=== PATIENT | female | born 1985 | race Caucasian/White ===

== ENCOUNTER → 2018-06-01 13:30 | Outpatient (CLI) | payer OTHER, SELFPAY ==
[2018-06-01 13:41] LABS: Mucous, Urine 0 SEEN /hpf (<or=2+)
[2018-06-01 15:52] LABS: Color, Urine Straw (Yellow); Glucose, Dipstick Normal (Normal); Ketone-Dipstick Negative (Negative); Leukocyte Esterase-Dipstick 500 /ul (Negative); Nitrite-Dipstick Negative (Negative); Occult Blood-Urine 150 /ul (Negative); Protein-Dipstick 15 mg/dl (Negative); Specific Gravity, Urine 1.005 (1.002-1.030); Urine Bilirubin Dipstick Negative (Negative); Urine Clarity Sl. Cloudy (Clear); Urine Urobilinogen Normal (Normal)
[2018-06-01 16:08] LABS: Bacteria RARE /hpf (None Seen); Red Blood Cells-Urine 10-25 SEEN /hpf (0-5); Squamous Epithelial Cells - UA 0-5 SEEN /hpf (5-10); White Blood Cells 50-100 SEEN /hpf (0-5)
[2018-06-01 18:03] LABS: Chlamydia Trachomatis by PCR Negative (Negative); Neisserai gonorrhoeae by PCR Negative (Negative); Probe Check PASS; Sample Adequacy Control PASS; Specimen Processing Control PASS; Trichomonas Vag DNA by PCR Negative (Negative)
== END ==
PROVIDERS: Visit Provider Obstetrics & Gynecology
DX: N39.0 Urinary tract infection, site not specified (principal); Z11.3 Encounter for screening for infections with a predominantly sexual mode of transmission
CPT/HCPCS: 81001; 87086; 87088; 87186; 87491; 87591; 87661

== ENCOUNTER → 2020-09-15 | Outpatient (CLI) | payer OTHER, SELFPAY ==
[2020-09-18 08:09] LABS: Chlamydia By Nucleic Acid AMP Negative (Negative)
[2020-09-18 10:55] LABS: Gonococcus By Nucleic Acid AMP Negative (Negative)
[2020-09-22 16:47] LABS: HPV Reflexed? NOT INDICATED
== END | disposition home or self-care (01) ==
LOC: LABSPEC 16:50
PROVIDERS: Visit Provider Student in an Organized Health Care Education/Training Program
DX: Z12.4 Encounter for screening for malignant neoplasm of cervix (principal); Z11.3 Encounter for screening for infections with a predominantly sexual mode of transmission
CPT/HCPCS: 87491; 87591; 88175; G0145

== ENCOUNTER 2020-12-03 19:04 | Emergency (ER) | payer OTHER, SELFPAY ==
[2020-12-03 19:05] VITALS: BP 140/74; PULSE 69; PULSE 70; RESP 16; TEMP 35.6; O2SAT 100; BMI 42.7
--- NOTE | 2020-12-03 19:42 | CT_ITS ---
STUDY: CT ABDOMEN AND PELVIS WITH CONTRAST REASON FOR EXAM: Female, 35 years old. BLOATING UPPER ABDOMINAL PAIN, FOOD MAKES WORSE, GASTRIC BYPASS IN [place] APRIL 2020. RADIATION DOSAGE (If Supplied By Facility): CTDIvol = ( 14.975 ) mGy, DLP = ( 1257.57 ) mGycm TECHNIQUE: Transaxial images were obtained from the dome of the diaphragm to the symphysis pubis without oral contrast. Oral and amp; IV Gastrografin and amp; 100mL Isovue-300 was administered. Sagittal and coronal images were reconstructed. Individualized dose optimization techniques were used for this CT. COMPARISON: None. FINDINGS: The visualized lung bases are unremarkable. The visualized portions of the heart are within normal limits. Normal liver. There is non-visualization of the gallbladder, which may be secondary to either contraction or a prior cholecystectomy. Normal spleen. Normal pancreas. Normal bilateral adrenal glands. Normal right kidney. Normal left kidney. There is evidence of a prior gastric bypass. There is gastric wall thickening and stranding within the adjacent fat within the residual mid/distal stomach adjacent to the anastomotic sutures. No extraluminal air nor extravasated contrast is visualized. There is contrast within the small bowel. Normal colon. There is non-visualization of the appendix. Normal abdominal aorta. Normal inferior vena cava. Normal retroperitoneum. Normal urinary bladder. There is a intrauterine device in place and in grossly satisfactory position. Within the left adnexa there is a 2.6 x 4.2 x 2.7 cm well-circumscribed low attenuation round focus with an appearance suggestive of an ovarian cyst. Normal abdominal wall. There is degenerative disc disease at L5-S1. CT/Abdomen/Pelvis WITH Contrast IMPRESSION: Findings suggestive of inflammation adjacent to gastric bypass sutures may be secondary to underlying gastritis; no contrast extravasation nor extraluminal air is visualized. 2.6 x 4.2 x 2.7 cm left ovarian cyst, consider nonemergent pelvic ultrasound for further characterization. Electronically Signed: Suzanne Uribe MD at 21:41 EST Tel , Service support ,
--- NOTE | 2020-12-03 19:43 | ED.DCSUM_ITS ---
- ER Visit Summary Date of Service: 12/03/20 Chief Complaint: [Abdominal pain] History of Present Illness: The patient is a 35 F [presents to the emergency department complaint of abdominal pain that she has had for the last 2 days. Patient states that she has a bloated feeling in the upper abdomen that is worse with breathing sometimes. Patient states food seems to make it worse and if she does not eat it is not too bad. Patient states that she had a gastric bypass revision done in [place] in April 2020. Patient denies any fever. She denies vomiting. She denies diarrhea. Her last bowel movement was 2 days ago. She denies urinary symptoms. Patient has had her gallbladder removed. She denies urinary symptoms.] Physical Examination: [HEENT-PERRLA, EOMI. Cranial nerves II through XII grossly intact. TMs clear. Mucous membranes moist. No adenopathy. Cardiovascular-regular rate and rhythm without murmur or ectopy Lungs-clear to auscultation, chest wall stable without crepitus or subcu emphysema Abdomen-normoactive bowel sounds, soft. Patient has tenderness palpation over the epigastric region in the left upper quadrant. There is no rebound, rigidity, or peritoneal signs. Extremities-intact ?4, normal range of motion, normal pulses, atraumatic] Test Results: [CBC with differential obtained showed a white count of 9.4, hemoglobin 10.8, hematocrit 36, platelets 656. Chemistries unremarkable. LFTs normal. Lipase normal. Urinalysis normal. Troponin is less than 0.015. Lactate was 0.9. D-dimer was 0.5. CT scan of the abdomen pelvis showed inflammation adjacent to the gastric bypass sutures which may represent gastritis. There is no contrast extravasation.] Emergency Department Course and Treatment: [IV line established on arrival. Patient did not want a thing for pain. I discussed case with general surgeon telecommunications support who recommended that I discussed case with a bariatric surgeon as this was outside the realm of her practice. Patient had prior gastric sleeve placement in 2017 at [facility] by therefore I called [facility] and spoke with one of his partners Dr. Groves who agreed that likely this represents a gastritis versus a ulcer development in the pouch of the remnant stomach. I was asked to start patient on Protonix 40 mg twice daily and have her call the office for a follow-up appointment in the near term with our office. She may need further evaluation such as possible EGD. Patient has not had any significant vomiting. She is not had any blood in her stool or black tarry stools. Patient to stick to a clear liquid diet for the next 2 days] Treatment Plan: [Patient to follow-up with bariatric surgeon in [place]. Patient will be started on Protonix. Patient advised to return if worsening p ain, fever, vomiting, or condition worsen anyway.] Disposition: [Discharged home in stable condition] Impression: [Abdominal pain Gastritis] This note was generated with [employer] dictation software. It may contain incorrect words, spelling, and punctuation that were not noted in review of the chart prior to signing ED Disposition - Plan for ED Patient: Referrals: Percy Mcgowan MD [Primary Care Provider] -
[2020-12-03] MEDS: 0.9% Normal Saline 1,000 ML 125 ML IV (20:24)
[2020-12-03 20:26] LABS: Bacteria 0 SEEN /hpf (None Seen); Mucous, Urine 0 SEEN /hpf (<or=2+); Red Blood Cells-Urine 0 SEEN /hpf (0-5); White Blood Cells 0 SEEN /hpf (0-5)
[2020-12-03 20:30] LABS: Color, Urine Yellow (Yellow); Glucose, Dipstick Normal (Normal); Ketone-Dipstick 5 mg/dl (Negative); Leukocyte Esterase-Dipstick Negative /ul (Negative); Nitrite-Dipstick Negative (Negative); Occult Blood-Urine 10 /ul (Negative); Protein-Dipstick Negative (Negative); Specific Gravity, Urine 1.015 (1.002-1.030); Urine Bilirubin Dipstick Negative (Negative); Urine Clarity Clear (Clear); Urine Urobilinogen Normal (Normal)
[2020-12-03 20:30] LABS: Absolute Lymphocyte Count 2.95 X10^3/uL (0.83-4.51); Absolute Neutrophil Count 5.6 X10^3/uL (2.0-7.7); Basophil# 0.03 X10^3/uL; Basophil% 0.3 % (0-1); Eosinophils% 1.1 % (0-5); Hematocrit 36.3 % (37-47); Hemoglobin 10.8 g/dL (12.0-15.0); Lymphocyte # 2.95 X10^3/ul (4.0); Lymphocyte % 31.4 % (19-41); Mean Corp Hgb Conc 29.8 g/dL (32-36); Mean Corpuscular Hgb 23.6 pg (27.0-32.0); Mean Corpuscular Volume 79.4 fL (81-99); Mean Platelet Vol. 8.7 fl (6.2-12.0); Monocyte# 0.64 X10^3/uL; Monocyte% 6.8 % (0-10); NRBC Flagged by Analyzer 0 % (0-5); Neutrophil # 5.64 X10^3/uL (2.7-7.7); Neutrophil % 60.1 % (47-70); Platelet Count 656 K/mm3 (150-450); RBC Distribution Width CV 15.9 % (11.6-14.6); RBC Distribution Width SD 45.1 fl (35.1-43.9); Red Blood Count 4.57 M/mm3 (4.2-5.4); White Blood Count 9.4 K/mm3 (4.4-11.0)
[2020-12-03 20:40] LABS: Squamous Epithelial Cells - UA 0-5 SEEN /hpf (5-10)
[2020-12-03 20:54] LABS: ALB/GLOB Ratio 0.7 RATIO (0.9-2.4); AST(SGOT) 15 U/L (15-37); Alanine Aminotransfer ALT/SGPT 24 U/L (13-56); Albumin, Serum 3.4 g/dL (3.2-5.0); Alkaline Phosphatase 98 U/L (45-117); Anion Gap 4 (5-15); BUN 10 mg/dL (7-18); BUN/Creat Ratio 14.2 RATIO (10-20); Calcium,Total 9.2 mg/dL (8.5-10.1); Chloride 107 mmol/L (98-107); EST Glomerular Filtration Rate 99 mL/min (>60); Est Glom Filt Rate - Afr Amer 120 mL/min (>60); Estimated Creatinine Clearance 103.01 ml/min; Globulin 4.7 g/dL (2.2-4.2); Glucose 84 mg/dL (74-106); Internal QC Validated? YES +Cl - CLEAR BKGD; Lipase 121 U/L (73-393); Potassium 3.7 mmol/L (3.5-5.1); Pregnancy, Serum, hCG Quali. NEGATIVE Negative; Protein, Total 8.1 g/dL (6.4-8.2); Sodium Level 139 mmol/L (136-145)
[2020-12-03 21:05] VITALS: RESP 16
[2020-12-03 21:09] LABS: Lactic Acid 0.9 mmol/L (0.4-1.9)
[2020-12-03 23:00] VITALS: BP 128/83; PULSE 55; RESP 18; O2SAT 99
--- NOTE | 2020-12-04 00:54 | ED.DEP ---
ED Disposition - Plan for ED Patient: Instructions: ED Gastritis (Adult) Prescriptions: Pantoprazole Sodium [Protonix] 40 mg PO BID #60 tab Prescription Printed Referrals: Percy Mcgowan MD [Primary Care Provider] - Additional Instructions: Call Dr. Esquivel or Dr. Groves for follow up appointment
[2020-12-04] MEDS: Pantoprazole Sodium 40 MG Tablet PO (01:00)
== END 2020-12-04 01:02 | disposition home or self-care (01) ==
LOC: ED 20:35
PROVIDERS: Emergency Provider Emergency Medicine; PCP Family Medicine
DX: K29.70 Gastritis, unspecified, without bleeding (principal); Z98.84 Bariatric surgery status
CPT/HCPCS: 74177; 80053; 81001; 83605; 83690; 84484; 84703; 85025; 85379; 96360; 96361; 99284; J7030; Q9967; A4216

== ENCOUNTER → 2021-02-23 | Outpatient (CLI) | payer OTHER, SELFPAY ==
[2021-02-25 03:07] LABS: Chlamydia By Nucleic Acid AMP Negative (Negative)
[2021-02-25 11:32] LABS: Gonococcus By Nucleic Acid AMP Negative (Negative)
== END | disposition home or self-care (01) ==
LOC: LABSPEC 11:27
PROVIDERS: PCP Family Medicine; Visit Provider Obstetrics & Gynecology
DX: Z11.3 Encounter for screening for infections with a predominantly sexual mode of transmission (principal)
CPT/HCPCS: 87491; 87591

== ENCOUNTER → 2022-05-04 | Outpatient (CLI) | payer OTHER, SELFPAY ==
[2022-05-11 22:06] LABS: HPV Genotype 16, Aptima Negative (Negative)
[2022-05-11 22:42] LABS: HPV APTIMA, High Risk Positive (Negative); HPV Genotype 18,45 Aptima Negative (Negative)
== END | disposition home or self-care (01) ==
LOC: WOBLAB 16:33
PROVIDERS: PCP Family Medicine; Visit Provider Student in an Organized Health Care Education/Training Program
DX: Z12.4 Encounter for screening for malignant neoplasm of cervix (principal); Z13.29 Encounter for screening for other suspected endocrine disorder
CPT/HCPCS: 36415; 84443; 87624; 88175; G0145

== ENCOUNTER → 2024-10-03 | Outpatient (CLI) | payer OTHER, SELFPAY ==
[2024-10-03 12:18] LABS: Absolute Lymphocyte Count 2.51 X10^3/uL (0.83-4.51); Absolute Neutrophil Count 4.4 X10^3/uL (2.0-7.7); Basophil# 0.02 X10^3/uL; Basophil% 0.3 % (0-1); Eosinophil# 0.06 X10^3/uL; Eosinophils% 0.8 % (0-5); Hematocrit 36.9 % (37-47); Hemoglobin 11.4 g/dL (12.0-15.0); Lymphocyte # 2.51 X10^3/ul (0.83-4.51); Lymphocyte % 33.5 % (19-41); Mean Corp Hgb Conc 30.9 g/dL (32-36); Mean Corpuscular Hgb 28.4 pg (27.0-32.0); Mean Platelet Vol. 9.1 fl (6.2-12.0); Monocyte# 0.46 X10^3/uL; Monocyte% 6.1 % (0-10); NRBC Flagged by Analyzer 0 % (0-5); Neutrophil % 58.8 % (47-70); Platelet Count 452 K/mm3 (150-450); RBC Distribution Width CV 13.4 % (11.6-14.6); RBC Distribution Width SD 45.2 fl (35.1-43.9); Red Blood Count 4.01 M/mm3 (4.2-5.4); White Blood Count 7.5 K/mm3 (4.4-11.0)
[2024-10-03 13:02] LABS: Vitamin B12 223 pg/mL (211-911); Vitamin D,25 Hydroxy 25.2 ng/mL
[2024-10-03 13:06] LABS: ALB/GLOB Ratio 0.8 RATIO (0.9-2.4); AST(SGOT) 14 U/L (15-37); Alanine Aminotransfer ALT/SGPT 12 U/L (13-56); Albumin, Serum 3.1 g/dL (3.2-5.0); Alkaline Phosphatase 62 U/L (45-117); Anion Gap 4 (5-15); BUN 12 mg/dL (7-18); BUN/Creat Ratio 26.1 RATIO (10-20); Calcium,Total 8.9 mg/dL (8.5-10.1); Chloride 107 mmol/L (98-107); Creatinine, Serum 0.46 mg/dL (0.55-1.02); EST Glomerular Filtration Rate 159 mL/min (>60); Est Glom Filt Rate - Afr Amer 193 mL/min (>60); Ferritin 27 ng/mL (8-252); Globulin 3.9 g/dL (2.2-4.2); Glucose 89 mg/dL (74-106); Iron 71 ug/dL (50-170); Iron Binding Capacity,Total 445 ug/dL (250-450); Potassium 3.6 mmol/L (3.5-5.1); Sodium Level 138 mmol/L (136-145); Thyroid Stim Hormone (TSH) 0.671 uIU/mL (0.358-3.740)
[2024-10-08 05:06] LABS: Beef <0.10 kU/L (Class 0); Chocolate <0.10 kU/L (Class 0); Codfish <0.10 kU/L (Class 0); Corn <0.10 kU/L (Class 0); Egg, Whole <0.10 kU/L (Class 0); Milk (Cow) <0.10 kU/L (Class 0); Mussels <0.10 kU/L (Class 0); Peanut <0.10 kU/L (Class 0); Pork <0.10 kU/L (Class 0); Salmon <0.10 kU/L (Class 0); Shrimp <0.10 kU/L (Class 0); Soybean <0.10 kU/L (Class 0); Tuna <0.10 kU/L (Class 0); Wheat <0.10 kU/L (Class 0)
[2024-10-13 12:08] LABS: Endomysial Antibody IgA Negative (Negative); Immunoglobulin A 199 mg/dL (87-352); Vitamin A, Retinol 59.2 ug/dL (20.1-62.0); t-Transglutaminase IgA <2 U/mL (0-3)
== END | disposition home or self-care (01) ==
PROVIDERS: PCP Family Medicine; Referring Provider Nurse Practitioner Acute Care; Visit Provider Nurse Practitioner Acute Care
DX: K58.2 Mixed irritable bowel syndrome (principal); K21.9 Gastro-esophageal reflux disease without esophagitis; Z98.84 Bariatric surgery status; R14.0 Abdominal distension (gaseous); R14.3 Flatulence; R10.9 Unspecified abdominal pain; R13.10 Dysphagia, unspecified
CPT/HCPCS: 36415; 80053; 82306; 82607; 82728; 82784; 83516; 83540; 83550; 84443; 84590; 85025; 86003; 86005; 86255

== ENCOUNTER 2025-02-05 17:09 | Emergency (ER) | payer OTHER, SELFPAY ==
[2025-02-05 17:11] VITALS: BP 134/59; PULSE 61; RESP 18; TEMP 37.1; O2SAT 100; BMI 35.2
[2025-02-05 17:44] VITALS: BP 134/59; PULSE 61; RESP 16; TEMP 37.1; O2SAT 100
--- NOTE | 2025-02-05 18:02 | EX.ED.VISEXT ---
HPI History of Present Illness Chief Complaint: Bite Narrative Narrative: Chief complaint and HPI: Wound evaluation. 39-year-old female presents for wound evaluation. Patient states she was bitten by her significant others dog accidentally on 01/28/2025. She states that they recently moved into with each other and their animals got into an altercation. She was bit on the lateral aspect of her left thigh. Dogs are up-to-date on rabies. She is up-to-date on tetanus. She states she had leftover Augmentin at home in which she took a 3-day supply of this. She states she stopped taking it because she developed a vaginal yeast infection. She states that this improved with [id number] cream. Patient states that she noticed some firmness to the bite area and called PCP. Concern is for possible abscess so they sent her to the emergency department. She denies any fever, chills, abdominal pain, nausea, vomiting. Denies any drainage from the area. Review of systems: See HPI Medications: As listed on the chart Allergies: As listed on the chart PFSH: Per chart Vital signs: As listed on the chart. Reviewed. Physical exam: Gen: A&O x3, NAD Head: Normocephalic, atraumatic Eyes: No sclera icterus, conjunctiva clear ENT: Moist mucous membranes CV: Regular rate Resp: Nonlabored respirations Musc: Full ROM of the left lower extremity, no deformity, on the lateral aspect of the left thigh there are multiple puncture wounds from the dog bite-they are healing and scabbed over-no erythema, purulence, warmth. In the center of the curved shaped healing puncture wounds there is an area of induration-no erythema, purulence, warmth-nontender. There is scattered ecchymosis. Skin: Warm, dry Neuro: Alert, oriented, grossly intact, sensation intact Psych: Cooperative, appropriate mood and affect [facility] Medical History (Updated 02/05/25 @ 18:[address] Harrison Moses DO) Bloating Abdominal distention Depression Anemia Abdominal pain Stomach ulcer Home Medications ?Medication ?Instructions ?Recorded ?Last Taken ?Type escitalopram oxalate 10 mg tablet 10 mg PO DAILY 12/03/20 Unknown History drospirenone 3 mg-ethinyl 1 tab PO QDAY 10/03/24 Unknown History estradiol 0.03 mg tablet (Ocella) pantoprazole 40 mg tablet,delayed 40 mg PO QDAY 10/03/24 Unknown History release Allergy/AdvReac Type Severity Reaction Status Date / Time oxycodone (From OxyContin) Allergy Rash Verified 02/05/25 17:11 Family History no significant family his Surgical History H/O gastric bypass Social History Smoking Status: Former smoker EXAM Physical Exam Const Vital Signs: 02/05/25 17:11 02/05/25 17:44 Temperature 98.7 F 98.7 F Temperature Source Oral Pulse Rate 61 61 Respiratory Rate 18 16 Blood Pressure 134/59 H 134/59 H Blood Pressure Mean 84 84 Pulse Ox 100 100 MDM MDM MDM Narrative Medical decision making narrative: 39-year-old female presents for wound evaluation. Patient states she was bitten by her significant others dog accidentally on 01/28/2025. Differential diagnosis includes but is not limited to hematoma, seroma, abscess, cellulitis. See physical exam findings. Physical exam findings are consistent with hematoma. This is not an abscess or cellulitis. Patient was educated that hematomas will slowly absorb over time. No acute intervention. Recommended compression with an Alessandro bandage. Patient states she has one at home. Continue to monitor. Follow-up with PCP. Patient is able to discharge home. She confirmed understanding of the plan. Impression: 1. Left thigh hematoma 2. History of dog bite Discharge Plan Triage Chief Complaint: Bite ED Provider: Harrison Moses Dx/Rx/DC Orders Clinical Impression: Hematoma of left thigh Instructions: Bruises (Contusions), ED Dog Bite Prescriptions: No Action pantoprazole 40 mg tablet,delayed release (DR/EC) 40 mg PO QDAY drospirenone-ethinyl estradiol [Ocella] 3-0.03 mg tablet 1 tab PO QDAY escitalopram oxalate 10 MG tablet 10 mg PO DAILY Primary Care Provider: Percy Mcgowan Referrals: Percy Mcgowan MD [Primary Care Provider] - 3-5 Days Activity Restrictions/Additional Instructions: Follow-up with your primary care physician. Return back to ED if symptoms change or worsen Print Language: Mongolian Disposition Disposition: Home, Self Care Discharge Date/Time: 02/05/25 18:04
== END 2025-02-05 18:04 | disposition home or self-care (01) ==
PROVIDERS: Emergency Provider Surgery; PCP Family Medicine; Visit Provider Surgery
DX: S70.12XA Contusion of left thigh, initial encounter (principal); W54.0XXA Bitten by dog, initial encounter; F32.A Depression, unspecified; Z87.19 Personal history of other diseases of the digestive system; Z79.899 Other long term (current) drug therapy; Z87.891 Personal history of nicotine dependence
CPT/HCPCS: 99282

== ENCOUNTER 2025-04-05 05:35 | Day surgery (SDC) | payer OTHER, SELFPAY ==
[2025-04-05] VITALS (7 sets, daily range): BP systolic 102–115; BP diastolic 52–74; PULSE 55–62; RESP 16; TEMP 36.2–36.3; O2SAT 99–100; BMI 35.5
[2025-04-05] MEDS: Lactated Ringers 1,000 ML 15 ML IV (06:05)
[2025-04-05 06:10] LABS: Internal QC Validated? YES +Cl - CLEAR BKGD; Pregnancy, Urine Negative Negative
--- NOTE | 2025-04-05 06:30 | EGD_PTH ---
PATIENT: KRISTA SPARKS LOC: EN U#:[id number] AGE/SX: 39/F ROOM: RE04/05/[address]: Dr. Prabhu Cleary DO : 1985 BED: DIS: 04/05/2025 SPEC #: [id number] RECD: 04/05/25 10:55 STATUS: RADHA BOLTON #: [id number] JESSI: 04/05/25 06:[address]: Prabhu Cleary DEPT: SURGICAL PATHOLOGY RECD BY: Breezy Simpson ENTERED: 04/05/25 11:14 SP TYPE: EGD BIOPSY NAGI DR: Dr. Percy Mcgowan MD Tissues: A - COLON BIOPSY B - Ileum, NOS C - COLON BIOPSY Procedures: Immunohistochemical Stains Surgery Specimen Level IV HEADER OPERATION: Colonoscopy, EGD with biopsy PRE-OP DIAGNOSIS: History of gastric bypass, bloating, flatulence, irritable bowel syndrome, dysphagia TISSUE SUBMITTED: A- Anastomotic ulcer biopsy, B- Terminal ileum biopsy, C- Random colonic biopsy MICROSCOPIC DIAGNOSIS A. Gastrointestinal tract nos, anastomotic ulcer, biopsy: Small intestinal mucosa with acute inflammation, edema, and focal gastric mucin cell metaplasia. B. Small bowel, terminal ileum, biopsy: Small intestinal mucosa with prominent mucosal lymphoid aggregates, favor reactive. C. Colon, random, biopsy: No specific pathologic change. The histologic features of microscopic colitis are not demonstrated. MICROSCOPIC DESCRIPTION Slides are reviewed. GROSS DESCRIPTION A. Received in formalin in a container labeled with the patient's name, date of , and anastomotic ulcer are 2 meyer-pink fragments of mucosal tissue measuring 0.3 x 0.3 x 0.2 cm and 0.4 x 0.3 x 0.2 cm. Submitted in toto in A1. B. Received in formalin in a container labeled with the patient's name, date of , and terminal ileum biopsy are multiple meyer-pink fragments of mucosal tissue measuring 0.8 x 0.7 x 0.3 cm in aggregate. Submitted in toto in B1. C. Received in formalin in a container labeled with the patient's name, date of , and random colonic biopsies are multiple meyer-pink fragments of mucosal tissue measuring 1.1 x 0.6 x 0.2 cm in aggregate. Submitted in toto in C1. [facility] 04-05-2025 CPT:[id number] ADDENDUM ADDENDUM ADDENDUM ADDENDUM ADDENDUM ADDENDUM ADDENDUM ADDENDUM ADDENDUM ADDENDUM ADDENDUM 04/24/2025 11:18 ADDENDUM 04/24/2025 11:18 ADDENDUM 04/24/2025 11:18 ADDENDUM 04/24/2025 11:18 ADDENDUM 04/24/2025 11:18 This addendum is to report the IHC for H pylori on part A, performed at Dr Cleary's request: A) IHC is negative for H pylori organisms. All matched controls reacted appropriately. These tests were developed and their performance characteristics determined by [facility]. They may not have been cleared or approved by the U.S. Food and Drug Administration. The FDA has determined that such clearance or approval is not necessary.? The above immunohistochemical/dualISH?markers are ordered and reviewed by the Pathologist.
--- NOTE | 2025-04-05 06:44 | PRE.ANES_ITS ---
ASA Classification* ASA Classification ASA Classification: 2 Assessment & Plan Anesthesia* Anesthesia Assessment Anesthesia Assessment: Discussed sedation and/or anesthesia options, risks, benefits, and alternatives with patient/parents/legal guardian/POA. Questions invited. The patient/parents/legal guardian/POA seems to understand and agrees to proceed with anesthesia plan. Reviewed the physical assessment, medical history, allergy history and patient home medications list prior to surgery/procedure/anesthetic and documented any changes. Performed airway and anesthesia risk assessments. Anesthesia Type Anesthesia Type: MAC Anesthesia Focused Assessment* Temperature: 97.3 F Pulse Rate: 59 Blood Pressure: 112/52 Respiratory Rate: 16 Pulse Ox: 100 Airway Assessment Mouth opens: >3 cm Mallampati Score: II Focused Labs Anesthesia Preop lab: CBC WBC 7.5 K/mm3 (4.4-11.0) 10/03/24 11:51 10/03/24 RBC 4.01 M/mm3 (4.2-5.4) L 10/03/24 11:51 10/03/24 Hgb 11.4 g/dL (12.0-15.0) L 10/03/24 11:51 4 Hct 36.9 % (37-47) L 10/03/24 11:51 10/03/24 Plt Count 452 K/mm3 (150-450) H 10/03/24 11:51 10/03/24 CHEMISTRY Potassium 3.6 mmol/L (3.5-5.1) 10/03/24 11:51 10/03/24 Sodium 138 mmol/L (136-145) 10/03/24 11:51 10/03/24 BUN 12 mg/dL (7-18) 10/03/24 11:51 10/03/24 Creatinine 0.46 mg/dL (0.55-1.02) L 10/03/24 11:51 Glucose 89 mg/dL (74-106) 10/03/24 11:51 10/03/24 TSH 0.671 uIU/mL (0.358-3.740) 10/03/24 11:51 09/15 COAG Urine Test Negative Negative 04/05/25 05:42 04/05/25 Pre-Assessment Diagnosis/Proposed Procedure Planned Operative Procedure(s): EGD, CSCOPE Anesthesia History 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 When Was Last Pacemaker Check QUESTION #4 FULL TEXT: You/Your Family Experience fever (hyperthermia) with Anesthesia Last Oral Intake Last Oral intake: Last Oral Intake NPO since 02:30 04/05/25 05:56 Meds taken in AM with sips of No 04/05/25 05:56 water? 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 Female Yes 04/04/25 08:21 HX of Motion Sickness No 04/04/25 08:21 HX of N/V After Surgery No 04/04/25 08:21 Non-Smoker Yes 04/04/25 08:21 Duration of Surgery greater No 04/04/25 08:21 than 60 minutes Number of Risk Factors 2 04/04/25 08:21 PONV Score Moderate Risk 04/04/25 08:21 Height & Weight Height & Weight: Anesthesia: Height & Weight Height 5 ft 6 in 04/05/25 05:56 Weight: 99.79 kg 04/05/25 05:56 Body Mass Index (BMI) 35.5 04/05/25 05:56 Respiratory Assessment Respiratory Assessment - 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 Has anyone observed you stop No 04/04/25 08:21 breathing during sleep? STOP Results Negative 04/04/25 08:21 QUESTION #5 FULL TEXT : Do you snore loudly (louder than talking or can be heard through closed doors)? 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 Specify any problems Hx of Preganancy in last 3 N/A 04/04/25 08:21 Months Nurse Filling Out Transfusion NBUCHER 04/04/25 08:21 & Questions: Date: 04/04/25 04/04/25 08:21 Time: 08:22 04/04/25 08:21 Patient unable to answer at this time (ie. 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 Hx Now No 04/04/25 08:21 Gestational Age (in weeks): EDC: Hx Hx Para Hx Section SAB Active Medications Active Medications: Current Medications Generic Name Dose Route Start Last Admin Trade Name Freq PRN Reason Stop Dose Admin Lactated Ringer's 1,000 mls @ 15 mls/hr 04/05/25 05:45 04/05/25 06:05 IV 15 mls/hr .Q48H KOBI Administration PFSH Medical History Wears contact lenses Wears glasses History of ulceration History of IBS Former smoker Bloating Abdominal distention Depression Anemia Abdominal pain Stomach ulcer Home Medications ?Medication ?Instructions ?Recorded ?Last Taken ?Type escitalopram oxalate 10 mg tablet 10 mg PO DAILY 12/0304/04/25 History drospirenone 3 mg-ethinyl 1 tab PO QDAY 10/03/2404/04 History estradiol 0.03 mg tablet (Ocella) pantoprazole 40 mg tablet,delayed 40 mg PO QDAY 04/04/25 History release Allergy/AdvReac Type Severity Reaction Status Date / Time oxycodone (From OxyContin) Allergy Rash Verified 04/05/25 05:47 Surgical History History of esophagogastroduodenoscopy (EGD) History of tonsillectomy History of partial knee replacement History of abdominoplasty History of cholecystectomy H/O gastric bypass Social History Smoking Status: Former smoker Review of Systems (Anesthesia) ROS Narrative System reviewed and no additional complaints, except as documented.
--- NOTE | 2025-04-05 06:55 | PCM.HP.STD ---
HPI - General General Date of Admission: 04/05/25 Date of Service: 04/05/25 Chief Complaint: Abdominal pain HPI Narrative KRISTA SPARKS, is a 39 F who presents with abd discomfort and bloating 39y/o female presents for consultation of abdominal pain. CBC, CMP and Fe panel were unremarkable March 2024. CBC: 03/25/2024 unremarkable - she reports symptoms date back to high school - was on Imodium often for diarrhea - CCX - diarrhea after dining out - reports she had H. Pylori prior to gastric sleeve - Gastric Sleeve - alternating constipation and diarrhea ----- later had conversion to bypass 2019 - then a gastric ulcer 2020 - total weight loss 100lbs - she reports she does not take her vitamins as recommended - she is still having alternating constipation and diarrhea - episodes of fecal incontinence - c/o bloating - c/o flatulence - constipation - can be a few days w/o a BM then will have hard balls of stool - having episodes diarrhea - urgency, incontinence - sx's worse in the past couple years - denies any bleeding - denies any new medications - gas and flatulence - foul odor - 2 episodes in the past week of vomiting secondary to dysphagia - reports experiencing dysphagia more with pasta - has trouble swallowing capsules - does not feel good after eating ground beef B: protein shake L: salad or left overs D: protein (mainly chicken) [facility] Medical History Wears contact lenses Wears glasses History of ulceration History of IBS Former smoker Bloating Abdominal distention Depression Anemia Abdominal pain Stomach ulcer Home Medications ?Medication ?Instructions ?Recorded ?Last Taken ?Type escitalopram oxalate 10 mg tablet 10 mg PO DAILY 12/03/20 04/04/25 History drospirenone 3 mg-ethinyl 1 tab PO QDAY 10/03/24 04/04/25 History estradiol 0.03 mg tablet (Ocella) pantoprazole 40 mg tablet,delayed 40 mg PO QDAY 10/03/24 04/04/25 History release Allergy/AdvReac Type Severity Reaction Status Date / Time oxycodone (From OxyContin) Allergy Rash Verified 04/05/25 05:47 Surgical History History of esophagogastroduodenoscopy (EGD) History of tonsillectomy History of partial knee replacement History of abdominoplasty History of cholecystectomy H/O gastric bypass Social History Smoking Status: Former smoker ROS Constitutional Constitutional: Denies fatigue, fever(s), poor appetite, weight gain or weight loss Gastrointestinal Gastrointestinal: Denies belching, bloating, change in bowel habits, change in stool character, chewing difficulty, coffee ground emesis, constipation, cramping, diarrhea, dyspepsia, dysphagia, early satiety, excessive flatus, fecal incontinence, heartburn, hematemesis, hematochezia, hemorrhoids, loose stools, melena, nausea, odynophagia, rectal bleeding, tenesmus, vomiting or weight changes Vital Signs Vital Signs Vital Signs: 04/05/25 05:56 04/05/25 05:59 04/05/25 06:44 Temperature 97.3 F L 97.3 F L Temperature Source Temporal Pulse Rate 59 L 59 L Respiratory Rate 16 16 Respiratory Pattern Normal Blood Pressure 112/52 L 112/52 L Blood Pressure Mean 72 Blood Pressure Source Monitor Blood Pressure Position Semi-Fowlers Blood Pressure Location Left Arm Pulse Ox 100 100 Oxygen Delivery Method Room Air Weight Weight: 220 lb Body Mass Index (BMI) 35.5 Physical Exam Const alert, oriented x3, no apparent distress and healthy appearing General Appearance: cooperative GI normal to inspection, nondistended, normoactive bowel sounds, soft to palpation, non-tender and non-distended Percussion: normal to percussion Rectal Exam: deferred Results Lab / Micro Data Labs: Laboratory Results - last 24 hr 04/05/25 05:42: Urine Test Negative Assessment & Plan Assessment/Plan (1) Dysphagia: QUALIFIERS: Dysphagia type: esophageal phase Qualified Code(s): R13.19 - Other dysphagia (2) Mixed irritable bowel syndrome: (3) GERD (gastroesophageal reflux disease): QUALIFIERS: Esophagitis presence: esophagitis presence not specified Qualified Code(s): K21.9 - Gastro-esophageal reflux disease without esophagitis (4) Bloating: (5) Flatulence: PLAN: Assessment and Plan Assessment and Plan (1) Abdominal symptoms: (2) Bloating: Status: Acute (3) Abdominal pain: Status: Acute Qualifiers: Abdominal location: epigastric Qualified Code(s): R10.13 - Epigastric pain Comment: Epigastric and RLQ (4) H/O gastric bypass: Status: Acute (5) Flatulence: Status: Acute (6) Bloating: Status: Acute (7) GERD (gastroesophageal reflux disease): Status: Acute Qualifiers: Esophagitis presence: esophagitis presence not specified Qualified Code(s): K21.9 - Gastro-esophageal reflux disease without esophagitis (8) Mixed irritable bowel syndrome: Status: Acute (9) Dysphagia: Status: Acute Qualifiers: Dysphagia type: esophageal phase Qualified Code(s): R13.19 - Other dysphagia Orders: Orders CBC W/Diff, Automated Today K21.9 - Gastro-esophageal reflux disease without esophagitis, K58.2 - Mixed irritable bowel syndrome, R10.9 - Unspecified abdominal pain, R13.10 - Dysphagia, unspecified, R14.0 - Abdominal distension (gaseous), R14.3 - Flatulence, Z98.84 - Bariatric surgery status Iron Binding Capacity,Total Today K21.9 - Gastro-esophageal reflux disease without esophagitis, K58.2 - Mixed irritable bowel syndrome, R10.9 - Unspecified abdominal pain, R13.10 - Dysphagia, unspecified, R14.0 - Abdominal distension (gaseous), R14.3 - Flatulence, Z98.84 - Bariatric surgery status Iron Today K21.9 - Gastro-esophageal reflux disease without esophagitis, K58.2 - Mixed irritable bowel syndrome, R10.9 - Unspecified abdominal pain, R13.10 - Dysphagia, unspecified, R14.0 - Abdominal distension (gaseous), R14.3 - Flatulence, Z98.84 - Bariatric surgery status Ferritin Today K21.9 - Gastro-esophageal reflux disease without esophagitis, K58.2 - Mixed irritable bowel syndrome, R10.9 - Unspecified abdominal pain, R13.10 - Dysphagia, unspecified, R14.0 - Abdominal distension (gaseous), R14.3 - Flatulence, Z98.84 - Bariatric surgery status Comprehensive Metabolic Profil Today K21.9 - Gastro-esophageal reflux disease without esophagitis, K58.2 - Mixed irritable bowel syndrome, R10.9 - Unspecified abdominal pain, R13.10 - Dysphagia, unspecified, R14.0 - Abdominal distension (gaseous), R14.3 - Flatulence, Z98.84 - Bariatric surgery status Vitamin D,25 Hydroxy Today K21.9 - Gastro-esophageal reflux disease without esophagitis, K58.2 - Mixed irritable bowel syndrome, R10.9 - Unspecified abdominal pain, R13.10 - Dysphagia, unspecified, R14.0 - Abdominal distension (gaseous), R14.3 - Flatulence, Z98.84 - Bariatric surgery status Vitamin A, Retinol Today K21.9 - Gastro-esophageal reflux disease without esophagitis, K58.2 - Mixed irritable bowel syndrome, R10.9 - Unspecified abdominal pain, R13.10 - Dysphagia, unspecified, R14.0 - Abdominal distension (gaseous), R14.3 - Flatulence, Z98.84 - Bariatric surgery status Pancreatic Elastase, Fecal Today K21.9 - Gastro-esophageal reflux disease without esophagitis, K58.2 - Mixed irritable bowel syndrome, R10.9 - Unspecified abdominal pain, R13.10 - Dysphagia, unspecified, R14.0 - Abdominal distension (gaseous), R14.3 - Flatulence, Z98.84 - Bariatric surgery status Calprotectin, Stool Today K21.9 - Gastro-esophageal reflux disease without esophagitis, K58.2 - Mixed irritable bowel syndrome, R10.9 - Unspecified abdominal pain, R13.10 - Dysphagia, unspecified, R14.0 - Abdominal distension (gaseous), R14.3 - Flatulence, Z98.84 - Bariatric surgery status Esophagus Dual Contrast Today K21.9 - Gastro-esophageal reflux disease without esophagitis, K58.2 - Mixed irritable bowel syndrome, R10.9 - Unspecified abdominal pain, R13.10 - Dysphagia, unspecified, R14.0 - Abdominal distension (gaseous), R14.3 - Flatulence, Z98.84 - Bariatric surgery status Miscellaneous Lab Procedure Today K21.9 - Gastro-esophageal reflux disease without esophagitis, K58.2 - Mixed irritable bowel syndrome, R10.9 - Unspecified abdominal pain, R13.10 - Dysphagia, unspecified, R14.0 - Abdominal distension (gaseous), R14.3 - Flatulence, Z98.84 - Bariatric surgery status Celiac Disease Profile Today K21.9 - Gastro-esophageal reflux disease without esophagitis, K58.2 - Mixed irritable bowel syndrome, R10.9 - Unspecified abdominal pain, R13.10 - Dysphagia, unspecified, R14.0 - Abdominal distension (gaseous), R14.3 - Flatulence, Z98.84 - Bariatric surgery status CDIFF (PCR) Today K21.9 - Gastro-esophageal reflux disease without esophagitis, K58.2 - Mixed irritable bowel syndrome, R10.9 - Unspecified abdominal pain, R13.10 - Dysphagia, unspecified, R14.0 - Abdominal distension (gaseous), R14.3 - Flatulence, Z98.84 - Bariatric surgery status Allergen, Food Profile 14 Today K21.9 - Gastro-esophageal reflux disease without esophagitis, K58.2 - Mixed irritable bowel syndrome, R10.9 - Unspecified abdominal pain, R13.10 - Dysphagia, unspecified, R14.0 - Abdominal distension (gaseous), R14.3 - Flatulence, Z98.84 - Bariatric surgery status Thyroid Stim Hormone (TSH) Today K21.9 - Gastro-esophageal reflux disease without esophagitis, K58.2 - Mixed irritable bowel syndrome, R10.9 - Unspecified abdominal pain, R13.10 - Dysphagia, unspecified, R14.0 - Abdominal distension (gaseous), R14.3 - Flatulence, Z98.84 - Bariatric surgery status Vitamin B12 Today K21.9 - Gastro-esophageal reflux disease without esophagitis, K58.2 - Mixed irritable bowel syndrome, R10.9 - Unspecified abdominal pain, R13.10 - Dysphagia, unspecified, R14.0 - Abdominal distension (gaseous), R14.3 - Flatulence, Z98.84 - Bariatric surgery status Plan 39y/o female presents for consultation of abdominal pain. CBC, CMP and Fe panel were unremarkable March 2024. PMH is significant for IBS-D, CCX, Gastric Sleeve with conversion to bypass in 2020, Gastric ulcer, H. pylori positive. She reports a long history of IBS-D dating back to high school. Over the past few years she has experienced alternating constipation and diarrhea with episodes of fecal urgency and incontinence. She c/o excessive bloating and flatulence. She also reports a long history of GERD manage with pantoprazole 40mg daily. More recently she has experienced upper esophageal dysphagia with vomiting to dislodge. I have ordered labs and stool testing, Esophagram and scheduled her for bidirectional scopes. She will trial a lactose free diet in the interim and keep us apprised of any changes in her symptoms. Patient Instructions: 1. Esophagram 2. Colonoscopy and EGD 3. Complete labs and stool testing 4. Continue pantoprazole 5. Trial 2 week lactose free diet 6. Add Benefiber 2tsp once a day in 8 ounces of fluid - may take up to 3 weeks before you notice any benefit 7. Follow-up in office 2 weeks post procedure
--- NOTE | 2025-04-05 07:20 | PCM.POST.ANE ---
Anesthesia: Postop Eval I Current Vital Signs Temperature: 97.2 F Pulse Rate: 62 Blood Pressure: 113/58 Respiratory Rate: 16 Pulse Ox: 100 Oxygen Delivery Method: Room Air Assessment Airway patent: Yes Spontaneous unlabored respirations: Yes Mental status: Awake and Calm nausea: No Vomiting: No Anesthesia Complication: No Fluid Hydration Crystalloid volume administer (ml): 300 Total IV fluid infused: 300 Progress Note Anesthesia document: Postop Eval 1 completed: Yes
--- NOTE | 2025-04-05 07:29 | OP.EGD_ITS ---
Patient Name: Ale Bell Procedure Date: 04/05/2025 6:35 AM Date of : 1985 Age: 39 Procedure: Upper GI endoscopy Indications: Epigastric abdominal pain Providers: Prabhu Cleary DO Referring MD: Percy Mcgowan Medicines: Monitored Anesthesia Care Patient Profile: This is a 39 year old female. Refer to note in patient chart for documentation of history and physical. Patient has symptoms of acute epigastric abdominal pain. Complications: No immediate complications. Procedure: Pre-Anesthesia Assessment: - Prior to the procedure, a History and Physical was performed, and patient medications and allergies were reviewed. The patient is competent. The risks and benefits of the procedure and the sedation options and risks were discussed with the patient. All questions were answered and informed consent was obtained. Patient identification and proposed procedure were verified by the physician in the pre-procedure area. Mental Status Examination: alert and oriented. Airway Examination: normal oropharyngeal airway and neck mobility. Respiratory Examination: clear to auscultation. CV Examination: normal. Prophylactic Antibiotics: The patient does not require prophylactic antibiotics. Prior Anticoagulants: The patient has taken no anticoagulant or antiplatelet agents except for NSAID medication. ASA Grade Assessment: II - A patient with mild systemic disease. After reviewing the risks and benefits, the patient was deemed in satisfactory condition to undergo the procedure. The anesthesia plan was to use monitored anesthesia care (MAC). Immediately prior to administration of medications, the patient was re-assessed for adequacy to receive sedatives. The heart rate, respiratory rate, oxygen saturations, blood pressure, adequacy of pulmonary ventilation, and response to care were monitored throughout the procedure. The physical status of the patient was re-assessed after the procedure. After obtaining informed consent, the endoscope was passed under direct vision. Throughout the procedure, the patient's blood pressure, pulse, and oxygen saturations were monitored continuously. The Colonoscope was introduced through the mouth, and advanced to the anastomosis site of gastric bypass. The upper GI endoscopy was accomplished without difficulty. The patient tolerated the procedure well. 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 The gastrojejunal anastomosis was characterized by ulceration and visible sutures. This was traversed. The idvpr-hk-qyunnjc limb was characterized by ulceration. The jejunojejunal anastomosis was characterized by healthy appearing mucosa. The dprnocic-hx-gjxwjxl limb was examined. The excluded stomach was not examined as it could not be found. Biopsies were taken with a cold forceps for histology. Verification of patient identification for the specimen was done. Estimated blood loss was minimal. The examined jejunum was normal. 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 Biopsied. - Normal examined jejunum. Recommendation: - Discharge patient to home. - Resume previous diet. - Continue present medications. - Await pathology results. Procedure Code(s): --- Professional --- 40455, Esophagogastroduodenoscopy, flexible, transoral; with biopsy, single or multiple CPT copyright 2021 [employer]. All rights reserved. The codes documented in this report are preliminary and upon remote inpatient coder review may be revised to meet current compliance requirements. Prabhu Cleary DO 04/05/2025 7:28:21 AM This report has been signed electronically. Number of Addenda: 0 Note Initiated On: 04/05/2025 6:35 AM
--- NOTE | 2025-04-05 07:29 | OP.CCLET_ITS ---
04/05/2025 Percy Mcgowan Re : Upper GI endoscopy procedure for Ale Salasr Roslyn This procedure was performed on Saturday, April 05, 2025. My impressions and recommendations are as follows: Impressions : - Heena-en-Y gastrojejunostomy with gastrojejunal anastomosis characterized by ulceration and visible sutures. Biopsied. - Normal examined jejunum. Recommendations : - Discharge patient to home. - Resume previous diet. - Continue present medications. - Await pathology results. My findings are described in the full procedure note, which is enclosed. If I can be of further assistance, please feel free to contact me at . Sincerely, Prabhu Cleary, 04/05/2025 7:28:21 AM This report has been signed electronically.
--- NOTE | 2025-04-05 07:31 | OP.COLON_ITS ---
Patient Name: Ale Bell Procedure Date: 04/05/2025 7:06 AM Date of : 1985 Age: 39 Procedure: Colonoscopy Indications: Generalized abdominal pain, Periumbilical abdominal pain, Lower abdominal pain, Upper abdominal pain Providers: Prabhu Cleary DO Referring MD: Percy Mcgowan Medicines: Monitored Anesthesia Care Patient Profile: This is a 39 year old female. Refer to note in patient chart for documentation of history and physical. Patient has symptoms of acute epigastric abdominal pain. Last Colonoscopy: none. The patient's first colonoscopy is today. Complications: No immediate complications. Procedure: Pre-Anesthesia Assessment: - Prior to the procedure, a History and Physical was performed, and patient medications and allergies were reviewed. The patient is competent. The risks and benefits of the procedure and the sedation options and risks were discussed with the patient. All questions were answered and informed consent was obtained. Patient identification and proposed procedure were verified by the physician in the pre-procedure area. Mental Status Examination: alert and oriented. Airway Examination: normal oropharyngeal airway and neck mobility. Respiratory Examination: clear to auscultation. CV Examination: normal. Prophylactic Antibiotics: The patient does not require prophylactic antibiotics. Prior Anticoagulants: The patient has taken no anticoagulant or antiplatelet agents except for NSAID medication. ASA Grade Assessment: II - A patient with mild systemic disease. After reviewing the risks and benefits, the patient was deemed in satisfactory condition to undergo the procedure. The anesthesia plan was to use monitored anesthesia care (MAC). Immediately prior to administration of medications, the patient was re-assessed for adequacy to receive sedatives. The heart rate, respiratory rate, oxygen saturations, blood pressure, adequacy of pulmonary ventilation, and response to care were monitored throughout the procedure. The physical status of the patient was re-assessed after the procedure. After I obtained informed consent, the scope was passed under direct vision. Throughout the procedure, the patient's blood pressure, pulse, and oxygen saturations were monitored continuously. The Colonoscope was introduced through the anus and advanced to the terminal ileum. The colonoscopy was performed without difficulty. The patient tolerated the procedure well. The quality of the bowel preparation was adequate. The terminal ileum, ileocecal valve, appendiceal orifice, and rectum were photographed. Scope In: 7:08:18 AM Scope Withdrawal Time 0 hours 7 minutes 39 seconds Scope Out: 7:18:54 AM Total Procedure Duration Time 0 hours 10 minutes 36 seconds Findings: The perianal and digital rectal examinations were normal. An area of mildly congested mucosa was found in the recto-sigmoid colon, at the hepatic flexure, in the ascending colon and in the cecum. Biopsies were taken with a cold forceps for histology. Verification of patient identification for the specimen was done. Estimated blood loss was minimal. Estimated blood loss was minimal. A patchy area of the terminal ileum was congested. Biopsies were taken with a cold forceps for histology. Verification of patient identification for the specimen was done. Estimated blood loss was minimal. Impression: - Congested mucosa in the recto-sigmoid colon, at the hepatic flexure, in the ascending colon and in the cecum. Biopsied. - Congested mucosa in the terminal ileum. Biopsied. Recommendation: - Discharge patient to home. - Resume previous diet. - Continue present medications. - Await pathology results. - Repeat colonoscopy is recommended for surveillance. The colonoscopy date will be determined after pathology results from today's exam become available for review. Procedure Code(s): --- Professional --- 34140, Colonoscopy, flexible; with biopsy, single or multiple CPT copyright 2021 [employer]. All rights reserved. The codes documented in this report are preliminary and upon navy seal review may be revised to meet current compliance requirements. Prabhu Cleary DO 04/05/2025 7:31:16 AM This report has been signed electronically. Number of Addenda: 0 Note Initiated On: 04/05/2025 7:06 AM
--- NOTE | 2025-04-05 07:31 | OP.CCLET_ITS ---
04/05/2025 Percy Mcgowan Re : Colonoscopy procedure for Ale Bell Dear Roslyn This procedure was performed on Saturday, April 05, 2025. My impressions and recommendations are as follows: Impressions : - Congested mucosa in the recto-sigmoid colon, at the hepatic flexure, in the ascending colon and in the cecum. Biopsied. - Congested mucosa in the terminal ileum. Biopsied. Recommendations : - Discharge patient to home. - Resume previous diet. - Continue present medications. - Await pathology results. - Repeat colonoscopy is recommended for surveillance. The colonoscopy date will be determined after pathology results from today's exam become available for review. My findings are described in the full procedure note, which is enclosed. If I can be of further assistance, please feel free to contact me at . Sincerely, Prabhu Cleary, 04/05/2025 7:31:16 AM This report has been signed electronically.
--- NOTE | 2025-04-05 08:31 | POSTOPAN2_ITS ---
Anesthesia Postop Eval I Sum Postop Eval Completion status Anesthesia document: Postop Eval 1 completed: Yes Anesthesia Postop Eval I Summary Anesthesia Postop Eval I Summary: Anesthesia Postop Eval I: Assessment Summary Airway patent Yes 04/05/25 07:25 WALL CRANE [email or web address] Spontaneous unlabored Yes 04/05/25 07:25 WALL CRANE [email or web address] respirations Mental status Awake,Calm 04/05/25 07:25 WALL CRANE [email or web address] nausea No 04/05/25 07:25 WALL CRANE [email or web address] Vomiting No 04/05/25 07:25 WALL CRANE [email or web address] Anesthesia Postop Eval I: Fluid Summary Crystalloid volume administer 300 04/05/25 07:25 WALL CRANE [email or web address] (ml) Colloids volume administered ( ml) Blood Product volume administered (ml) Total IV fluid infused 300 04/05/25 07:25 WALL CRANE [email or web address] Anesthesia Postop Eval I: Summary Notes Anesthesia Complication No 04/05/25 07:25 WALL CRANE [email or web address] Anesthesia Complication Comment: Post-operative progress note Anesthesia: Postop Eval II Evaluation Mental status: Awake Pain Level: 0 nausea: No Vomiting: No
--- NOTE | 2025-04-05 08:31 | PCM.POSTANE2 ---
Anesthesia Postop Eval I Sum Postop Eval Completion status Anesthesia document: Postop Eval 1 completed: Yes Anesthesia Postop Eval I Summary Anesthesia Postop Eval I Summary: Anesthesia Postop Eval I: Assessment Summary Airway patent Yes 04/05/25 07:25 CLOTH [email or web address] Spontaneous unlabored Yes 04/05/25 07:25 CLOTH [email or web address] respirations Mental status Awake,Calm 04/05/25 07:25 CLOTH [email or web address] nausea No 04/05/25 07:25 CLOTH [email or web address] Vomiting No 04/05/25 07:25 CLOTH [email or web address] Anesthesia Postop Eval I: Fluid Summary Crystalloid volume administer 300 04/05/25 07:25 CLOTH [email or web address] (ml) Colloids volume administered ( ml) Blood Product volume administered (ml) Total IV fluid infused 300 04/05/25 07:25 CLOTH [email or web address] Anesthesia Postop Eval I: Summary Notes Anesthesia Complication No 04/05/25 07:25 CLOTH [email or web address] Anesthesia Complication Comment: Post-operative progress note Anesthesia: Postop Eval II Evaluation Mental status: Awake Pain Level: 0 nausea: No Vomiting: No
== END 2025-04-05 08:01 | disposition home or self-care (01) ==
LOC: EN 05:35 → AC 05:36
PROVIDERS: Anesthesiology; PCP Family Medicine; Referring Provider Family Medicine; Visit Provider Internal Medicine Gastroenterology
PROC: 0DJD8ZZ Inspection of Lower Intestinal Tract, Via Natural or Artificial Opening Endoscopic (ICD-10-PCS; CPT 45378; principal; 2025-04-05 06:25)
DX: K31.A0 Gastric intestinal metaplasia, unspecified (principal); K21.9 Gastro-esophageal reflux disease without esophagitis; Z87.891 Personal history of nicotine dependence; Z79.899 Other long term (current) drug therapy; Z98.84 Bariatric surgery status; Z98.0 Intestinal bypass and anastomosis status; K25.9 Gastric ulcer, unspecified as acute or chronic, without hemorrhage or perforation; F32.A Depression, unspecified; K52.9 Noninfective gastroenteritis and colitis, unspecified
CPT/HCPCS: 45380; 43239; 81025; 88305

== ENCOUNTER 2025-07-24 05:44 | Day surgery (SDC) | payer OTHER, SELFPAY ==
[2025-07-24] VITALS (7 sets, daily range): BP systolic 93–119; BP diastolic 49–79; PULSE 56–62; RESP 12–18; TEMP 36.1–37; O2SAT 100; BMI 34.4
--- OUTSIDE RECORDS SUMMARY | 2025-07-24 05:48 | XMS RPT_ITS | CCD ---
Author Organization [facility] Care Team Providers Care Box Press Operator Name Role Phone Percy Huang Unavailable Unavailable Percy Huang Admitting Unavailable Percy Huang Attending Unavailable Percy Huang Primary Care Provider Percy Huang Primary Care Provider [phone] PERCY PALMER Admitting Unavailable ESTLEAPERCY HERNANDEZ Attending Unavailable ESTELAPERCY HERNANDEZ Primary Care Unavailable ESTELAPERCY HERNANDEZ Admitting Unavailable ESTELAPERCY HERNANDEZ Attending Unavailable PERCY PALMER Primary Care Unavailable Percy Huang MD Primary Care Provider Percy Huang MD Primary Care Provider JACK LINDA Admitting Unavailab JACK Braga Attending Unavailab PERCY Oropeza Primary Care Unavailable JACK LINDA Admitting Unavailab PERCY [place]ropeza Primary Care Unavailable Percy Huang MD Primary Care Provider Percy Huang MD Primary Care Provider Percy Huang MD Primary Care Provider Percy Huang MD Primary Care Provider Percy Huang MD Primary Care Provider Percy Huang MD Primary Care Provider Percy Huang MD Primary Care Provider PERCY HUANG Referring Unavailable PERCY HUANG Primary Care Unavailable PERCY HUANG Referring Unavailable PERCY HUANG Primary Care Unavailable PERCY HUANG Referring Unavailable PERCY HUANG Primary Care Unavailable CHERIE SAEED Attending Unavail able PERCY HUANG Primary Care Unavailable Haagen FOREX TRADER.GRID TRIMMER, Montserrat Unavailable Suppan FOREX TRADER.GRID TRIMMER, Riddhi A Unavailable Suppan FOREX TRADER.GRID TRIMMER, Riddhi A Unavailable Dr. Percy Huang MD Primary Care Provider Dr. Harrison Moses DO Emergency Provider SELINA MEJIA Attending Unavailable SAL, PERCY Banks Primary Care Unavailable SELINA MEJIA Referring Unavailable SELINA MEJIA Admitting Unavailable SAL, PERCY Banks Primary Care Unavailable SAL, PERCY Banks Primary Care Unavailable REINA RENNER Attending Unavailable CHRISTIAN, FRED Attending Unavailable KITKO, FRED Referring Unavailable SAL, PERCY Banks Primary Care Unavailable KITKO, FRED Referring Unavailable SAL, PERCY Banks Primary Care Unavailable SHAKIRA MATHEWS Attending Unavailable SHAKIRA MATHEWS Referring Unavailable SAL, PERCY Banks Primary Care Unavailable SELF Referring Unavailable SAL, PERCY Banks Primary Care Unavailable SAL, PERCY Banks Attending Unavailable SAL, PERCY Banks Referring Unavailable SAL, PERCY Banks Primary Care Unavailable SAL, PERCY Banks Referring Unavailable SAL, PERCY Banks Primary Care Unavailable SAL, PERCY Banks Referring Unavailable SAL, PERCY Banks Primary Care Unavailable SAL, PERCY Banks Referring Unavailable SAL, PERCY Banks Primary Care Unavailable [place], Percy Referring Unavailable Anu Colvin Attending Unavailable Sal, Percy Referring Unavailable [place], Percy Primary Care Unavailable FriendPrabhu Consulting Unavailable FriendPrabhu Attending Unavailable [place], Percy Primary Care Unavailable Sal, Percy Referring Unavailable FriendPrabhu Attending Unavailable Sal, Percy Referring Unavailable Sal, Percy Primary Care Unavailable FriendPrabhu Attending Unavailable Sal, Percy Primary Care Unavailable Anu Colvin Attending Unavailable Anu Colvin Referring Unavailable Harrison Moses Attending Unavailabl e Sal, Percy Primary Care Unavailable Allergies Allergy Classification Reported Allergen(s) Allergy Type Date of Onset Reaction(s) Facility (20 sources) oxyCODONE; Translations: [OXYCODONE] Drug Allergy 10-18-2022 Rash, Unknown [facility] (1 source) oxyCODONE Drug Allergy 07-22-2025 [facility] Repository Medications Current Medications Medication Drug Class(es) Dates Sig (Normalized) Sig (Original) acetaminophen 325 mg oral tablet (7 sources) Start: 03-10-2021 End: 03-20-2021 take 2 tablets by mouth every four hours acetaminophen (TYLENOL) 325 MG tablet Take 2 (two) tablets (650 mg total) by mouth every 4 (four) hours for 10 days . 30 tablet 0 03/10/2021 03/20/2021 Active Start: 03-10-2021 End: 03-10-2021 take 650 mg by mouth every four hours 650 mg, Oral, Every 4 hours scheduled, First dose on Tue03/10/21 at 1200 acetaminophen 325 mg / HYDROcodone bitartrate 5 mg oral tablet (5 sources) Opioid Agonist Start: 04-24-2021 End: 05-01-2021 take 1 tablet by mouth every eight hours as needed for pain HYDROcodone-acetaminophen (NORCO) 5-325 mg per tablet Indications: Status post left partial knee replacement Take 1 (one) tablet by mouth every 8 (eight) hours as needed for pain . 21 tablet 0 04/24/2021 05/01/2021 Active Start: 03-27-2021 End: 04-10-2021 take 1 tablet by mouth every six hours as needed for pain HYDROcodone-acetaminophen (NORCO) 5-325 mg per tablet Indications: Status post left partial knee replacement Take 1 (one) tablet by mouth every 6 (six) hours as needed for pain . 28 tablet 0 04/03/2021 04/10/2021 Active Start: 12-08-2020 End: 12-08-2020 take 2 tablets by mouth every twenty-four hours as needed 2 tablet, Oral, Once as needed, Pain, Starting Tue12/08/20 at 1235, For 1 dose, PACU (only) While in PACU when tolerating orals. Use oral route first, if tolerated. cyclobenzaprine hydrochloride 5 mg oral tablet (9 sources) Muscle Relaxant Start: 03-27-2021 End: 04-06-2021 take 2 tablets by mouth three times daily as needed for muscle spasms cyclobenzaprine (FLEXERIL) 5 MG tablet Take 2 (two) tablets (10 mg total) by mouth 3 (three) times a day as needed for muscle spasms . 30 tablet 0 03/27/2021 04/06/2021 Active Start: 03-10-2021 End: 03-20-2021 take 1 tablet by mouth three times daily as needed for muscle spasms cyclobenzaprine (FLEXERIL) 10 MG tablet Take 1 (one) tablet (10 mg total) by mouth 3 (three) times a day as needed for muscle spasms . 30 tablet 0 03/10/2021 03/20/2021 Active drospirenone / Ethinyl Estradiol (20 sources) Progestin, Estrogen Start: 06-13-2025 End: 05-15-2026 take 1 tablet by mouth once daily Drospirenone-Ethinyl Estradiol 3-0.03 mg per tablet Indications: Encounter for surveillance of contraceptive pills Take 1 tablet by mouth once daily. 84 tablet 3 06/13/2025 05/15/2026 Active Start: 03-08-2025 End: 06-13-2025 take 1 tablet by mouth once daily Drospirenone-Ethinyl Estradiol 3-0.03 mg per tablet Indications: Encounter for surveillance of contraceptive pills Take 1 tablet by mouth once daily. 84 tablet 3 03/08/2025 06/13/2025 Discontinued Start: 03-08-2025 End: 02-07-2026 take 1 tablet by mouth once daily Drospirenone-Ethinyl Estradiol 3-0.03 mg per tablet Indications: Encounter for surveillance of contraceptive pills Take 1 tablet by mouth once daily. 84 tablet 3 03/08/2025 02/07/2026 Active Start: 10-03-2024 take 3 tablets by mo [facility] once daily Drospirenone-Ethinyl Estradiol (Ocella) 3-0.03 mg tablet Active 1 {tbl} PO daily October 03, 2024 1:00am Start: 09-24-2024 End: 08-26-2025 take 1 tablet by mouth once daily Drospirenone-Ethinyl Estradiol 3-0.03 mg per tablet Indications: Encounter for surveillance of contraceptive pills Take 1 tablet by mouth once daily. 84 tablet 3 09/24/2024 08/26/2025 Active Start: 03-30-2024 take 1 tablet by damien th once daily Drospirenone-Ethinyl Estradiol 3-0.03 mg per tablet Indications: Encounter for surveillance of contraceptive pills Take 1 tablet by mouth once daily. 28 tablet 5 03/30/2024 Active Start: 03-30-2024 End: 09-14-2024 take 1 tablet by mouth once daily Drospirenone-Ethinyl Estradiol 3-0.03 mg per tablet Indications: Encounter for surveillance of contraceptive pills Take 1 tablet by mouth once daily. 28 tablet 5 03/30/2024 09/14/2024 Active Start: 10-27-2023 End: 03-30-2024 take 1 tablet by mouth once daily Drospirenone-Ethinyl Estradiol 3-0.03 mg per tablet Indications: Encounter for surveillance of contraceptive pills Take 1 tablet by mouth once daily. 84 tablet 3 10/27/2023 03/30/2024 Discontinued Start: 10-27-2023 take 1 tablet by damien th once daily Drospirenone-Ethinyl Estradiol 3-0.03 mg per tablet Indications: Encounter for surveillance of contraceptive pills Take 1 tablet by mouth once daily. 84 tablet 3 10/27/2023 Active Start: 10-27-2023 End: 12-22-2023 take 1 tablet by mouth once daily Drospirenone-Ethinyl Estradiol 3-0.03 mg per tablet Indications: Encounter for surveillance of contraceptive pills Take 1 tablet by mouth once daily. 84 tablet 3 10/27/2023 12/22/2023 Active Start: 08-26-2023 End: 10-27-2023 take 1 tablet by mouth once daily Drospirenone-Ethinyl Estradiol 3-0.03 mg per tablet Take 1 tablet by mouth once daily. 28 tablet 1 08/26/2023 10/27/2023 Discontinued Start: 08-26-2023 End: 10-21-2023 take 1 tablet by mouth once daily Drospirenone-Ethinyl Estradiol 3-0.03 mg per tablet Take 1 tablet by mouth once daily. 28 tablet 1 08/26/2023 10/21/2023 Active Start: 06-27-2023 End: 08-26-2023 take 1 tablet by mouth once daily Drospirenone-Ethinyl Estradiol 3-0.03 mg per tablet Take 1 tablet by mouth once daily. 28 tablet 1 06/27/2023 08/26/2023 Discontinued Start: 06-27-2023 End: 08-22-2023 take 1 tablet by mouth once daily Drospirenone-Ethinyl Estradiol 3-0.03 mg per tablet Take 1 tablet by mouth once daily. 28 tablet 1 06/27/2023 08/22/2023 Active Start: 02-23-2021 take 1 tablet by damien th once daily, then take 3 tablets by mouth once drospirenone-ethinyl estradioL (ROSIE) 3-0.03 mg per tablet Take 1 tablet by mouth daily . 02/23/2021 Active Start: 02-23-2021 take 1 tablet by damien th once daily, then take 3 tablets by mouth once drospirenone-ethinyl estradioL (ROSIE) 3-0.03 mg per tablet Take 1 tablet by mouth daily . 0 02/23/2021 Suspended Start: 02-23-2021 take 1 tablet by damien th once daily, then take 3 tablets by mouth once drospirenone-ethinyl estradioL (ROSIE) 3-0.03 mg per tablet Take 1 tablet by mouth daily . 0 02/23/2021 Active Start: 08-09-2015 End: 12-08-2020 take 1 tablet by mouth once daily OCELLA 3-0.03 mg per tablet Take 1 tablet by mouth daily. 12 08/09/2015 12/08/2020 Discontinued (Error) Start: 08-09-2015 take 1 tablet by damien th once daily OCELLA 3-0.03 mg per tablet Take 1 tablet by mouth daily. 12 08/09/2015 Active Start: 08-02-2013 End: 06-27-2023 take 1 tablet by mouth once daily Drospirenone-Ethinyl Estradiol 3-0.03 mg per tablet Take 1 tablet by mouth once daily. 0 08/02/2013 06/27/2023 Discontinued Start: 08-02-2013 take 1 tablet by damien th once daily Drospirenone-Ethinyl Estradiol 3-0.03 mg per tablet Take 1 tablet by mouth once daily. 0 08/02/2013 Active Start: 08-02-2013 take 1 tablet by damien th once daily, then take 3 tablets by mouth once Drospirenone-Ethinyl Estradiol (OCELLA) 3-0.03 mg per tablet Take 1 tablet by mouth once daily. 0 08/02/2013 Active Comment on above: Take 1 tablet by damien th once daily. 0.4 ml enoxaparin sodium 100 mg/ml prefilled syringe (8 sources) Low Molecular Weight Heparin Start: End: inject 0.4 mL by subcutaneous injection twice daily enoxaparin (LOVENOX) 40 mg/0.4 mL Syrg Inject 0.4 mL (40 mg total) under the skin 2 (two) times a day for 21 days Start: 03/11/21. 16.8 mL 0 03/11/2021 04/01/2021 Active Start: 03-11-2021 End: 03-10-2021 inject 40 mg by subcutaneous injection twice daily 40 mg, Subcutaneous, 2 times daily, First dose on Tue03/11/21 at 0900 Administer in abdomen unless otherwise directed by prescriber. Notify physician if patient refuses. Indication: VTE Prophylaxis escitalopram 10 mg oral tablet (20 sources) Serotonin Reuptake Inhibitor Start: 03-11-2021 End: 03-10-2021 take 20 mg by mouth once daily in the morning 20 mg, Oral, Every morning, First dose on Tue03/11/21 at 0900 Start: 02-11-2021 End: 10-18-2022 take 1 tablet by mouth once daily escitalopram oxalate (LEXAPRO) 20 mg tablet Indications: Depression, unspecified depression type Take 1 tablet by mouth once daily. 30 tablet 11 06/24/2021 10/18/2022 Discontinued Start: 11-18-2020 End: 10-24-2025 take 1 tablet by mouth once daily escitalopram oxalate (LEXAPRO) 10 mg tablet Indications: Depression, unspecified depression type Take 1 tablet by mouth once daily. 90 tablet 3 04/27/2025 10/24/2025 Active take 2 tablets by mo uth once daily in the morning escitalopram oxalate (LEXAPRO) 10 MG tablet Take 20 mg by mouth every morning . Active Comment on above: Take 1 tablet by damien th once daily. Multivitamin Capsule (1 source) take 1 capsule by mouth once daily multivitamin capsule Take 1 capsule by mouth daily. Active Ocella 3 Mg-0.03 Mg Tablet (2 sources) Start: 08-09-20 take 1 tablet by mouth once daily OCELLA 3-0.03 mg per tablet Take 1 tablet by mouth daily. 12 08/09/2015 Active oxyCODONE hydrochloride 5 mg oral tablet (7 sources) Opioid Agonist Start: 03-10-20 End: 03-17-20 oxyCODONE (ROXICODONE) 5 MG immediate release tablet Indications: S/P left unicompartmental knee replacement Take 1 (one) tablet to 2 (two) tablets (5-10 mg total) by mouth every 4 (four) hours as needed 7 days . 40 tablet 0 03/10/2021 03/17/2021 Active Start: 03-10-2021 End: 03-10-2021 take 5-10 mg by mouth every three hours as needed 5-10 mg, Oral, Every 3 hours PRN, moderate to severe pain, Starting 03/10/21 at 1014 [] Initiate with 5 mg oral every 3 hours prn moderate to severe pain. [] For unrelieved pain, may repeat 5 mg oral dose within 60 minutes of initial dose. [] If pain is RELIEVED after repeat dose, change to 10 mg oral every 3 hours prn moderate to severe pain. [] If pain is UNrelieved after repeat dose, or patient requires dose reduction, call physician. [] If multiple routes are ordered for pain meds, it is recommended that oral be the first choice, IV the second choice, rectal the third choice, and IM the fourth choice. Start: 12-08-2020 End: 12-08-2020 take 5 mg under the tongue every twenty-four hours as needed 5 mg, Sublingual, Once as needed, moderate to severe pain, Pain, Starting 12/08/20 at 1235, For 1 dose, PACU (only) Use first if unable to tolerate oral route. pantoprazole 40 mg delayed release oral tablet (20 sources) Proton Pump Inhibitor Start: 02-03-2023 End: 07-26-2025 take 1 tablet by mouth once daily pantoprazole DR (PROTONIX) 40 mg tablet Indications: Gastroesophageal reflux disease without esophagitis Take 1 tablet by mouth once daily. 90 tablet 3 04/27/2025 07/26/2025 Active Start: 07-29-2022 End: 10-18-2022 take 1 tablet by mouth once daily before breakfast pantoprazole DR (PROTONIX) 40 mg tablet Take 1 tablet by mouth daily before breakfast. Take on empty stomach, 1/2 hr before meal. 90 tablet 1 07/29/2022 10/18/2022 Discontinued Start: 07-29-2022 End: 03-19-2022 take 1 tablet by mouth once daily before breakfast pantoprazole DR (PROTONIX) 40 mg tablet Take 1 tablet by mouth daily before breakfast. Take on empty stomach, 1/2 hr before meal. 90 tablet 1 07/29/2022 Active Start: 03-10-2021 End: 04-10-2021 take 1 tablet by mouth once daily in the evening pantoprazole (PROTONIX) 20 MG tablet Take 1 (one) tablet (20 mg total) by mouth daily Start: 03/11/21. 30 tablet 03/10/2021 4:12 PM EDT 03/11/2021 Active Start: 12-04-2020 End: 10-03-2024 take 1 tablet by mouth twice daily Pantoprazole 40 MG tablet Discontinued 40 mg PO TWICE A DAY 60 December 04, 2020 1:00am October 03, 2024 12:00pm End: 03-19-2022 take 1 tablet by mouth once daily pantoprazole DR (PROTONIX) 40 mg tablet Take 40 mg by mouth once daily. 03/19/2022 Discontinued Comment on above: Take 40 mg by mouth once daily. Take 1 tablet by damien th daily before breakfast. Take on empty stomach, 1/2 hr before meal. Take 1 tablet by damien th once daily. polyethylene glycol 3350 [id number] mg powder for oral solution (5 sources) Osmotic Laxative Start: End: polyethylene glycol (GLYCOLAX) 17 gram/dose powder Take 17 (seventeen) g by mouth daily for 7 days . 119 g 0 03/10/2021 03/17/2021 Active valACYclovir 1000 mg oral tablet (20 sources) Herpesvirus Nucleoside Analog DNA Polymerase Inhibitor, Herpes Simplex Virus Nucleoside Analog DNA Polymerase Inhibitor, Herpes Zoster Virus Nucleoside Analog DNA Polymerase Inhibitor Start: 3 End: 4 take 1 tablet by mouth every twelve hours as needed valACYclovir (VALTREX) 1 gram tablet TAKE 1 TABLET BY MOUTH EVERY 12 HOURS FOR 3 DAYS NEEDED 6 tablet 5 07/31/2024 Active Start: 11-15-2022 take 1 tablet by damien th every twelve hours as needed valACYclovir (VALTREX) 1 gram TAKE 1 TABLET BY MOUTH EVERY 12 HOURS FOR 3 DAYS NEEDED 0 11/15/2022 Active Start: 10-18-2022 End: 10-21-2022 take 1 tablet by mouth every twelve hours as needed valACYclovir (VALTREX) 1 gram Indications: Herpes simplex virus (HSV) infection Take 1 tablet by mouth every 12 hours for 3 days. prn 6 tablet 11 10/18/2022 10/21/2022 Active Start: 10-04-2022 End: 10-18-2022 take 2 tablets by mouth every twelve hours valACYclovir (VALTREX) 1 gram Indications: Herpes simplex virus (HSV) infection Take 2 tablets by mouth every 12 hours. 8 tablet 0 10/08/2022 10/18/2022 Discontinued Start: 11-18-2020 End: 10-01-2022 take 2 tablets by mouth every twelve hours valACYclovir (VALTREX) 1 gram Indications: Herpes simplex virus (HSV) infection Take 2 tablets by mouth every 12 hours. 8 tablet 2 11/18/2020 12/25/2021 Discontinued Start: 02-24-2017 valACYclovir ( VALTREX) 1000 MG tablet Take 1,000 mg by mouth as needed . 2 02/24/2017 Active Start: 02-24-2017 take 2 tablets by mo uth every twelve hours valACYclovir (VALTREX) 1000 MG tablet Take 2 tablets by mouth every 12 hours. 2 02/24/2017 Active Start: 02-24-2017 take 2 tablets by mo uth every twelve hours valACYclovir (VALTREX) 1000 MG tablet Take 2 tablets by mouth every 12 hours. 2 02/24/2017 Active Comment on above: Take 2 tablets by mo uth every 12 hours. Take 1 tablet by damien th every 12 hours for 3 days. prn TAKE 1 TABLET BY DAMIEN TH EVERY 12 HOURS FOR 3 DAYS NEEDED Completed/Discontinued Medications Medication Drug Class(es) Dates Sig (Normalized) Sig (Original) albuterol 0.83 mg/ml inhalation solution (1 source) beta2-Adrenergic Agonist Start: 03-03-2021 End: 03-03-2021 take 2.5 mg by inhalation every twenty-four hours as needed 2.5 mg, Inhalation, Once as needed, wheezing, shortness of breath, Starting Tue03/03/21 at 0836, For 1 dose, PACU (only) biotin 1 mg oral capsule (20 sources) End: 05-29-2025 take 1 capsule by mouth once daily in the morning biotin 1 mg cap Take 1 mg by mouth every morning . 05/29/2025 Discontinued (Patient's Request) End: 03-19-2022 BIOTIN ORAL Take by mouth on ce daily. 03/19/2022 Discontinued End: 03-19-2022 BIOTIN ORAL Take by mouth on ce daily. 0 03/19/2022 Discontinued BIOTIN ORAL Take by mouth once daily. 0 Active Comment on above: Take by mouth once d aily. Take 1 mg by mouth. brompheniramine maleate 0.4 mg/ml / dextromethorphan hydrobromide 2 mg/ml / pseudoephedrine hydrochloride 6 mg/ml oral solution (11 sources) alpha-Adrenergic Agonist, Uncompetitive Z-qphfan-X-aspartate Receptor Antagonist, Sigma-1 Agonist Start: 12-15-19 End: 10-27-20 take 10 mL by mouth four times daily as needed Brompheniramine-Pse udoeph-DM (BROMFED DM) 2-30-10 mg/5 mL syrup Indications: URI, acute Take 10 mL by mouth four times daily as needed. 118 mL 0 12/15/2022 10/27/2023 Discontinued Comment on above: Take 10 mL by mouth four times daily as needed. busPIRone hydrochloride 5 mg oral tablet (20 sources) Start: 03-10-20 End: 03-10-20 take 5 mg by mouth every eight hours 5 mg, Oral, Every 8 hours scheduled, First dose on Tue03/10/21 at 1400 Start: 02-11-2021 End: 05-29-2025 take 1 tablet by mouth three times daily as needed busPIRone (BUSPAR) 5 MG tablet Take 5 mg by mouth 3 (three) times a day as needed . 02/11/2021 05/29/2025 Discontinued (Patient's Request) Comment on above: Take 1 tablet by damien th three times daily. Prn Ca carb-Ca gluc-Mg ox-Mg gluco (Calcium Magnesium) 500 mg calcium -250 mg Tab (2 sources) End: 02-27-2021 Ca carb-Ca gluc-Mg ox-Mg gluco (Calcium Magnesium) 500 mg calcium -250 mg Tab Take 1 tablet by mouth . 0 02/27/2021 Discontinued Ca carb-Ca gluc-Mg ox-Mg gluco (CALCIUM MAGNESIUM) 500 mg calcium -250 mg tab (3 sources) End: 03-19-2022 Ca carb-Ca gluc-Mg ox-Mg gluco (CALCIUM MAGNESIUM) 500 mg calcium -250 mg tab Take 1 tablet by mouth. 03/19/2022 Discontinued End: 03-19-2022 Ca carb-Ca gluc-Mg ox-Mg glu co (CALCIUM MAGNESIUM) 500 mg calcium -250 mg tab Take 1 tablet by mouth. 0 03/19/2022 Discontinued Ca carb-Ca gluc- Mg ox-Mg gluco (CALCIUM MAGNESIUM) 500 mg calcium -250 mg tab Take 1 tablet by mouth. 0 Active Comment on above: Take 1 tablet by damien th. calcium carb/mag carb/folic ac (MAGNESIUM-CALCIUM -FOLIC ACID ORAL) (20 sources) End: 05-29-2025 take 1 tablet by mouth once daily before mealtime calcium carb/mag carb/folic ac (RWMKGOVZP-LIMEWVO-TER IC ACID ORAL) Take 1 tablet by mouth daily Magnesium-calcium vitamin D . 05/29/2025 Discontinued (Patient's Request) take 1 tablet by damien th once daily before mealtime calcium carb/mag carb/folic ac (EWWVRBWOR-BIBIXIT-WRHHD ACID ORAL) Take 1 tablet by mouth daily Magnesium-calcium vitamin D . Active take 1 tablet by damien th once daily before mealtime calcium carb/mag carb/folic ac (VNHWCSEJW-PWUIOIA-LXEQZ ACID ORAL) Take 1 tablet by mouth daily Magnesium-calcium vitamin D . 0 Suspended take 1 tablet by damien th once daily before mealtime calcium carb/mag carb/folic ac (GGEBWERPK-HCROVGW-STDVN ACID ORAL) Take 1 tablet by mouth daily Magnesium-calcium vitamin D . 0 Active calcium carbonate 200 mg / folic acid 1 mg / magnesium carbonate 400 mg oral tablet (12 sources) End: 02-19-2021 take 1 tablet by mouth once daily in the morning iriflhzrp-tuaolsg-mssvh acid 400-200-1 mg Tab Take 1 tablet by mouth every morning . 0 02/19/2021 Discontinued calcium chloride 0.0014 meq/ml / potassium chloride 0.004 meq/ml / sodium chloride 0.103 meq/ml / sodium lactate 0.028 meq/ml injectable solution (5 sources) Start: 03-10-2021 End: 03-10-2021 1,000 mL, Intravenous, at 1, 000 mL/hr, Once, Tue03/10/21 at 1100, For 1 dose Start: 03-10-2021 End: 03-10-2021 take 100 mL intravenously every hour, then take 100 mL intravenously every hour 100 mL/hr, Intravenous, Continuous, Starting Tue03/10/21 at 1100 1000 ml Bolus of Lactated ringers once patient arrives to floor and then lactated ringers 100ml/hour continuous until patient is tolerating oral intake without nausea and then can be saline locked Start: 03-10-2021 End: 03-10-2021 lactated Ringers infusion Start: 12-08-2020 End: 12-08-2020 lactated Ringers infusion ceFAZolin 2000 mg injection (1 source) Cephalosporin Antibacterial Start: 03-10-2021 End: 03-10-2021 take 2000 mg intravenously every eight hours 2,000 mg, Intravenous, at 100 mL/hr, Every 8 hours, First dose on Tue03/10/21 at 1000, For 2 doses, PACU to Post Procedure Starting in pacu. Indication (POST PROCEDURE): Ortho cholecalciferol 0.125 mg oral capsule (20 sources) Vitamin D Start: 07-02-2016 End: 03-19-2022 take 1 capsule by mouth once daily Cholecalciferol, Vitamin D3, 5,000 unit cap Take 1 capsule by mouth once daily. 0 07/02/2016 03/19/2022 Discontinued End: 05-29-2025 take 1 capsule by mouth twice daily cholecalciferol, vitamin D3, 125 mcg (5,000 unit) capsule Take 5,000 Units by mouth 2 (two) times a day . 05/29/2025 Discontinued (Patient's Request) End: 04-27-2025 Cholecalciferol, Vitamin D3, 125 mcg (5,000 unit) cap Take 5,000 Units by mouth. 04/27/2025 Discontinued cholecalciferol, vitamin D3, 2,000 unit cap Take 5,000 Units by mouth 2 (two) times a day . 0 Active take 1 capsule by mo uth once daily in the morning cholecalciferol, vitamin D3, 2,000 unit cap Take 2,000 Units by mouth every morning . 0 Active cholecalciferol, vitamin D3, 2,000 unit cap Take by mouth. 0 Active Comment on above: Take 1 capsule by mo uth once daily. Take 5,000 Units by mouth. CYANOCOBALAMIN, VITAMIN B-12, (VITAMIN B-12 ORAL) (4 sources) End: 03-19-2022 CYANOCOBALAMIN, VITAMIN B-12, (VITAMIN B-12 ORAL) Take by mouth once daily. 03/19/2022 Discontinued End: 03-19-2022 CYANOCOBALAMIN, VITAMIN B-12 , (VITAMIN B-12 ORAL) Take by mouth once daily. 0 03/19/2022 Discontinued CYANOCOBALAMIN, VITAMIN B-12, (VITAMIN B-12 ORAL) Take by mouth once daily. 0 Active Comment on above: Take by mouth once d aily. dexamethasone (DECADRON) 1 mL, triamcinolone acetonide (KENALOG-40) 40 mg/mL 1 mL (6 sources) Start: 07-28-2020 End: 07-30-2020 dexamethasone (DECADRON) 1 mL, triamcinolone acetonide (KENALOG-40) 40 mg/mL 1 mL Start: 04-21-2020 End: 04-21-2020 dexamethasone (DECADRON) 1 m L, triamcinolone acetonide (KENALOG-40) 40 mg/mL 1 mL Start: 08-06-2019 End: 08-07-2019 dexamethasone (DECADRON) 1 m L, triamcinolone acetonide (KENALOG-40) 40 mg/mL 1 mL Start: 04-25-2019 End: 2019 dexamethasone (DECADRON) 1 m L, triamcinolone acetonide (KENALOG-40) 40 mg/mL 1 mL Start: 07-10-2018 End: 07-11-2018 dexamethasone (DECADRON) 1 m L, triamcinolone acetonide (KENALOG-40) 40 mg/mL 1 mL Start: 04-02-2018 End: 04-03-2018 dexamethasone (DECADRON) 1 m L, triamcinolone acetonide (KENALOG-40) 40 mg/mL 1 mL docusate sodium 50 mg / sennosides, alf 8.6 mg oral tablet (1 source) Start: 03-10-2021 End: 03-10-2021 take 1 tablet by mouth twice daily 1 tablet, Oral, 2 times daily, First dose on Tue03/10/21 at 1100 NOT for abdominal surgery patients. Hold for loose stools. Do Not Crush or Chew if administering orally due to bitter taste. May be crushed if given via tube. 20 ml fentaNYL 0.05 mg/ml injection (1 source) Opioid Agonist Start: 12-08-2020 End: 12-08-2020 25 mcg, Intravenous, Every 5 min PRN, Pain, Starting Tue12/08/20 at 1235, For 4 doses, PACU (only) [] Do not give more than 100 mcg while in PACU. ferric carboxymaltose (INJECTAFER) 750 mg in sodium chloride 0.9 % (NS) 250 mL IVPB (4 sources) Start: 03-16-2021 End: 03-16-2021 ferric carboxymaltose (INJECTAFER) 750 mg in sodium chloride 0.9 % (NS) 250 mL IVPB Start: 03-09-2021 End: 03-09-2021 ferric carboxymaltose (INJEC TAFER) 750 mg in sodium chloride 0.9 % (NS) 250 mL IVPB ferrous sulfate 325 mg oral tablet (12 sources) Start: 06-10-2025 End: 06-13-2025 take 1 tablet by mouth twice daily ferrous sulfate (IRON) 325 mg (65 mg iron) tablet Indications: Iron deficiency anemia, unspecified iron deficiency anemia type Take 1 tablet by mouth two times a day. 180 tablet 3 06/10/2025 06/13/2025 Discontinued Start: 12-15-2018 End: 12-15-2019 ferrous sulfate 325 (65 FE) MG tablet Take 325 mg by mouth . 0 12/15/2018 Active 1 ml hydrALAZINE hydrochloride 20 mg/ml injection (1 source) Arteriolar Vasodilator Start: 03-03-2021 End: 03-03-2021 5 mg, Intravenous, Every 15 min PRN, SBP greater than 160 or DBP greater than 90, Starting Tue03/03/21 at 0836, For 4 doses, PACU (only) [] Do not give more than 20 mg total. [] Hold for HR greater than 100. [] Administer if labetalol or metoprolol ineffective at maximum dose or not ordered. 0.5 ml HYDROmorphone hydrochloride 1 mg/ml prefilled syringe (1 source) Opioid Agonist Start: 12-08-2020 End: 12-08-2020 0.25 mg, Intravenous, Every 5 min PRN, Pain, Starting 12/08/20 at 1235, For 6 doses, PACU (only) [] Give if fentanyl not effective or not ordered. [] Do not give more than 1.5 mg total. 1 ml ketorolac tromethamine 30 mg/ml injection (1 source) Nonsteroidal Anti-inflammatory Drug, Cyclooxygenase Inhibitor Start: 03-10-2021 End: 03-10-2021 30 mg, Intravenous, Every 6 hours scheduled, First dose on Tue03/10/21 at 1200, For 48 hours labetalol hydrochloride 5 mg/ml injectable solution (1 source) beta-Adrenergic Ellis Start: 12-08-2020 End: 12-08-2020 5 mg, Intravenous, Every 5 min PRN, SBP greater than 160 or DBP greater than 90, Starting Tue12/08/20 at 1235, For 4 doses, PACU (only) [] Do not give more than 20 mg total. [] Hold for HR less than 50. Lactobacillus acidophilus (18 sources) End: 04-27-2025 Lactobacillus acidophilus (PROBIOTIC ORAL) Take by mouth. 04/27/2025 Discontinued Lactobacillus ac idophilus (PROBIOTIC ORAL) Take by mouth. Active Lactobacillus ac idophilus (PROBIOTIC ORAL) Take by mouth. 0 Active 10 ml lidocaine hydrochloride 10 mg/ml injection (1 source) Antiarrhythmic, Amide Local Anesthetic Start: 12-08-2020 End: 12-08-2020 lidocaine 1% (PF) (XYLOCAINE-MPF) 10 mg/mL (1 %) injection 0.2 mL Start: 12-08-2020 End: 12-08-2020 lidocaine 1% (PF) (XYLOCAINE -MPF) 10 mg/mL (1 %) injection 0.2 mL magnesium hydroxide 80 mg/ml oral suspension (1 source) Start: 03-10-2021 End: 03-10-2021 take 2400 mg by mouth once daily as needed for constipation 2,400 mg (30 mL), Oral, Daily PRN, constipation, contipation, Starting Tu 03/10/21 at 1014 methylPREDNISolone 4 mg oral tablet (13 sources) Corticosteroid Start: 08-18-2018 End: 12-08-2020 methylPREDNISolone (MEDROL DOSEPACK) 4 mg tablet Take 4 mg by mouth See Admin Instructions . 0 08/18/2018 12/08/2020 Discontinued (Error) 5 ml metoprolol tartrate 1 mg/ml injection (1 source) beta-Adrenergic Ellis Start: 03-03-2021 End: 03-03-2021 5 mg, Intravenous, Every 5 min PRN, SBP greater than 160 or DBP greater than 90, Starting Tue03/03/21 at 0836, For 2 doses, PACU (only) [] Do not give more than 10 mg total. [] Hold for HR less than 50. miSOPROStol 0.2 mg oral tablet (20 sources) Prostaglandin E1 Analog Start: 04-05-2025 End: 06-13-2025 miSOPROStol (CYTOTEC) 200 mcg tablet Take 200 mcg by mouth four times daily. Per Dr Cleary 04/05/2025 06/13/2025 Discontinued Start: 12-08-2020 End: 12-08-2021 take 1 tablet by mouth four times daily miSOPROStoL (CYTOTEC) 200 MCG tablet Take 1 (one) tablet (200 mcg total) by mouth 4 (four) times a day . 120 tablet 2 12/08/2020 03/03/2021 Discontinued (Stop Taking at Discharge) End: 03-19-2022 miSOPROStol (CYTOTEC) 200 mc g tablet Take 200 mcg by mouth once daily. Pt reported once daily d/t diarrhea 03/19/2022 Discontinued Comment on above: Take 200 mcg by mout h once daily. Pt reported once daily d/t diarrhea MULTIVIT &MINERALS/FERROUS FUM (MULTI VITAMIN ORAL) (4 sources) End: 03-19-2022 MULTIVIT &MINERALS/FERROUS FUM (MULTI VITAMIN ORAL) Take by mouth. 03/19/2022 Discontinued End: 03-19-2022 MULTIVIT &MINERALS/FERROUS F UM (MULTI VITAMIN ORAL) Take by mouth. 0 03/19/2022 Discontinued MULTIVIT &MINERA LS/FERROUS FUM (MULTI VITAMIN ORAL) Take by mouth. 0 Active Comment on above: Take by mouth. multivitamin (THERAGRAN) per tablet 1 tablet (1 source) Start: 03-10-2021 End: 03-10-2021 take 1 tablet by mouth once daily 1 tablet, Oral, Daily, First dose on Tue03/10/21 at 1200 multivitamin capsule (20 sources) End: 05-29-2025 take 1 capsule by mouth once daily in the morning multivitamin capsule Take 1 capsule by mouth every morning . 05/29/2025 Discontinued (Patient's Request) take 1 capsule by mo uth once daily in the morning multivitamin capsule Take 1 capsule by m outh every morning . Active take 1 capsule by mo uth once daily in the morning multivitamin capsule Take 1 capsule by m outh every morning . 0 Suspended take 1 capsule by mo uth once daily in the morning multivitamin capsule Take 1 capsule by m outh every morning . 0 Active take 1 capsule by mouth once afia ly multivitamin capsule Take 1 capsule by mouth daily. 0 Active take 1 capsule by mouth once afia ly multivitamin capsule Take 1 capsule by mouth daily. Active Multivitamin capsule (20 sources) End: 04-27-2025 take 1 capsule by mouth once daily in the morning Multivitamin capsule Take 1 capsule by mouth every morning. 04/27/2025 Discontinued take 1 capsule by mo uth once daily in the morning Multivitamin capsule Take 1 capsule by m outh every morning. Active take 1 capsule by mo uth once daily in the morning Multivitamin capsule Take 1 capsule by m outh every morning. 0 Active Comment on above: Take 1 capsule by mo uth every morning. naloxone (NARCAN) injection 0.1 mg (3 sources) Start: 03-10-2021 End: 03-10-2021 naloxone (NARCAN) injection 0.1 mg Start: 03-03-2021 End: 03-03-2021 naloxone (NARCAN) injection 0.1 mg Start: 12-08-2020 End: 12-08-2020 naloxone (NARCAN) injection 0.1 mg 2 ml ondansetron 2 mg/ml injection (3 sources) Serotonin-3 Receptor Antagonist Start: 03-10-2021 End: 03-10-2021 take 4 mg intravenously every six hours as needed 4 mg, Intravenous, Every 6 hours PRN, nausea, vomiting, Starting Tue03/10/21 at 1014 Start: 03-03-2021 End: 03-03-2021 4 mg, Intravenous, Every 15 min PRN, nausea, vomiting, Starting Tue03/03/21 at 0836, For 2 doses, PACU (only) Do not give more than 2 doses. Administer first as needed for nausea/vomiting, or as directed by anesthesia Start: 12-08-2020 End: 12-08-2020 4 mg, Intravenous, Every 15 min PRN, nausea, vomiting, Starting Tue12/08/20 at 1235, For 2 doses, PACU (only) Do not give more than 2 doses. Administer first as needed for nausea/vomiting, or as directed by anesthesia phentermine hydrochloride 37.5 mg oral tablet (5 sources) Sympathomimetic Amine Anorectic Start: 05-08-2021 End: 05-29-2025 take 1 tablet by mouth once daily before mealtime phentermine (ADIPEX-P) 37.5 mg tablet TAKE 1 TABLET BY MOUTH EVERY DAY IN THE MORNING BEFORE A MEAL 05/08/2021 05/29/2025 Discontinued (Patient's Request) 1000 ml sodium chloride 9 mg/ml injection (7 sources) Start: 03-16-2021 End: 03-16-2021 sodium chloride 0.9% (NS) Start: 03-10-2021 End: 03-10-2021 sodium chloride (PF) (NS) fl ush 5 mL Start: 03-09-2021 End: 03-09-2021 sodium chloride 0.9% (NS) Start: 03-03-2021 End: 03-03-2021 take 75 mL intravenously every hour 75 mL/hr, Intraven ous, Continuous, Starting Tue03/03/21 at 0930, PACU (only) Start: 03-03-2021 End: 03-03-2021 sodium chloride 0.9% (NS) Thiamine (18 sources) End: 04-27-2025 thiamine HCl (VITAMIN B-1 OR AL) Take by mouth. 04/27/2025 Discontinued thiamine HCl ( TAMIN B-1 ORAL) Take by mouth. Active thiamine HCl ( TAMIN B-1 ORAL) Take by mouth. 0 Active traMADol hydrochloride 50 mg oral tablet (6 sources) Opioid Agonist Start: 03-23-2021 End: 03-27-2021 traMADoL (ULTRAM) 50 mg tablet Start: 03-12-2021 End: 03-19-2021 take 1 tablet by mouth every six hours as needed for pain traMADoL (Ultram) 50 mg tablet Indications: Status post left partial knee replacement Take 1 (one) tablet (50 mg total) by mouth every 6 (six) hours as needed for pain . 40 tablet 0 03/12/2021 03/19/2021 Active tranexamic acid 650 mg oral tablet (1 source) Antifibrinolytic Agent Start: 03-10-2021 End: 03-10-2021 tranexamic acid (LYSTEDA) tablet 1,950 mg Start: 03-10-2021 End: 03-10-2021 tranexamic acid (LYSTEDA) ta blet 1,950 mg 1 ml triamcinolone acetonide 40 mg/ml injection (3 sources) Corticosteroid Start: 06-04-2025 End: 06-04-2025 40 mg, Intra-articular, Once as needed Procedure, Starting on Tue06/04/25 at 2249, For 1 dose Start: 10-30-2020 End: 10-30-2020 triamcinolone acetonide (PATTY ALOG-40) injection 40 mg Start: 12-04-2019 End: 12-04-2019 triamcinolone acetonide (PATTY ALOG-40) injection 40 mg vitamin b12 1 mg oral tablet (20 sources) Vitamin B12 Start: 12-15-2018 End: 05-29-2025 take 1 tablet by mouth once daily in the morning cyanocobalamin (B-12) 1000 MCG tablet Take 1,000 mcg by mouth every morning . 12/15/2018 05/29/2025 Discontinued (Patient's Request) Comment on above: Take 1 tablet by mouth once daily. Take 1,000 mcg by mo uth. Problems Active Problems Problem Classification Problem Date Documented Da te Episodic/Chronic Anxiety disorders (2 sources) Anxiety; Translations: [Anxiety disorder, unspecified] Onset: 5 04-27-2025 Chronic Cancer of cervix (5 sources) Low grade squamous intraepithelial lesion on cervical Papanicolaou smear; Translations: [Low grade squamous intraepithelial lesion on cytologic smear of cervix (LGSIL)] Onset: 4 05-28-2024 Episodic Coagulation and hemorrhagic disorders (1 source) Thrombocytopenic disorder; Translations: [Thrombocytopenia, unspecified] Chronic Complications of surgical procedures or medical care (2 sources) Post-surgical malabsorption; Translations: [Postsurgical malabsorption, not elsewhere classified] Onset: 3 07-12-2023 Chronic Contraceptive and procreative management (5 sources) Oral contraception; Translations: [Encounter for surveillance of contraceptive pills] Onset: 5 10-27-2023 Episodic Deficiency and other anemia (1 source) Anemia; Translations: [Anemia, unspecified] 05-31-2025 Episodic Deficiency and other anemia (1 source) Anemia, unspecified; Translations: [Anemia, unspecified type] Onset: 5 Episodic Esophageal disorders (10 sources) Gastroesophageal reflux disease without esophagitis; Translations: [Gastro-esophageal reflux disease without esophagitis] Onset: 4 03-24-2024 Chronic Essential hypertension (2 sources) Hypertensive disorder; Translations: [Essential (primary) hypertension] Chronic Immunizations and screening for infectious disease (13 sources) Contact with and (suspected) exposure to other viral communicable diseases; Translations: [Exposure to SARS-associated coronavirus] Onset: 0 Episodic Joint disorders and dislocations; trauma-related (20 sources) Derangement of knee; Translations: [Degeneration of cartilage AND/OR meniscus of knee] Onset: 5 05-13-2015 Chronic Menstrual disorders (2 sources) Disorder of menstruation; Translations: [Irregular menstruation, unspecified] Onset: 4 03-24-2024 Chronic Mood disorders (20 sources) Depressive disorder; Translations: [Major depressive disorder, single episode, unspecified] Onset: 5 05-12-2016 Chronic Mood disorders (1 source) Mood disorders; Translations: [Depression, unspecified depression type] Onset: 5 Neoplasms of unspecified nature or uncertain behavior (2 sources) Thrombocytosis; Translations: [Thrombocytosis] Onset: 2 Chronic Nutritional deficiencies (20 sources) Vitamin D deficiency; Translations: [Vitamin D deficiency, unspecified] Onset: 5 05-13-2015 Chronic Osteoarthritis (20 sources) Unilateral primary osteoarthritis, left knee; Translations: [Osteoarthritis of knee] Onset: 0 02-16-2021 Chronic Osteoarthritis (20 sources) Osteoarthritis of left knee joint; Translations: [Primary osteoarthritis of left knee] Onset: 0 07-30-2020 Other connective tissue disease (20 sources) History of prosthetic unicompartmental arthroplasty of left knee; Translations: [Presence of left artificial knee joint] Onset: 1 03-30-2021 Chronic Other female genital disorders (20 sources) Female stress incontinence; Translations: [Stress incontinence (female) (male)] Onset: 5 05-13-2015 Chronic Other gastrointestinal disorders (20 sources) Intestinal malabsorption; Translations: [Intestinal malabsorption, unspecified] Onset: 1 02-03-2021 Chronic Other gastrointestinal disorders (4 sources) Malabsorption syndrome; Translations: [Other intestinal malabsorption] Chronic Other gastrointestinal disorders (2 sources) Intestinal malabsorption, unspecified; Translations: [Intestinal malabsorption, unspecified type] Onset: 4 Chronic Other gastrointestinal disorders (1 source) Irritable bowel syndrome characterized by alternating bowel habit; Translations: [Mixed irritable bowel syndrome] 10-03-2024 Chronic Other gastrointestinal disorders (2 sources) Mixed irritable bowel syndrome; Translations: [Mixed irritable bowel syndrome] Onset: 4 Chronic Other gastrointestinal disorders (1 source) Dysphagia; Translations: [Dysphagia, unspecified] 10-03-2024 Episodic Other gastrointestinal disorders (1 source) Passing flatus; Translations: [Flatulence] 10-03-2024 Episodic Other gastrointestinal disorders (2 sources) Abdominal bloating; Translations: [Abdominal distension (gaseous)] 10-03-2024 Episodic Other hematologic conditions (1 source) Erythrocytosis; Translations: [Secondary polycythemia] 02-18-2023 Episodic Other lower respiratory disease (1 source) Cough; Translations: [Cough] 06-17-2021 Episodic Other nutritional; endocrine; and metabolic disorders (20 sources) Obesity, unspecified; Translations: [Morbid obesity] Onset: 5 Resolved: 6 07-14-2016 Chronic Other nutritional; endocrine; and metabolic disorders (20 sources) Morbid obesity; Translations: [Morbid (severe) obesity due to excess calories] Onset: 5 Resolved: 1 07-14-2016 Chronic Other nutritional; endocrine; and metabolic disorders (12 sources) Body mass index 40+ - severely obese; Translations: [Morbid (severe) obesity due to excess calories] Onset: 5 Resolved: 1 01-06-2021 Chronic Other nutritional; endocrine; and metabolic disorders (1 source) Body mass index (BMI) 35.0-35.9, adult; Translations: [Class 2 obesity with body mass index (BMI) of 35.0 to 35.9 in adult, unspecified obesity type, unspecified whether serious comorbidity present] Onset: 5 Chronic Other nutritional; endocrine; and metabolic disorders (20 sources) Obese class II; Translations: [Obesity, Class II, BMI 35-39.9] Onset: 6 07-14-2016 Other screening for suspected conditions (not mental disorders or infectious disease) (20 sources) Patient encounter status; Translations: [Encounter for screening for diabetes mellitus] Onset: 4 Episodic Other upper respiratory infections (1 source) Sore throat symptom; Translations: [Acute pharyngitis, unspecified] Episodic Residual codes; unclassified (1 source) Medical care unavailable; Translations: [Procedure and treatment not carried out for other reasons] 02-07-2024 Episodic Residual codes; unclassified (2 sources) Pain, unspecified; Translations: [Pain, unspecified] Onset: 5 Episodic Residual codes; unclassified (2 sources) Pain Onset: 5 Episodic Screening and history of mental health and substance abuse codes (1 source) Encounter for screening examination for other mental health and behavioral disorders; Translations: [Encounter for screening examination for other mental health and behavioral disorders] Onset: 5 Episodic Superficial injury; contusion (1 source) Hematoma of left thigh; Translations: [Contusion of left thigh, initial encounter] 02-05-2025 Episodic Unclassified (3 sources) Internal derangement of right knee; Translations: [Internal derangement of right knee] Unclassified (1 source) Class 2 obesity with body mass index (BMI) of 35.0 to 35.9 in adult, unspecified obesity type, unspecified whether serious comorbidity present; Translations: [Class 2 obesity with body mass index (BMI) of 35.0 to 35.9 in adult, unspecified obesity type, unspecified whether serious comorbidity present] Onset: 5 Past or Other Problems Problem Classification Problem Date Documented Da te Episodic/Chronic Abdominal pain (3 sources) Abdominal pain; Translations: [Unspecified abdominal pain] Onset: 10-03-2024 10-03-2024 Episodic Comment on above: Epigastric and RLQ Biliary tract disease (20 sources) Gallstone; Translations: [Calculus of gallbladder without cholecystitis without obstruction] Onset: 05-21-2011 05-21-2011 Episodic Complication of device; implant or graft (4 sources) Ulcer of anastomosis; Translations: [Other specified complication of other internal prosthetic devices, implants and grafts, initial encounter] Onset: 12-26-2020 Resolved: 03-19-2021 03-19-2021 Episodic Deficiency and other anemia (20 sources) Iron deficiency anemia; Translations: [Iron deficiency anemia, unspecified] Onset: 02-03-2021 02-03-2021 Episodic Diabetes mellitus without complication (20 sources) Impaired glucose tolerance; Translations: [Impaired glucose tolerance (oral)] Onset: 05-13-2015 05-13-2015 Episodic Gastroduodenal ulcer (except hemorrhage) (20 sources) Ulcer of anastomosis; Translations: [Gastrojejunal ulcer, unspecified as acute or chronic, without hemorrhage or perforation] Onset: 12-26-2020 Resolved: 03-19-2021 12-26-2020 Chronic Malaise and fatigue (20 sources) Fatigue; Translations: [Other fatigue] Onset: 03-04-2011 Resolved: 10-18-2022 03-08-2011 Episodic Medical examination/evaluation (20 sources) Preoperative state; Translations: [Preoperative clearance] Onset: 09-04-2015 09-04-2015 Episodic Neoplasms of unspecified nature or uncertain behavior (20 sources) Thrombocytosis; Translations: [Thrombocytosis] Onset: 10-18-2022 Episodic Other connective tissue disease (1 source) Pain in left thigh; Translations: [Pain in left thigh] Onset: 02-11-2025 Episodic Other gastrointestinal disorders (12 sources) History of bypass of stomach; Translations: [Bariatric surgery status] Onset: 04-14-2016 Episodic Other gastrointestinal disorders (3 sources) Bariatric surgery status; Translations: [Hx of bariatric surgery] Onset: 11-01-2022 Episodic Other gastrointestinal disorders (2 sources) Other dysphagia; Translations: [Other dysphagia] Onset: 04-18-2025 Episodic Other gastrointestinal disorders (2 sources) Abdominal distension (gaseous); Translations: [Abdominal distension (gaseous)] Onset: 10-03-2024 Episodic Other gastrointestinal disorders (2 sources) Flatulence; Translations: [Flatulence] Onset: 10-03-2024 Episodic Other gastrointestinal disorders (1 source) Dysphagia, unspecified; Translations: [Dysphagia, unspecified] Onset: 10-03-2024 Episodic Other gastrointestinal disorders (1 source) Other specified symptoms and signs involving the digestive system and abdomen; Translations: [Other specified symptoms and signs involving the digestive system and abdomen] Onset: 10-03-2024 Episodic Other nutritional; endocrine; and metabolic disorders (20 sources) Obesity; Translations: [Obesity, unspecified] Onset: 03-04-2011 Resolved: 04-27-2025 03-08-2011 Chronic Unclassified (20 sources) History of bariatric surgical procedure; Translations: [Bariatric surgery status] Onset: 04-14-2016 04-14-2016 Episodic Unclassified (5 sources) Patient encounter status; Translations: [Preop testing] 04-27-2025 Viral infection (6 sources) Herpes simplex; Translations: [Herpesviral infection, unspecified] Onset: 06-26-2024 Episodic Results Test Name Value Interpretation Reference Range Facility [facility] 06-28 [facility] * * *Final Report* * * DATE OF EXAM: Jun 28 2025 1:55PM [id number] - [facility] / PROCEDURE REASON: Encounter for screening mammogram for breast cancer * * * * Physician Interpretation * * * * RESULT: [address] [address] [place] [address] #[id number] - [facility] HISTORY: 40 year-old patient presents for screening. Patient is asymptomatic in both breasts. Patient states no personal history of breast cancer. COMPARISON STUDIES: The present examination has been compared to prior imaging studies dated 06/13/2023 (mammogram) and 06/26/2024 (mammogram). MAMMOGRAM TECHNIQUE: The study was acquired using full field digital technology and interpreted from soft copy. Digital Breast Tomosynthesis (DBT) images were obtained and used to assist in the interpretation of this examination. MAMMOGRAM FINDINGS: There are scattered areas of fibroglandular density. No suspicious masses, calcifications or other abnormalities are seen in either breast. There are no significant interval changes. IMPRESSION: There is no mammographic evidence of malignancy in either breast. Routine screening mammogram is recommended. Annual mammogram will be due in 1 year. BI-RADS Category 1: Negative RISK: Based on the Tyrer-Cuzick (TC) risk assessment model, this patient has a 6.4% lifetime risk of developing breast cancer, meaning they are at average risk for developing breast cancer. However, this is only an estimate based on available history provided on the patient's questionnaire. We encourage all patients to talk with their providers about these results, further recommendations for managing breast health, and appropriate supplemental screening options if the patient has dense breast tissue. Interpreting Radiologist: Talia Sellers M.D. Electronically signed on: 07/01/2025 Incident Response Coordinator: INDIRA Transcribe Date/Time: Jun 28 2025 1:43P Dictated by: TALIA SELLERS MD This examination was interpreted and the report reviewed and electronically signed by: TALIA SELLERS MD on Jul 01 2025 1:15PM EST [id number] CN Normal [facility] 06-21-2025 ROC[facility] Telephone (AGOBST) KRISTA BELL ([id number]) 1985 F Date Time Provider Department 06/21/25 SHAKIRA MATHEWS During your visit today, we recorded the following information about you: Diane Pruitt RN 06/21/2025 11:20 AM Signed Aware of results and recommendations. Instructions given as follows. Colpo sched 9.2. Diane Pruitt RN RN explained Colposcopy is an in-office procedure used after abnormal or inconclusive pap smears that allows us to look more closely at the cervix using a colposcope. Vinegar is placed on the cervix which highlights any abnormal areas. If any abnormal areas are seen, biopsies are taken and sent to pathology for further grading. We do recommend that you take 600-800 mg of Motrin or 2 Tylenol about 30 min prior to the procedure and nothing in vagina for 1 wk after the procedure. Note that if you are child bearing age, a urine will be obtained to make sure you are not . LGSIL needs colpo Shakira Mathews APRN.ROC Allergies As of Date: 06/21/2025 Noted Allergy Reaction OXYCODONE 10/18/2022 2 - Rash Date Reviewed: 06/13/2025 Reviewed by: Shakira Mathews APRN.GRID TRIMMER - Fully Assessed Reason for Visit: Results [95] Prescriptions as of 06/21/2025 - Drospirenone-Ethinyl Estradiol 3-0.03 mg per tablet Take 1 tablet by mouth once daily. - escitalopram oxalate (LEXAPRO) 10 mg tablet Take 1 tablet by mouth once daily. - pantoprazole DR (PROTONIX) 40 mg tablet Take 1 tablet by mouth once daily. - valACYclovir (VALTREX) 1 gram tablet TAKE 1 TABLET BY MOUTH EVERY 12 HOURS FOR 3 DAYS NEEDED Problem List As Of Date 06/21/2025 Noted Resolved Routine general medical examination at [facility]*03/04/2011 10/09/2014 Class: Chronic Routine gynecological examination [Z01.419] 03/04/2011 10/09/2014 Class: Chronic Fatigue [R53.83] 03/04/2011 10/18/2022 Obesity [E66.9] 03/04/2011 04/27/2025 Cholelithiasis NOS [K80.20] 05/21/2011 Depression [F32.A] 09/08/2015 Primary osteoarthritis of left knee [M17.12] 02/17/2021 Status post left partial knee replacement [Z96.*03/30/2021 Thrombocytosis [D75.839] 10/18/2022 Hx of bariatric surgery [Z98.84] 11/01/2022 Encounter Status:Closed by DIANE PRUITT on 06/21/25 [facility] CNOVon 06-13-2025 CNOV Office Visit (AGOBGRN) ARABELLAKRISTA Chary ([id number]) 1985 F Date Time Provider Department 06/13/25 2:45 PM SHAKIRA MATHEWS During your visit today, we recorded the following information about you: Blood pressure Weight Height Last Period 117/73 101.6 kg 1.676 m 05/29/25 Shakira Mathews, FOREX TRADER.GRID TRIMMER 06/13/2025 3:07 PM Signed Krista is a 40 year old who presents for an annual gynecologic exam vaginal dryness. Still get period: Yes Bleeding amount bothersome: No Bleeding between periods: No Period symptoms: Breast tenderness; Cramps; Mood change Time with current partner: 19 months Contraception: ocps HPV vaccine: No; HPV:positive Last pap smear: 2023 History of abnormal pap: Yes, history of abnormal PAP smears 05/2024 LGSIL positive HRHPV. 07/07 colpo A. Cervix, 3:00, biopsy: - Benign ectocervix. - Cervical transformation zone is not present for evaluation. B. Cervix, 10:00, biopsy: - Benign ectocervix. - Cervical transformation zone is not present for evaluation. C. Endocervix, curettage: - Scant benign endocervical glandular epithelium. Bothersome pelvic pain: No Last mammogram: 2023normal Patient concerns for STD exposure: No. OB History Gravida2 Para2 Term0 Preterm0 AB0 Living2 SAB0 IAB0 Ectopic0 Multiple0 Live Births0 Nurse Plastics History LMP: 05/29/2025 (Exact Date), Having periods Age at Menarche: 10 Age at First : Age at Menopause: Nurse Plastics History Comments: Sexual Activity: Yes; Male Contraception: Pill Menstrual Tracking History Flowsheet Row Office Visit from 06/13/2025 in [facility] Obstetrics AND Gynecology Appointment from 04/25/2025 in [facility] Obstetrics AND Gynecology Period Cycle (Days) 28 28 Period Duration (Days) 5 5 Menstrual Flow Moderate Moderate PAST MEDICAL HISTORY Diagnosis Date Cold sores Depression Gallstones 03/14/2011 H. 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) 05/28/2024 + HR HPV PAST SURGICAL HISTORY Procedure Laterality Date ABDOMINOPLASTY 04/03/2024 GSTRCT PRTL DSTL W/GASTRODUODENOSTOMY 03/30/2016 Gastrectomy, partial, sleeve Gastrectomy LAPS SURG CHOLECYSTECTOMY W/CHOLANGIOGRAPHY 05/21/2011 failed IOC PAST SURGICAL HISTORY OF wisdom teeth PAST SURGICAL HISTORY OF cryotherapy for abnormal pap after per pt 2001 PAST SURGICAL HISTORY OF 11/30/2023 colposcopy RPR EPIGASTRIC HERNIA REDUCIBLE SPX 03/30/2016 Hiatal hernia repair TONSILLECTOMY HX 09/15/2022 Dr Jewell [facility] [place] FAMILY HISTORY Problem Relation Age of Onset Hypertension Mother Psychiatry Mother depression Stroke Father Blood Disease Father blood clots Psychiatry Sister depression Heart Brother at about 1.5 years due to heart problems Diabetes Paternal Grandfather + SOCIAL HISTORY Social History Tobacco Use Smoking status: Former Current packs/day: 0.00 Types: Cigarettes Quit date: 01/26/2009 Years since quittin.3 Smokeless tobacco: Never Vaping Use Vaping status: Never Used Substance Use Topics Alcohol use: Yes Comment: occasionally Drug use: No REVIEW OF SYSTEMS Abdomen: No abdominal pain, nausea, vomiting, diarrhea, or constipation. No bloating, early satiety, indigestion, or increased flatulence. Bladder: No dysuria, gross hematuria, urinary frequency, urinary urgency, or incontinence. Breast: No breast lumps, nipple d/c, overlying skin changes, redness or skin retraction. Allergies and current medication updated:Yes SENSITIVE EXAM: The sensitive examination was discussed with the Patient or Patient's Authorized Varnishing Unit Operator. As applicable, any other physician, advance practice provider, medical student, or other health professional student that will be observing or involved in the sensitive examination for educational or training purposes was discussed with the Patient or Authorized Varnishing Unit Operator. The Patient or Authorized Varnishing Unit Operator has agreed to proceed with the sensitive examination. (Sensitive examination includes inspection and/or palpation of the breasts, pelvis, prostate and anorectal regions). EXAM: BP 117/73 Ht 5' 6 (1.68m) Wt 224 lb (101.6kg) LMP 05/29/2025 BMI 36.17 kg/(m2). GENERAL: pleasant, female in no apparent distress HEENT: Normocephalic, atraumatic, mucus membranes moist, and no lesions NECK: Supple, full range of motion, no adenopathy, and thyroid normal DERMATOLOGY: Normal, without lesions, non-icteric, and non-hirsute BREAST: soft, non-tender, symmetric, no dominant mass, normal nipple-areolar complex, no lymphadenopathy, and no nipple discharge CHEST: Normal inspiratory effort ABDOMEN: soft, non-tender, and no masses PELVIC: external genitalia n (more content not included)... Normal [facility] HIGH RISK HUMAN PAPILLOMA CHELLE (HPV), PCR FOR DETECTION AND GENOTYPINGon 06-13-2025 HPV 16 Ag Ql (Unsp spec) Not detected Normal Not detected [facility] Comment on above: Order Comment: Speci men Type: FLUID SPECIMEN Ordering Facility: [facility] Address: [address] [place] [address] Performed By: #### H PVHRT #### [facility] CLIA [id number] [address] [place] [address] [place] [address] [place] HPV 18 Ag Ql (Unsp spec) Not detected Normal Not detected [facility] Comment on above: Order Comment: Speci men Type: FLUID SPECIMEN Ordering Facility: [facility] Address: [address] [place] [address] Performed By: #### H PVHRT #### [facility] CLIA [id number] [address] [place] [address] [place] HPV 31+33+35+39+45+51+52+56 +58+59+66+68 DNA LANI+probe Ql (Cvx) Not detected Normal Not detected [facility] Comment on above: Order Comment: Speci men Type: FLUID SPECIMEN Ordering Facility: [facility] Address: [address] [place] [address] Result Comment: High Risk HPV Other Type includes HPV types 31, 33, 35, 39, 45, 51, 52, 56, 58, 59, 66 and 68. Performed By: #### H PVHRT #### [facility] CLIA [id number] [address] [place] [address] [place] PAP TESTon 06-13-2025 ADEQUACY Normal [facility] Comment on above: Order Comment: Speci men Type: FLUID SPECIMEN Ordering Facility: [facility] Address: [address] [place] [address] Result Comment: Sati sfactory for interpretation. Transformation zone present Performed By: #### L [id number] #### [facility] CLIA [id number] [address] [place] CASE REPORT Normal [facility] Comment on above: Order Comment: Speci men Type: FLUID SPECIMEN Ordering Facility: [facility] Address: [address] [place] [address] Result Comment: Gyne cologic Cytology Report Case: [id number] Authorizing Provider: Shakira Mathews APRN.GRID TRIMMER Collected: 06/13/2025 03:06 PM Ordering Location: [facility] Obstetrics & Received: 06/14/2025 04:43 AM Gynecology First Screen: Rosario Hernandez, CT, ASCP Pathologist: Svetlana Yost MD Specimen: Pap Test, ThinPrep, Cervix Performed By: #### L [id number] #### [facility] CLIA [id number] [address] CLINICAL HISTORY, CYTOLOGY, WAITRESS Previous Abnormal Pap Normal [facility] Comment on above: Order Comment: Speci men Type: FLUID SPECIMEN Ordering Facility: [facility] Address: [address] [place] [address] Performed By: #### L [id number] #### [facility] CLIA [id number] [address] FINAL PERFORMING LAB Normal [facility] Comment on above: Order Comment: Speci men Type: FLUID SPECIMEN Ordering Facility: [facility] Address: [address] [place] [address] Result Comment: Tech nical component, bag shop worker screening performed at: [facility], [address] [place] [address] CLIA: [id number] Diagnostic interpretation performed at: [facility], [address] [place] [address] CLIA# [id number] Pigment Furnace Tender: Christiano Todd MD Performed By: #### L [id number] #### [facility] CLIA [id number] [address] [place] [address] INTERPRETATION, CYTOLOGY, WAITRESS Abnormal [facility] Comment on above: Order Comment: Speci men Type: FLUID SPECIMEN Ordering Facility: [facility] Address: [address] [place] [address] Result Comment: Low grade squamous intraepithelial lesion (LSIL). at 1409 EDT Performed By: #### L [id number] #### [facility] CLIA [id number] [address] [place] [address] LMP 05/29/2025 Normal [facility] Comment on above: Order Comment: Speci men Type: FLUID SPECIMEN Ordering Facility: [facility] Address: [address] [place] [address] Performed By: #### L [id number] #### [facility] CLIA [id number] [address] PAP DISCLAIMER COMMENT The Pap Smear is a screening test for cervical cancer. False negative results occur with all screening tests, emphasizing the need for rescreening at recommended intervals, and clinical correlation. Normal [facility] Comment on above: Order Comment: Speci men Type: FLUID SPECIMEN Ordering Facility: [facility] Address: [address] [place] [address] Performed By: #### L [id number] #### [facility] CLIA [id number] [address] PAP GENERAL CATEGORIZATION Epithelial Cell Abnormality Normal [facility] Comment on above: Order Comment: Speci men Type: FLUID SPECIMEN Ordering Facility: [facility] Address: [address] [place] [address] Performed By: #### L [id number] #### [facility] CLIA [id number] [address] [place] [address] PAP WRAPPER SELECTOR COMMENT This specimen has been analyzed by the FDA-approved [employer] System, which uses digital imaging and an enhanced artificial intelligence image analysis algorithm to identify fong of interest on the microscopic slide, to assist the oil driller and pathologist in evaluating cells on ThinPrep Pap tests. Following analysis, fong of interest on the microscopic slide selected by the algorithm are reviewed by a oil driller. If a sample requires hierarchical review, the pathologist will review the same fong of interest selected by the algorithm prior to final interpretation. Normal [facility] Comment on above: Order Comment: Speci men Type: FLUID SPECIMEN Ordering Facility: [facility] Address: [address] [place] [address] Performed By: #### L [id number] #### [facility] CLIA [id number] [address] [place] [address] CBC W Auto Differential pane l (Bld)on 06-08-2025 Basophils (Bld) [#/Vol] 0.03 10*3/uL Normal <0.11 [facility] Comment on above: Order Comment: Speci men Type: BLOOD SPECIMEN Ordering Facility: [facility] Address: [address] [place] [address] Performed By: #### 5 0190-8, 2276-02 #### [facility] CLIA [id number] [address] [place] [address] [place] Basophils/100 WBC (Bld) 0.5 % Normal [facility] Comment on above: Order Comment: Speci men Type: BLOOD SPECIMEN Ordering Facility: [facility] Address: [address] [place] [address] Performed By: #### 5 0190-8, 2276-02 #### [facility] CLIA [id number] [address] [place] [address] [place] Differential cell count method Nom (Bld) Auto Normal [facility] Comment on above: Order Comment: Speci men Type: BLOOD SPECIMEN Ordering Facility: [facility] Address: [address] [place] [address] Performed By: #### 5 0190-8, 2276-02 #### [facility] CLIA [id number] [address] [place] [address] [place] Eosinophils (Bld) [#/Vol] 0.07 10*3/uL Normal <0.46 [facility] Comment on above: Order Comment: Speci men Type: BLOOD SPECIMEN Ordering Facility: [facility] Address: [address] [place] [address] Performed By: #### 5 0190-8, 2276-02 #### [facility] CLIA [id number] [address] [place] [address] [place] Eosinophils/100 WBC (Bld) 1.1 % Normal [facility] Comment on above: Order Comment: Speci men Type: BLOOD SPECIMEN Ordering Facility: [facility] Address: [address] [place] [address] Performed By: #### 5 0190-8, 2276-02 #### [facility] CLIA [id number] [address] [place] [address] [place] Erythrocyte distribution width (RBC) [Ratio] 14.9 % Normal 11.5-15.0 [facility] Comment on above: Order Comment: Speci men Type: BLOOD SPECIMEN Ordering Facility: [facility] Address: [address] [place] [address] Performed By: #### 5 0190-8, 6-4 #### [facility] CLIA [id number] [address] [place] [address] [place] Hematocrit (Bld) [Volume fraction] 33.3 % Low 36.0-46.0 [facility] Comment on above: Order Comment: Speci men Type: BLOOD SPECIMEN Ordering Facility: [facility] Address: [address] [place] [address] Performed By: #### 5 0190-8, 2275-4 #### [facility] CLIA [id number] [address] [place] [address] [place] Hemoglobin (Bld) [Mass/Vol] 10.3 g/dL Low 11.5-15.5 [facility] Comment on above: Order Comment: Speci men Type: BLOOD SPECIMEN Ordering Facility: [facility] Address: [address] [place] [address] Performed By: #### 5 0190-8, 2275-4 #### [facility] CLIA [id number] [address] [place] [address] [place] Immature granulocytes (Bld) [#/Vol] 10*3/uL Normal <0.10 [facility] Comment on above: Order Comment: Speci men Type: BLOOD SPECIMEN Ordering Facility: [facility] Address: [address] [place] [address] Performed By: #### 5 0190-8, 2275-4 #### [facility] CLIA [id number] [address] [place] [address] [place] Immature granulocytes/100 WBC (Bld) 0.2 % Normal [facility] Comment on above: Order Comment: Speci men Type: BLOOD SPECIMEN Ordering Facility: [facility] Address: [address] [place] [address] Performed By: #### 5 0190-8, 2275-4 #### [facility] CLIA [id number] [address] [place] [address] [place] Lymphocytes (Bld) [#/Vol] 2.53 10*3/uL Normal 1.00-4.00 [facility] Comment on above: Order Comment: Speci men Type: BLOOD SPECIMEN Ordering Facility: [facility] Address: [address] [place] [address] Performed By: #### 5 0190-8, 2276-02 #### [facility] CLIA [id number] [address] [place] [address] [place] Lymphocytes/100 WBC (Bld) 40.2 % Normal [facility] Comment on above: Order Comment: Speci men Type: BLOOD SPECIMEN Ordering Facility: [facility] Address: [address] [place] [address] Performed By: #### 5 0190-8, 2276-02 #### [facility] CLIA [id number] [address] [place] [address] [place] MCH (RBC) [Entitic mass] 27.5 pg Normal 26.0-34.0 [facility] Comment on above: Order Comment: Speci men Type: BLOOD SPECIMEN Ordering Facility: [facility] Address: [address] [place] [address] Performed By: #### 5 0190-8, 2276-02 #### [facility] CLIA [id number] [address] [place] [address] [place] MCHC (RBC) [Mass/Vol] 30.9 g/dL Normal 30.5-36.0 [facility] Comment on above: Order Comment: Speci men Type: BLOOD SPECIMEN Ordering Facility: [facility] Address: [address] [place] [address] Performed By: #### 5 0190-8, 2276-02 #### [facility] CLIA [id number] [address] [place] [address] [place] MCV (RBC) [Entitic vol] 89.0 fL Normal 80.0-100.0 [facility] Comment on above: Order Comment: Speci men Type: BLOOD SPECIMEN Ordering Facility: [facility] Address: [address] [place] [address] Performed By: #### 5 0190-8, 2276-02 #### [facility] CLIA [id number] [address] [place] [address] [place] Monocytes (Bld) [#/Vol] 0.48 10*3/uL Normal <0.87 [facility] Comment on above: Order Comment: Speci men Type: BLOOD SPECIMEN Ordering Facility: [facility] Address: [address] [place] [address] Performed By: #### 5 0190-8, 2276-02 #### [facility] CLIA [id number] [address] [place] [address] [place] Monocytes/100 WBC (Bld) 7.6 % Normal [facility] Comment on above: Order Comment: Speci men Type: BLOOD SPECIMEN Ordering Facility: [facility] Address: [address] [place] [address] Performed By: #### 5 0190-8, 2276-02 #### [facility] CLIA [id number] [address] [place] [address] [place] Neutrophils (Bld) [#/Vol] 3.18 10*3/uL Normal 1.45-7.50 [facility] Comment on above: Order Comment: Speci men Type: BLOOD SPECIMEN Ordering Facility: [facility] Address: [address] [place] [address] Performed By: #### 5 0190-8, 2276-02 #### [facility] CLIA [id number] [address] [place] [address] [place] Neutrophils/100 WBC (Bld) 50.4 % Normal [facility] Comment on above: Order Comment: Speci men Type: BLOOD SPECIMEN Ordering Facility: [facility] Address: [address] [place] [address] Performed By: #### 5 0190-8, 6-4 #### [facility] CLIA [id number] [address] [place] [address] [place] Nucleated RBC (Bld) [#/Vol] 10*3/uL Normal <0.01 [facility] Comment on above: Order Comment: Speci men Type: BLOOD SPECIMEN Ordering Facility: [facility] Address: [address] [place] [address] Performed By: #### 5 0190-8, 6-4 #### [facility] CLIA [id number] [address] [place] [address] [place] Nucleated RBC/100 WBC (Bld) [Ratio] 0.0 /100 WBC Normal [facility] Comment on above: Order Comment: Speci men Type: BLOOD SPECIMEN Ordering Facility: [facility] Address: [address] [place] [address] Performed By: #### 5 0190-8, 2275-4 #### [facility] CLIA [id number] [address] [place] [address] [place] Platelet mean volume (Bld) [Entitic vol] 10.6 fL Normal 9.0-12.7 [facility] Comment on above: Order Comment: Speci men Type: BLOOD SPECIMEN Ordering Facility: [facility] Address: [address] [place] [address] Performed By: #### 5 0190-8, 2275-4 #### [facility] CLIA [id number] [address] [place] [address] [place] Platelets (Bld) [#/Vol] 428 10*3/uL High 150-400 [facility] Comment on above: Order Comment: Speci men Type: BLOOD SPECIMEN Ordering Facility: [facility] Address: [address] [place] [address] Performed By: #### 5 0190-8, 6-4 #### [facility] CLIA [id number] [address] [place] [address] [place] RBC (Bld) [#/Vol] 3.74 10*6/uL Low 3.90-5.20 [facility] Comment on above: Order Comment: Speci men Type: BLOOD SPECIMEN Ordering Facility: [facility] Address: [address] [place] [address] Performed By: #### 5 0190-8, 2275-4 #### [facility] CLIA [id number] [address] [place] [address] [place] WBC (Bld) [#/Vol] 6.30 10*3/uL Normal 3.70-11.00 [facility] Comment on above: Order Comment: Speci men Type: BLOOD SPECIMEN Ordering Facility: [facility] Address: [address] [place] [address] Performed By: #### 5 0190-8, 2275-4 #### [facility] CLIA [id number] [address] [place] [address] [place] Ferritin SerPl-mCncon 2024 Ferritin [Mass/Vol] 14.3 ng/mL Low 14.7-205.1 [facility] Comment on above: Order Comment: Speci men Type: BLOOD SPECIMEN Ordering Facility: [facility] Address: [address] [place] [address] Performed By: #### 5 0190-8, 2275-4 #### [facility] CLIA [id number] [address] [place] [address] [place] Iron and Iron binding capaci ty panelon 06-08-2025 Iron [Mass/Vol] 30 ug/dL Low 41-186 [facility] Comment on above: Order Comment: Speci men Type: BLOOD SPECIMEN Ordering Facility: [facility] Address: [address] [place] [address] Performed By: #### 5 0190-8, 6-4 #### [facility] CLIA [id number] [address] [place] [address] [place] Iron binding capacity [Mass/Vol] 492 ug/dL High 232-386 [facility] Comment on above: Order Comment: Speci men Type: BLOOD SPECIMEN Ordering Facility: [facility] Address: [address] [place] [address] Performed By: #### 5 0190-8, 6-4 #### [facility] CLIA [id number] [address] [place] [address] [place] Iron/TIBC [Molar ratio] 6.1 % Low 15.0-57.0 [facility] Comment on above: Order Comment: Speci men Type: BLOOD SPECIMEN Ordering Facility: [facility] Address: [address] [place] [place] [address] Performed By: #### 5 0190-8, 6-4 #### [facility] CLIA [id number] [address] [place] [address] [place] LG Jt Injection/Arthrocentes is: L kneeon 06-04-2025 Selina Mejia CNP 06/05/2025 8:08 PM LG Jt Injection/Arthrocent esis: L knee Performed by: Selina Mejia CNP Authorized by: Selina Mejia CNP Consent given by: Patient Time out: Immediately prior to the procedure a time out was called Physician or proceduralist has discussed critical or nonroutine steps, procedure duration and anticipated blood loss: Yes Supporting Documentation: Indications: Pain and diagnostic evaluation Procedure Details: Location: Knee Site: L knee Prep: patient was prepped and draped in usual sterile fashion Needle size: 22 G Approach: Anterolateral Medications: 40 mg triamcinolone acetonide 40 mg/mL Anesthetic used: Lidocaine 1% Anesthetic amount (mL): 2 Patient tolerance: Patient tolerated the procedure well with no immediate complications [place] 05-31-2025 CNPN Telephone (FAMPWS) ARABELLAKRISTA LEE ([id number]) 1985 F Date Time Provider Department 05/31/25 PERCY HUANG [facility] During your visit today, we recorded the following information about you: Percy Huang MD 05/31/2025 8:09 AM Signed Her platelets are back down to her baseline, however, she is now anemic. I know has been seeing gi for recent issues. Recheck labs for anemia to make sure not iron deficient with her hx. -was just ok when we recently checked it as were her vitamin levels. Do labs next week Any recent black stools or bloody stools? Any unusual bleeding with periods.? Carlos Kamara LPN 05/31/2025 10:24 AM Signed Left message to call and speak with triage nurse. Ynes Saleem RN 05/31/2025 10:42 AM Signed Patient notified of results and provider's instructions. Patient verbalizes understanding. Patient has not had any black or blood stools. Patient is currently on menstrual cycle. Patient denies unusual bleeding with periods. ANGELA Arzate William J, MD 05/31/2025 10:45 AM Signed Ok. Could be periods but check labs next week Suzi Andino MA 05/31/2025 3:26 PM Signed Patient notified of provider message Suzi Andino MA May 31, 2025 3:26 PM Allergies As of Date: 05/31/2025 Noted Allergy Reaction OXYCODONE 10/18/2022 2 - Rash Date Reviewed: 04/27/2025 Reviewed by: Carlos Kamara LPN - Fully Assessed Reason for Visit: Results [95] Primary Visit Diagnosis:Anemia, unspecified type [D64.9] Order(s):FERRITIN [SQFERR] Order #: [id number] FUTURE IRON AND TIBC [SQIRON] Order #: [id number] FUTURE COMPLETE BLOOD COUNT AND DIFFERENTIAL [SQCBCDIF] Order #: [id number] FUTURE Prescriptions as of 05/31/2025 - escitalopram oxalate (LEXAPRO) 10 mg tablet Take 1 tablet by mouth once daily. - pantoprazole DR (PROTONIX) 40 mg tablet Take 1 tablet by mouth once daily. - miSOPROStol (CYTOTEC) 200 mcg tablet Take 200 mcg by mouth four times daily. Per Dr Friend - Drospirenone-Ethinyl Estradiol 3-0.03 mg per tablet Take 1 tablet by mouth once daily. - valACYclovir (VALTREX) 1 gram tablet TAKE 1 TABLET BY MOUTH EVERY 12 HOURS FOR 3 DAYS NEEDED Problem List As Of Date 05/31/2025 Noted Resolved Routine general medical examination at [facility]*03/04/2011 10/09/2014 Class: Chronic Routine gynecological examination [Z01.419] 03/04/2011 10/09/2014 Class: Chronic Fatigue [R53.83] 03/04/2011 10/18/2022 Obesity [E66.9] 03/04/2011 04/27/2025 Cholelithiasis NOS [K80.20] 05/21/2011 Depression [F32.A] 09/08/2015 Primary osteoarthritis of left knee [M17.12] 02/17/2021 Status post left partial knee replacement [Z96.*03/30/2021 Thrombocytosis [D75.839] 10/18/2022 Hx of bariatric surgery [Z98.84] 11/01/2022 Encounter Status:Closed by SUZI ANDINO on 05/31/25 Normal [facility] CBC W Ordered Manual Differe ntial panel (Bld)on 05-30-2025 Basophils (Bld) [#/Vol] 10*3/uL Normal <0.11 [facility] Comment on above: Order Comment: Speci men Type: BLOOD SPECIMEN Ordering Facility: [facility] Address: [address] [place] [address] [place] [address] Performed By: #### B 1WB #### [facility] CLIA [id number] [address] [place] [address] [place] Basophils/100 WBC (Bld) 0.3 % Normal [facility] Comment on above: Order Comment: Speci men Type: BLOOD SPECIMEN Ordering Facility: [facility] Address: [address] [place] [address] Performed By: #### B 1WB #### [facility] CLIA [id number] [address] [place] [address] [place] Differential cell count method Nom (Bld) Auto Normal [facility] Comment on above: Order Comment: Speci men Type: BLOOD SPECIMEN Ordering Facility: [facility] Address: [address] [place] [address] Performed By: #### B 1WB #### [facility] CLIA [id number] [address] [place] [address] [place] Eosinophils (Bld) [#/Vol] 0.04 10*3/uL Normal <0.46 [facility] Comment on above: Order Comment: Speci men Type: BLOOD SPECIMEN Ordering Facility: [facility] Address: [address] [place] [address] Performed By: #### B 1WB #### [facility] CLIA [id number] [address] [place] [address] [place] Eosinophils/100 WBC (Bld) 0.5 % Normal [facility] Comment on above: Order Comment: Speci men Type: BLOOD SPECIMEN Ordering Facility: [facility] Address: [address] [place] [address] Performed By: #### B 1WB #### [facility] CLIA [id number] [address] [place] [address] [place] Erythrocyte distribution width (RBC) [Ratio] 14.9 % Normal 11.5-15.0 [facility] Comment on above: Order Comment: Speci men Type: BLOOD SPECIMEN Ordering Facility: [facility] Address: [address] [place] [address] Performed By: #### B 1WB #### [facility] CLIA [id number] [address] [place] [address] [place] Hematocrit (Bld) [Volume fraction] 32.8 % Low 36.0-46.0 [facility] Comment on above: Order Comment: Speci men Type: BLOOD SPECIMEN Ordering Facility: [facility] Address: [address] [place] [address] Performed By: #### B 1WB #### [facility] CLIA [id number] [address] [place] [address] [place] Hemoglobin (Bld) [Mass/Vol] 10.5 g/dL Low 11.5-15.5 [facility] Comment on above: Order Comment: Speci men Type: BLOOD SPECIMEN Ordering Facility: [facility] Address: [address] [place] [address] Performed By: #### B 1WB #### [facility] CLIA [id number] [address] [place] [address] [place] Immature granulocytes (Bld) [#/Vol] 10*3/uL Normal <0.10 [facility] Comment on above: Order Comment: Speci men Type: BLOOD SPECIMEN Ordering Facility: [facility] Address: [address] [place] [address] Performed By: #### B 1WB #### [facility] CLIA [id number] [address] [place] [address] [place] Immature granulocytes/100 WBC (Bld) 0.1 % Normal [facility] Comment on above: Order Comment: Speci men Type: BLOOD SPECIMEN Ordering Facility: [facility] Address: [address] [place] [address] Performed By: #### B 1WB #### [facility] CLIA [id number] [address] [place] [address] [place] Lymphocytes (Bld) [#/Vol] 3.85 10*3/uL Normal 1.00-4.00 [facility] Comment on above: Order Comment: Speci men Type: BLOOD SPECIMEN Ordering Facility: [facility] Address: [address] [place] [address] Performed By: #### B 1WB #### [facility] CLIA [id number] [address] [place] [address] [place] Lymphocytes/100 WBC (Bld) 50.9 % Normal [facility] Comment on above: Order Comment: Speci men Type: BLOOD SPECIMEN Ordering Facility: [facility] Address: [address] [place] [address] Performed By: #### B 1WB #### [facility] CLIA [id number] [address] [place] [address] [place] MCH (RBC) [Entitic mass] 27.4 pg Normal 26.0-34.0 [facility] Comment on above: Order Comment: Speci men Type: BLOOD SPECIMEN Ordering Facility: [facility] Address: [address] [place] [address] Performed By: #### B 1WB #### [facility] CLIA [id number] [address] [place] [address] [place] MCHC (RBC) [Mass/Vol] 32.0 g/dL Normal 30.5-36.0 [facility] Comment on above: Order Comment: Speci men Type: BLOOD SPECIMEN Ordering Facility: [facility] Address: [address] [place] [address] Performed By: #### B 1WB #### [facility] CLIA [id number] [address] [place] [address] [place] MCV (RBC) [Entitic vol] 85.6 fL Normal 80.0-100.0 [facility] Comment on above: Order Comment: Speci men Type: BLOOD SPECIMEN Ordering Facility: [facility] Address: [address] [place] [address] Performed By: #### B 1WB #### [facility] CLIA [id number] [address] [place] [address] [place] Monocytes (Bld) [#/Vol] 0.47 10*3/uL Normal <0.87 [facility] Comment on above: Order Comment: Speci men Type: BLOOD SPECIMEN Ordering Facility: [facility] Address: [address] [place] [address] Performed By: #### B 1WB #### [facility] CLIA [id number] [address] [place] [address] [place] Monocytes/100 WBC (Bld) 6.2 % Normal [facility] Comment on above: Order Comment: Speci men Type: BLOOD SPECIMEN Ordering Facility: [facility] Address: [address] [place] [address] Performed By: #### B 1WB #### [facility] CLIA [id number] [address] [place] [address] [place] Neutrophils (Bld) [#/Vol] 3.17 10*3/uL Normal 1.45-7.50 [facility] Comment on above: Order Comment: Speci men Type: BLOOD SPECIMEN Ordering Facility: [facility] Address: [address] [place] [address] Performed By: #### B 1WB #### [facility] CLIA [id number] [address] [place] [address] [place] Neutrophils/100 WBC (Bld) 42.0 % Normal [facility] Comment on above: Order Comment: Speci men Type: BLOOD SPECIMEN Ordering Facility: [facility] Address: [address] [place] [address] Performed By: #### B 1WB #### [facility] CLIA [id number] [address] [place] [address] [place] Nucleated RBC (Bld) [#/Vol] 10*3/uL Normal <0.01 [facility] Comment on above: Order Comment: Speci men Type: BLOOD SPECIMEN Ordering Facility: [facility] Address: [address] [place] [address] Performed By: #### B 1WB #### [facility] CLIA [id number] [address] [place] [address] [place] Nucleated RBC/100 WBC (Bld) [Ratio] 0.0 /100 WBC Normal [facility] Comment on above: Order Comment: Speci men Type: BLOOD SPECIMEN Ordering Facility: [facility] Address: [address] [place] [address] Performed By: #### B 1WB #### [facility] CLIA [id number] [address] [place] [address] [place] Platelet mean volume (Bld) [Entitic vol] 10.2 fL Normal 9.0-12.7 [facility] Comment on above: Order Comment: Speci men Type: BLOOD SPECIMEN Ordering Facility: [facility] Address: [address] [place] [address] Performed By: #### B 1WB #### [facility] CLIA [id number] [address] [place] [address] [place] Platelets (Bld) [#/Vol] 465 10*3/uL High 150-400 [facility] Comment on above: Order Comment: Speci men Type: BLOOD SPECIMEN Ordering Facility: [facility] Address: [address] [place] [address] Performed By: #### B 1WB #### [facility] CLIA [id number] [address] [place] [address] [place] RBC (Bld) [#/Vol] 3.83 10*6/uL Low 3.90-5.20 [facility] Comment on above: Order Comment: Speci men Type: BLOOD SPECIMEN Ordering Facility: [facility] Address: [address] [place] [address] Performed By: #### B 1WB #### [facility] CLIA [id number] [address] [place] [address] [place] WBC (Bld) [#/Vol] 7.56 10*3/uL Normal 3.70-11.00 [facility] Comment on above: Order Comment: Speci men Type: BLOOD SPECIMEN Ordering Facility: [facility] Address: [address] [place] [address] Performed By: #### B 1WB #### [facility] CLIA [id number] [address] [place] [address] [place] PATHOLOGIST INTERPRETATION C BC/DIFFon 05-30-2025 Twister In review Bola (Unsp spec) [Interp] No review performed. Normal [facility] Comment on above: Order Comment: Speci men Type: BLOOD SPECIMEN Ordering Facility: [facility] Address: [address] [place] [address] Performed By: #### B 1WB #### [facility] CLIA [id number] [address] [place] [address] [place] STAFF REVIEW, CBCDIF The Pathologist Interpretation on this sample was cancelled because the hematology analyzer did not flag any parameters as requiring manual review. If there is a specific clinical concern for which you would like a pathologist to review the blood smear, please call Lab Client Services within 28 days. Normal [facility] Comment on above: Order Comment: Speci men Type: BLOOD SPECIMEN Ordering Facility: [facility] Address: [address] [place] [address] Performed By: #### B 1WB #### [facility] CLIA [id number] [address] [place] [address] [place] XR KNEE LEFT 4+ VIEWS (SPECI FY VIEWS IN COMMENTS)on 05-29-2025 XR KNEE LEFT 4+ VIEWS (SPECIFY VIEWS IN COMMENTS) EXAMINATION: XR KNEE LEFT 4+ VIEWS (SPECIFY VIEWS IN COMMENTS) HISTORY: ORDERING SYSTEM PROVIDED HISTORY: R52; Pain; I10, TECHNOLOGIST PROVIDED HISTORY: Illness/Other Reason for exam: Left knee pain and tightness x 1 week without injury. Hx of partial knee replacement 03/10/21 Cancer History: u Surgery, RadiationHistory: u Encounter Type: Initial Additional signs and symptoms: None ORDERING SYSTEM PROVIDED DIAGNOSIS CODES: R52 Pain COMPARISON: 04/09/2022. FINDINGS: Bilateral AP standing and tunnel views of the knees. Lateral and sunrise view of the left knee. Left knee: No acute osseous abnormality. Postoperative changes of prior partial knee replacement of the medial compartment. Hardware components are well seated with appropriate alignment. Mild lateral and patellofemoral compartment joint space narrowing with moderate osteophytic spurring. Bykob-lt-cgxsvuoa joint effusion. Right knee: No acute osseous abnormality. Mild medial knee compartment joint space narrowing with mild osteophytic spurring. IMPRESSION: No acute osseous abnormality. Left knee partial knee replacement. The medial knee compartment appears intact. Moderate degenerative changes of the remaining left knee compartments. [facility] Workstation ID: [id number] Dictated by: SKYLER MANRIQUEZ on TueMay 29, 2025 12:15:20 PM EDT Transcribed by: BENJAMIN YUNG on TueMay 29, 2025 1:18:11 PM EDT Finalized by: SKYLER MANRIQUEZ on TueMay 29, 2025 4:50:33 PM EDT Normal [facility] Comment on above: Order Comment: Injur y/Trauma or Illness?:Illness/Other How long have you had these symptoms (acute/chronic)?:Acute Reason for exam?:Left knee pain and tightness x 1 week without injury. Hx of partial knee replacement 03/10/21 History of cancer?:u Surgeries, chemotherapy, or radiation?:u Type of Exam?:Initial Additional signs and symptoms?:None Rossi 04-30-2025 [facility] Tele[facility] (FAMPWS) ARABELLAKRISTA Diez ([id number]) 1985 F Date Time Provider Department 04/30/25 PERCY HUANG During your visit today, we recorded the following information about you: Percy Huang MD 04/30/2025 12:54 PM Signed Her labs are stable, except her platelets are up higher again. They have been usually in the low 400's. Above 500 today. Again have been intermittently high for years, however, were normal a year ago. Can go up with stress on the body etc. To be on safe side recheck in one month, if not coming back down, to hematology Alcides Santiago LPN 05/01/2025 11:35 AM Signed Left message for pt to contact office. CHAPARRITA Corado Amanda, RN 05/02/2025 1:13 PM Signed Pt called and is notified of providers results and instructions. Pt voices understanding. Ally Hennesys RN Allergies As of Date: 04/30/2025 Noted Allergy Reaction OXYCODONE 10/18/2022 2 - Rash Date Reviewed: 04/27/2025 Reviewed by: Carlos Kamara LPN - Fully Assessed Reason for Visit: Results [95] Primary Visit Diagnosis:Thrombocyt osis [D75.839] Order(s):PATHOLOGIST INTERPRETATION WITH CBC AND DIFF [SQSTREV] Order #: [id number] FUTURE Prescriptions as of 05/02/2025 - escitalopram oxalate (LEXAPRO) 10 mg tablet Take 1 tablet by mouth once daily. - pantoprazole DR (PROTONIX) 40 mg tablet Take 1 tablet by mouth once daily. - miSOPROStol (CYTOTEC) 200 mcg tablet Take 200 mcg by mouth four times daily. Per Friend - Drospirenone-Ethinyl Estradiol 3-0.03 mg per tablet Take 1 tablet by mouth once daily. - valACYclovir (VALTREX) 1 gram tablet TAKE 1 TABLET BY MOUTH EVERY 12 HOURS FOR 3 DAYS NEEDED Problem List As Of Date 04/30/2025 Noted Resolved Routine general medical examination at [facility]*03/04/2011 10/09/2014 Class: Chronic Routine gynecological examination [Z01.419] 03/04/2011 10/09/2014 Class: Chronic Fatigue [R53.83] 03/04/2011 10/18/2022 Obesity [E66.9] 03/04/2011 04/27/2025 Cholelithiasis NOS [K80.20] 05/21/2011 Depression [F32.A] 09/08/2015 Primary osteoarthritis of left knee [M17.12] 02/17/2021 Status post left partial knee replacement [Z96.*03/30/2021 Thrombocytosis [D75.839] 10/18/2022 Hx of bariatric surgery [Z98.84] 11/01/2022 Encounter Status:Closed by ALLY HENNESSY on 05/02/25 Normal [facility] 25(OH)D3 [facility] 25-hydroxyvitamin D3 [Mass/Vol] 33.3 ng/mL Normal 31.0-80.0 [facility] Comment on above: Order Comment: Speci iris Type: BLOOD SPECIMEN Ordering Facility: [facility] Address: [address] [place] [address] Result Comment: Clas sification of 25 [place] Vitamin D status: Deficiency/Insufficiency: < or = 30 ng/ml. Sufficiency/Optimal Levels: 31-80 ng/mL Toxicity: > 100 ng/mL. Test performed by chemiluminescent immunoassay. Performed By: #### B 1WB #### [facility] CLIA [id number] [address] [place] [address] [place] CBC W Auto Differential pane l (Bld)on 04-27-2025 Basophils (Bld) [#/Vol] 0.04 10*3/uL Normal <0.11 [facility] Comment on above: Order Comment: Bryan simmons Type: BLOOD SPECIMEN Ordering Facility: [facility] Address: [address] [place] [address] Performed By: #### 5 7021-8 #### [facility] CLIA [id number] [address] [place] [address] [place] Basophils/100 WBC (Bld) 0.6 % Normal [facility] Comment on above: Order Comment: Speci men Type: BLOOD SPECIMEN Ordering Facility: [facility] Address: [address] [place] [address] Performed By: #### 5 7021-8 #### [facility] CLIA [id number] [address] [place] [address] [place] Differential cell count method Nom (Bld) Auto Normal [facility] Comment on above: Order Comment: Speci men Type: BLOOD SPECIMEN Ordering Facility: [facility] Address: [address] [place] [address] Performed By: #### 5 7021-8 #### [facility] CLIA [id number] [address] [place] [address] [place] Eosinophils (Bld) [#/Vol] 0.09 10*3/uL Normal <0.46 [facility] Comment on above: Order Comment: Speci men Type: BLOOD SPECIMEN Ordering Facility: [facility] Address: [address] [place] [address] Performed By: #### 5 7021-8 #### [facility] CLIA [id number] [address] [place] [address] [place] Eosinophils/100 WBC (Bld) 1.3 % Normal [facility] Comment on above: Order Comment: Speci men Type: BLOOD SPECIMEN Ordering Facility: [facility] Address: [address] [place] [address] Performed By: #### 5 7021-8 #### [facility] CLIA [id number] [address] [place] [address] [place] Erythrocyte distribution width (RBC) [Ratio] 14.4 % Normal 11.5-15.0 [facility] Comment on above: Order Comment: Speci men Type: BLOOD SPECIMEN Ordering Facility: [facility] Address: [address] [place] [address] Performed By: #### 5 7021-8 #### [facility] CLIA [id number] [address] [place] [address] [place] Hematocrit (Bld) [Volume fraction] 37.0 % Normal 36.0-46.0 [facility] Comment on above: Order Comment: Speci men Type: BLOOD SPECIMEN Ordering Facility: [facility] Address: [address] [place] [address] Performed By: #### 5 7021-8 #### [facility] CLIA [id number] [address] [place] [address] [place] Hemoglobin (Bld) [Mass/Vol] 11.5 g/dL Normal 11.5-15.5 [facility] Comment on above: Order Comment: Speci men Type: BLOOD SPECIMEN Ordering Facility: [facility] Address: [address] [place] [address] Performed By: #### 5 7021-8 #### [facility] CLIA [id number] [address] [place] [address] [place] Immature granulocytes (Bld) [#/Vol] 10*3/uL Normal <0.10 [facility] Comment on above: Order Comment: Speci men Type: BLOOD SPECIMEN Ordering Facility: [facility] Address: [address] [place] [address] Performed By: #### 5 7021-8 #### [facility] CLIA [id number] [address] [place] [address] [place] Immature granulocytes/100 WBC (Bld) 0.3 % Normal [facility] Comment on above: Order Comment: Speci men Type: BLOOD SPECIMEN Ordering Facility: [facility] Address: [address] [place] [address] Performed By: #### 5 7021-8 #### [facility] CLIA [id number] [address] [place] [address] [place] Lymphocytes (Bld) [#/Vol] 2.60 10*3/uL Normal 1.00-4.00 [facility] Comment on above: Order Comment: Speci men Type: BLOOD SPECIMEN Ordering Facility: [facility] Address: [address] [place] [address] Performed By: #### 5 7021-8 #### [facility] CLIA [id number] [address] [place] [address] [place] Lymphocytes/100 WBC (Bld) 37.1 % Normal [facility] Comment on above: Order Comment: Speci men Type: BLOOD SPECIMEN Ordering Facility: [facility] Address: [address] [place] [address] Performed By: #### 5 7021-8 #### [facility] CLIA [id number] [address] [place] [address] [place] MCH (RBC) [Entitic mass] 27.4 pg Normal 26.0-34.0 [facility] Comment on above: Order Comment: Speci men Type: BLOOD SPECIMEN Ordering Facility: [facility] Address: [address] [place] [address] Performed By: #### 5 7021-8 #### [facility] CLIA [id number] [address] [place] [address] [place] MCHC (RBC) [Mass/Vol] 31.1 g/dL Normal 30.5-36.0 [facility] Comment on above: Order Comment: Speci men Type: BLOOD SPECIMEN Ordering Facility: [facility] Address: [address] [place] [address] Performed By: #### 5 7021-8 #### [facility] CLIA [id number] [address] [place] [address] [place] MCV (RBC) [Entitic vol] 88.3 fL Normal 80.0-100.0 [facility] Comment on above: Order Comment: Speci men Type: BLOOD SPECIMEN Ordering Facility: [facility] Address: [address] [place] [address] Performed By: #### 5 7021-8 #### [facility] CLIA [id number] [address] [place] [address] [place] Monocytes (Bld) [#/Vol] 0.58 10*3/uL Normal <0.87 [facility] Comment on above: Order Comment: Speci men Type: BLOOD SPECIMEN Ordering Facility: [facility] Address: [address] [place] [address] Performed By: #### 5 7021-8 #### [facility] CLIA [id number] [address] [place] [address] [place] Monocytes/100 WBC (Bld) 8.3 % Normal [facility] Comment on above: Order Comment: Speci men Type: BLOOD SPECIMEN Ordering Facility: [facility] Address: [address] [place] [address] Performed By: #### 5 7021-8 #### [facility] CLIA [id number] [address] [place] [address] [place] Neutrophils (Bld) [#/Vol] 3.68 10*3/uL Normal 1.45-7.50 [facility] Comment on above: Order Comment: Speci men Type: BLOOD SPECIMEN Ordering Facility: [facility] Address: [address] [place] [address] Performed By: #### 5 7021-8 #### [facility] CLIA [id number] [address] [place] [address] [place] Neutrophils/100 WBC (Bld) 52.4 % Normal [facility] Comment on above: Order Comment: Speci men Type: BLOOD SPECIMEN Ordering Facility: [facility] Address: [address] [place] [address] Performed By: #### 5 7021-8 #### [facility] CLIA [id number] [address] [id number] [address] [place] Nucleated RBC (Bld) [#/Vol] 10*3/uL Normal <0.01 [facility] Comment on above: Order Comment: Speci men Type: BLOOD SPECIMEN Ordering Facility: [facility] Address: [address] [place] [address] Performed By: #### 5 7021-8 #### [facility] CLIA [id number] [address] [place] [address] [place] Nucleated RBC/100 WBC (Bld) [Ratio] 0.0 /100 WBC Normal [facility] Comment on above: Order Comment: Speci men Type: BLOOD SPECIMEN Ordering Facility: [facility] Address: [address] [place] [address] Performed By: #### 5 7021-8 #### [facility] CLIA [id number] [address] [place] [address] [place] Platelet mean volume (Bld) [Entitic vol] 10.5 fL Normal 9.0-12.7 [facility] Comment on above: Order Comment: Speci men Type: BLOOD SPECIMEN Ordering Facility: [facility] Address: [address] [place] [address] Performed By: #### 5 7021-8 #### [facility] CLIA [id number] [address] [place] [address] [place] Platelets (Bld) [#/Vol] 527 10*3/uL High 150-400 [facility] Comment on above: Order Comment: Speci men Type: BLOOD SPECIMEN Ordering Facility: [facility] Address: [address] [place] [address] Performed By: #### 5 7021-8 #### [facility] CLIA [id number] [address] [place] [address] [place] RBC (Bld) [#/Vol] 4.19 10*6/uL Normal 3.90-5.20 [facility] Comment on above: Order Comment: Speci men Type: BLOOD SPECIMEN Ordering Facility: [facility] Address: [address] [place] [address] Performed By: #### 5 7021-8 #### [facility] CLIA [id number] [address] [place] [address] [place] WBC (Bld) [#/Vol] 7.01 10*3/uL Normal 3.70-11.00 [facility] Comment on above: Order Comment: Speci men Type: BLOOD SPECIMEN Ordering Facility: [facility] Address: [address] [place] [address] Performed By: #### 5 7021-8 #### [facility] CLIA [id number] [address] [place] [address] [place] CNOVon 04-27-2025 [facility] KRISTA BELL ([id number]) 1985 F Date Time Provider Department 04/27/25 9:00 AM PERCY HU[facility] During your visit today, we recorded the following information about you: Pulse Blood pressure Weight Height 60/minute 102/72 100.2 kg 1.68 m Percy Huang MD 04/27/2025 9:48 AM Signed - Continue your current dose of Protonix as prescribed. - cont inue Cytotec 200 mg by mouth three times daily. - Refills have been provided for Lexapro; continue taking it as before. - Schedule a fasting blood draw for: Complete blood count (CBC) Comprehensive metabolic panel (CMP) Magnesium Vitamin B12, folate, and vitamin B1 Iron Vitamin D Lipid panel Hemoglobin A1c - Arrange a repeat upper endoscopy (EGD) in 12 weeks to reassess your stomach ulcers and loose suture. - Monitor for any worsening stomach pain, black or bloody stools, or new gastrointestinal symptoms and contact Dr. Cleary immediately if they occur. - If you have difficulty scheduling with Dr. Cleary?s office, please let us know so we can assist. - Return for routine follow-up in 6 months to review your lab results and overall health status. Percy Huang MD 04/27/2025 11:30 AM Signed Krista Bell is a 40-year-old female with a history of gastric ulcers, presenting for physical. HPI Gastric Ulcers: - Recent colonoscopy and EGD revealed persistent gastric ulcers and a loose suture. - Currently taking Cytotec 200 mg TID and Protonix as prescribed by Dr. Cleary. - REGISTERED NURSE NURSERY recommended adding Carafate, but Krista is already on Cytotec and Protonix. - Follow-up EGD scheduled in 12 weeks. - Considering consulting a surgeon in [place] who previously treated her for ulcers. - Denies hematochezia, melena, abdominal pain, dysphagia, or heartburn. - Reports occasional bloating. Depression: - Well-managed with Lexapro; denies side effects. - Reports some stress related to her daughter but feels okay overall. Weight Management: - Current weight is 221 lbs; has lost 20 lbs since November. - Underwent abdominoplasty last year, contributing to weight loss. - Desires to lose an additional 20 lbs but has difficulty achieving this goal. Lifestyle: - Recently purchased a house with her fiance and is in the process of selling her previous home. - Switched jobs and returned to [employer] in [place]. - Youngest child recently graduated. MEDICATIONS: Current Outpatient Medications Medication Sig miSOPROStol (CYTOTEC) 200 mcg tablet Take 200 mcg by mouth four times daily. Per Dr Cleary Drospirenone-Ethinyl Estradiol 3-0.03 mg per tablet Take 1 tablet by mouth once daily. escitalopram oxalate (LEXAPRO) 10 mg tablet Take 1 tablet by mouth once daily. pantoprazole DR (PROTONIX) 40 mg tablet Take 1 tablet by mouth once daily. valACYclovir (VALTREX) 1 gram tablet TAKE 1 TABLET BY MOUTH EVERY 12 HOURS FOR 3 DAYS NEEDED No current facility-administere d medications for this visit. ALLERGIES: ALLERGIES Allergen Reactions Oxycodone Rash PAST MEDICAL HISTORY Diagnosis Date Cold sores Depression Gallstones 03/14/2011 H. 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) 05/28/2024 + HR HPV PAST SURGICAL HISTORY Procedure Laterality Date ABDOMINOPLASTY 04/03/2024 GSTRCT PRTL DSTL W/GASTRODUODENOSTOMY 03/30/2016 Gastrectomy, partial, sleeve Gastrectomy LAPS SURG CHOLECYSTECTOMY W/CHOLANGIOGRAPHY 05/21/2011 failed IOC PAST SURGICAL HISTORY OF wisdom teeth PAST SURGICAL HISTORY OF cryotherapy for abnormal pap after per pt 2001 PAST SURGICAL HISTORY OF 11/30/2023 colposcopy RPR EPIGASTRIC HERNIA REDUCIBLE SPX 03/30/2016 Hiatal hernia repair TONSILLECTOMY HX 09/15/2022 Dr Jewell [facility] [place] FAMILY HISTORY Problem Relation Age of Onset Hypertension Mother Psychiatry Mother depression Stroke Father Blood Disease Father blood clots Psychiatry Sister depression Heart Brother at about 1.5 years due to heart problems Diabetes Paternal Grandfather + Social History Tobacco Use Smoking status: Former Current packs/day: 0.00 Types: Cigarettes Quit date: 01/26/2009 Years since quittin.2 Smokeless tobacco: Never Vaping Use Vaping status: Never Used Substance Use Topics Alcohol use: Yes Comment: occasionally Drug use: No Reviewed current medications, allergies, past medical history, surgical history, family history and social history today. REVIEW OF SYSTEMS Gastrointestinal: (+) abdominal bloating, (-) abdominal pain, (-) melena, (-) hematochezia Psychiatric: (+) stress HEALTH MAINTENANCE: Reviewed health maintenance issues today and recommended the following in (more content not included)... Normal [facility] Comprehensive metabolic 2000 panelon 04-27-2025 Albumin [Mass/Vol] 3.9 g/dL Normal 3.9-4.9 [facility] Comment on above: Order Comment: Speci men Type: BLOOD SPECIMEN Ordering Facility: [facility] Address: [address] [place] [address] Performed By: #### 2 4323-8, 13332-6, 56102-7, 42675-8 #### [facility] CLIA [id number] [address] [place] [address] [place] ALP [Catalytic activity/Vol] 77 U/L Normal 34-123 [facility] Comment on above: Order Comment: Speci men Type: BLOOD SPECIMEN Ordering Facility: [facility] Address: [address] [place] [address] Performed By: #### 2 4323-8, 62668-2, 50217-1, 77955-3 #### [facility] CLIA [id number] [address] [place] [address] [place] ALT [Catalytic activity/Vol] 8 U/L Normal 7-38 [facility] Comment on above: Order Comment: Speci men Type: BLOOD SPECIMEN Ordering Facility: [facility] Address: [address] [place] [address] Performed By: #### 2 4323-8, 57843-2, 63491-8, 68048-7 #### [facility] CLIA [id number] [address] [place] [address] [place] Anion gap [Moles/Vol] 11 mmol/L Normal 8-15 [facility] Comment on above: Order Comment: Speci men Type: BLOOD SPECIMEN Ordering Facility: [facility] Address: [address] [place] [address] Performed By: #### 2 4323-8, 30708-3, 65105-4, 50602-0 #### [facility] CLIA [id number] [address] [place] [address] [place] AST [Catalytic activity/Vol] 16 U/L Normal 13-35 [facility] Comment on above: Order Comment: Speci men Type: BLOOD SPECIMEN Ordering Facility: [facility] Address: [address] [place] [address] Performed By: #### 2 4323-8, 60267-9, 11650-4, 61921-9 #### [facility] CLIA [id number] [address] [place], [place] [address] [place] Bilirubin [Mass/Vol] 0.2 mg/dL Normal 0.2-1.3 [facility] Comment on above: Order Comment: Speci men Type: BLOOD SPECIMEN Ordering Facility: [facility] Address: [address] [place] [address] Performed By: #### 2 4323-8, 41432-8, 38273-7, 60092-9 #### [facility] CLIA [id number] [address] [place] [address] [place] Calcium [Mass/Vol] 9.3 mg/dL Normal 8.5-10.2 [facility] Comment on above: Order Comment: Speci men Type: BLOOD SPECIMEN Ordering Facility: [facility] Address: [address] [place] [address] Performed By: #### 2 4323-8, 12805-0, 75754-1, 05458-3 #### [facility] CLIA [id number] [address] [place] [address] [place] Chloride [Moles/Vol] 105 mmol/L Normal 98-107 [facility] Comment on above: Order Comment: Speci men Type: BLOOD SPECIMEN Ordering Facility: [facility] Address: [address] [place] [address] Performed By: #### 2 4323-8, 16822-8, 10373-3, 24536-8 #### [facility] CLIA [id number] [address] [place] [address] [place] CO2 [Moles/Vol] 23 mmol/L Normal 22-30 [facility] Comment on above: Order Comment: Speci men Type: BLOOD SPECIMEN Ordering Facility: [facility] Address: [address] [place] [address] Performed By: #### 2 4323-8, 86485-2, 55616-2, 56693-2 #### [facility] CLIA [id number] [address] [place] [address] [place] Creatinine [Mass/Vol] 0.71 mg/dL Normal 0.58-0.96 [facility] Comment on above: Order Comment: Bryan simmons Type: BLOOD SPECIMEN Ordering Facility: [facility] Address: [address] [place] [address] Performed By: #### 2 4323-8, 02314-7, 24748-7, 49911-7 #### [facility] CLIA [id number] [address] [place] [address] [place] Creatinine and Glomerular filtration rate.predicted panel (S/P/Bld) 109 mL/min/1.73m??? Normal >=60 [facility] Comment on above: Order Comment: Bryan simmons Type: BLOOD SPECIMEN Ordering Facility: [facility] Address: [address] [place] [address] Result Comment: Sepideh mated Glomerular Filtration Rate (eGFR) is calculated using the 2020 CKD-EPI creatinine equation. This equation utilizes serum creatinine, sex, and age as parameters. The creatinine assay has traceable calibration to isotope dilution-mass spectrometry. Refer to KDIGO guidelines for clinical interpretation. In patients with unstable renal function, e.g. those with acute kidney injury, the eGFR may not accurately reflect actual GFR. Performed By: #### 2 4323-8, 37959-5, 87084-2, 65113-8 #### [facility] CLIA [id number] [address] [place], [place] [address] [place] Glucose [Mass/Vol] 85 mg/dL Normal 74-99 [facility] Comment on above: Order Comment: Bryan simmons Type: BLOOD SPECIMEN Ordering Facility: [facility] Address: [address] [place] [address] Result Comment: The [place] Diabetes Association (ADA) provides guidance for cutoff values for fasting glucose and random glucose. The ADA defines fasting as no caloric intake for at least 8 hours. Fasting plasma glucose results between 100 to 125 mg/dL indicate increased risk for diabetes (prediabetes). Fasting plasma glucose results greater than or equal to 126 mg/dL meet the criteria for diagnosis of diabetes. In the absence of unequivocal hyperglycemia, results should be confirmed by repeat testing. In a patient with classic symptoms of hyperglycemia or hyperglycemic crisis, random plasma glucose results greater than or equal to 200 mg/dL meet the criteria for diagnosis of diabetes. Reference: Standards of Medical Care in Diabetes 2016, [place] Diabetes Association. Diabetes Care. 2016.39(Suppl 1). Performed By: #### 2 4323-8, 75013-2, 43992-7, 44585-4 #### [facility] CLIA [id number] [address] [place] [address] [place] Potassium [Moles/Vol] 4.3 mmol/L Normal 3.7-5.1 [facility] Comment on above: Order Comment: Speci men Type: BLOOD SPECIMEN Ordering Facility: [facility] Address: [address] [place] [address] Performed By: #### 2 4323-8, 25016-0, 40993-7, 42740-0 #### [facility] CLIA [id number] [address] [place] [address] [place] Protein [Mass/Vol] 7.1 g/dL Normal 6.3-8.0 [facility] Comment on above: Order Comment: Speci men Type: BLOOD SPECIMEN Ordering Facility: [facility] Address: [address] [place] [address] Performed By: #### 2 4323-8, 47251-7, 02710-1, 19549-1 #### [facility] CLIA [id number] [address] [place] [address] [place] Sodium [Moles/Vol] 139 mmol/L Normal 136-144 [facility] Comment on above: Order Comment: Speci men Type: BLOOD SPECIMEN Ordering Facility: [facility] Address: [address] [place] [address] Performed By: #### 2 4323-8, 64465-3, 38683-7, 62527-1 #### [facility] CLIA [id number] [address] [place] [address] [place] Urea nitrogen [Mass/Vol] 10 mg/dL Normal 7-21 [facility] Comment on above: Order Comment: Speci men Type: BLOOD SPECIMEN Ordering Facility: [facility] Address: [address] [place] [address] Performed By: #### 2 4323-8, 95045-5, 78363-5, 78423-0 #### [facility] CLIA [id number] [address] [place] [address] [place] Folate SerPl-mCncon 04-27-20 25 Folate [Mass/Vol] 6.1 ng/mL Normal >4.7 [facility] Comment on above: Order Comment: Jasoni men Type: BLOOD SPECIMEN Ordering Facility: [facility] Address: [address] [place] [address] Performed By: #### 2 132-9, 2284-8 #### [facility] CLIA [id number] [address] [place] [address] [place] HbA1c (Bld)on 04-27-2025 Average glucose Estimated from glycated hemoglobin (Bld) [Mass/Vol] 108 mg/dL Normal [facility] Comment on above: Order Comment: Speci men Type: BLOOD SPECIMEN Ordering Facility: [facility] Address: [address] [place] [address] Result Comment: eAG: (Estimated average glucose) is a calculated value from HgbA1c and is product sales representative of the average blood glucose level in the last 2-3 month period. Performed By: #### 5 0190-8, 2276-4 #### [facility] CLIA [id number] [address] [place] [address] [place] HbA1c (Bld) [Mass fraction] 5.4 % Normal 4.3-5.6 [facility] Comment on above: Order Comment: Speci men Type: BLOOD SPECIMEN Ordering Facility: [facility] Address: [address] [place] [address] Result Comment: [place] Diabetes Association guidelines indicate that patients with HgbA1c in the range 5.7-6.4% are at increased risk for development of diabetes, and intervention by lifestyle modification may be beneficial. HgbA1c greater or equal to 6.5% is considered diagnostic of diabetes. Performed By: #### 5 0190-8, 2276-4 #### [facility] CLIA [id number] [address] [place] [address] [place] Iron and Iron binding capaci ty panelon 04-27-2025 Iron [Mass/Vol] 77 ug/dL Normal 41-186 [facility] Comment on above: Order Comment: Speci men Type: BLOOD SPECIMEN Ordering Facility: [facility] Address: [address] [place] [address] Performed By: #### 2 4323-8, 48517-9, 30093-6, 13160-4 #### [facility] CLIA [id number] [address] [place] [address] [place] Iron binding capacity [Mass/Vol] 574 ug/dL High 232-386 [facility] Comment on above: Order Comment: Speci men Type: BLOOD SPECIMEN Ordering Facility: [facility] Address: [address] [place] [address] Performed By: #### 2 4323-8, 39242-4, 40891-9, 50293-8 #### [facility] CLIA [id number] [address] [place] [address] [place] Iron/TIBC [Molar ratio] 13.4 % Low 15.0-57.0 [facility] Comment on above: Order Comment: Speci men Type: BLOOD SPECIMEN Ordering Facility: [facility] Address: [address] [place] [address] Performed By: #### 2 4323-8, 38155-4, 46432-8, 61036-2 #### [facility] CLIA [id number] [address] [place] [address] [place] Lipid 1996 panelon 5 Cholesterol [Mass/Vol] 187 mg/dL Normal <200 [facility] Comment on above: Order Comment: Bryan iris Type: BLOOD SPECIMEN Ordering Facility: [facility] Address: [address] [place] [address] Result Comment: <200 mg/dL, Desirable 200-239 mg/dL, Borderline high >239 mg/dL, High Performed By: #### 2 4323-8, 67589-1, 13848-3, #### [facility] CLIA [id number] [address] [place] [address] [place] Cholesterol in HDL [Mass/Vol] 76 mg/dL Normal >39 [facility] Comment on above: Order Comment: Bryan iris Type: BLOOD SPECIMEN Ordering Facility: [facility] Address: [address] [place] [address] Result Comment: 40-5 9 mg/dL, Acceptable >59 mg/dL, High: Negative risk factor for coronary heart disease <40 mg/dL, Low: Positive risk factor for coronary heart disease Performed By: #### 2 4323-8, 08851-0, 12623-6, #### [facility] CLIA [id number] [address] [place] [address] [place] Cholesterol in LDL [Mass/Vol] 79 mg/dL Normal <100 [facility] Comment on above: Order Comment: Jasonsavannah simmons Type: BLOOD SPECIMEN Ordering Facility: [facility] Address: [address] [place] [address] Result Comment: <100 mg/dL, Optimal 100-129 mg/dL, Near optimal/above optimal 130-159 mg/dL, Borderline high 160-189 mg/dL, High >189 mg/dL, Very high Secondary prevention optimal LDL Cholesterol levels are recommended to be <70 mg/dL LDL cholesterol is calculated using the [place]-NIH equation. Performed By: #### 2 4323-8, 18751-3, 81278-6, 34799-5 #### [facility] CLIA [id number] [address] [place] [address] [place] Cholesterol in LDL/Cholesterol in HDL [Mass ratio] 1.04 {ratio} Normal <2.54 [facility] Comment on above: Order Comment: Bryan simmons Type: BLOOD SPECIMEN Ordering Facility: [facility] Address: [address] [place] [address] Result Comment: Beverly momin: 1. National Cholesterol Education Program ATP III Guideline At-A-Glance Quick Desk Reference: National Heart, Lung, and Blood [place]. National Institutes of Health. 2001: NIH Publication No. 01-3305. 2. An International Atherosclerosis Society position paper: global recommendations for the management of dyslipidemia: executive summary, Atherosclerosis. 2014: 232(2):410-413. Performed By: #### 2 4323-8, 60328-6, 60452-9, #### [facility] CLIA [id number] [address] [place] [address] [place] Cholesterol in VLDL [Mass/Vol] 30 mg/dL High <30 [facility] Comment on above: Order Comment: Bryan simmons Type: BLOOD SPECIMEN Ordering Facility: [facility] Address: [address] [place] [address] Performed By: #### 2 4323-8, 91875-3, 23101-7, #### [facility] CLIA [id number] [address] [place] [address] [place] Cholesterol non HDL [Mass/Vol] 111 mg/dL Normal <130 [facility] Comment on above: Order Comment: Bryan simmons Type: BLOOD SPECIMEN Ordering Facility: [facility] Address: [address] [place] [address] Result Comment: <130 mg/dL, Optimal 130-159 mg/dL, Near optimal/above optimal 160-189 mg/dL, Borderline high 190-219 mg/dL, High >219 mg/dL, Very high Secondary prevention optimal non HDL Cholesterol levels are recommended to be <100 mg/dL Performed By: #### 2 4323-8, 42498-1, 83255-2, #### [facility] CLIA [id number] [address] [place] [address] [place] Cholesterol.total/Jennifer sterol in HDL [Mass ratio] 2.46 {ratio} Normal <5.10 [facility] Comment on above: Order Comment: Speci men Type: BLOOD SPECIMEN Ordering Facility: [facility] Address: [address] [place] [address] Performed By: #### 2 4323-8, 35987-6, 37049-1, #### [facility] CLIA [id number] [address] [place] [address] [place] FASTING TIME 12 hrs Normal [facility] Comment on above: Order Comment: Speci men Type: BLOOD SPECIMEN Ordering Facility: [facility] Address: [address] [place] [address] Performed By: #### 2 4323-8, 73852-2, 37114-1, #### [facility] CLIA [id number] [address] [place], [place] [address] [place] Triglyceride [Mass/Vol] 194 mg/dL High <150 [facility] Comment on above: Order Comment: Speci men Type: BLOOD SPECIMEN Ordering Facility: [facility] Address: [address] [place] [address] Result Comment: <150 mg/dL, Normal 150-199 mg/dL, Borderline high 200-499 mg/dL, High >499 mg/dL, Very high Performed By: #### 2 4323-8, 91909-4, 46374-1, #### [facility] CLIA [id number] [address] [place], [place] [address] [place] Magnesium SerPl-mCncon 04-27 Magnesium [Mass/Vol] 2.0 mg/dL Normal 1.7-2.3 [facility] Comment on above: Order Comment: Speci men Type: BLOOD SPECIMEN Ordering Facility: [facility] Address: [address] [place] [address] Performed By: #### 2 4323-8, 52689-7, 23427-0, 43185-5 #### [facility] CLIA [id number] [address] [place] [address] [place] VITAMIN B1 (THIAMINE), WHOLE BLOODon 04-27-2025 Thiamine (Bld) [Moles/Vol] 224.4 nmol/L High 84.3-213.3 [facility] Comment on above: Order Comment: Speci men Type: BLOOD SPECIMEN Ordering Facility: [facility] Address: [address] [place] [address] Result Comment: This assay measures the concentration of thiamine diphosphate (TDP), the primary active form of vitamin B1. Approximately 90 percent of vitamin B1 present in whole blood is TDP. Thiamine and thiamine monophosphate, which comprise the remaining 10 percent, are not measured. This test was developed, and its performance characteristics determined by the [facility] Department of Pathology and Laboratory Medicine. It has not been cleared or approved by the FDA. The [facility] Department of Pathology and Laboratory Medicine is regulated under CLIA as qualified to perform high-complexity testing. This test is used for clinical purposes. It should not be regarded as investigational or for research. Performed By: #### B 1WB #### [facility] CLIA [id number] [address] [place] [address] [place] Vit B12 SerPl-mCncon 025 Cobalamin (Vitamin B12) [Mass/Vol] pg/mL High 232-1245 [facility] Comment on above: Order Comment: Speci men Type: BLOOD SPECIMEN Ordering Facility: [facility] Address: [address] [place] [address] Performed By: #### 2 132-9, 2284-8 #### [facility] CLIA [id number] [address] [place] [address] [place] Colonoscopy Reporton 025 Colonoscopy Report [facility] Medical Records Department [address] [place] [address] Colonoscopy Report MR#: [id number] Acct: [id number] Name: KRISTA BELL Rep #: [id number] : 1985 39 From: Prabhu Cleary DO PCP: Dr. Percy Huang MD Status:REG [facility] Patient Name: Krista Bell Procedure Date: 04/05/2025 7:06 AM Date of : 1985 Age: 39 Procedure: Colonoscopy Indications: Generalized abdominal pain, Periumbilical abdominal pain, Lower abdominal pain, Upper abdominal pain Providers: Prabhu Cleary DO Referring MD: Percy Huang Medicines: Monitored Anesthesia Care Patient Profile: This is a 39 year old female. Refer to note in patient chart for documentation of history and physical. Patient has symptoms of acute epigastric abdominal pain. Last Colonoscopy: none. The patient's first colonoscopy is today. Complications: No immediate complications. Procedure: Pre-Anesthesia Assessment: - Prior to the procedure, a History and Physical was performed, and patient medications and allergies were reviewed. The patient is competent. The risks and benefits of the procedure and the sedation options and risks were discussed with the patient. All questions were answered and informed consent was obtained. Patient identification and proposed procedure were verified by the physician in the pre-procedure area. Mental Status Examination: alert and oriented. Airway Examination: normal oropharyngeal airway and neck mobility. Respiratory Examination: clear to auscultation. CV Examination: normal. Prophylactic Antibiotics: The patient does not require prophylactic antibiotics. Prior Anticoagulants: The patient has taken no anticoagulant or antiplatelet agents except for NSAID medication. ASA Grade Assessment: II - A patient with mild systemic disease. After reviewing the risks and benefits, the patient was deemed in satisfactory condition to undergo the procedure. The anesthesia plan was to use monitored anesthesia care (MAC). Immediately prior to administration of medications, the patient was re-assessed for adequacy to receive sedatives. The heart rate, respiratory rate, oxygen saturations, blood pressure, adequacy of pulmonary ventilation, and response to care were monitored throughout the procedure. The physical status of the patient was re-assessed after the procedure. After I obtained informed consent, the scope was passed under direct vision. Throughout the procedure, the patient's blood pressure, pulse, and oxygen saturations were monitored continuously. The Colonoscope was introduced through the anus and advanced to the terminal ileum. The colonoscopy was performed without difficulty. The patient tolerated the procedure well. The quality of the bowel preparation was adequate. The terminal ileum, ileocecal valve, appendiceal orifice, and rectum were photographed. Scope In: 7:08:18 AM Scope Withdrawal Time 0 hours 7 minutes 39 seconds Scope Out: 7:18:54 AM Total Procedure Duration Time 0 hours 10 minutes 36 seconds Findings: The perianal and digital rectal examinations were normal. An area of mildly congested mucosa was found in the recto-sigmoid colon, at the hepatic flexure, in the ascending colon and in the cecum. Biopsies were taken with a cold forceps for histology. Verification of patient identification for the specimen was done. Estimated blood loss was minimal. Estimated blood loss was minimal. A patchy area of the terminal ileum was congested. Biopsies were taken with a cold forceps for histology. Verification of patient identification for the specimen was done. Estimated blood loss was minimal. Impression: - Congested mucosa in the recto-sigmoid colon, at the hepatic flexure, in the ascending colon and in the cecum. Biopsied. - Congested mucosa in the terminal ileum. Biopsied. Recommendation: - Discharge patient to home. - Resume previous diet. - Continue present medications. - Await pathology results. - Repeat colonoscopy is recommended for surveillance. The colonoscopy date will be determined after pathology results from today's exam become available for review. Procedure Code(s): --- Professional --- 67220, Colonoscopy, flexible; with biopsy, single or multiple CPT copyright 2021 [employer]. All rights reserved. The codes documented in this report are preliminary and upon quality auditor review may be revised to meet current compliance requirements. Prabhu Cleary DO 04/05/2025 7:31:16 AM This report has been signed electronically. Number of Addenda: 0 Note Initiated On: 04/05/2025 7:06 AM 04/05/25 0731 Date Prabhu Bird Signature: Date (if indicated) CC: Dr. Percy William (more content not included)... Normal [facility] EGD Reporton 04-05-2025 EGD Report [facility] Medical Records Department [address] [place] [address] EGD Report MR#: [id number] Acct: [id number] Name: KRISTA BELL Rep #: [id number] : 1985 39 From: Prabhu Cleary DO PCP: Dr. Percy Huang MD Status:REG [facility] Patient Name: Krista Bell Procedure Date: 04/05/2025 6:35 AM Date of : 1985 Age: 39 Procedure: Upper GI endoscopy Indications: Epigastric abdominal pain Providers: Prabhu Cleary DO Referring MD: Percy Huang Medicines: Monitored Anesthesia Care Patient Profile: This is a 39 year old female. Refer to note in patient chart for documentation of history and physical. Patient has symptoms of acute epigastric abdominal pain. Complications: No immediate complications. Procedure: Pre-Anesthesia Assessment: - Prior to the procedure, a History and Physical was performed, and patient medications and allergies were reviewed. The patient is competent. The risks and benefits of the procedure and the sedation options and risks were discussed with the patient. All questions were answered and informed consent was obtained. Patient identification and proposed procedure were verified by the physician in the pre-procedure area. Mental Status Examination: alert and oriented. Airway Examination: normal oropharyngeal airway and neck mobility. Respiratory Examination: clear to auscultation. CV Examination: normal. Prophylactic Antibiotics: The patient does not require prophylactic antibiotics. Prior Anticoagulants: The patient has taken no anticoagulant or antiplatelet agents except for NSAID medication. ASA Grade Assessment: II - A patient with mild systemic disease. After reviewing the risks and benefits, the patient was deemed in satisfactory condition to undergo the procedure. The anesthesia plan was to use monitored anesthesia care (MAC). Immediately prior to administration of medications, the patient was re-assessed for adequacy to receive sedatives. The heart rate, respiratory rate, oxygen saturations, blood pressure, adequacy of pulmonary ventilation, and response to care were monitored throughout the procedure. The physical status of the patient was re-assessed after the procedure. After obtaining informed consent, the endoscope was passed under direct vision. Throughout the procedure, the patient's blood pressure, pulse, and oxygen saturations were monitored continuously. The Colonoscope was introduced through the mouth, and advanced to the anastomosis site of gastric bypass. The upper GI endoscopy was accomplished without difficulty. The patient tolerated the procedure well. 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 The gastrojejunal anastomosis was characterized by ulceration and visible sutures. This was traversed. The jkybx-to-lgplpyf limb was characterized by ulceration. The jejunojejunal anastomosis was characterized by healthy appearing mucosa. The xjtmhugn-ft-mifmxkn limb was examined. The excluded stomach was not examined as it could not be found. Biopsies were taken with a cold forceps for histology. Verification of patient identification for the specimen was done. Estimated blood loss was minimal. The examined jejunum was normal. 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 Biopsied. - Normal examined jejunum. Recommendation: - Discharge patient to home. - Resume previous diet. - Continue present medications. - Await pathology results. Procedure Code(s): --- Professional --- 96328, Esophagogastroduoden oscopy, flexible, transoral; with biopsy, single or multiple CPT copyright 2021 [employer]. All rights reserved. The codes documented in this report are preliminary and upon quality auditor review may be revised to meet current compliance requirements. Prabhu Cleary DO 04/05/2025 7:28:21 AM This report has been signed electronically. Number of Addenda: 0 Note Initiated On: 04/05/2025 6:35 AM 04/05/25 0729 Date Prabhu Bird Signature: Date (if indicated) CC: Dr. Percy Huang MD; Prabhu Cleary DO Date Dictated: 04/05/25634 Date Transcribed: Incident Response Coordinator: JOSE Signed Normal [facility] Immunohistochemical Stainson 04-05-2025 Immunohistochemical Stains Patient Age/Sex Location Account Attending Physician KRISTA BELL 39/F EN [id number] Prabhu Cleary DO Specimen: [id number] Received: 04/05/25 Status: RADHA Recinos Num: [id number] Spec Type: EGD BIOPSY Subm Dr: Prabhu Cleary DO HEADER OPERATION: Colonoscopy, EGD with biopsy PRE-OP DIAGNOSIS: History of gastric bypass, bloating, flatulence, irritable bowel syndrome, dysphagia TISSUE SUBMITTED: A- Anastomotic ulcer biopsy, B- Terminal ileum biopsy, C- Random colonic biopsy MICROSCOPIC DIAGNOSIS A. Gastrointestinal tract nos, anastomotic ulcer, biopsy: Small intestinal mucosa with acute inflammation, edema, and focal gastric mucin cell metaplasia. B. Small bowel, terminal ileum, biopsy: Small intestinal mucosa with prominent mucosal lymphoid aggregates, favor reactive. C. Colon, random, biopsy: No specific pathologic change. The histologic features of microscopic colitis are not demonstrated. MICROSCOPIC DESCRIPTION Slides are reviewed. GROSS DESCRIPTION A. Received in formalin in a container labeled with the patient's name, date of , and anastomotic ulcer are 2 meyer-pink fragments of mucosal tissue measuring 0.3 x 0.3 x 0.2 cm and 0.4 x 0.3 x 0.2 cm. Submitted in toto in A1. B. Received in formalin in a container labeled with the patient's name, date of , and terminal ileum biopsy are multiple meyer-pink fragments of mucosal tissue measuring 0.8 x 0.7 x 0.3 cm in aggregate. Submitted in toto in B1. C. Received in formalin in a container labeled with the patient's name, date of , and random colonic biopsies are multiple meyer-pink fragments of mucosal tissue measuring 1.1 x 0.6 x 0.2 cm in aggregate. Submitted in toto in C1. [facility] 04-05-2025 CPT:84975m6,83078 Patient Age/Sex Location Account Attending Physician KRISTA BELL 39/F EN [id number] Prabhu Cleary, DO ADDENDUM Addendum 1 Entered: 04/24/25 This addendum is to report the IHC for H pylori on part A, performed at Dr Cleary's request: A) IHC is negative for H pylori organisms. All matched controls reacted appropriately. These tests were developed and their performance characteristics determined by [facility]. They may not have been cleared or approved by the U.S. Food and Drug Administration. The FDA has determined that such clearance or approval is not necessary.??? The above immunohistochemical/ dualISH???markers are ordered and reviewed by the Pathologist. Addendum Signed (signature on file) Dr. Becky Ruff MD 04/24/25 1118 Patient Age/Sex Location Account Attending Physician KRISTA BELL 39/F EN [id number] Prabhu Cleary DO Signed (signature on file) Dr. Becky Ruff MD 04/15/25 1228 Normal [facility] Comment on above: Performed By: #### SPENCER JENNINGS ####[facility] [id number] [place], [place], [id number] MR/POSTOP.ANEon 04-05-2025 MR/POSTOP.[facility] Medical Records Department [address] [place] [address] Anesthesia Postop Eval I 04/05/25719 MR#: [id number] Acct: [id number] Name: KRISTA BELL Rep #: [id number] : 1985 39 From: Clint Dutta DESIGN AND SALES CONSULTANT PCP: Dr. Percy Huang MD Status:[facility] Y Race: C Location: [place] [address] Anesthesia: Postop Eval I Current Vital Signs Temperature: 97.2 F Pulse Rate: 62 Blood Pressure: 113/58 Respiratory Rate: 16 Pulse Ox: 100 Oxygen Delivery Method: Room Air Assessment Airway patent: Yes Spontaneous unlabored respirations: Yes Mental status: Awake and Calm nausea: No Vomiting: No Anesthesia Complication: No Fluid Hydration Crystalloid volume administer (ml): 300 Total IV fluid infused: 300 Progress Note Anesthesia document: Postop Eval 1 completed: Yes 04/05/25724 Date Clint Dutta DESIGN AND SALES CONSULTANT Cosigner Signature: Date CC: Signed Normal [facility] MR/[id number] 04-05-2025 MR/POST[address] Medical Records Department [address] [place] [address] Anesthesia Postop Eval II 04/05/25 0831 MR#: [id number] Acct: [id number] Name: KRISTA BELL Rep #: [id number] : 1985 39 From: Duncan Nihcolson MD PCP: Dr. Percy Huang MD Status:[facility] Y Race: C Location: [place] Anesthesia Postop Eval I Sum Postop Eval Completion status Anesthesia document: Postop Eval 1 completed: Yes Anesthesia Postop Eval I Summary Anesthesia Postop Eval I Summary: Anesthesia Postop Eval I: Assessment Summary Airway patent Yes 04/05/25 07:25 DESIGN AND SALES CONSULTANT.SOBR Spontaneous unlabored Yes 04/05/25 07:25 DESIGN AND SALES CONSULTANT.SOBR respirations Mental status Awake,Calm 04/05/25 07:25 DESIGN AND SALES CONSULTANT.SOBR nausea No 04/05/25 07:25 DESIGN AND SALES CONSULTANT.SOBR Vomiting No 04/05/25 07:25 DESIGN AND SALES CONSULTANT.SOBR Anesthesia Postop Eval I: Fluid Summary Crystalloid volume administer 300 04/05/25 07:25 DESIGN AND SALES CONSULTANT.SOBR (ml) Colloids volume administered ( ml) Blood Product volume administered (ml) Total IV fluid infused 300 04/05/25 07:25 DESIGN AND SALES CONSULTANT.SOBR Anesthesia Postop Eval I: Summary Notes Anesthesia Complication No 04/05/25 07:25 DESIGN AND SALES CONSULTANT.SOBR Anesthesia Complication Comment: Post-operative progress note Anesthesia: Postop Eval II Evaluation Mental status: Awake Pain Level: 0 nausea: No Vomiting: No 04/05/25 0831 Date Duncan Dorsey Signature: Date CC: Signed Normal [facility] ,Urineon 04-05-2025 Beta HCG ( test) Ql (U) Negative Normal [facility] Comment on above: Result Comment: Very dilute urine specimens, as indicated by a low specific gravity, may not contain product sales representative levels of hCG. If is still suspected, a first morning urine specimen should be collected 48 hours later and tested. Performed By: #### L 400.7600 #### [facility] [address] [place], [place], [id number] Surgery Specimen Level Aram 04-05-2025 Surgery Specimen Level IV Patient Age/Sex Location Account Attending Physician KRISTA BELL 39/F EN [id number] Prabhu Cleary DO Specimen: [id number] Received: 04/05/25 Status: RADHA Recinos Num: [id number] Spec Type: EGD BIOPSY Subm Dr: DO GLEN Landeros OPERATION: Colonoscopy, EGD with biopsy PRE-OP DIAGNOSIS: History of gastric bypass, bloating, flatulence, irritable bowel syndrome, dysphagia TISSUE SUBMITTED: A- Anastomotic ulcer biopsy, B- Terminal ileum biopsy, C- Random colonic biopsy MICROSCOPIC DIAGNOSIS A. Gastrointestinal tract nos, anastomotic ulcer, biopsy: Small intestinal mucosa with acute inflammation, edema, and focal gastric mucin cell metaplasia. B. Small bowel, terminal ileum, biopsy: Small intestinal mucosa with prominent mucosal lymphoid aggregates, favor reactive. C. Colon, random, biopsy: No specific pathologic change. The histologic features of microscopic colitis are not demonstrated. MICROSCOPIC DESCRIPTION Slides are reviewed. GROSS DESCRIPTION A. Received in formalin in a container labeled with the patient's name, date of , and anastomotic ulcer are 2 meyer-pink fragments of mucosal tissue measuring 0.3 x 0.3 x 0.2 cm and 0.4 x 0.3 x 0.2 cm. Submitted in toto in A1. B. Received in formalin in a container labeled with the patient's name, date of , and terminal ileum biopsy are multiple meyer-pink fragments of mucosal tissue measuring 0.8 x 0.7 x 0.3 cm in aggregate. Submitted in toto in B1. C. Received in formalin in a container labeled with the patient's name, date of , and random colonic biopsies are multiple meyer-pink fragments of mucosal tissue measuring 1.1 x 0.6 x 0.2 cm in aggregate. Submitted in toto in C1. [facility] 04-05-2025 CPT:09086w5 Patient Age/Sex Location Account Attending Physician KRISTA BELL/Kwabena MIRELES [id number] Prabhu Cleary DO Signed (signature on file) Dr. Becky Ruff MD 04/15/25 1228 Normal [facility] Comment on above: Performed By: #### P SPENCER SOMERS ####[facility] [id number] [place], [address] CNPNon 03-08-2025 CNPN Refill (AGOBGRVirgie) KRISTA BELL ([id number]) 1985 F Date Time Provider Department 03/08/25 SHAKIRA MATHEWS During your visit today, we recorded the following information about you: Ty Nava 03/08/2025 12:32 PM Signed Patient called in requesting the following medication refill. TO NURSE: Please review and Pend order to provider. Refill Requested: [facility] (MUST VERIFY): [facility] Last Office Visit: Shakira Mathews Next Office Visit/Provider: 04/25/2025 Shakira Nava 03/08/2025 12:29 PM Appointments for Next 60 Days Date Time Provider Location Dept Phone 04/25/2025 2:45 PM SHAKIRA MATHEWS [facility] [phone] 04/27/2025 9:00 AM [facility] [phone] Diane Pruitt, RN 03/08/2025 12:42 PM Signed Addended by: DIANE PRUITT on: 03/08/2025 12:42 PM Modules accepted: Orders Allergies As of Date: 03/08/2025 Noted Allergy Reaction OXYCODONE 10/18/2022 2 - Rash Date Reviewed: 06/26/2024 Reviewed by: Bernarda Alatorre LPN - Fully Assessed Reason for Visit: Refill Request [94] Cmt: [facility] Visit Diagnosis:Encounter for surveillance of contraceptive pills [Z30.41] Prescriptions as of 03/08/2025 - pantoprazole DR (PROTONIX) 40 mg tablet Take 1 tablet by mouth once daily. - Drospirenone-Ethinyl Estradiol 3-0.03 mg per tablet Take 1 tablet by mouth once daily. - valACYclovir (VALTREX) 1 gram tablet TAKE 1 TABLET BY MOUTH EVERY 12 HOURS FOR 3 DAYS NEEDED - escitalopram oxalate (LEXAPRO) 10 mg tablet Take 1 tablet by mouth once daily. - Lactobacillus acidophilus (PROBIOTIC ORAL) Take by mouth. - thiamine HCl (VITAMIN B-1 ORAL) Take by mouth. - Multivitamin capsule Take 1 capsule by mouth every morning. - Cholecalciferol, Vitamin D3, 125 mcg (5,000 unit) cap Take 5,000 Units by mouth. Problem List As Of Date 03/08/2025 Noted Resolved Routine general medical examination at a [facility]*03/04/2011 10/09/2014 Class: Chronic Routine gynecological examination [Z01.419] 03/04/2011 10/09/2014 Class: Chronic Fatigue [R53.83] 03/04/2011 10/18/2022 Obesity [E66.9] 03/04/2011 Cholelithiasis NOS [K80.20] 05/21/2011 Depression [F32.A] 09/08/2015 Primary osteoarthritis of left knee [M17.12] 02/17/2021 Status post left partial knee replacement [Z96.*03/30/2021 Thrombocytosis [D75.839] 10/18/2022 Hx of bariatric surgery [Z98.84] 11/01/2022 Encounter Status:Closed by TY NAVA on 03/08/25 [facility] CNPN Telephone (AGOBGRN) KALYAN BELLY Chary ([id number]) 1985 F Date Time Provider Department 03/08/25 SHAKIRA MATHEWS During your visit today, we recorded the following information about you: Allergies As of Date: 03/08/2025 Noted Allergy Reaction OXYCODONE 10/18/2022 2 - Rash Date Reviewed: 06/26/2024 Reviewed by: Bernarda Alatorre LPN - Fully Assessed Prescriptions as of 03/08/2025 - pantoprazole DR (PROTONIX) 40 mg tablet Take 1 tablet by mouth once daily. - Drospirenone-Ethinyl Estradiol 3-0.03 mg per tablet Take 1 tablet by mouth once daily. - valACYclovir (VALTREX) 1 gram tablet TAKE 1 TABLET BY MOUTH EVERY 12 HOURS FOR 3 DAYS NEEDED - escitalopram oxalate (LEXAPRO) 10 mg tablet Take 1 tablet by mouth once daily. - Lactobacillus acidophilus (PROBIOTIC ORAL) Take by mouth. - thiamine HCl (VITAMIN B-1 ORAL) Take by mouth. - Multivitamin capsule Take 1 capsule by mouth every morning. - Cholecalciferol, Vitamin D3, 125 mcg (5,000 unit) cap Take 5,000 Units by mouth. Problem List As Of Date 03/08/2025 Noted Resolved Routine general medical examination at a health*03/04/2011 10/09/2014 Class: Chronic Routine gynecological examination [Z01.419] 03/04/2011 10/09/2014 Class: Chronic Fatigue [R53.83] 03/04/2011 10/18/2022 Obesity [E66.9] 03/04/2011 Cholelithiasis NOS [K80.20] 05/21/2011 Depression [F32.A] 09/08/2015 Primary osteoarthritis of left knee [M17.12] 02/17/2021 Status post left partial knee replacement [Z96.*03/30/2021 Thrombocytosis [D75.839] 10/18/2022 Hx of bariatric surgery [Z98.84] 11/01/2022 Encounter Status:Closed by TY NAVA on 03/08/25 [facility] Rossi 02-20-2025 CNPN Telephone (INTMWS) KRISTA BELL ([id number]) 1985 F Date Time Provider Department 02/20/25 PERCY HUANG INTWS During your visit today, we recorded the following information about you: Ethel Morales LPN 02/20/2025 1:27 PM Signed Electronic PA completed for pantoprazole 40mg. This was denied. Note from payer: Document: Decision Notes: Our prior authorization criteria for Proton Pump Inhibitors (PPIs) have not been met. From the records that we have received, PANTOPRAZOLE was denied for these reasons: 1) This drug is not being used for severe esophagitis, Payne?s esophagus, idiopathic chronic ulcer, refractory gastroesophageal reflux disease, pathologic hypersecretory conditions (such as Cortney-Herman syndrome), or history of gastrointestinal ulcer with bleeding. These are all health issues that cause increased stomach acid. Since the criteria have not been met, we are not able to approve. Please look at our list of covered drugs, also known as the formulary, to see what is covered. ADDITIONAL INFORMATION FOR YOUR HEALTH CARE PROVIDER: This request has not been approved because our prior authorization criteria for Proton Pump Inhibitors (PPIs) have not been met. From the information we have received, the member does not meet number(s) 1 of our prior authorization criteria for PANTOPRAZOLE. The reason for denial is explained to the member above. The criteria are listed here. 1) Member has a diagnosis of severe esophagitis, Payne?s esophagus, idiopathic chronic ulcer, refractory gastroesophageal reflux disease, pathologic hypersecretory conditions (e.g, Cortney-Herman syndrome), or history of gastrointestinal ulcer with bleeding. Since criteria have not been met, we are unable to approve coverage for this drug at this time. Please refer to our formulary for information on what is covered. Prior authorization may be required, and quantity limits may apply to covered drugs. Payer: [employer] [phone] Electronic appeal: Not supported View History Pharmacy Benefits Open Encounter KRISTA BELL - (SYED) Covered: Retail, Mail Order Unknown: Specialty, Long-Term Care BIN: [id number] : 1985 Group ID: [id number] PCN: [id number] Legal sex: F Group name: [facility] Address: [address] [place] [address] Medication Being Authorized pantoprazole DR (PROTONIX) 40 mg tablet Take 1 tablet by mouth once daily. Dispense: 30 tablet Refills: 2 Start: 02/18/2025 End: 05/19/2025 Class: Normal Diagnoses: Gastroesophageal reflux disease without esophagitis This order has been released to its destination. To be filled at: [facility] #[id number] - [place] [address] - [address] - [phone]) [place] [address] Pt can check with the pharmacy to see if there is a goodrx they can apply to the prescriptions since she doesn't meet the criteria for approval. Percy Huang MD 02/20/2025 1:31 PM Signed Please make sure she is aware Carlos Kamara LPN 02/20/2025 2:40 PM Signed Patient is aware and using Good Rx. Allergies As of Date: 02/20/2025 Noted Allergy Reaction OXYCODONE 10/18/2022 2 - Rash Date Reviewed: 06/26/2024 Reviewed by: Bernarda Alatorre LPN - Fully Assessed Reason for Visit: Insurance Authorization [[id number]] Prescriptions as of 02/20/2025 - pantoprazole DR (PROTONIX) 40 mg tablet Take 1 tablet by mouth once daily. - Drospirenone-Ethinyl Estradiol 3-0.03 mg per tablet Take 1 tablet by mouth once daily. - valACYclovir (VALTREX) 1 gram tablet TAKE 1 TABLET BY MOUTH EVERY 12 HOURS FOR 3 DAYS NEEDED - escitalopram oxalate (LEXAPRO) 10 mg tablet Take 1 tablet by mouth once daily. - Lactobacillus acidophilus (PROBIOTIC ORAL) Take by mouth. - thiamine HCl (VITAMIN B-1 ORAL) Take by mouth. - Multivitamin capsule Take 1 capsule by mouth every morning. - Cholecalciferol, Vitamin D3, 125 mcg (5,000 unit) cap Take 5,000 Units by mouth. Problem List As Of Date 02/20/2025 Noted Resolved Routine general medical examination at [facility]*03/04/2011 10/09/2014 Class: Chronic Routine gynecological examination [Z01.419] 03/04/2011 10/09/2014 Class: Chronic Fatigue [R53.83] 03/04/2011 10/18/2022 Obesity [E66.9] 03/04/2011 Cholelithiasis NOS [K80.20] 05/21/2011 Depression [F32.A] 09/08/2015 Primary osteoarthritis of left knee [M17.12] 02/17/2021 Status post left partial knee replacement [Z96.*03/30/2021 Thrombocytosis [D75.839] 10/18/2022 Hx of bariatric surgery [Z98.84] 11/01/2022 Encounter Status:Closed by CARLOS KAMARA on 02/20/25 Normal [facility] Emergency Department Summary on 02-05-2025 Emergency Department Summary [facility] Medical Records Department [address] [place] [address] Emergency Department Summary 02/05/25 MR#: [id number] Acct: [id number] Name: KRISTA BELL Rep #: [id number] : 1985 39 From: Harrison Moses DO PCP: Dr. Percy Huang MD Status:DEP ER Location: ED HPI History of Present Illness Chief Complaint: Bite Narrative Narrative: Chief complaint and HPI: Wound evaluation. 39-year-old female presents for wound evaluation. Patient states she was bitten by her significant others dog accidentally on 01/28/2025. She states that they recently moved into with each other and their animals got into an altercation. She was bit on the lateral aspect of her left thigh. Dogs are up-to-date on rabies. She is up-to-date on tetanus. She states she had leftover Augmentin at home in which she took a 3-day supply of this. She states she stopped taking it because she developed a vaginal yeast infection. She states that this improved with alff-fpo-cbguxap cream. Patient states that she noticed some firmness to the bite area and called PCP. Concern is for possible abscess so they sent her to the emergency department. She denies any fever, chills, abdominal pain, nausea, vomiting. Denies any drainage from the area. Review of systems: See HPI Medications: As listed on the chart Allergies: As listed on the chart PFSH: Per chart Vital signs: As listed on the chart. Reviewed. Physical exam: Gen: A O x3, NAD Head: Normocephalic, atraumatic Eyes: No sclera icterus, conjunctiva clear ENT: Moist mucous membranes CV: Regular rate Resp: Nonlabored respirations Musc: Full ROM of the left lower extremity, no deformity, on the lateral aspect of the left thigh there are multiple puncture wounds from the dog bite-they are healing and scabbed over-no erythema, purulence, warmth. In the center of the curved shaped healing puncture wounds there is an area of induration-no erythema, purulence, warmth-nontender. There is scattered ecchymosis. Skin: Warm, dry Neuro: Alert, oriented, grossly intact, sensation intact Psych: Cooperative, appropriate mood and affect [facility] Medical History (Updated 02/05/25 @ 18:[address] Harrison Moses, DO) Bloating Abdominal distention Depression Anemia Abdominal pain Stomach ulcer Home Medications ???Medication ???Instructions ???Recorded ???Last Taken ???Type escitalopram oxalate 10 mg tablet 10 mg PO DAILY 12/03/20 Unknown H istory drospirenone 3 mg-ethinyl 1 tab PO QDAY 10/03/24 Unknown His tory estradiol 0.03 mg tablet (Ocella) pantoprazole 40 mg tablet,delayed 40 mg PO QDAY 10/03/24 Unknown Hi story release Allergy/AdvReac Type Severity Reaction Status Date / Time oxycodone (From OxyContin) Allergy Rash Verified 02/05/25 17:11 Family History no significant family his Surgical History H/O gastric bypass Social History Smoking Status: Former smoker EXAM Physical Exam Const Vital Signs: 02/05/25 17:11 02/05/25 17:44 Temperature 98.7 F 98.7 F Temperature Source Oral Pulse Rate 61 61 Respiratory Rate 18 16 Blood Pressure 134/59 H 134/59 H Blood Pressure Mean 84 84 Pulse Ox 100 100 MDM MDM MDM Narrative Medical decision making narrative: 39-year-old female presents for wound evaluation. Patient states she was bitten by her significant others dog accidentally on 01/28/2025. Differential diagnosis includes but is not limited to hematoma, seroma, abscess, cellulitis. See physical exam findings. Physical exam findings are consistent with hematoma. This is not an abscess or cellulitis. Patient was educated that hematomas will slowly absorb over time. No acute intervention. Recommended compression with an Alessandro bandage. Patient states she has one at home. Continue to monitor. Follow-up with PCP. Patient is able to discharge home. She confirmed understanding of the plan. Impression: 1. Left thigh hematoma 2. History of dog bite Discharge Plan Triage Chief Complaint: Bite ED Provider: Harrison Moses Dx/Rx/DC Orders Clinical Impression: Hematoma of left thigh Instructions: Bruises (Contusions), ED Dog Bite Prescriptions: No Action pantoprazole 40 mg tablet,delayed release (DR/EC) 40 mg PO QDAY drospirenone-ethinyl estradiol [Ocella] 3-0.03 mg tablet 1 tab PO QDAY escitalopram oxalate 10 MG tablet 10 mg PO DAILY Primary Care Provider: Percy Huang Referrals: Percy Huang MD [Primary Care Provider] - 3-5 Days Activity Restrictions/Additio nal Instructions: Follow-up with your primary care physician. Return back to ED if symptoms change or worsen Print Language: German Disposition Dispositi (more content not included)... Normal [facility] Miscellaneous Lab Procedureo n 10-15-2024 [facility] LAB TEST Normal [facility] Comment on above: Order Comment: Comme nts: ELDA [id number] - Vitamin ERED [id number] VIT E Result Comment: TEST RESULTS LIMITS Vitamin E Vitamin E(Alpha Tocopherol), 11.9 mg/L 7.0-25.1 Vitamin E(Gamma Tocopherol), 0.8 mg/L 0.5-5.5 Reference intervals for alpha and gamma-tocopherol determined from National Health and Nutrition Examination Survey, 1432-9246. Individuals with alpha-tocopherol levels less than 5.0 mg/L are considered vitamin E deficient. TESTING PERFORMED AT [facility]. ORIGINAL REPORT ON FILE IN LAB CONTAINS ADDITIONAL TEST SITE INFORMATION. Performed By: #### L 501.9520, L500.4050, L100.0100, L3410.2400, L503.6075, L503.6150, L506.1000, L801.1541, L3400.0920, L503.6550, L503.0105, L5500.0550 ####[facility] [address] [place], [place], [id number] Celiac Disease Profileon ENDOMYSIAL IGA Negative Normal Negative [facility] Comment on above: Order Comment: ELDA 07 0140 - Vitamin E Performed By: #### L 501.9520, L500.4050, L100.0100, L3410.2400, L503.6075, L503.6150, L506.1000, L801.1541, L3400.0920, L503.6550, L503.0105, L5500.0550 ####[facility] [address] [facility] [facility] [place], [place], [id number] IMMUNOGLOB A QN 199 mg/dL Normal 87-352 [facility] Comment on above: Order Comment: LC 07 0140 - Vitamin E Performed By: #### L 501.9520, L500.4050, L100.0100, L3410.2400, L503.6075, L503.6150, L506.1000, L801.1541, L3400.0920, L503.6550, L503.0105, L5500.0550 ####[facility] [address] [place], [place], [id number] tTG IGA <2 Normal 0-3 [facility] Comment on above: Order Comment: 07 0140 - Vitamin E Result Comment: Nega tive 0 - 3 Weak Positive 4 - 10 Positive >10 Tissue Transglutaminase (tTG) has been identified as the endomysial antigen. Studies have demonstr- ated that endomysial IgA antibodies have over 99% specificity for gluten sensitive enteropathy. Performed By: #### L 501.9520, L500.4050, L100.0100, L3410.2400, L503.6075, L503.6150, L506.1000, L801.1541, L3400.0920, L503.6550, L503.0105, L5500.0550 ####[facility] [address] [place], [place], [id number] Vitamin A, Retinolon -30-2 024 VIT A, RETINOL 59.2 ug/dL Normal 20.1-62.0 [facility] Comment on above: Order Comment: 07 0140 - Vitamin E Result Comment: Refe rence intervals for vitamin A determined from [facility] internal studies. Individuals with vitamin A less than 20 ug/dL are considered vitamin A deficient and those with serum concentrations less than 10 ug/dL are considered severely deficient. This test was developed and its performance characteristics determined by [facility]. It has not been cleared or approved by the Food and Drug Administration. Performed at: [address] [id number] Homicide Squad Lieutenant: Cody Fernandes PhD, Phone: [phone] Performed at: [facility] [address] [id number] Homic[employer] Squad Lieutenant: Gissell Mcclendon MD, Phone: [phone] Performed By: #### L 501.9520, L500.4050, L100.0100, L3410.2400, L503.6075, L503.6150, L506.1000, L801.1541, L3400.0920, L503.6550, L503.0105, L5500.0550 ####[facility] [address] [place], [address] L5500.0550on 10-08-2024 BEEF <0.10 Normal Class 0 [facility] Comment on above: Performed By: #### L 501.9520, L500.4050, L100.0100, L3410.2400, L503.6075, L503.6150, L506.1000, L801.1541, L3400.0920, L503.6550, L503.0105, L5500.0550 ####[facility] [address] [place], [address] CHOCOLATE <0.10 Normal Class 0 [facility] Comment on above: Performed By: #### L 501.9520, L500.4050, L100.0100, L3410.2400, L503.6075, L503.6150, L506.1000, L801.1541, L3400.0920, L503.6550, L503.0105, L5500.0550 ####[facility] [address] [place], [address] CODFISH <0.10 Normal Class 0 [facility] Comment on above: Performed By: #### L 501.9520, L500.4050, L100.0100, L3410.2400, L503.6075, L503.6150, L506.1000, L801.1541, L3400.0920, L503.6550, L503.0105, L5500.0550 ####[facility] [address] [place], [address] COMMENT Comment Normal . [facility] Comment on above: Result Comment: Crispin clark of Specific IgE Class Description of Class ----- < 0.10 0 Negative 0.10 - 0.31 0/I Equivocal/Low 0.32 - 0.55 I Low 0.56 - 1.40 II Moderate 1.41 - 3.90 III High 3.91 - 19.00 IV Very High 19.01 - 100.00 V Very High >100.00 Very High Performed By: #### L 501.9520, L500.4050, L100.0100, L3410.2400, L503.6075, L503.6150, L506.1000, L801.1541, L3400.0920, L503.6550, L503.0105, L5500.0550 ####[facility] [address] [place], [address] CORN <0.10 Normal Class 0 [facility] Comment on above: Performed By: #### L 501.9520, L500.4050, L100.0100, L3410.2400, L503.6075, L503.6150, L506.1000, L801.1541, L3400.0920, L503.6550, L503.0105, L5500.0550 ####[facility] [address] [place], [address] EGG, WHOLE <0.10 Normal Class 0 [facility] Comment on above: Result Comment: Perf ormed at: [facility] [address] [id number] Homicide Squad Lieutenant: Gissell Mcclendon MD, Phone: [phone] Performed By: #### L 501.9520, L500.4050, L100.0100, L3410.2400, L503.6075, L503.6150, L506.1000, L801.1541, L3400.0920, L503.6550, L503.0105, L5500.0550 ####[facility] [address] [place], [place], [id number] MILK (COW) <0.10 Normal Class 0 [facility] Comment on above: Performed By: #### L 501.9520, L500.4050, L100.0100, L3410.2400, L503.6075, L503.6150, L506.1000, L801.1541, L3400.0920, L503.6550, L503.0105, L5500.0550 ####[facility] [address] [place], [place], [id number] MUSSELS <0.10 Normal Class 0 [facility] Comment on above: Performed By: #### L 501.9520, L500.4050, L100.0100, L3410.2400, L503.6075, L503.6150, L506.1000, L801.1541, L3400.0920, L503.6550, L503.0105, L5500.0550 ####[facility] [address] [place], [place], [id number] PEANUT <0.10 Normal Class 0 [facility] Comment on above: Performed By: #### L 501.9520, L500.4050, L100.0100, L3410.2400, L503.6075, L503.6150, L506.1000, L801.1541, L3400.0920, L503.6550, L503.0105, L5500.0550 ####[facility] [address] [place], [address] PORK <0.10 Normal Class 0 [facility] Comment on above: Performed By: #### L 501.9520, L500.4050, L100.0100, L3410.2400, L503.6075, L503.6150, L506.1000, L801.1541, L3400.0920, L503.6550, L503.0105, L5500.0550 ####[facility] [address] [place], [address] SALMON <0.10 Normal Class 0 [facility] Comment on above: Performed By: #### L 501.9520, L500.4050, L100.0100, L3410.2400, L503.6075, L503.6150, L506.1000, L801.1541, L3400.0920, L503.6550, L503.0105, L5500.0550 ####[facility] [address] [place], [address] SHRIMP <0.10 Normal Class 0 [facility] Comment on above: Performed By: #### L 501.9520, L500.4050, L100.0100, L3410.2400, L503.6075, L503.6150, L506.1000, L801.1541, L3400.0920, L503.6550, L503.0105, L5500.0550 ####[facility] [address] [place], [address] SOYBEAN <0.10 Normal Class 0 [facility] Comment on above: Performed By: #### L 501.9520, L500.4050, L100.0100, L3410.2400, L503.6075, L503.6150, L506.1000, L801.1541, L3400.0920, L503.6550, L503.0105, L5500.0550 ####[facility] [address] [facility] [place], [address] TUNA <0.10 Normal Class 0 [facility] Comment on above: Performed By: #### L 501.9520, L500.4050, L100.0100, L3410.2400, L503.6075, L503.6150, L506.1000, L801.1541, L3400.0920, L503.6550, L503.0105, L5500.0550 ####[facility] [address] [place], [place], [id number] WHEAT <0.10 Normal Class 0 [facility] Comment on above: Performed By: #### L 501.9520, L500.4050, L100.0100, L3410.2400, L503.6075, L503.6150, L506.1000, L801.1541, L3400.0920, L503.6550, L503.0105, L5500.0550 ####[facility] [address] [place], [place], [id number] CBC W/Diff, Automatedon 11-2 0-4 Absolute Lymph 2.51 X10 3/uL Normal 0.83-4.51 [facility] Comment on above: Performed By: #### L 501.9520, L500.4050, L100.0100, L3410.2400, L503.6075, L503.6150, L506.1000, L801.1541, L3400.0920, L503.6550, L503.0105, L5500.0550 #### [facility] Laboratory [address] [place], [address] Absolute Neut 4.4 X10 3/uL Normal 2.0-7.7 [facility] Comment on above: Performed By: #### L 501.9520, L500.4050, L100.0100, L3410.2400, L503.6075, L503.6150, L506.1000, L801.1541, L3400.0920, L503.6550, L503.0105, L5500.0550 #### [facility] [address] [place], [place], [id number] (312 Basophils/100 WBC (Bld) 0.3 % Normal 0-1 [facility] Comment on above: Performed By: #### L 501.9520, L500.4050, L100.0100, L3410.2400, L503.6075, L503.6150, L506.1000, L801.1541, L3400.0920, L503.6550, L503.0105, L5500.0550 #### [facility] [address] [place], [address] (552 Eosinophils/100 WBC (Bld) 0.8 % Normal 0-5 [facility] Comment on above: Performed By: #### L 501.9520, L500.4050, L100.0100, L3410.2400, L503.6075, L503.6150, L506.1000, L801.1541, L3400.0920, L503.6550, L503.0105, L5500.0550 #### [facility] [address] [place], [place], [id number] Erythrocyte distribution width (RBC) [Ratio] 13.4 % Normal 11.6-14.6 [facility] Comment on above: Performed By: #### L 501.9520, L500.4050, L100.0100, L3410.2400, L503.6075, L503.6150, L506.1000, L801.1541, L3400.0920, L503.6550, L503.0105, L5500.0550 #### [facility] [address] [place], [address] Hematocrit (Bld) [Volume fraction] 36.9 % Low 37-47 [facility] Comment on above: Performed By: #### L 501.9520, L500.4050, L100.0100, L3410.2400, L503.6075, L503.6150, L506.1000, L801.1541, L3400.0920, L503.6550, L503.0105, L5500.0550 #### [facility] [address] [place], [address] Hemoglobin (Bld) [Mass/Vol] 11.4 g/dL Low 12.0-15.0 [facility] Comment on above: Performed By: #### L 501.9520, L500.4050, L100.0100, L3410.2400, L503.6075, L503.6150, L506.1000, L801.1541, L3400.0920, L503.6550, L503.0105, L5500.0550 #### [facility] [address] [place], [address] IG% 0.500 Normal 0.0-0.9 [facility] Comment on above: Result Comment: IG% - Immature Granulocytes (promyelocytes, myelocytes and metamyelocytes) > 1% indicates that a LEFT SHIFT is Present. Performed By: #### L 501.9520, L500.4050, L100.0100, L3410.2400, L503.6075, L503.6150, L506.1000, L801.1541, L3400.0920, L503.6550, L503.0105, L5500.0550 #### [facility] [address] [place], [address] Lymphocytes/100 WBC (Bld) 33.5 % Normal 19-41 [facility] Comment on above: Performed By: #### L 501.9520, L500.4050, L100.0100, L3410.2400, L503.6075, L503.6150, L506.1000, L801.1541, L3400.0920, L503.6550, L503.0105, L5500.0550 #### [facility] [address] [place], [address] MCH (RBC) [Entitic mass] 28.4 pg Normal 27.0-32.0 [facility] Comment on above: Performed By: #### L 501.9520, L500.4050, L100.0100, L3410.2400, L503.6075, L503.6150, L506.1000, L801.1541, L3400.0920, L503.6550, L503.0105, L5500.0550 #### [facility] [address] [place], [address] MCHC (RBC) [Mass/Vol] 30.9 g/dL Low 32-36 [facility] Comment on above: Performed By: #### L 501.9520, L500.4050, L100.0100, L3410.2400, L503.6075, L503.6150, L506.1000, L801.1541, L3400.0920, L503.6550, L503.0105, L5500.0550 #### [facility] [address] [place], [address] MCV (RBC) [Entitic vol] 92.0 fL Normal 81-99 [facility] Comment on above: Performed By: #### L 501.9520, L500.4050, L100.0100, L3410.2400, L503.6075, L503.6150, L506.1000, L801.1541, L3400.0920, L503.6550, L503.0105, L5500.0550 #### [facility] [address] [place], [address] Monocytes/100 WBC (Bld) 6.1 % Normal 0-10 [facility] Comment on above: Performed By: #### L 501.9520, L500.4050, L100.0100, L3410.2400, L503.6075, L503.6150, L506.1000, L801.1541, L3400.0920, L503.6550, L503.0105, L5500.0550 #### [facility] [address] [place], [address] Neutrophils/100 WBC (Bld) 58.8 % Normal 47-70 [facility] Comment on above: Performed By: #### L 501.9520, L500.4050, L100.0100, L3410.2400, L503.6075, L503.6150, L506.1000, L801.1541, L3400.0920, L503.6550, L503.0105, L5500.0550 #### [facility] [address] [place], [address] Nucleated RBC (Bld) [#/Vol] 0 10*3/uL Normal 0-5 [facility] Comment on above: Performed By: #### L 501.9520, L500.4050, L100.0100, L3410.2400, L503.6075, L503.6150, L506.1000, L801.1541, L3400.0920, L503.6550, L503.0105, L5500.0550 #### [facility] [address] [place], [address] Platelet mean volume (Bld) [Entitic vol] 9.1 fL Normal 6.2-12.0 [facility] Comment on above: Performed By: #### L 501.9520, L500.4050, L100.0100, L3410.2400, L503.6075, L503.6150, L506.1000, L801.1541, L3400.0920, L503.6550, L503.0105, L5500.0550 #### [facility] [address] [facility] [place], [address] Platelets (Bld) [#/Vol] 452 10*3/uL High 150-450 [facility] Comment on above: Performed By: #### L 501.9520, L500.4050, L100.0100, L3410.2400, L503.6075, L503.6150, L506.1000, L801.1541, L3400.0920, L503.6550, L503.0105, L5500.0550 #### [facility] [address] [place], [address] RBC (Bld) [#/Vol] 4.01 10*6/uL Low 4.2-5.4 [facility] Comment on above: Performed By: #### L 501.9520, L500.4050, L100.0100, L3410.2400, L503.6075, L503.6150, L506.1000, L801.1541, L3400.0920, L503.6550, L503.0105, L5500.0550 #### [facility] [address] [place], [address] RDW SD 45.2 fl High 35.1-43.9 [facility] Comment on above: Performed By: #### L 501.9520, L500.4050, L100.0100, L3410.2400, L503.6075, L503.6150, L506.1000, L801.1541, L3400.0920, L503.6550, L503.0105, L5500.0550 #### [facility] [address] [place], [address] WBC (Bld) [#/Vol] 7.5 10*3/uL Normal 4.4-11.0 [facility] Comment on above: Performed By: #### L 501.9520, L500.4050, L100.0100, L3410.2400, L503.6075, L503.6150, L506.1000, L801.1541, L3400.0920, L503.6550, L503.0105, L5500.0550 #### [facility] [address] [place], [address] Comprehensive Metabolic Prof ilon 10-03-2024 Albumin [Mass/Vol] 3.1 g/dL Low 3.2-5.0 [facility] Comment on above: Order Comment: LC 07 0140 - Vitamin E Performed By: #### L 501.9520, L500.4050, L100.0100, L3410.2400, L503.6075, L503.6150, L506.1000, L801.1541, L3400.0920, L503.6550, L503.0105, L5500.0550 #### [facility] [address] [place], [address] Albumin/Globulin [Mass ratio] 0.8 {ratio} Low 0.9-2.4 [facility] Comment on above: Order Comment: LC 07 0140 - Vitamin E Performed By: #### L 501.9520, L500.4050, L100.0100, L3410.2400, L503.6075, L503.6150, L506.1000, L801.1541, L3400.0920, L503.6550, L503.0105, L5500.0550 #### [facility] [address] [place], [address] ALK P 62 U/L Normal 45-117 [facility] Comment on above: Order Comment: LC 07 0140 - Vitamin E Performed By: #### L 501.9520, L500.4050, L100.0100, L3410.2400, L503.6075, L503.6150, L506.1000, L801.1541, L3400.0920, L503.6550, L503.0105, L5500.0550 #### [facility] [address] [place], [address] ALT [Catalytic activity/Vol] 12 U/L Low 13-56 [facility] Comment on above: Order Comment: LC 07 0140 - Vitamin E Performed By: #### L 501.9520, L500.4050, L100.0100, L3410.2400, L503.6075, L503.6150, L506.1000, L801.1541, L3400.0920, L503.6550, L503.0105, L5500.0550 #### [facility] [address] [place], [address] AST [Catalytic activity/Vol] 14 U/L Low 15-37 [facility] Comment on above: Order Comment: LC 07 0140 - Vitamin E Performed By: #### L 501.9520, L500.4050, L100.0100, L3410.2400, L503.6075, L503.6150, L506.1000, L801.1541, L3400.0920, L503.6550, L503.0105, L5500.0550 #### [facility] [address] [place], [address] Bilirubin [Mass/Vol] 0.40 mg/dL Normal 0.20-1.00 [facility] Comment on above: Order Comment: LC 07 0140 - Vitamin E Result Comment: For patients on eltrombopag therapy, use of Dimension [place] TBIL is not recommended. Performed By: #### L 501.9520, L500.4050, L100.0100, L3410.2400, L503.6075, L503.6150, L506.1000, L801.1541, L3400.0920, L503.6550, L503.0105, L5500.0550 #### [facility] [address] [place], [address] BUN/CRE 26.1 RATIO High 10-20 [facility] Comment on above: Order Comment: LC 07 0140 - Vitamin E Performed By: #### L 501.9520, L500.4050, L100.0100, L3410.2400, L503.6075, L503.6150, L506.1000, L801.1541, L3400.0920, L503.6550, L503.0105, L5500.0550 #### [facility] [address] [place], [address] CA,Total 8.9 mg/dL Normal 8.5-10.1 [facility] Comment on above: Order Comment: LC 07 0140 - Vitamin E Performed By: #### L 501.9520, L500.4050, L100.0100, L3410.2400, L503.6075, L503.6150, L506.1000, L801.1541, L3400.0920, L503.6550, L503.0105, L5500.0550 #### [facility] [address] [place], [address] Chloride [Moles/Vol] 107 mmol/L Normal 98-107 [facility] Comment on above: Order Comment: LC 07 0140 - Vitamin E Performed By: #### L 501.9520, L500.4050, L100.0100, L3410.2400, L503.6075, L503.6150, L506.1000, L801.1541, L3400.0920, L503.6550, L503.0105, L5500.0550 #### [facility] [address] [place], [address] CO2 [Moles/Vol] 27.0 mmol/L Normal 21.0-32.0 [facility] Comment on above: Order Comment: LC 07 0140 - Vitamin E Performed By: #### L 501.9520, L500.4050, L100.0100, L3410.2400, L503.6075, L503.6150, L506.1000, L801.1541, L3400.0920, L503.6550, L503.0105, L5500.0550 #### [facility] [address] [place], [address] Creatinine [Mass/Vol] 0.46 mg/dL Low 0.55-1.02 [facility] Comment on above: Order Comment: LC 07 0140 - Vitamin E Result Comment: The validity of the calculated GFR GFRAA in patients over 70 years has not been determined. Clinical correlation is essential. Performed By: #### L 501.9520, L500.4050, L100.0100, L3410.2400, L503.6075, L503.6150, L506.1000, L801.1541, L3400.0920, L503.6550, L503.0105, L5500.0550 #### [facility] [address] [place], [address] EST GFR - AA 193 mL/min Normal >60 [facility] Comment on above: Order Comment: 07 0140 - Vitamin E Result Comment: Afri can [place] GFR Calc Performed By: #### L 501.9520, L500.4050, L100.0100, L3410.2400, L503.6075, L503.6150, L506.1000, L801.1541, L3400.0920, L503.6550, L503.0105, L5500.0550 #### [facility] [address] [place], [address] GAP 4 Low 5-15 [facility] Comment on above: Order Comment: 07 0140 - Vitamin E Performed By: #### L 501.9520, L500.4050, L100.0100, L3410.2400, L503.6075, L503.6150, L506.1000, L801.1541, L3400.0920, L503.6550, L503.0105, L5500.0550 #### [facility] [address] [place], [address] GFR/1.73 sq M.predicted among non-blacks MDRD (S/P/Bld) [Vol rate/Area] 159 mL/min/{1.73_m2} Normal >60 [facility] Comment on above: Order Comment: LC 07 0140 - Vitamin E Result Comment: Non- GFR Calc Performed By: #### L 501.9520, L500.4050, L100.0100, L3410.2400, L503.6075, L503.6150, L506.1000, L801.1541, L3400.0920, L503.6550, L503.0105, L5500.0550 #### [facility] [address] [place], [address] Globulin (S) [Mass/Vol] 3.9 g/dL Normal 2.2-4.2 [facility] Comment on above: Order Comment: LC 07 0140 - Vitamin E Performed By: #### L 501.9520, L500.4050, L100.0100, L3410.2400, L503.6075, L503.6150, L506.1000, L801.1541, L3400.0920, L503.6550, L503.0105, L5500.0550 #### [facility] [address] [place], [address] Glucose [Mass/Vol] 89 mg/dL Normal 74-106 [facility] Comment on above: Order Comment: LC 07 0140 - Vitamin E Performed By: #### L 501.9520, L500.4050, L100.0100, L3410.2400, L503.6075, L503.6150, L506.1000, L801.1541, L3400.0920, L503.6550, L503.0105, L5500.0550 #### [facility] [address] [place], [address] Potassium [Moles/Vol] 3.6 mmol/L Normal 3.5-5.1 [facility] Comment on above: Order Comment: LC 07 0140 - Vitamin E Performed By: #### L 501.9520, L500.4050, L100.0100, L3410.2400, L503.6075, L503.6150, L506.1000, L801.1541, L3400.0920, L503.6550, L503.0105, L5500.0550 #### [facility] [address] [place], [address] Sodium [Moles/Vol] 138 mmol/L Normal 136-145 [facility] Comment on above: Order Comment: LC 07 0140 - Vitamin E Performed By: #### L 501.9520, L500.4050, L100.0100, L3410.2400, L503.6075, L503.6150, L506.1000, L801.1541, L3400.0920, L503.6550, L503.0105, L5500.0550 #### [facility] [address] [place], [address] T PROT 7.0 g/dL Normal 6.4-8.2 [facility] Comment on above: Order Comment: LC 07 0140 - Vitamin E Performed By: #### L 501.9520, L500.4050, L100.0100, L3410.2400, L503.6075, L503.6150, L506.1000, L801.1541, L3400.0920, L503.6550, L503.0105, L5500.0550 #### [facility] [address] [place], [address] Urea nitrogen [Mass/Vol] 12 mg/dL Normal 7-18 [facility] Comment on above: Order Comment: LC 07 0140 - Vitamin E Performed By: #### L 501.9520, L500.4050, L100.0100, L3410.2400, L503.6075, L503.6150, L506.1000, L801.1541, L3400.0920, L503.6550, L503.0105, L5500.0550 #### [facility] [address] [place], [address] Ferritinon 10-03-2024 Ferritin [Mass/Vol] 27 ng/mL Normal 8-252 [facility] Comment on above: Order Comment: 07 0140 - Vitamin E Performed By: #### L 501.9520, L500.4050, L100.0100, L3410.2400, L503.6075, L503.6150, L506.1000, L801.1541, L3400.0920, L503.6550, L503.0105, L5500.0550 ####[facility] [id number] [place], [address] Gastroenterology Visit Repor ton 10-03-2024 Gastroenterology Visit Report [facility]enter[facility] [address] [place] [address] OFFICE VISIT Date of Service: 10/03/24 MR#: [id number] Acct: [id number] Name: KRISTA BELL Rep #: [id number] : 1985 Provider: KYLAH hillman Age/Sex: 39/F Location: [facility] [place] Status: Signed Intake Vital Signs 10/03/24 11:05 Height 5 ft 6 in Weight: 219 lb 6 oz BMI 35.4 BP 112/71 Respiration 16 Pulse 69 Temp 97.9 F Pulse Oximetry (%) 98 Oxygen Delivery Method room air Intake Visit Reasons: Abdominal complaints Chief Complaint: abd discomfort and bloating 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 It has progressed to where the diarrhea has increased in urgency and she has had incontinence. [facility] Medical History (Updated 10/03/24 @ 13:22 by KYLAH Argueta) Bloating Abdominal distention Depression Anemia Abdominal pain Stomach ulcer Surgical History (Updated 10/03/24 @ 11:41 by Anu Colvin NP-C) H/O gastric bypass Social History Smoking Status: Never smoker HPI HPI Chief Complaint: abd discomfort and bloating Details: 39y/o female presents for consultation of abdominal pain. CBC, CMP and Fe panel were unremarkable March 2024. CBC: 03/25/2024 unremarkable - she reports symptoms date back to high school - was on Imodium often for diarrhea - CCX - diarrhea after dining out - reports she had H. Pylori prior to gastric sleeve - Gastric Sleeve - alternating constipation and diarrhea ----- later had conversion to bypass 2019 - then a gastric ulcer 2020 - total weight loss 100lbs - she reports she does not take her vitamins as recommended - she is still having alternating constipation and diarrhea - episodes of fecal incontinence - c/o bloating - c/o flatulence - constipation - can be a few days w/o a BM then will have hard balls of stool - having episodes diarrhea - urgency, incontinence - sx's worse in the past couple years - denies any bleeding - denies any new medications - gas and flatulence - foul odor - 2 episodes in the past week of vomiting secondary to dysphagia - reports experiencing dysphagia more with pasta - has trouble swallowing capsules - does not feel good after eating ground beef B: protein shake L: salad or left overs D: protein (mainly chicken) ROS Const Constitutional: Positive for fatigue; No fever(s) or weight change ENT ENT: No difficulty swallowing Gastro GI: Positive for bloating, constipation and diarrhea; No abdominal pain, belching, change in bowel habits, change in stool character, coffee ground emesis, cramping, heartburn, difficulty swallowing, feeling full early, excessive flatus, incontinent of stools, Vomiting blood/hematemesis, Blood in stool, loose stools, Black,tarry stools, nausea/dyspepsia, pain with swallowing, vomiting or other Musc Musculoskeletal: Positive for joint pain, Arthritis and leg pain at night Skin Skin: No yellowing of the eye or itchy eyes Psych Psychiatric: No anxiety and Positive for depression Endo Endocrine: Positive for fatigue; No weight change Aller/Imm Allergy/Immunologic: No itchy eyes Patrick/Lymp Hematologic/Lymphati c: Positive for easy bruising Assessment and Plan Assessment and Plan (1) Abdominal symptoms: (2) Bloating: Status: Acute (3) Abdominal pain: Status: Acute Qualifiers: Abdominal location: epigastric Qualified Code(s): R10.13 - Epigastric pain Comment: Epigastric and RLQ (4) H/O gastric bypass: Status: Acute (5) Flatulence: Status: Acute (6) Bloating: Status: Acute (7) GERD (gastroesophageal reflux disease): Status: Acute Qualifiers: Esophagitis presence: esophagitis presence not specified Qualified Code(s): K21.9 - Gastro- esophageal reflux disease without esophagitis (8) Mixed irritable bowel syndrome: Status: Acute (9) Dysphagia: Status: Acute Qualifiers: Dysphagia type: esophageal phase Qualified Code(s): R13.19 - Other dysphagia Orders: Orders CBC W/Diff, Automated Today K21.9 - Gastro-esophageal reflux disease without esophagitis, K58.2 - Mixed irritable bowel syndrome, R10.9 - Unspecified abdominal pain, R13.10 - Dysphagia, unspecified, R14.0 - Abdominal distension (gaseous), R14.3 - Flatulence, (more content not included)... Normal [facility] Ironon 10-03-2024 Iron [Mass/Vol] 71 ug/dL Normal 50-170 [facility] Comment on above: Order Comment: 07 0140 - Vitamin E Performed By: #### L 501.9520, L500.4050, L100.0100, L3410.2400, L503.6075, L503.6150, L506.1000, L801.1541, L3400.0920, L503.6550, L503.0105, L5500.0550 ####[facility] [address] [place], [place], [id number] Iron Binding Capacity,Totalo n 10-03-2024 TIBC 445 ug/dL Normal 250-450 [facility] Comment on above: Order Comment: LC 07 0140 - Vitamin E Performed By: #### L 501.9520, L500.4050, L100.0100, L3410.2400, L503.6075, L503.6150, L506.1000, L801.1541, L3400.0920, L503.6550, L503.0105, L5500.0550 #### [facility] [address] [place], [address] Thyroid Stim Hormone (TSH)on 10-03-2024 TSH 0.671 uIU/mL Normal 0.358-3.740 [facility] Comment on above: Order Comment: LC 07 0140 - Vitamin E Performed By: #### L 501.9520, L500.4050, L100.0100, L3410.2400, L503.6075, L503.6150, L506.1000, L801.1541, L3400.0920, L503.6550, L503.0105, L5500.0550 #### [facility] [address] [place], [place], [address] Vitamin B12on 10-03-2024 Cobalamin (Vitamin B12) [Mass/Vol] 223 pg/mL Normal 211-911 [facility] Comment on above: Performed By: #### L 501.9520, L500.4050, L100.0100, L3410.2400, L503.6075, L503.6150, L506.1000, L801.1541, L3400.0920, L503.6550, L503.0105, L5500.0550 #### [facility] [address] [place], [place], [address] Vitamin D,25 Hydroxyon 10-03 Vitamin D 25-OH 25.2 ng/mL Normal [facility] Comment on above: Result Comment: Sara min D 25(OH) Status Range Deficiency <20 ng/mL (50nmol/L) Insufficiency 20 - 30 ng/mL (50 - 75 nmol/L) Sufficiency 30 - 100 ng/mL (75 - 250 nmol/L) Toxicity >100 ng/mL (>250 nmol/L) Performed By: #### L 501.9520, L500.4050, L100.0100, L3410.2400, L503.6075, L503.6150, L506.1000, L801.1541, L3400.0920, L503.6550, L503.0105, L5500.0550 #### [facility] [address] [place], [place], [id number] Hepatitis B Surface Antibody on 09-27-2024 HBV surface Ab IA Ql (S) Reactive Abnormal NON-REACTIVE [facility] Interpretation and review of laboratory results Abnormal [facility] Mumps Antibody, IgGon 2023 Interpretation and review of laboratory results Abnormal [facility] MuV IgG IA Qn (S) <9.00 Low AU/mL [facility] Comment on above: AU/mL Interpretation ------- <9.00 Not consistent with immunity 9.00-10.99 Equivocal >10.99 Consistent with immunity The presence of mumps IgG antibody suggests immunization or past or current infection with mumps virus. No Panel Informationon 09-27 [facility] Rubella Antibody, IgGon 09-14 Rubella virus IgG Qn (S) 1.45 [IU]/mL Index [facility] Comment on above: Index Interpretation ----- <0.90 Not consistent with immunity 0.90-0.99 Equivocal > or = 1.00 Consistent with immunity The presence of rubella IgG antibody suggests immunization or past or current infection with rubella virus. Rubeola Antibody, IgGon 09-14 MeV IgG IA Qn (S) 192 AU/mL [facility] Comment on above: AU/mL Interpretation ----- <13.50 Not consistent with immunity 13.50-16.49 Equivocal >16.49 Consistent with immunity The presence of measles IgG suggests immunization or past or current infection with measles virus. 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 The clinical diagnosis must be interpreted in conjunction with the clinical signs and symptoms of the patient. This assay reliably measures immunity due to previous infection but may not be sensitive enough to detect antibodies induced by vaccination. Thus, a negative result in a vaccinated individual does not necessarily indicate susceptibility to VZV infection. A more sensitive test for vaccination-induced immunity is Varicella Zoster Virus Antibody Immunity Screen, ACIF. Rossi 07-05-2024 CNPN Telephone (AGOBST) KRISTA BELL ([id number]) 1985 F Date Time Provider Department 07/05/24 FRED GONZALES During your visit today, we recorded the following information about you: Diane Pruitt RN 07/05/2024 1:15 PM Signed Aware of results and recommendations. Enc to call in February for appt due 05.28.25 Diane Pruitt RN Negative biopsies. Repeat pap in 1 year. Due 05.28.25 Fred Gonzales DO Allergies As of Date: 07/05/2024 Noted Allergy Reaction OXYCODONE 10/18/2022 2 - Rash Date Reviewed: 06/26/2024 Reviewed by: Bernarda Alatorre LPN - Fully Assessed Reason for Visit: Results [95] Prescriptions as of 07/05/2024 - Drospirenone-Ethinyl Estradiol 3-0.03 mg per tablet Take 1 tablet by mouth once daily. - Lactobacillus acidophilus (PROBIOTIC ORAL) Take by mouth. - thiamine HCl (VITAMIN B-1 ORAL) Take by mouth. - escitalopram oxalate (LEXAPRO) 10 mg tablet Take 1 tablet by mouth once daily. - pantoprazole DR (PROTONIX) 40 mg tablet Take 1 tablet by mouth once daily. - valACYclovir (VALTREX) 1 gram tablet TAKE 1 TABLET BY MOUTH EVERY 12 HOURS FOR 3 DAYS NEEDED - Multivitamin capsule Take 1 capsule by mouth every morning. - Cholecalciferol, Vitamin D3, 125 mcg (5,000 unit) cap Take 5,000 Units by mouth. Problem List As Of Date 07/05/2024 Noted Resolved Routine general medical examination at [facility]*03/04/2011 10/09/2014 Class: Chronic Routine gynecological examination [Z01.419] 03/04/2011 10/09/2014 Class: Chronic Fatigue [R53.83] 03/04/2011 10/18/2022 Obesity [E66.9] 03/04/2011 Cholelithiasis NOS [K80.20] 05/21/2011 Depression [F32.A] 09/08/2015 Primary osteoarthritis of left knee [M17.12] 02/17/2021 Status post left partial knee replacement [Z96.*03/30/2021 Thrombocytosis [D75.839] 10/18/2022 Hx of bariatric surgery [Z98.84] 11/01/2022 Encounter Status:Closed by DIANE PRUITT on 07/05/24 Normal [facility] COLPOSCOPYon 06-26-2024 [facility] MYRIAM SCREENINGon 06-26-2024 [facility] * * *Final Report* * * DATE OF EXAM: Jun 26 2024 1:44PM JANE 0581 - [facility] / PROCEDURE REASON: [id number], BILATERAL SCREENING MAMMOGRAM WITH CAD * * * * Physician Interpretation * * * * #[id number] - [facility] BILATERAL DIGITAL SCREENING MAMMOGRAM WITH CAD: 06/26/2024 HISTORY: [id number], Bilateral Screening Mammogram With Cad. RESULT: TECHNIQUE: The study was acquired using full field digital technology and interpreted from soft copy. Current study was also evaluated with a Computer Aided Detection (CAD). Comparison is made to exam dated: 06/13/2023 mammogram - [facility]. There are scattered areas of fibroglandular density. No significant masses, calcifications, or other findings are seen in either breast. IMPRESSION: NEGATIVE There is no mammographic evidence of malignancy. A 1 year screening mammogram is recommended. Dipti oliveros/marcelino:06/26/2024 14:18:17 [employer] Feeder(s): Anu Jennings, [facility] letter sent: Normal over 40 Mammogram BI-RADS: Category 1: Negative Multiple national specialty organizations have released breast cancer screening guidelines for women at average risk for developing breast cancer - guidelines that are based on both evidence and opinion, yet differ on when to start and how often to screen for breast cancer. With representation from Breast Imaging, Internal Medicine, Women's Health, Family Medicine, and Medical/Surgical Oncology, the [facility] has carefully reviewed the data and reached the following consensus: 1) All women should engage in shared decision-making with their providers to decide when to start and how often to screen; 2) All women should have the opportunity to start screening mammography at age 40; 3) For women ages 45-55, we recommend annual screening mammograms; 4) For women ages 55 and over, we support both the transition from an annual to a biennial interval if this aligns more with patient's values and preferences, or continuation with annual screening; 5) All women should discuss with their providers when to stop screening mammograms. Incident Response Coordinator: Marcelino Transcribe Date/Time: Jun 26 2024 1:30P Dictated by : DIPTI JOSEPH MD This examination was interpreted and the report reviewed and electronically signed by: DIPTI JOSEPH MD on Jun 26 2024 2:18PM EST [id number] Normal [facility] MG Breast Screeningon 2023 IMPRESSION: NEGATIVE There is no mammographic evidence of malignancy. A 1 year screening mammogram is recommended. Dipti oliveros/marcelino:06/26/2024 14:18:17 [employer] Feeder(s): Anu Jennings, Glory Caputo [facility] Breast Imaging letter sent: Normal over 40 Mammogram BI-RADS: Category 1: Negative Multiple national specialty organizations have released breast cancer screening guidelines for women at average risk for developing breast cancer - guidelines that are based on both evidence and opinion, yet differ on when to start and how often to screen for breast cancer. With representation from Breast Imaging, Internal Medicine, Women's Health, Family Medicine, and Medical/Surgical Oncology, the [facility] has carefully reviewed the data and reached the following consensus: 1) All women should engage in shared decision-making with their providers to decide when to start and how often to screen; 2) All women should have the opportunity to start screening mammography at age 40; 3) For women ages 45-55, we recommend annual screening mammograms; 4) For women ages 55 and over, we support both the transition from an annual to a biennial interval if this aligns more with patient's values and preferences, or continuation with annual screening; 5) All women should discuss with their providers when to stop screening mammograms. Incident Response Coordinator: Marcelino Transcribe Date/Time: Jun 26 2024 1:30P Dictated by : DIPTI JOSEPH MD This examination was interpreted and the report reviewed and electronically signed by: DIPTI JOSEPH MD on Jun 26 2024 2:18PM [facility] RAD[facility] * * *Final Report* * * DATE OF EXAM: Jun 26 2024 1:44PM [facility] 0581 - [facility] / PROCEDURE REASON: [id number], BILATERAL SCREENING MAMMOGRAM WITH CAD * * * * Physician Interpretation * * * * #[id number] - [facility] BILATERAL DIGITAL SCREENING MAMMOGRAM WITH CAD: 06/26/2024 HISTORY: [id number], Bilateral Screening Mammogram With Cad. RESULT: TECHNIQUE: The study was acquired using full field digital technology and interpreted from soft copy. Current study was also evaluated with a Computer Aided Detection (CAD). Comparison is made to exam dated: 06/13/2023 mammogram - Glory Caputo [facility] Breast Imaging. There are scattered areas of fibroglandular density. No significant masses, calcifications, or other findings are seen in either breast. [facility] Provider, f Imaging [place] - 06/26/2024 * * *Final Report* * * DATE OF EXAM: Jun 26 2024 1:44PM JANE Steel81 - [facility] / PROCEDURE REASON: [id number], BILATERAL SCREENING MAMMOGRAM WITH CAD * * * * Physician Interpretation * * * * #[id number] - [facility] BILATERAL DIGITAL SCREENING MAMMOGRAM WITH CAD: 06/26/2024 HISTORY: [id number], Bilateral Screening Mammogram With Cad. RESULT: TECHNIQUE: The study was acquired using full field digital technology and interpreted from soft copy. Current study was also evaluated with a Computer Aided Detection (CAD). Comparison is made to exam dated: 06/13/2023 mammogram - [facility]. There are scattered areas of fibroglandular density. No significant masses, calcifications, or other findings are seen in either breast. IMPRESSION IMPRESSION: NEGATIVE There is no mammographic evidence of malignancy. A 1 year screening mammogram is recommended. Dipti oliveros/marcelino:06/26/2024 14:18:17 [employer] Feeder(s): Anu Jennings, [facility] Imaging letter sent: Normal over 40 Mammogram BI-RADS: Category 1: Negative Multiple national specialty organizations have released breast cancer screening guidelines for women at average risk for developing breast cancer - guidelines that are based on both evidence and opinion, yet differ on when to start and how often to screen for breast cancer. With representation from Breast Imaging, Internal Medicine, Women's Health, Family Medicine, and Medical/Surgical Oncology, the [facility] has carefully reviewed the data and reached the following consensus: 1) All women should engage in shared decision-making with their providers to decide when to start and how often to screen; 2) All women should have the opportunity to start screening mammography at age 40; 3) For women ages 45-55, we recommend annual screening mammograms; 4) For women ages 55 and over, we support both the transition from an annual to a biennial interval if this aligns more with patient's values and preferences, or continuation with annual screening; 5) All women should discuss with their providers when to stop screening mammograms. Incident Response Coordinator: Marcelino Transcribe Date/Time: Jun 26 2024 1:30P Dictated by : DIPTI JOSEPH MD This examination was interpreted and the report reviewed and electronically signed by: DIPTI JOSEPH MD on Jun 26 2024 2:18PM EST [facility] Radiology Study observation (narrative) Gabriela lucas [facility] MG Breast ScreeningOrdered B y: [facility] Provider on 06-26-2024 [facility] SURGICAL PATHOLOGYon 024 CASE REPORT Normal [facility] Comment on above: Order Comment: Speci men Type: TISSUE SPECIMEN Ordering Facility: [facility] Address: [address] [place] [address] Result Comment: Surg ica Pathology Report Case: [id number] Authorizing Provider: Fred Gonzales DO Collected: 06/26/2024 11:07 AM Ordering Location: [facility] Obstetrics & Received: 06/27/2024 09:18 AM Gynecology Pathologist: Emigdio Rain DO Specimens: A) - Cervix, Biopsy, 3 oclock B) - Cervix, Biopsy, 10 oclock C) - Endocervix, Curettings Performed By: #### S #### [facility] CLIA [id number] [address] OF [facility] CLINICAL HISTORY LSIL, HR HPV Normal [facility] Comment on above: Order Comment: Speci men Type: TISSUE SPECIMEN Ordering Facility: [facility] Address: [address] [place] [address] Performed By: #### S #### [facility] CLIA [id number] [address] OF [facility] FINAL DIAGNOSIS Normal [facility] Comment on above: Order Comment: Speci men Type: TISSUE SPECIMEN Ordering Facility: [facility] Address: [address] [place] [address] Result Comment: A. C ervix, 3:00, biopsy: - Benign ectocervix. - Cervical transformation zone is not present for evaluation. B. Cervix, 10:00, biopsy: - Benign ectocervix. - Cervical transformation zone is not present for evaluation. C. Endocervix, curettage: - Scant benign endocervical glandular epithelium. Performed By: #### S #### [facility] CLIA [id number] [address] [place] [address] FINAL PERFORMING LAB Normal [facility] Comment on above: Order Comment: Speci men Type: TISSUE SPECIMEN Ordering Facility: [facility] Address: [address] [place] [address] Result Comment: Diag nostic interpretation performed at [facility], [address] [place] [address] CLIA# [id number] Pigment Furnace Tender: Christiano Todd M.D. Performed By: #### S #### [facility] CLIA [id number] [address] [place] [address] GROSS DESCRIPTION Normal [facility] Comment on above: Order Comment: Speci men Type: TISSUE SPECIMEN Ordering Facility: [facility] Address: [address] [place] [address] Result Comment: A. C ervix, Biopsy Received in formalin labeled cervix biopsy 3:00 is a meyer-white segment of tissue measuring 1.0 x 0.4 x 0.3 cm. The specimen is totally submitted in form in 1 cassette. B. Cervix, Biopsy Received in formalin labeled cervix biopsy 10:00 is a meyer segment of tissue measuring 0.5 x 0.3 x 0.1 cm. The specimen is totally submitted in formalin in 1 cassette. C. Endocervix, Curettings Received in formalin labeled endocervix curettings are multiple segments of meyer-red material aggregating to 1.2 x 0.5 x 0.1 eaters. The specimens are totally submitted in formalin in 1 cassette. Gross examination performed at [facility], [address] [place] [address] KVB June 27, 2024 9:53 AM Performed By: #### S #### [facility] CLIA [id number] [address] [place] [address] UA DIP,URINE HCG (POC)on Beta HCG ( test) Ql (U) Negative Negative [facility] Comment on above: Location:[facility], [address], [place], [place], [address] Vascular Technologist (POCT) Internal QC [place] [facility] Location:[facility] Obstretics and Nurse Plastics, [address], [place], [place], [address] [facility] POINT OF CARE [facility] 25([place])D3 SerPl-mCncon 2023 25-hydroxyvitamin D3 [Mass/Vol] 40.6 ng/mL Normal 30.0-100.0 [facility] Comment on above: Order Comment: Speci men Type: BLOOD SPECIMEN Ordering Facility: [facility] Address: [address] [place], [place] [phone] Result Comment: Defi ciency\X09\Less than 20 ng/mL Insufficiency\X09\20 - Less than 30 ng/mL Sufficiency\X09\30 - 100 ng/mL Performed By: #### 1 989-3, 63219-1, 94266-1, 55079-1, 8 #### [facility] CLIA [id number] [address] [place] [address] [place] CBC W Auto Differential pane l (Bld)on 03-25-2024 Basophils (Bld) [#/Vol] 10*3/uL Normal <0.11 [facility] Comment on above: Order Comment: Speci men Type: BLOOD SPECIMEN Ordering Facility: [facility] Address: [address] [place], [place] [phone] Performed By: #### 1 989-3, 90123-7, 19845-5, 27406-8, 2283-8 #### [facility] CLIA [id number] [address] [place] [address] [place] Basophils/100 WBC (Bld) 0.3 % Normal [facility] Comment on above: Order Comment: Speci men Type: BLOOD SPECIMEN Ordering Facility: [facility] Address: [address] [place], [place] [phone] Performed By: #### 1 989-3, 97567-9, 88461-6, 21593-0, 2283-8 #### [facility] CLIA [id number] [address] [place] [address] [place] Differential cell count method Nom (Bld) Auto Normal [facility] Comment on above: Order Comment: Speci men Type: BLOOD SPECIMEN Ordering Facility: [facility] Address: [address] [place] [address] Performed By: #### 1 989-3, 27053-6, 47641-8, 52535-9, 2283-8 #### [facility] CLIA [id number] [address] [place] [address] [place] Eosinophils (Bld) [#/Vol] 0.03 10*3/uL Normal <0.46 [facility] Comment on above: Order Comment: Speci men Type: BLOOD SPECIMEN Ordering Facility: [facility] Address: [address] [place] [address] Performed By: #### 1 989-3, 00377-4, 45200-9, 70229-0, 2283-8 #### [facility] CLIA [id number] [address] [place] [address] [place] Eosinophils/100 WBC (Bld) 0.5 % Normal [facility] Comment on above: Order Comment: Speci men Type: BLOOD SPECIMEN Ordering Facility: [facility] Address: [address] [place] [address] Performed By: #### 1 989-3, 15214-4, 95492-8, 20265-9, 2283-8 #### [facility] CLIA [id number] [address] [place] [address] [place] Erythrocyte distribution width (RBC) [Ratio] 13.2 % Normal 11.5-15.0 [facility] Comment on above: Order Comment: Speci men Type: BLOOD SPECIMEN Ordering Facility: [facility] Address: [address] [place] [address] Performed By: #### 1 989-3, 54740-7, 80403-2, 62254-6, 2283-8 #### [facility] CLIA [id number] [address] [place], [place] [address] [place] Hematocrit (Bld) [Volume fraction] 37.8 % Normal 36.0-46.0 [facility] Comment on above: Order Comment: Speci men Type: BLOOD SPECIMEN Ordering Facility: [facility] Address: [address] [place] [address] Performed By: #### 1 989-3, 60785-4, 93304-7, 21398-5, 2283-8 #### [facility] CLIA [id number] [address] [place] [address] [place] Hemoglobin (Bld) [Mass/Vol] 12.3 g/dL Normal 11.5-15.5 [facility] Comment on above: Order Comment: Speci men Type: BLOOD SPECIMEN Ordering Facility: [facility] Address: [address] [place] [address] Performed By: #### 1 989-3, 99285-4, 71334-9, 61106-1, 2283-8 #### [facility] CLIA [id number] [address] [place] [address] [place] Immature granulocytes (Bld) [#/Vol] 10*3/uL Normal <0.10 [facility] Comment on above: Order Comment: Speci men Type: BLOOD SPECIMEN Ordering Facility: [facility] Address: [address] [place] [address] Performed By: #### 1 989-3, 59830-7, 67277-9, 17588-4, 2283-8 #### [facility] CLIA [id number] [address] [place], [place] [address] [place] Immature granulocytes/100 WBC (Bld) 0.0 % Normal [facility] Comment on above: Order Comment: Speci men Type: BLOOD SPECIMEN Ordering Facility: [facility] Address: [address] [place] [address] Performed By: #### 1 989-3, 92791-2, 61834-0, 25747-5, 2284-8 #### [facility] CLIA [id number] [address] [place] [address] [place] Lymphocytes (Bld) [#/Vol] 2.41 10*3/uL Normal 1.00-4.00 [facility] Comment on above: Order Comment: Speci men Type: BLOOD SPECIMEN Ordering Facility: [facility] Address: [address] [place] [address] Performed By: #### 1 989-3, 05217-7, 53823-6, 08773-6, 2284-06 #### [facility] CLIA [id number] [address] [place], [place] [address] [place] Lymphocytes/100 WBC (Bld) 40.1 % Normal [facility] Comment on above: Order Comment: Speci men Type: BLOOD SPECIMEN Ordering Facility: [facility] Address: [address] [place] [address] Performed By: #### 1 989-3, 34367-8, 03636-7, 17280-8, 2284-06 #### [facility] CLIA [id number] [address] [place], [place] [address] [place] MCH (RBC) [Entitic mass] 29.1 pg Normal 26.0-34.0 [facility] Comment on above: Order Comment: Speci men Type: BLOOD SPECIMEN Ordering Facility: [facility] Address: [address] [place] [address] Performed By: #### 1 989-3, 23580-5, 70694-5, 93416-0, 2284-06 #### [facility] CLIA [id number] [address] [place] [address] [place] MCHC (RBC) [Mass/Vol] 32.5 g/dL Normal 30.5-36.0 [facility] Comment on above: Order Comment: Speci men Type: BLOOD SPECIMEN Ordering Facility: [facility] Address: [address] [place] [address] Performed By: #### 1 989-3, 18663-3, 82453-5, 08155-5, 2284-8 #### [facility] CLIA [id number] [address] [place] [address] [place] MCV (RBC) [Entitic vol] 89.4 fL Normal 80.0-100.0 [facility] Comment on above: Order Comment: Speci men Type: BLOOD SPECIMEN Ordering Facility: [facility] Address: [address] [place] [address] Performed By: #### 1 989-3, 55072-6, 40206-0, 30487-5, 2284-8 #### [facility] CLIA [id number] [address] [place] [address] [place] Monocytes (Bld) [#/Vol] 0.40 10*3/uL Normal <0.87 [facility] Comment on above: Order Comment: Speci men Type: BLOOD SPECIMEN Ordering Facility: [facility] Address: [address] [place] [address] Performed By: #### 1 989-3, 62552-3, 49092-1, 70863-4, 2284-8 #### [facility] CLIA [id number] [address] [place] [address] [place] Monocytes/100 WBC (Bld) 6.7 % Normal [facility] Comment on above: Order Comment: Speci men Type: BLOOD SPECIMEN Ordering Facility: [facility] Address: [address] [place] [address] Performed By: #### 1 989-3, 68453-0, 06068-3, 00640-4, 2284-8 #### [facility] CLIA [id number] [address] [place] [address] [place] Neutrophils (Bld) [#/Vol] 3.15 10*3/uL Normal 1.45-7.50 [facility] Comment on above: Order Comment: Speci men Type: BLOOD SPECIMEN Ordering Facility: [facility] Address: [address] [place] [address] Performed By: #### 1 989-3, 88353-3, 29238-2, 29788-2, 2284-8 #### [facility] CLIA [id number] [address] [place] [address] [place] Neutrophils/100 WBC (Bld) 52.4 % Normal [facility] Comment on above: Order Comment: Speci men Type: BLOOD SPECIMEN Ordering Facility: [facility] Address: [address] [place] [address] Performed By: #### 1 989-3, 22495-9, 57275-7, 06515-2, 2284-8 #### [facility] CLIA [id number] [address] [place], [place] [address] [place] Platelet mean volume (Bld) [Entitic vol] 9.4 fL Normal 9.0-12.7 [facility] Comment on above: Order Comment: Speci men Type: BLOOD SPECIMEN Ordering Facility: [facility] Address: [address] [place] [address] Performed By: #### 1 989-3, 08783-7, 57421-9, 50254-1, 2284-8 #### [facility] CLIA [id number] [address] [place], [place] [address] [place] Platelets (Bld) [#/Vol] 441 10*3/uL High 150-400 [facility] Comment on above: Order Comment: Speci men Type: BLOOD SPECIMEN Ordering Facility: [facility] Address: [address] [place], [place] [phone] Performed By: #### 1 989-3, 71165-4, 43154-9, 72053-8, 2284-8 #### [facility] CLIA [id number] [address] [place], [place] [address] [place] RBC (Bld) [#/Vol] 4.23 10*6/uL Normal 3.90-5.20 [facility] Comment on above: Order Comment: Speci men Type: BLOOD SPECIMEN Ordering Facility: [facility] Address: [address] [place], [place] [address] Performed By: #### 1 989-3, 49111-6, 01167-9, 28694-4, 228-8 #### [facility] CLIA [id number] [address] [place], [place] [address] [facility] WBC (Bld) [#/Vol] 6.01 10*3/uL Normal 3.70-11.00 [facility] Comment on above: Order Comment: Speci men Type: BLOOD SPECIMEN Ordering Facility: [facility] Address: [address] [id number] Performed By: #### 1 989-3, 32320-1, 76514-3, 61971-3, 2283-8 #### [facility] CLIA [id number] [address] [place], [place] [address] [facility] Comprehensive metabolic 2000 panelon 03-25-2024 Albumin [Mass/Vol] 3.6 g/dL Normal 3.2-5.0 [facility] Comment on above: Order Comment: Speci men Type: BLOOD SPECIMEN Ordering Facility: [facility] Address: [address] [address] Performed By: #### 1 989-3, 75812-4, 93260-6, 87108-2, 2283-8 #### [facility] CLIA [id number] [address] [place] [address] [place] ALP [Catalytic activity/Vol] 67 U/L Normal 45-117 [facility] Comment on above: Order Comment: Speci men Type: BLOOD SPECIMEN Ordering Facility: [facility] Address: [address] [phone] Performed By: #### 1 989-3, 29840-1, 60918-0, 11283-3, 228-8 #### [facility] CLIA [id number] [address] [place] [address] ALT [Catalytic activity/Vol] 29 U/L Normal 13-61 [facility] Comment on above: Order Comment: Speci men Type: BLOOD SPECIMEN Ordering Facility: [facility] Address: [address] [place], [place] [address] Result Comment: Resu lts may be falsely depressed after the administration of Sulfasalazine and/or Sulfapyridine. Performed By: #### 1 989-3, 24580-4, 83017-2, 63477-4, 2283-8 #### [facility] CLIA [id number] [address] [place], [place] [address] [place] Anion gap [Moles/Vol] 4 mmol/L Low 5-16 [facility] Comment on above: Order Comment: Speci men Type: BLOOD SPECIMEN Ordering Facility: [facility] Address: [address] [place] [address] Performed By: #### 1 989-3, 19730-6, 20349-8, 12394-0, 2283-8 #### [facility] CLIA [id number] [address] [place] [address] [place] AST [Catalytic activity/Vol] 30 U/L Normal 8-34 [facility] Comment on above: Order Comment: Speci men Type: BLOOD SPECIMEN Ordering Facility: [facility] Address: [address] [place] [address] Result Comment: Resu lts may be falsely depressed after the administration of Sulfasalazine and/or Sulfapyridine. Performed By: #### 1 989-3, 57585-2, 36480-6, 81706-3, 2283-8 #### [facility] CLIA [id number] [address] [place], [place] [address] [place] Bilirubin [Mass/Vol] 0.5 mg/dL Normal 0.2-1.0 [facility] Comment on above: Order Comment: Speci men Type: BLOOD SPECIMEN Ordering Facility: [facility] Address: [address] [place] [address] Performed By: #### 1 989-3, 79619-4, 55410-6, 90838-0, 228-8 #### [facility] CLIA [id number] [address] [place], [place] [address] [place] Calcium [Mass/Vol] 9.7 mg/dL Normal 8.5-10.5 [facility] Comment on above: Order Comment: Speci men Type: BLOOD SPECIMEN Ordering Facility: [facility] Address: [address] [place] [address] Performed By: #### 1 989-3, 71666-8, 49972-9, 92161-7, 2283-8 #### [facility] CLIA [id number] [address] [place], [place] [address] [place] Chloride [Moles/Vol] 108 mmol/L High 98-107 [facility] Comment on above: Order Comment: Speci men Type: BLOOD SPECIMEN Ordering Facility: [facility] Address: [address] [place] [address] Performed By: #### 1 989-3, 22535-7, 37971-1, 82704-8, 8 #### [facility] CLIA [id number] [address] [place], [place] [address] [place] CO2 [Moles/Vol] 28 mmol/L Normal 21-32 [facility] Comment on above: Order Comment: Speci men Type: BLOOD SPECIMEN Ordering Facility: [facility] Address: [address] [place] [address] Performed By: #### 1 989-3, 31520-1, 88958-6, 96372-2, 8 #### [facility] CLIA [id number] [address] [place], [place] [address] [place] Creatinine [Mass/Vol] 0.73 mg/dL Normal 0.51-0.95 [facility] Comment on above: Order Comment: Speci men Type: BLOOD SPECIMEN Ordering Facility: [facility] Address: [address] [place] [address] Result Comment: Aminata ents receiving either N-Acetylcysteine (NAC) or Metamizole prior to venipuncture, may have falsely depressed results. Performed By: #### 1 989-3, 35881-6, 64369-3, 75678-2, 2284-8 #### [facility] CLIA [id number] [address] [place], [place] [address] [place] Creatinine and Glomerular filtration rate.predicted panel (S/P/Bld) 107 mL/min/1.73m??? Normal >=60 [facility] Comment on above: Order Comment: Bryan simmons Type: BLOOD SPECIMEN Ordering Facility: [facility] Address: [address] [place], [place] [address] Result Comment: Sepideh mated Glomerular Filtration Rate (eGFR) is calculated using the 2020 CKD-EPI creatinine equation. This equation utilizes serum creatinine, sex, and age as parameters. The creatinine assay has traceable calibration to isotope dilution-mass spectrometry. Refer to KDIGO guidelines for clinical interpretation. In patients with unstable renal function, e.g. those with acute kidney injury, the eGFR may not accurately reflect actual GFR. Performed By: #### 1 989-3, 65811-4, 80013-0, 95379-8, 2284-8 #### [facility] CLIA [id number] [address] [place], [place] [address] [place] Glucose [Mass/Vol] 85 mg/dL Normal 70-100 [facility] Comment on above: Order Comment: Bryan simmons Type: BLOOD SPECIMEN Ordering Facility: [facility] Address: [address] [place], [place] [address] Result Comment: The [place] Diabetes Association (ADA) provides guidance for cutoff values for fasting glucose and random glucose. The ADA defines fasting as no caloric intake for at least 8 hours. Fasting plasma glucose results between 100 to 125 mg/dL indicate increased risk for diabetes (prediabetes). Fasting plasma glucose results greater than or equal to 126 mg/dL meet the criteria for diagnosis of diabetes. In the absence of unequivocal hyperglycemia, results should be confirmed by repeat testing. In a patient with classic symptoms of hyperglycemia or hyperglycemic crisis, random plasma glucose results greater than or equal to 200 mg/dL meet the criteria for diagnosis of diabetes. Reference: Standards of Medical Care in Diabetes 2016, [place] Diabetes Association. Diabetes Care. 2016.39(Suppl 1). Results may be falsely elevated after the administration of Sulfapyridine. Results may be falsely depressed after the administration of Sulfasalazine. Performed By: #### 1 989-3, 81169-7, 87029-8, 78357-9, 2283-8 #### [facility] CLIA [id number] [address] [place], [place] [address] [place] Potassium [Moles/Vol] 4.5 mmol/L Normal 3.5-5.1 [facility] Comment on above: Order Comment: Speci men Type: BLOOD SPECIMEN Ordering Facility: [facility] Address: [address] [place] [address] Performed By: #### 1 989-3, 20324-9, 05714-2, 68500-5, 8 #### [facility] CLIA [id number] [address] [place], [place] [address] [place] Protein [Mass/Vol] 7.0 g/dL Normal 6.0-8.5 [facility] Comment on above: Order Comment: Speci men Type: BLOOD SPECIMEN Ordering Facility: [facility] Address: [address] [place] [address] Performed By: #### 1 989-3, 04926-8, 62097-6, 57416-4, 2284-06 #### [facility] CLIA [id number] [address] [place] [address] [place] Sodium [Moles/Vol] 140 mmol/L Normal 136-145 [facility] Comment on above: Order Comment: Speci men Type: BLOOD SPECIMEN Ordering Facility: [facility] Address: [address] [place] [address] Performed By: #### 1 989-3, 93059-9, 20603-4, 99929-8, 8 #### [facility] CLIA [id number] [address] [place], [place] [address] [place] Urea nitrogen [Mass/Vol] 9 mg/dL Normal 7-26 [facility] Comment on above: Order Comment: Speci men Type: BLOOD SPECIMEN Ordering Facility: [facility] Address: [address] [place] [address] [place] [address] Performed By: #### 1 989-3, 55012-0, 69278-2, 27040-4, 2283-8 #### [facility] CLIA [id number] [address] [place], [place] [address] [place] Folate SerPl-ncon 03-25-20 Folate [Mass/Vol] 23.5 ng/mL Normal >3.0 [facility] Comment on above: Order Comment: Speci men Type: BLOOD SPECIMEN Ordering Facility: [facility] Address: [address] Performed By: #### 1 989-3, 71140-0, 51169-7, 14334-5, 8 #### [facility] CLIA [id number] [address] [place] [address] [place] Iron and Iron binding capaci ty panel 03-25-2024 Iron [Mass/Vol] 67 ug/dL Normal 50-170 [facility] Comment on above: Order Comment: Speci men Type: BLOOD SPECIMEN Ordering Facility: [facility] Address: [address] [address] Result Comment: Aminata ents treated with metal-binding drugs (e.g.deferoxamine) may have depressed iron values, as chelated iron may not properly react in the Siemens iron assay. Performed By: #### 1 989-3, 52035-4, 06702-3, 94784-4, 2283-8 #### [facility] CLIA [id number] [address] [place] [address] [place] Iron binding capacity [Mass/Vol] 426 ug/dL Normal 221-481 [facility] Comment on above: Order Comment: Speci men Type: BLOOD SPECIMEN Ordering Facility: [facility] Address: [address] [id number] Performed By: #### 1 989-3, 05250-7, 69080-7, 38917-0, 2283-8 #### [facility] CLIA [id number] [address] [place] [address] [place] Iron/TIBC [Molar ratio] 15.7 % Low 22.0-44.0 [facility] Comment on above: Order Comment: Speci men Type: BLOOD SPECIMEN Ordering Facility: [facility] Address: [address] [place] [address] Performed By: #### 1 989-3, 27634-0, 60567-8, 59595-3, 228-8 #### [facility] CLIA [id number] [address] [place], [place] [address] [place] Lipid 1996 panelon 4 Cholesterol [Mass/Vol] 174 mg/dL Normal 0-199 [facility] Comment on above: Order Comment: Speci men Type: BLOOD SPECIMEN Ordering Facility: [facility] Address: [address] [place] [address] Result Comment: <200 mg/dL, Desirable 200-239 mg/dL, Borderline high >239 mg/dL, High Performed By: #### 1 989-3, 32876-8, 82419-7, 35296-9, 228-8 #### [facility] CLIA [id number] [address] [place] [address] [place] Cholesterol in HDL [Mass/Vol] 75 mg/dL Normal >40 [facility] Comment on above: Order Comment: Speci men Type: BLOOD SPECIMEN Ordering Facility: [facility] Address: [address] [place] [address] Result Comment: 40-5 9 mg/dL, Acceptable >59 mg/dL, High: Negative risk factor for coronary heart disease <40 mg/dL, Low: Positive risk factor for coronary heart disease Performed By: #### 1 989-3, 84806-1, 45791-3, 76801-7, 228-8 #### [facility] CLIA [id number] [address] [place], [place] [address] [place] [facility] Cholesterol in LDL [Mass/Vol] 76 mg/dL Normal 0-129 [facility] Comment on above: Order Comment: Speci men Type: BLOOD SPECIMEN Ordering Facility: [facility] Address: [address] [place], [place] [address] Result Comment: <100 mg/dL, Optimal 100-129 mg/dL, Near optimal/above optimal 130-159 mg/dL, Borderline high 160-189 mg/dL, High >189 mg/dL, Very high Secondary prevention optimal LDL Cholesterol levels are recommended to be < 70 mg/dL Performed By: #### 1 989-3, 27761-6, 95689-6, 00458-1, 228-8 #### [facility] CLIA [id number] [address] [place] [address] [place] Cholesterol in LDL/Cholesterol in HDL [Mass ratio] 1.01 {ratio} Normal <2.54 [facility] Comment on above: Order Comment: Bryan iris Type: BLOOD SPECIMEN Ordering Facility: [facility] Address: [address] [place] [address] Result Comment: Refe eliseoce: 1. National Cholesterol Education Program ATP III Guideline At-A-Glance Quick Desk Reference: National Heart, Lung, and Blood [place]. National Institutes of Health. 2001: NIH Publication No. 01-3305. 2. An International Atherosclerosis Society position paper: global recommendations for the management of dyslipidemia: executive summary, Atherosclerosis. 2014: 232(2):410-413. Performed By: #### 1 989-3, 81788-5, 75724-0, 69826-5, 228-8 #### [facility] CLIA [id number] [address] [place], [place] [address] [place] Cholesterol in VLDL [Mass/Vol] 23 mg/dL Normal <30 [facility] Comment on above: Order Comment: Bryan simmons Type: BLOOD SPECIMEN Ordering Facility: [facility] Address: [address] [place], [place] [address] Performed By: #### 1 989-3, 88076-7, 32805-0, 67274-4, 228-8 #### [facility] CLIA [id number] [address] [place] [address] [place] Cholesterol non HDL [Mass/Vol] 99 mg/dL Normal <130 [facility] Comment on above: Order Comment: Speci men Type: BLOOD SPECIMEN Ordering Facility: [facility] Address: [address] [place], [place] [address] Result Comment: <130 mg/dL, Optimal 130-159 mg/dL, Near optimal/above optimal 160-189 mg/dL, Borderline high 190-219 mg/dL, High >219 mg/dL, Very high Secondary prevention optimal non HDL Cholesterol levels are recommended to be <100 mg/dL Performed By: #### 1 989-3, 75066-2, 50886-2, 20736-2, 2284-8 #### [facility] CLIA [id number] [address] [place] [address] [place] Cholesterol.total/Jennifer sterol in HDL [Mass ratio] 2.32 {ratio} Normal <5.10 [facility] Comment on above: Order Comment: Jasoni men Type: BLOOD SPECIMEN Ordering Facility: [facility] Address: [address] [place] [address] Performed By: #### 1 989-3, 28433-6, 17295-2, 29391-1, 2284-8 #### [facility] CLIA [id number] [address] [place] [address] STATES [place] [facility] FASTING TIME 14 hrs Normal [facility] Comment on above: Order Comment: Jasoni men Type: BLOOD SPECIMEN Ordering Facility: [facility] Address: [address] [place] [address] Performed By: #### 1 989-3, 22660-7, 78691-4, 50304-7, 2284-8 #### [facility] CLIA [id number] [address] [place] [address] STATES OF [facility] Triglyceride [Mass/Vol] 114 mg/dL Normal 30-149 [facility] Comment on above: Order Comment: Speci men Type: BLOOD SPECIMEN Ordering Facility: [facility] Address: [address] [place], [place] [address] Result Comment: <150 mg/dL, Normal 150-199 mg/dL, Borderline high 200-499 mg/dL, High >499 mg/dL, Very high Patients receiving either N-Acetylcysteine (NAC) or Metamizole prior to venipuncture, may have falsely depressed results. Performed By: #### 1 989-3, 36391-4, 51692-9, 58551-6, 8 #### [facility] CLIA [id number] [address] [place] [address] [place] TSH SerPl-aCncon 03-25-2024 TSH Qn 0.440 m[IU]/L Normal 0.358-3.740 [facility] Comment on above: Order Comment: Speci men Type: BLOOD SPECIMEN Ordering Facility: [facility] Address: [address] [place] [address] Result Comment: 3rd generation ultra sensitive TSH. Performed By: #### 1 989-3, 82840-0, 19492-2, 15936-1, 2284-06 #### [facility] CLIA [id number] [address] [place] [address] [place] Vit B12 SerPl-ncon 024 Cobalamin (Vitamin B12) [Mass/Vol] 388 pg/mL Normal 193-986 [facility] Comment on above: Order Comment: Speci iris Type: BLOOD SPECIMEN Ordering Facility: [facility] Address: [address] [place] [address] Performed By: #### 1 989-3, 26704-7, 25903-0, 30450-0, 2284-06 #### [facility] CLIA [id number] [address] [place] [address] [place] 25(OH)D3 SerPl-mCncon 2022 25-hydroxyvitamin D3 [Mass/Vol] 32.8 ng/mL Normal 30.0-100.0 [facility] Comment on above: Order Comment: Speci men Type: BLOOD SPECIMEN Ordering Facility: [facility] Address: [address] [place] [address] Result Comment: Defi ciencyLess than 20 ng/mL Mzytwkcewbfql29 - Less than 30 ng/mL Htypcctfzdc33 - 100 ng/mL Performed By: #### 1 989-3, 83177-6, 73325-7, 04176-7, 2284-8 #### [facility] CLIA [id number] [address] [place] [id number] [place] CBC W Auto Differential pane l (Bld)on 07-13-2023 Basophils (Bld) [#/Vol] 0.03 10*3/uL Normal <0.11 [facility] Comment on above: Order Comment: Speci men Type: BLOOD SPECIMEN Ordering Facility: [facility] Address: [address] [address] Performed By: #### 5 7021-8 #### [facility] CLIA [id number] [address] [facility] [address] [place] [address] [place] Basophils/100 WBC (Bld) 0.5 % Normal [facility] Comment on above: Order Comment: Speci men Type: BLOOD SPECIMEN Ordering Facility: [facility] Address: [address] [address] Performed By: #### 5 7021-8 #### [facility] CLIA [id number] [address] [facility] [address] [place] [address] [place] Differential cell count method Nom (Bld) Auto Normal [facility] Comment on above: Order Comment: Speci men Type: BLOOD SPECIMEN Ordering Facility: [facility] Address: [address] Performed By: #### 5 7021-8 #### [facility] CLIA [id number] [address] [facility] [address] [place] [address] [place] Eosinophils (Bld) [#/Vol] 0.19 10*3/uL Normal <0.46 [facility] Comment on above: Order Comment: Speci men Type: BLOOD SPECIMEN Ordering Facility: [facility] Address: [address] Performed By: #### 5 7021-8 #### [facility] CLIA [id number] [address] [facility] [address] [place] [address] [place] Eosinophils/100 WBC (Bld) 3.1 % Normal [facility] Comment on above: Order Comment: Speci men Type: BLOOD SPECIMEN Ordering Facility: [facility] Address: [address] [place] [address] Performed By: #### 5 7021-8 #### [facility] CLIA [id number] [address] [facility] [address] [place] [address] [place] Erythrocyte distribution width (RBC) [Ratio] 12.6 % Normal 11.5-15.0 [facility] Comment on above: Order Comment: Speci men Type: BLOOD SPECIMEN Ordering Facility: [facility] Address: [address] [place] [address] Performed By: #### 5 7021-8 #### [id number] [address] [place] [address] [place] [address] [place] Hematocrit (Bld) [Volume fraction] 37.0 % Normal 36.0-46.0 [facility] Comment on above: Order Comment: Speci men Type: BLOOD SPECIMEN Ordering Facility: [facility] Address: [address] [place] [address] Performed By: #### 5 7021-8 #### [facility] CLIA [id number] [address] [place] [address] [place] [address] [place] Hemoglobin (Bld) [Mass/Vol] 12.2 g/dL Normal 11.5-15.5 [facility] Comment on above: Order Comment: Speci men Type: BLOOD SPECIMEN Ordering Facility: [facility] Address: [address] [place] [address] Performed By: #### 5 7021-8 #### [facility] IA [id number] [address] [place] [address] [place] [address] [place] Immature granulocytes (Bld) [#/Vol] 10*3/uL Normal <0.10 [facility] Comment on above: Order Comment: Speci men Type: BLOOD SPECIMEN Ordering Facility: [facility] Address: [address] [address] Performed By: #### 5 7021-8 #### [facility] CLIA [id number] [address] [facility] [address] [place] [address] Immature granulocytes/100 WBC (Bld) 0.0 % Normal [facility] Comment on above: Order Comment: Speci men Type: BLOOD SPECIMEN Ordering Facility: [facility] Address: [address] [address] Performed By: #### 5 7021-8 #### [id number] [address] [place] [address] [place] [address] [place] Lymphocytes (Bld) [#/Vol] 1.94 10*3/uL Normal 1.00-4.00 [facility] Comment on above: Order Comment: Speci men Type: BLOOD SPECIMEN Ordering Facility: [facility] Address: [address] [address] Performed By: #### 5 7021-8 #### [id number] [address] [place] [address] [place] [address] STATES [facility] Lymphocytes/100 WBC (Bld) 31.9 % Normal [facility] Comment on above: Order Comment: Speci men Type: BLOOD SPECIMEN Ordering Facility: [facility] Address: [address] [address] Performed By: #### 5 7021-8 #### [facility] IA [id number] [address] [facility] [address] [place] [address] [place] MCH (RBC) [Entitic mass] 29.8 pg Normal 26.0-34.0 [facility] Comment on above: Order Comment: Speci men Type: BLOOD SPECIMEN Ordering Facility: [facility] Address: [address] [address] Performed By: #### 5 7021-8 #### [facility] CLIA [id number] [address] [facility] [address] [place] [id number] [place] [address] [place] MCHC (RBC) [Mass/Vol] 33.0 g/dL Normal 30.5-36.0 [facility] Comment on above: Order Comment: Speci men Type: BLOOD SPECIMEN Ordering Facility: [facility] Address: [address] [place] [address] Performed By: #### 5 7021-8 #### [facility] [id number] [address] [place], [place] [address]S [facility] [address] [place] [address] OF [facility] MCV (RBC) [Entitic vol] 90.5 fL Normal 80.0-100.0 [facility] Comment on above: Order Comment: Speci men Type: BLOOD SPECIMEN Ordering Facility: [facility] Address: [address] [place] [address] Performed By: #### 5 7021-8 #### [facility] [id number] [address] [place] [address] [place] [address] OF [facility] Monocytes (Bld) [#/Vol] 0.52 10*3/uL Normal <0.87 [facility] Comment on above: Order Comment: Speci men Type: BLOOD SPECIMEN Ordering Facility: [facility] Address: [address] [place] [address] Performed By: #### 5 7021-8 #### [facility] IA [id number] [address] [facility] [address] [place] [address] Monocytes/100 WBC (Bld) 8.6 % Normal [facility] Comment on above: Order Comment: Speci men Type: BLOOD SPECIMEN Ordering Facility: [facility] Address: [address] [place] [address] Performed By: #### 5 7021-8 #### [facility] IA [id number] [address] [place] [address] [place] [address] [place] Neutrophils (Bld) [#/Vol] 3.40 10*3/uL Normal 1.45-7.50 [facility] Comment on above: Order Comment: Speci men Type: BLOOD SPECIMEN Ordering Facility: [facility] Address: [address] [address] Performed By: #### 5 7021-8 #### [facility] CLIA [id number] [address] [facility] [address] [place] [address] [place] Neutrophils/100 WBC (Bld) 55.9 % Normal [facility] Comment on above: Order Comment: Speci men Type: BLOOD SPECIMEN Ordering Facility: [facility] Address: [address] [address] Performed By: #### 5 7021-8 #### [facility] CLIA [id number] [address] [place] [address] [place] [address] [place] Nucleated RBC (Bld) [#/Vol] 10*3/uL Normal <0.01 [facility] Comment on above: Order Comment: Speci men Type: BLOOD SPECIMEN Ordering Facility: [facility] Address: [address] [address] Performed By: #### 5 7021-8 #### [facility] IA [id number] [address] [place] [address] [place] [address] [place] Nucleated RBC/100 WBC (Bld) [Ratio] 0.0 /100 WBC Normal [facility] Comment on above: Order Comment: Speci men Type: BLOOD SPECIMEN Ordering Facility: [facility] Address: [address] [address] Performed By: #### 5 7021-8 #### [facility] IA [id number] [address] [facility] [address] [place], [place] [address] [place] Platelet mean volume (Bld) [Entitic vol] 9.5 fL Normal 9.0-12.7 [facility] Comment on above: Order Comment: Speci men Type: BLOOD SPECIMEN Ordering Facility: [facility] Address: [address] [address] Performed By: #### 5 7021-8 #### [facility] [place] [id number] [facility] [address] [place] [id number] [facility] Platelets (Bld) [#/Vol] 385 10*3/uL Normal 150-400 [facility] Comment on above: Order Comment: Speci men Type: BLOOD SPECIMEN Ordering Facility: [facility] Address: [address] [place], [place] [id number] Performed By: #### 5 7021-8 #### [facility] [place] [id number] [id number] [facility] [address] [place] [id number] [facility] RBC (Bld) [#/Vol] 4.09 10*6/uL Normal 3.90-5.20 [facility] Comment on above: Order Comment: Speci men Type: BLOOD SPECIMEN Ordering Facility: [facility] Address: 09 [address] [place], [place] [id number] Performed By: #### 5 7021-8 #### [id number] [address] [facility] [address] [place] [address] [facility] WBC (Bld) [#/Vol] 6.08 10*3/uL Normal 3.70-11.00 [facility] Comment on above: Order Comment: Speci men Type: BLOOD SPECIMEN Ordering Facility: [facility] Address: [address] [place], [place] [id number] Performed By: #### 5 7021-8 #### [facility] [id number] [address] [facility] [address] [place] [address] [facility] Comprehensive metabolic 2000 panelon 07-13-2023 Albumin [Mass/Vol] 3.3 g/dL Normal 3.2-5.0 [facility] Comment on above: Order Comment: Speci men Type: BLOOD SPECIMEN Ordering Facility: [facility] Address: [address] [place] [address] Performed By: #### 1 989-3, 42839-2, 36854-1, 85707-6, 228-8 #### [facility] CLIA [id number] [address] [place] [address] [place] ALP [Catalytic activity/Vol] 76 U/L Normal 45-117 [facility] Comment on above: Order Comment: Speci men Type: BLOOD SPECIMEN Ordering Facility: [facility] Address: [address] [place] [address] Performed By: #### 1 989-3, 08966-9, 03354-1, 88915-2, 2283-8 #### [facility] CLIA [id number] [address] [place] [address] [place] ALT [Catalytic activity/Vol] 16 U/L Normal 13-61 [facility] Comment on above: Order Comment: Speci men Type: BLOOD SPECIMEN Ordering Facility: [facility] Address: [address] [place] [address] Result Comment: Resu lts may be falsely depressed after the administration of Sulfasalazine and/or Sulfapyridine. Performed By: #### 1 989-3, 18936-5, 97602-2, 75246-0, 2283-8 #### [facility] CLIA [id number] [address] [place], [place] [address] [place] Anion gap [Moles/Vol] 8 mmol/L Normal 5-16 [facility] Comment on above: Order Comment: Speci men Type: BLOOD SPECIMEN Ordering Facility: [facility] Address: [address] [place] [address] Performed By: #### 1 989-3, 84310-2, 60185-1, 68377-3, 2283-8 #### [facility] CLIA [id number] [address] [place] [address] [place] AST [Catalytic activity/Vol] 17 U/L Normal 8-34 [facility] Comment on above: Order Comment: Speci men Type: BLOOD SPECIMEN Ordering Facility: [facility] Address: [address] [place] [address] Result Comment: Resu lts may be falsely depressed after the administration of Sulfasalazine and/or Sulfapyridine. Performed By: #### 1 989-3, 07109-1, 22376-1, 36165-3, 8 #### [facility] CLIA [id number] [address] [place], [place] [address] [place] Bilirubin [Mass/Vol] 0.5 mg/dL Normal 0.2-1.0 [facility] Comment on above: Order Comment: Speci men Type: BLOOD SPECIMEN Ordering Facility: [facility] Address: [address] [place], [place] [phone] Performed By: #### 1 989-3, 11282-4, 30730-2, 76361-8, 2284-06 #### [facility] CLIA [id number] [address] [place], [place] [address] [place] Calcium [Mass/Vol] 9.6 mg/dL Normal 8.5-10.5 [facility] Comment on above: Order Comment: Speci men Type: BLOOD SPECIMEN Ordering Facility: [facility] Address: [address] [place] [address] Performed By: #### 1 989-3, 47212-7, 42986-4, 33413-0, 2284-06 #### [facility] CLIA [id number] [address] [place] [address] [place] Chloride [Moles/Vol] 107 mmol/L Normal 98-107 [facility] Comment on above: Order Comment: Speci men Type: BLOOD SPECIMEN Ordering Facility: [facility] Address: [address] [place], [place] [phone] Performed By: #### 1 989-3, 40537-1, 47487-5, 03263-3, 2284-06 #### [facility] CLIA [id number] [address] [place], [place] [address] [place] CO2 [Moles/Vol] 26 mmol/L Normal 21-32 [facility] Comment on above: Order Comment: Speci men Type: BLOOD SPECIMEN Ordering Facility: [facility] Address: [address] [place] [address] Performed By: #### 1 989-3, 73494-7, 41806-0, 12678-9, 8 #### [facility] CLIA [id number] [address] [place] [address] [place] Creatinine [Mass/Vol] 0.78 mg/dL Normal 0.51-0.95 [facility] Comment on above: Order Comment: Bryan simmons Type: BLOOD SPECIMEN Ordering Facility: [facility] Address: [address] [place] [phone] Result Comment: Aminata ents receiving either N-Acetylcysteine (NAC) or Metamizole prior to venipuncture, may have falsely depressed results. Performed By: #### 1 989-3, 38486-5, 26135-5, 37380-6, 2284-06 #### [facility] CLIA [id number] [address] [place], [place] [address] [place] [place] Creatinine and Glomerular filtration rate.predicted panel (S/P/Bld) 99 mL/min/1.73m??? Normal >=60 [facility] Comment on above: Order Comment: Bryan simmons Type: BLOOD SPECIMEN Ordering Facility: [facility] Address: [address] [place], [place] [phone] Result Comment: Sepideh mated Glomerular Filtration Rate (eGFR) is calculated using the 2020 CKD-EPI creatinine equation. This equation utilizes serum creatinine, sex, and age as parameters. The creatinine assay has traceable calibration to isotope dilution-mass spectrometry. Refer to KDIGO guidelines for clinical interpretation. In patients with unstable renal function, e.g. those with acute kidney injury, the eGFR may not accurately reflect actual GFR. Performed By: #### 1 989-3, 31927-2, 34473-1, 45570-9, 2284-06 #### [facility] CLIA [id number] [address] [place], [place] [address] [place] Glucose [Mass/Vol] 87 mg/dL Normal 70-100 [facility] Comment on above: Order Comment: Bryan simmons Type: BLOOD SPECIMEN Ordering Facility: [facility] Address: [address] [place], [place] [phone] Result Comment: The [place] Diabetes Association (ADA) provides guidance for cutoff values for fasting glucose and random glucose. The ADA defines fasting as no caloric intake for at least 8 hours. Fasting plasma glucose results between 100 to 125 mg/dL indicate increased risk for diabetes (prediabetes). Fasting plasma glucose results greater than or equal to 126 mg/dL meet the criteria for diagnosis of diabetes. In the absence of unequivocal hyperglycemia, results should be confirmed by repeat testing. In a patient with classic symptoms of hyperglycemia or hyperglycemic crisis, random plasma glucose results greater than or equal to 200 mg/dL meet the criteria for diagnosis of diabetes. Reference: Standards of Medical Care in Diabetes 2016, [place] Diabetes Association. Diabetes Care. 2016.39(Suppl 1). Results may be falsely elevated after the administration of Sulfapyridine. Results may be falsely depressed after the administration of Sulfasalazine. Performed By: #### 1 989-3, 95041-9, 40493-5, 70628-7, 2283-8 #### [facility] CLIA [id number] [address] [place] [address] [place] Potassium [Moles/Vol] 4.3 mmol/L Normal 3.5-5.1 [facility] Comment on above: Order Comment: Bryan simmons Type: BLOOD SPECIMEN Ordering Facility: [facility] Address: [address] [place], [place] [phone] Performed By: #### 1 989-3, 93692-7, 69838-4, 44977-5, 8 #### [facility] CLIA [id number] [address] [place] [address] [place] Protein [Mass/Vol] 6.8 g/dL Normal 6.0-8.5 [facility] Comment on above: Order Comment: Bryan simmons Type: BLOOD SPECIMEN Ordering Facility: [facility] Address: [address] [place], [place] [phone] Performed By: #### 1 989-3, 60979-8, 81910-3, 12650-6, 2283-8 #### [facility] CLIA [id number] [address] [place], [place] [address] [place] Sodium [Moles/Vol] 141 mmol/L Normal 136-145 [facility] Comment on above: Order Comment: Speci men Type: BLOOD SPECIMEN Ordering Facility: [facility] Address: [address] [place] [address] Performed By: #### 1 989-3, 31603-2, 24539-3, 92614-0, 2283-8 #### [facility] CLIA [id number] [address] [place], [place] [address] [place] Urea nitrogen [Mass/Vol] 8 mg/dL Normal 7-26 [facility] Comment on above: Order Comment: Speci men Type: BLOOD SPECIMEN Ordering Facility: [facility] Address: [address] [place] [address] Performed By: #### 1 989-3, 93652-2, 25729-9, 44370-9, 2283-8 #### [facility] CLIA [id number] [address] [place], [place] [address] [place] Folate SerPl-mCncon 07-13-20 Folate [Mass/Vol] 10.3 ng/mL Normal >3.0 [facility] Comment on above: Order Comment: Speci men Type: BLOOD SPECIMEN Ordering Facility: [facility] Address: [address] [place] [address] Performed By: #### 1 989-3, 97921-4, 12520-1, 49954-3, 2283-8 #### [facility] CLIA [id number] [address] [place], [place] [address] [place] HBV surface Ab Ql (S)on 06-16 HBV surface Ab Qn (S) 182.80 mIU/mL Normal [facility] Comment on above: Order Comment: Speci men Type: BLOOD SPECIMEN Ordering Facility: [facility] Address: [address] [place] [address] Result Comment: STAT US OF IMMUNITY Protective Immunity: greater than or equal to 10 mIU/mL (Traceable to WHO International Reference Preparation) No Protective Immunity: less than 10 mIU/mL Note: The magnitude of the measured result above the cutoff is not indicative of the total amount of antibody present. Performed By: #### 1 989-3, 57097-1, 17541-0, 68717-7, 8 #### [facility] CLIA [id number] [address] [place] [address] [place] [facility] HBV surface Ab Ser Qlon 06-16 HBV surface Ab Ql (S) Positive Normal [facility] Comment on above: Order Comment: Speci iris Type: BLOOD SPECIMEN Ordering Facility: [facility] Address: [address] [place] [address] Result Comment: Cons istent with serological evidence of immunity to Hepatitis B Virus. Performed By: #### 1 989-3, 09694-8, 97768-5, 56758-0, 2284-06 #### [facility] CLIA [id number] [address] [place] [address] [place] [facility] Iron and Iron binding capaci ty panelon 07-13-2023 Iron [Mass/Vol] 64 ug/dL Normal 50-170 [facility] Comment on above: Order Comment: Bryan simmons Type: BLOOD SPECIMEN Ordering Facility: [facility] Address: [address] [place] [address] Result Comment: Aminata ents treated with metal-binding drugs (e.g.deferoxamine) may have depressed iron values, as chelated iron may not properly react in the Siemens iron assay. Performed By: #### 1 989-3, 41870-6, 63877-3, 72901-2, 8 #### [facility] CLIA [id number] [address] [place] [address] [place] Iron binding capacity [Mass/Vol] 447 ug/dL Normal 221-481 [facility] Comment on above: Order Comment: Jasoni iris Type: BLOOD SPECIMEN Ordering Facility: [facility] Address: [address] [place] [address] Performed By: #### 1 989-3, 40715-6, 14418-3, 39511-7, 2284-8 #### [facility] CLIA [id number] [address] [place], [place] [address] [place] Iron/TIBC [Molar ratio] 14.3 % Low 22.0-44.0 M [facility] Comment on above: Order Comment: Speci [facility] Type: BLOOD SPECIMEN Ordering Facility: [facility] Address: [address] [place] [address] Performed By: #### 1 989-3, 44903-1, 96702-5, 03045-5, 2284-8 #### [facility] CLIA [id number] [address] [place] [address] [place] MUMPS IGG ABon 07-13-2023 MuV IgG Ql (S) Negative Abnormal Positive [facility] Comment on above: Order Comment: [facility] Type: BLOOD SPECIMEN Ordering Facility: [facility] Address: [address] [place] [address] Result Comment: The result suggests no history of Mumps vaccination or exposure to Mumps virus, however, some individuals with past history of Mumps vaccination may test negative using this test. Please correlate with past history of vaccination if applicable. Performed By: #### 1 989-3, 77466-7, 10299-7, 13625-0, 2284-8 #### [facility] CLIA [id number] [address] [place] [address] [place] RUBELLA IGG ABon 07-13-2023 RUBELLA IGG AB, QUAL Positive Normal Positive [facility] Comment on above: Order Comment: Speci [facility] Type: BLOOD SPECIMEN Ordering Facility: [facility] Address: [address] [place] [address] Result Comment: <5 I U/ML Negative for IgG antibodies to Rubella >= 5-9.9 IU/ML Equivocal for IgG antibodies to Rubella Virus. Obtain new specimen and test using Rubella IgG assay. >=10 IU/ML Positive for IgG antibodies to Rubella Performed By: #### R SILVIANOG, 2132-9 #### [facility] CLIA [id number] [address] [place] [address] [place] RUBEOLA (MEASLES)IGGon 07-13 MEASLES IGG AB, QUAL Positive Normal Positive [facility] Comment on above: Order Comment: Bryan simmons Type: BLOOD SPECIMEN Ordering Facility: [facility] Address: [address] [place] [address] Result Comment: The result suggests recent or past exposure to Measles virus or Measles vaccination. The current test does not detect neutralizing antibodies. Positive result may also be seen due to presence of passively-transferred antibodies. Please correlate with patient's history. Performed By: #### M UMPSG, VZVG2, MEASLG #### [facility] CLIA [id number] [address] [place] [address] [place] VARICELLA ZOSTER IGGon 07-13 VARICELLA ZOSTER IGG, QUAL Positive Normal Positive [facility] Comment on above: Order Comment: Bryan simmons Type: BLOOD SPECIMEN Ordering Facility: [facility] Address: [address] [place] [address] Result Comment: The result suggests recent or past exposure to Varicella-Zoster virus or chickenpox vaccination or zoster vaccination. Positive result may also be seen due to presence of passively-transferred antibodies. Please correlate with patient's history. Performed By: #### M UMPSG, VZVG2, MEASLG #### [facility] CLIA [id number] [address] [place] [address] [place] VITAMIN B1 (THIAMINE), WHOLE BLOODon 07-13-2023 Thiamine (Bld) [Moles/Vol] 137.4 nmol/L Normal 84.3-213.3 [facility] Comment on above: Order Comment: Bryan [facility] Type: BLOOD SPECIMEN Ordering Facility: [facility] Address: [address] [place] [address] Result Comment: This assay measures the concentration of thiamine diphosphate (TDP), the primary active form of vitamin B1. Approximately 90 percent of vitamin B1 present in whole blood is TDP. Thiamine and thiamine monophosphate, which comprise the remaining 10 percent, are not measured. This test was developed and its performance characteristics determined by [facility]'s [facility] [place] ([facility]). It has not been cleared or approved by the FDA. -[facility] is regulated under CLIA as qualified to perform high-complexity testing. This test is used for clinical purposes. It should not be regarded as investigational or for research. Performed By: #### 1 989-3, 77854-7, 61864-6, 36589-2, 2284-8 #### [facility] CLIA [id number] [facility] [place] [address] [place] Vit B12 SerPl-mCncon 023 Cobalamin (Vitamin B12) [Mass/Vol] 676 pg/mL Normal 193-986 [facility] Comment on above: Order Comment: Speci men Type: BLOOD SPECIMEN Ordering Facility: [facility] Address: [address] [place] [address] Performed By: #### R SILVIANO, 9 #### [facility] CLIA [id number] [address] [place], [place] [address] [place] STREP A MOLECULAR (POC)on Procedural Control Valid [facility] Strep A (POCT) Negative Negative [facility] No Panel Informationon 05-04 Thyroid Stimulating Hormone (TSH) 0.60 uIU/mL 0.358-3.74 [facility] Work Phone: XR Chest PA and Lateralon IMPRESSION: No acute radiographic abnormality. Incident Response Coordinator: JACE Transcribe Date/Time: Jun 17 2021 9:50A Dictated by : REFUGIO EWING MD This examination was interpreted and the report reviewed and electronically signed by: REFUGIO EWING MD on Jun 17 2021 9:50AM [facility] DIVISION OF RADIOLOGY * * *Final Report* * * DATE OF EXAM: Jun 17 2021 9:46AM WOX 5291 - XR CHEST 2V FRONTAL/LAT / PROCEDURE REASON: Cough * * * * Physician Interpretation * * * * EXAMINATION: CHEST RADIOGRAPH (2 VIEW FRONTAL & LATERAL) CLINICAL HISTORY: Cough MQ: XC2_6 EXAM DATE/TIME: 06/17/2021 9:46 AM COMPARISON: No relevant prior studies available. RESULT: Lines, tubes, and devices: None. Lungs and pleura: No consolidation. No lung mass. No pleural effusion. No pneumothorax. Cardiomediastinal silhouette: Normal cardiomediastinal silhouette. Bones and soft tissues: Surgical clips are present in the upper abdomen. Mild degenerative changes in the spine. DIVISION OF RADIOLOGY Provider, [facility] [place] - 06/17/2021 * * *Final Report* * * DATE OF EXAM: Jun 17 2021 9:46AM WOX 5291 - XR CHEST 2V FRONTAL/LAT / PROCEDURE REASON: Cough * * * * Physician Interpretation * * * * EXAMINATION: CHEST RADIOGRAPH (2 VIEW FRONTAL & LATERAL) CLINICAL HISTORY: Cough MQ: XC2_6 EXAM DATE/TIME: 06/17/2021 9:46 AM COMPARISON: No relevant prior studies available. RESULT: Lines, tubes, and devices: None. Lungs and pleura: No consolidation. No lung mass. No pleural effusion. No pneumothorax. Cardiomediastinal silhouette: Normal cardiomediastinal silhouette. Bones and soft tissues: Surgical clips are present in the upper abdomen. Mild degenerative changes in the spine. IMPRESSION IMPRESSION: No acute radiographic abnormality. Incident Response Coordinator: JACE Transcribe Date/Time: Jun 17 2021 9:50A Dictated by : REFUGIO EWING MD This examination was interpreted and the report reviewed and electronically signed by: REFUGIO EWING MD on Jun 17 2021 9:50AM EST [facility] Radiology Study observation (narrative) [facility] XR Chest PA and LateralOrder ed By: [facility] Provider on 06-17-2021 [facility] HCG ( test) Ql (U)O rdered By: Jack Linda on 03-10-2021 Internal Control Pass [facility] POC , UrineOrdered By: Jack Linda on 03-10-2021 HCG ( test) Ql (U) Negative Negative [facility] XR KNEE LEFT 2 VIEWS ([address])Ordered By: Jack Linda on 03-10-2021 1. Status post left medial knee arthroplasty with gross anatomic alignment. 2. No hardware complication visualized. VKR/hff Workstation ID: [id number] [facility] EXAMINATION: XR KNEE LEFT 2 VIEWS (STANDARD) HISTORY: ORDERING SYSTEM PROVIDED HISTORY: s/p Lt. TKA in [place] TECHNOLOGIST PROVIDED HISTORY: Illness/Other Reason for exam: S/P Lt. Partial Knee replacement Cancer History: u Surgery, RadiationHistory: u Encounter Type: Subsequent/Follow-up Additional signs and symptoms: un ORDERING SYSTEM PROVIDED DIAGNOSIS CODES: M17.12 Primary osteoarthritis of left knee COMPARISON: Left knee x-ray 02/05/2021. FINDINGS: Two images of the left knee are obtained after medial left knee arthroplasty. The images demonstrate satisfactory appearance of the femoral, patellar and tibial components. No hardware complication is identified. Fluid and gas are seen within the joint space. Alignment is grossly anatomic. Cutaneous skin deandra are noted in place over the surgical bed. [facility] Interface[facility] 12:50 PM EDT EXAMINATION: XR KNEE LEFT 2 VIEWS (STANDARD) HISTORY: ORDERING SYSTEM PROVIDED HISTORY: s/p Lt. TKA in [place] TECHNOLOGIST PROVIDED HISTORY: Illness/Other Reason for exam: S/P Lt. Partial Knee replacement Cancer History: u Surgery, RadiationHistory: u Encounter Type: Subsequent/Follow-up Additional signs and symptoms: un ORDERING SYSTEM PROVIDED DIAGNOSIS CODES: M17.12 Primary osteoarthritis of left knee COMPARISON: Left knee x-ray 02/05/2021. FINDINGS: Two images of the left knee are obtained after medial left knee arthroplasty. The images demonstrate satisfactory appearance of the femoral, patellar and tibial components. No hardware complication is identified. Fluid and gas are seen within the joint space. Alignment is grossly anatomic. Cutaneous skin deandra are noted in place over the surgical bed. IMPRESSION: 1. Status post left medial knee arthroplasty with gross anatomic alignment. 2. No hardware complication visualized. Canara[employer]/realSociable Workstation ID: [id number] [facility] XR KNEE LEFT 2 VIEWS (STANDA RD)on 03-10-2021 XR KNEE LEFT 2 VIEWS (STANDARD) EXAMINATION: XR KNEE LEFT 2 VIEWS (STANDARD) HISTORY: ORDERING SYSTEM PROVIDED HISTORY: s/p Lt. TKA in [place]., TECHNOLOGIST PROVIDED HISTORY: Illness/Other Reason for exam: S/P Lt. Partial Knee replacement Cancer History: u Surgery, RadiationHistory: u Encounter Type: Subsequent/Follow-up Additional signs and symptoms: un ORDERING SYSTEM PROVIDED DIAGNOSIS CODES: M17.12 Primary osteoarthritis of left knee COMPARISON: Left knee x-ray 02/05/2021. FINDINGS: Two images of the left knee are obtained after medial left knee arthroplasty. The images demonstrate satisfactory appearance of the femoral, patellar and tibial components. No hardware complication is identified. Fluid and gas are seen within the joint space. Alignment is grossly anatomic. Cutaneous skin deandra are noted in place over the surgical bed. IMPRESSION: 1. Status post left medial knee arthroplasty with gross anatomic alignment. 2. No hardware complication visualized. Canara[employer]/Caninesf Workstation ID: [id number] Dictated by: BRIAN RUTHERFORD on TueMar 10, 2021 9:09:39 AM EDT Transcribed by: KRISTA LANE on TueMar 10, 2021 9:42:41 AM EDT Finalized by: BRIAN RUTHERFORD on TueMar 10, 2021 12:47:43 PM EDT [facility] Comment on above: Order Comment: Injur y/Trauma or Illness?:Illness/Other How long have you had these symptoms (acute/chronic)?:Chronic Reason for exam?:S/P Lt. Partial Knee replacement History of cancer?:u Surgeries, chemotherapy, or radiation?:u Type of Exam?:Subsequent/Follow-up Additional signs and symptoms?:un HCG ( test) Ql (U)O rdered By: Jai Groves on 03-03-2021 Beta HCG ( test) Ql (U) Dilute urine specimens, as indicated by a low specific gravity (<1.010) may not contain product sales representative levels of hCG. If is still suspected, a serum test or repeat urine test using a first morning urine specimen should be considered. [facility] Interpretation and review of laboratory results Normal [facility] POC , UrineOrdered By: Jai Groves on 03-03-2021 HCG ( test) Ql (U) Negative Negative [facility] MRSA CultureOrdered By: Tenzin Linda on 02-21-2021 MRSA isol Org specific cx Ql (Unsp spec) Negative [facility] MRSA isol Org specific cx Ql (Unsp spec)Ordered By: Jack Linda on 02-21-2021 Interpretation and review of laboratory results Normal [facility] Basic metabolic 2000 panelOr dered By: Jack Linda on 02-19-2021 Anion gap [Moles/Vol] 10 mmol/L 10 - 2 0 mmol/L [facility] Calcium [Mass/Vol] 8.6 mg/dL 8.4 - 10. 2 mg/dL [facility] Chloride [Moles/Vol] 106 mmol/L 98 - 10 8 mmol/L [facility] Creatinine [Mass/Vol] 0.70 mg/dL 0.40 - 1.10 [facility] GFR/1.73 sq M.predicted CKD-EPI (S/P/Bld) [Vol rate/Area] 111 >=60 mL/min/1.73 m2 [facility] Glucose [Mass/Vol] 77 mg/dL 65 - 99 mg/dL [facility] HCO3 [Moles/Vol] 28 mmol/L 21 - 32 mmol/L [facility] Interpretation and review of laboratory results Normal [facility] Potassium [Moles/Vol] 3.6 mmol/L 3.5 - 5.1 mmol/L [facility] Sodium [Moles/Vol] 140 mmol/L 135 - 145 mmol/L [facility] Urea nitrogen [Mass/Vol] 11 mg/dL 8 - 25 mg/dL [facility] Urea nitrogen/Creatinine [Mass ratio] 15.7 mg/mg [facility] The eGFR should be used for monitoring renal function only and not for medication dosing. [facility] ECG 12-LEADOrdered By: Alonso Linda on 02-19-2021 Atrial Rate 49 BPM [facility] P Haddock 52 degrees [facility] P-R Interval 132 ms [facility] Q-T Interval 416 ms [facility] QRS Duration 88 ms [facility] QTC Calculation (Bezet) 375 ms O [facility] R Haddock 30 degrees [facility] T Haddock 52 degrees [facility] Ventricular Rate 49 BPM [facility] Sinus bradycardia RSR' pattern in V1 Otherwise normal ECG Confirmed by Rubio Barragan MD ([id number]) on 02/19/2021 11:21:44 AM [facility] External Lab Basic Metabolic Panelon 12-04-2020 Calcium [Mass/Vol] [facility] Chloride [Moles/Vol] 107 mmol/L [facility] Creatinine [Mass/Vol] 0.70 mg/dL [facility] GFR/1.73 sq M predicted among blacks MDRD (S/P/Bld) [Vol rate/Area] [facility] GFR/1.73 sq M predicted among non-blacks MDRD (S/P/Bld) [Vol rate/Area] [facility] Glucose [Mass/Vol] 84 mg/dL [facility] alth HCO3 (Bld) [Moles/Vol] 28 mmol/L [facility] Interpretation and review of laboratory results Normal [facility] Potassium [Moles/Vol] 3.7 mmol/L [facility] Sodium [Moles/Vol] 139 mmol/L [facility] alth Urea nitrogen [Mass/Vol] 10 mg/dL [facility] External Lab CBC (With or wi thout Diff)on 12-04-2020 Basophils (Bld) [#/Vol] [facility] Bas[facility]Bld) 0.3 % [facility] Eosinophils (Bld) [#/Vol] [facility] Eosinophils (Bld) [#/Vol] 1.1 10*3/uL [facility] Erythrocyte distribution width (RBC) [Ratio] [facility] Hematocrit (Bld) [Volume fraction] [facility] Hemoglobin (Bld) [Mass/Vol] [facility] Interpretation and review of laboratory results Abnormal [facility] Lymphocytes (Bld) [#/Vol] 2.9 10*3/uL [facility] Lymphocytes (Bld) [#/Vol] 31.4 10*3/uL [facility] MCH (RBC) [Entitic mass] [facility] MCHC (RBC) [Mass/Vol] [facility] MCV (RBC) [Entitic vol] [facility] Monocytes (Bld) [#/Vol] 6.8 10*3/uL [facility] Monocytes (Bld) [#/Vol] [facility] Neutrophils (Bld) [#/Vol] 5.6 10*3/uL [facility] Neutrophils (Bld) [#/Vol] 60.1 10*3/uL [facility] Platelet mean volume (Bld) [Entitic vol] [facility] Platelets (Bld) [#/Vol] O [facility] RBC (Bld) [#/Vol] 4.57 10*6/uL [facility] WBC (Bld) [#/Vol] 9.40 10*3/uL K/mcL [facility] No Panel Informationon 11-24 Radiology Study observation (narrative) [facility] X[facility] Foot - right AP and Later al and obliqueon 11-24-2020 IMPRESSION: Within normal limits. No fracture or other acute changes. Incident Response Coordinator: [facility] Transcribe Date/Time: Nov 24 2020 2:07P Dictated by : GILMAR OQUENDO MD This examination was interpreted and the report reviewed and electronically signed by: GILMAR OQUENDO MD on Nov 24 2020 2:10PM [facility] DIVISION OF RADIOLOGY * * *Final Report* * * DATE OF EXAM: Nov 24 2020 2:02PM WOX [id number] - XR FOOT 3V AP/LAT/OBL RT / PROCEDURE REASON: Injury of right foot, initial encounter * * * * Physician Interpretation * * * * RIGHT FOOT 3 VIEWS, 11/24/2020 HISTORY: Fall. Injury of right foot, initial encounter COMPARISON: None TECHNIQUE: Upright AP and lateral views as well as oblique image. Left foot included in the AP projection. RESULTS: The bones of the right foot appear intact and normally aligned. The joint spaces appear normal. There are no soft tissue calcifications or radiopaque foreign bodies. There is a small plantar calcaneal spur. Limited imaging of the left foot was unremarkable. DIVISION OF RADIOLOGY Provider, [facility] [place] - 11/24/2020 * * *Final Report* * * DATE OF EXAM: Nov 24 2020 2:02PM WOX 5337 - XR FOOT 3V AP/LAT/OBL RT / PROCEDURE REASON: Injury of right foot, initial encounter * * * * Physician Interpretation * * * * RIGHT FOOT 3 VIEWS, 11/24/2020 HISTORY: Fall. Injury of right foot, initial encounter COMPARISON: None TECHNIQUE: Upright AP and lateral views as well as oblique image. Left foot included in the AP projection. RESULTS: The bones of the right foot appear intact and normally aligned. The joint spaces appear normal. There are no soft tissue calcifications or radiopaque foreign bodies. There is a small plantar calcaneal spur. Limited imaging of the left foot was unremarkable. IMPRESSION IMPRESSION: Within normal limits. No fracture or other acute changes. Incident Response Coordinator: [facility] Transcribe Date/Time: Nov 24 2020 2:07P Dictated by : GILMAR OQUENDO MD This examination was interpreted and the report reviewed and electronically signed by: GILMAR OQUENDO MD on Nov 24 2020 2:10PM [facility] XR Knee - left AP and Latera lisa 11-24-2020 IMPRESSION: Findings are suggestive of osteoarthritis of the left knee. Incident Response Coordinator: JACE Transcribe Date/Time: Nov 24 2020 2:06P Dictated by : YUNG DEL ROSARIO MD This examination was interpreted and the report reviewed and electronically signed by: YUNG DEL ROSARIO MD on Nov 24 2020 2:07PM [facility] DIVISION OF RADIOLOGY * * *Final Report* * * DATE OF EXAM: Nov 24 2020 2:02PM WOX 5206 - XR KNEE 2V AP/LAT LT / PROCEDURE REASON: multiple diagnoses * * * * Physician Interpretation * * * * EXAM TITLE: XR KNEE 2V AP/LAT LT EXAM DATE/TIME: 11/24/2020 2:02 PM COMPARISON: None. CLINICAL INDICATION/HISTORY: Knee pain. TECHNIQUE: AP and lateral views of the left knee are presented. FINDINGS: No acute fractures or subluxations are noted. Medial compartmental joint space narrowing is demonstrated. There is tricompartmental osteophyte formation. There is no evidence of joint effusion. The mineralization of the bones is normal. There is no significant soft tissue swelling. DIVISION OF RADIOLOGY Provider, [facility] [place] - 11/24/2020 * * *Final Report* * * DATE OF EXAM: Nov 24 2020 2:02PM WOX 5206 - XR KNEE 2V AP/LAT LT / PROCEDURE REASON: multiple diagnoses * * * * Physician Interpretation * * * * EXAM TITLE: XR KNEE 2V AP/LAT LT EXAM DATE/TIME: 11/24/2020 2:02 PM COMPARISON: None. CLINICAL INDICATION/HISTORY: Knee pain. TECHNIQUE: AP and lateral views of the left knee are presented. FINDINGS: No acute fractures or subluxations are noted. Medial compartmental joint space narrowing is demonstrated. There is tricompartmental osteophyte formation. There is no evidence of joint effusion. The mineralization of the bones is normal. There is no significant soft tissue swelling. IMPRESSION IMPRESSION: Findings are suggestive of osteoarthritis of the left knee. Incident Response Coordinator: JACE Transcribe Date/Time: Nov 24 2020 2:06P Dictated by : YUNG DEL ROSARIO MD This examination was interpreted and the report reviewed and electronically signed by: YUNG DEL ROSARIO MD on Nov 24 2020 2:07PM [facility] [place] [facility] XR Knee - left AP and Latera lOrdered By: [facility] Provider on 11-24-2020 [facility] [place] ORT LARGE JOINT ARTHROCEN TESISon 10-30-2020 Selina Mejia CNP 10/30/2020 12:33 PM [facility]t Injection/Arthrocent esis: L knee Performed by: Selina Mejia CNP Authorized by: Selina Mejia CNP CPT 33212 - Large Joint Arthrocentesis: Consent given by: Patient Time out: Immediately prior to the procedure a time out was called Physician or proceduralist has discussed critical or nonroutine steps, procedure duration and anticipated blood loss: Yes Supporting Documentation: Indications: Pain and diagnostic evaluation Procedure Details: Location: Knee Site: L knee Prep: patient was prepped and draped in usual sterile fashion Needle size: 22 G Approach: Anterolateral Medications: 40 mg triamcinolone acetonide 40 mg/mL Anesthetic used: Lidocaine 1% Anesthetic amount (mL): 2 Patient tolerance: Patient tolerated the procedure well with no immediate complications [facility] CORONAVIRUS PCR [CCL]on COVID 19 Result REGISTERED NURSE NURSERY Negative Normal [facility] Comment on above: Result Comment: Nega tive for COVID19 (SARS CoV2) by PCR. This test was developed and its performance characteristics determined by [facility] [place]. This test has been authorized by FDA under an Emergency Use Authorization (EUA). This test has been validated in accordance with the FDA's Guidance Document Policy for Diagnostics Testing in Laboratories Certified to Perform High Complexity Testing under CLIA prior to Emergency use Authorization for Coronavirus Disease 2019 during the Public Health Emergency issued on January 12, 2020. [facility] [address] [place] [address] Otoniel Edwards III, M.D. [id number] Performed By: #### 2 [id number] #### [address] [address] COVID 19 Source REGISTERED NURSE NURSERY UPPER RESPIRATORY TRACT SWAB Normal [facility] Comment on above: Performed By: #### 2 [id number] #### [address] [address] Coronavirus 2019on 0 COVID 19 Result REGISTERED NURSE NURSERY Normal Negative for COVID19 (SARS CoV2) by PCR. [facility] Comment on above: Result Comment: Nega tive for This test was developed and its performance characteristics determined by [facility]'s [facility] [place]. This test has been authorized by FDA under an Emergency Use Authorization (EUA). This test has been validated in accordance with the FDA's Guidance Document Policy for Diagnostics Testing in Laboratories Certified to Perform High Complexity Testing under CLIA prior to Emergency use Authorization for Coronavirus Disease 2019 during the Public Health Emergency issued on January 12, 2020. COVID19 (SARS This test was developed and its performance characteristics determined by [facility] [place]. This test has been authorized by FDA under an Emergency Use Authorization (EUA). This test has been validated in accordance with the FDA's Guidance Document Policy for Diagnostics Testing in Laboratories Certified to Perform High Complexity Testing under CLIA prior to Emergency use Authorization for Coronavirus Disease 2019 during the Public Health Emergency issued on January 12, 2020. CoV2) by PCR. This test was developed and its performance characteristics determined by [facility] [place]. This test has been authorized by FDA under an Emergency Use Authorization (EUA). This test has been validated in accordance with the FDA's Guidance Document Policy for Diagnostics Testing in Laboratories Certified to Perform High Complexity Testing under CLIA prior to Emergency use Authorization for Coronavirus Disease 2019 during the Public Health Emergency issued on January 12, 2020. Performed By: #### C OVID #### [facility] - [address] [place], [place] [address] COVID 19 Source REGISTERED NURSE NURSERY URTS Normal [facility] Comment on above: Performed By: #### C OVID #### [facility] - [address] [place], [place] [address] [place] ORT LARGE JOINT ARTHROCEN TESISon 07-30-2020 Rohini Chaudhari CNP 07/30/2020 3:35 PM LG Jt Injection/Arthrocent esis: L knee Performed by: Rohini Chaudhari CNP Authorized by: Rohini Chaudhari CNP CPT 26714 - Large Joint Arthrocentesis: Consent given by: Patient Time out: Immediately prior to the procedure a time out was called Physician or proceduralist has discussed critical or nonroutine steps, procedure duration and anticipated blood loss: Yes Supporting Documentation: Indications: Pain Procedure Details: Location: Knee Site: L knee Prep: patient was prepped and draped in usual sterile fashion Needle size: 22 G Approach: Anterolateral Medications: 1 mL dexamethasone 4 mg/mL, 1 mL triamcinolone acetonide 40 mg/mL Anesthetic used: Bupivacaine 0.5% and Lidocaine 1% Anesthetic amount (mL): 4 Patient tolerance: Patient tolerated the procedure well with no immediate complications [facility] CORONAVIRUS PCR [CCL]on 05-15 COVID 19 Result REGISTERED NURSE NURSERY Negative Normal [facility] Comment on above: Result Comment: Nega tive for COVID19 (SARS CoV2) by PCR. This test was developed and its performance characteristics determined by [facility] [place]. This test has been authorized by FDA under an Emergency Use Authorization (EUA). This test has been validated in accordance with the FDA's Guidance Document Policy for Diagnostics Testing in Laboratories Certified to Perform High Complexity Testing under CLIA prior to Emergency use Authorization for Coronavirus Disease 2019 during the Public Health Emergency issued on January 12, 2020. [facility] [address] [place] [address] Otoniel Edwards III, M.D. [id number] Performed By: #### 2 [id number] #### [address] [address] COVID 19 Source REGISTERED NURSE NURSERY Nasopharyngeal Swab Normal [facility] Comment on above: Performed By: #### 2 [id number] #### [address] [address] Coronavirus 2019on 0 COVID 19 Result REGISTERED NURSE NURSERY Normal Negative for COVID19 (SARS CoV2) by PCR. [facility] Comment on above: Result Comment: Nega tive for This test was developed and its performance characteristics determined by [facility] [place]. This test has been authorized by FDA under an Emergency Use Authorization (EUA). This test has been validated in accordance with the FDA's Guidance Document Policy for Diagnostics Testing in Laboratories Certified to Perform High Complexity Testing under CLIA prior to Emergency use Authorization for Coronavirus Disease 2019 during the Public Health Emergency issued on January 12, 2020. COVID19 (SARS This test was developed and its performance characteristics determined by [facility] [place]. This test has been authorized by FDA under an Emergency Use Authorization (EUA). This test has been validated in accordance with the FDA's Guidance Document Policy for Diagnostics Testing in Laboratories Certified to Perform High Complexity Testing under CLIA prior to Emergency use Authorization for Coronavirus Disease 2019 during the Public Health Emergency issued on January 12, 2020. CoV2) by PCR. This test was developed and its performance characteristics determined by [facility] [place]. This test has been authorized by FDA under an Emergency Use Authorization (EUA). This test has been validated in accordance with the FDA's Guidance Document Policy for Diagnostics Testing in Laboratories Certified to Perform High Complexity Testing under CLIA prior to Emergency use Authorization for Coronavirus Disease 2019 during the Public Health Emergency issued on January 12, 2020. Coronavirus 2019on 0 COVID 19 Source REGISTERED NURSE NURSERY REGISTERED NURSE NURSERY Normal [facility] [place] ORT LARGE JOINT ARTHROCEN [facility] 04-21-2020 Rohini Chaudhari CNP 04/21/2020 3:26 PM LG Jt Injection/Arthrocent esis: L knee Performed by: Rohini Chaudhari CNP Authorized by: Rohini Chaudhari CNP CPT 08779 - Large Joint Arthrocentesis: Consent given by: Patient Time out: Immediately prior to the procedure a time out was called Physician or proceduralist has discussed critical or nonroutine steps, procedure duration and anticipated blood loss: Yes Supporting Documentation: Indications: Pain Procedure Details: Location: Knee Site: L knee Prep: patient was prepped and draped in usual sterile fashion Needle size: 22 G Approach: Anterolateral Medications: 1 mL dexamethasone 4 mg/mL, 1 mL triamcinolone acetonide 40 mg/mL Anesthetic used: Bupivacaine 0.5% and Lidocaine 1% Anesthetic amount (mL): 4 Patient tolerance: Patient tolerated the procedure well with no immediate complications [facility] LARGE JOINT ARTHROCEN [facility] 12-04-2019 Selina Mejia CNP 12/04/2019 3:09 PM LG Jt Injection/Arthrocent esis: L knee Performed by: Selina Mejia CNP Authorized by: Selina Mejia CNP CPT 13036 - Large Joint Arthrocentesis: Consent given by: Patient Time out: Immediately prior to the procedure a time out was called Supporting Documentation: Indications: Pain and diagnostic evaluation Procedure Details: Location: Knee Site: L knee Prep: patient was prepped and draped in usual sterile fashion Needle size: 22 G Approach: Anterolateral Medications: 40 mg triamcinolone acetonide 40 mg/mL Anesthetic used: Lidocaine 1% Anesthetic amount (mL): 2 Patient tolerance: Patient tolerated the procedure well with no immediate complications [facility] LARGE JOINT ARTHROCEN [facility] 08-07-2019 Rohini Chaudhari CNP 08/07/2019 10:47 AM LG Jt Injection/Arthrocent esis: L knee Performed by: Rohini Chaudhari CNP Authorized by: Rohini Chaudhari CNP CPT 81957 - Large Joint Arthrocentesis: Consent given by: Patient Time out: Immediately prior to the procedure a time out was called Physician or proceduralist has discussed critical or nonroutine steps, procedure duration and anticipated blood loss: Yes Supporting Documentation: Indications: Pain Procedure Details: Location: Knee Site: L knee Prep: patient was prepped and draped in usual sterile fashion Needle size: 22 G Approach: Anterolateral Medications: 1 mL dexamethasone 4 mg/mL, 1 mL triamcinolone acetonide 40 mg/mL Anesthetic used: Bupivacaine 0.5% and Lidocaine 1% Anesthetic amount (mL): 4 Patient tolerance: Patient tolerated the procedure well with no immediate complications [facility] LARGE JOINT ARTHROCEN [facility] 2019 Rohini Chauhdari CNP 2019 11:10 AM LG Jt Injection/Arthrocent esis: L knee Performed by: Rohini Chaudhari CNP Authorized by: Rohini Chaudhari CNP CPT 27687 - Large Joint Arthrocentesis: Consent given by: Patient Time out: Immediately prior to the procedure a time out was called Physician or proceduralist has discussed critical or nonroutine steps, procedure duration and anticipated blood loss: Yes Supporting Documentation: Indications: Pain Procedure Details: Location: Knee Site: L knee Prep: patient was prepped and draped in usual sterile fashion Needle size: 22 G Approach: Anterolateral Medications: 1 mL dexamethasone 4 mg/mL, 1 mL triamcinolone acetonide 40 mg/mL Anesthetic used: Bupivacaine 0.5% and Lidocaine 1% Anesthetic amount (mL): 4 Patient tolerance: Patient tolerated the procedure well with no immediate complications [facility] Basic Metabolic Panelon 11-15 Calcium mass conc 8.9 mg/dL 8.4 - 10.2 mg/dL [facility] Chloride molar conc 108 mmol/L 98 - 108 mmol/L [facility] CO2 molar conc 26 mmol/L 21 - 32 mmol/L [facility] Creatinine mass conc 0.79 mg/dL 0.4 - 1 .1 mg/dL [facility] GFR/1.73 sq M predicted among blacks MDRD vol rate/area (S/P/Bld) mL/min/{1.73_m2} ml/min/1.73s q.m [facility] Comment on above: GFR Calc GFR/1.73 sq M predicted among non-blacks MDRD vol rate/area (S/P/Bld) mL/min/{1.73_m2} ml/min/1.73s q.m [facility] Comment on above: Non- GFR Calc eGFR is an estimated Glomerular Filtration Rate based on the value of the patient's serum creatinine. In outpatients, eGFR should be used as a helpful tool in screening for CKD. In inpatients or patients with acute renal failure, eGFR represents the GFR at the moment of the draw and should be used with caution. Glucose mass conc 87 mg/dL 70 - 99 mg/dL [facility] Comment on above: This test result shelli ht be falsely depressed or falsely elevated on samples drawn from patients taking Sulfasalazine and Sulfapyridine. Venipuncture should occur prior to taking either of these drugs. Potassium molar conc 4.1 mmol/L 3.5 - 5 .1 mmol/L [facility] Sodium molar conc 141 mmol/L 135 - 145 mmol/L [facility] Urea nitrogen mass conc 9 mg/dL 8 - 25 mg/dL [facility] Calcium mass conc 8.9 mg/dL Normal 8.4-10.2 [facility] Comment on above: Performed By: #### C BCDIF, LIPID, HBA1C, CHEM8, TSH #### Unless otherwise noted, all testing performed by [place] [address] CLIA: [id number] Real Estate Lawyer: Jose Tirado M.D. Chloride molar conc 108 mmol/L Normal 98-108 [facility] Comment on above: Performed By: #### C BCDIF, LIPID, HBA1C, CHEM8, TSH #### Unless otherwise noted, all testing performed by [place] [address] CLIA: [id number] Real Estate Lawyer: Jose Tirado M.D. CO2 molar conc 26 mmol/L Normal 21-32 [facility] Comment on above: Performed By: #### C BCDIF, LIPID, HBA1C, CHEM8, TSH #### Unless otherwise noted, all testing performed by [place] [address] CLIA: [id number] Real Estate Lawyer: Jose Tirado M.D. Creatinine mass conc 0.79 mg/dL Normal 0.40-1.10 [facility] Comment on above: Performed By: #### C BCDIF, LIPID, HBA1C, CHEM8, TSH #### Unless otherwise noted, all testing performed by [place] [address] CLIA: [id number] Real Estate Lawyer: Jose Tirado M.D. GFR/1.73 sq M predicted among blacks MDRD vol rate/area (S/P/Bld) mL/min/{1.73_m2} Normal [facility] Comment on above: Result Comment: Afri can [place] GFR Calc Performed By: #### C BCDIF, LIPID, HBA1C, CHEM8, TSH #### Unless otherwise noted, all testing performed by [place] [address] CLIA: [id number] Real Estate Lawyer: Jose Tirado M.D. GFR/1.73 sq M predicted among non-blacks MDRD vol rate/area (S/P/Bld) mL/min/{1.73_m2} Normal [facility] Comment on above: Result Comment: Non- GFR Calc eGFR is an estimated Glomerular Filtration Rate based on the value of the patient's serum creatinine. In outpatients, eGFR should be used as a helpful tool in screening for CKD. In inpatients or patients with acute renal failure, eGFR represents the GFR at the moment of the draw and should be used with caution. Performed By: #### C BCDIF, LIPID, HBA1C, CHEM8, TSH #### Unless otherwise noted, all testing performed by [place] [address] CLIA: [id number] Real Estate Lawyer: Joes Tirado M.D. Glucose mass conc 87 mg/dL Normal 70-99 [facility] Comment on above: Result Comment: This test result might be falsely depressed or falsely elevated on samples drawn from patients taking Sulfasalazine and Sulfapyridine. Venipuncture should occur prior to taking either of these drugs. Performed By: #### C BCDIF, LIPID, HBA1C, CHEM8, TSH #### Unless otherwise noted, all testing performed by [place] [address] CLIA: [id number] Real Estate Lawyer: Jose Tirado M.D. Potassium molar conc 4.1 mmol/L Normal 3.5-5.1 [facility] Comment on above: Performed By: #### C BCDIF, LIPID, HBA1C, CHEM8, TSH #### Unless otherwise noted, all testing performed by [place] [address] CLIA: [id number] Real Estate Lawyer: [place] Tirado M.D. Sodium molar conc 141 mmol/L Normal 135-145 [facility] Comment on above: Performed By: #### C BCDIF, LIPID, HBA1C, CHEM8, TSH #### Unless otherwise noted, all testing performed by [place] [address] CLIA: [id number] Real Estate Lawyer: [place] Tirado M.D. Urea nitrogen mass conc 9 mg/dL Normal 8-25 [facility] Comment on above: Performed By: #### C BCDIF, LIPID, HBA1C, CHEM8, TSH #### Unless otherwise noted, all testing performed by [place] [address] CLIA: [id number] Real Estate Lawyer: [place] Tirado M.D. CBC AND DIFFERENTIALon 12-08 Basophils #/vol (Bld) 0.0 10*3/uL [facility] Basophils/100 WBC (Bld) 0.2 % [facility] Eosinophils #/vol (Bld) 0.1 10*3/uL [facility] Eosinophils/100 WBC (Bld) 1.4 % [facility] Erythrocyte distribution width Ratio (RBC) 15.5 % High 10 - 14.4 % [facility] Hematocrit Volume Fraction (Bld) 33.9 % Low 34.4 - 44.8 % [facility] Hemoglobin mass conc (Bld) 11.2 g/dL Low 11.6 - 15.4 g/dL [facility] Interpretation and review of laboratory results Abnormal [facility] Lymphocytes #/vol (Bld) 1.7 10*3/uL [facility] Lymphocytes/100 WBC (Bld) 29.9 % [facility] MCH Entitic mass (RBC) 27.1 pg Low 27.9 - 33.9 pg [facility] MCHC mass conc (RBC) 33.0 g/dL Low 33.1 - 35.1 g/dL [facility] MCV Entitic volume (RBC) 82.1 fL Low [facility] Monocytes #/vol (Bld) 0.4 10*3/uL [facility] Monocytes/100 WBC (Bld) 7.5 % O [facility] Neutrophils #/vol (Bld) 3.4 10*3/uL [facility] Platelet mean volume Entitic volume (Bld) 8.2 fL [facility] Platelets #/vol (Bld) 457 10*3/uL High [facility] RBC #/vol (Bld) 4.13 10*6/uL [facility] lth Segmented Neut 61.0 % [facility] WBC #/vol (Bld) 5.6 10*3/uL [facility] CBC with Diffon 12-08-2018 Basophils #/vol (Bld) 0.0 K/mcL Normal 0-0.2 [facility] Comment on above: Performed By: #### C BCDIF, LIPID, HBA1C, CHEM8, TSH #### Unless otherwise noted, all testing performed by [place] [address] CLIA: [id number] Real Estate Lawyer: [place] Tirado M.D. Basophils/100 WBC (Bld) 0.2 % Normal [facility] Comment on above: Performed By: #### C BCDIF, LIPID, HBA1C, CHEM8, TSH #### Unless otherwise noted, all testing performed by [place] [address] CLIA: [id number] Real Estate Lawyer: [place] Tirado M.D. Eosinophils #/vol (Bld) 0.1 K/mcL Normal 0-0.5 O [facility] Comment on above: Performed By: #### C BCDIF, LIPID, HBA1C, CHEM8, TSH #### Unless otherwise noted, all testing performed by [place] [address] CLIA: [id number] Real Estate Lawyer: [place] Tirado M.D. Eosinophils/100 WBC (Bld) 1.4 % Normal [facility] Comment on above: Performed By: #### C BCDIF, LIPID, HBA1C, CHEM8, TSH #### Unless otherwise noted, all testing performed by [place] [phone] CLIA: [id number] Real Estate Lawyer: [place] Tirado M.D. Erythrocyte distribution width Ratio (RBC) 15.5 % High 10.0-14.4 [facility] Comment on above: Performed By: #### C BCDIF, LIPID, HBA1C, CHEM8, TSH #### Unless otherwise noted, all testing performed by [place] [phone] CLIA: [id number] Real Estate Lawyer: [place] Tirado M.D. Hematocrit Volume Fraction (Bld) 33.9 % Low 34.4-44.8 [facility] Comment on above: Performed By: #### C BCDIF, LIPID, HBA1C, CHEM8, TSH #### Unless otherwise noted, all testing performed by [place] [phone] CLIA: [id number] Real Estate Lawyer: [place] Tirado M.D. Hemoglobin mass conc (Bld) 11.2 g/dL Low 11.6-15.4 [facility] Comment on above: Performed By: #### C BCDIF, LIPID, HBA1C, CHEM8, TSH #### Unless otherwise noted, all testing performed by [place] [address] CLIA: [id number] Real Estate Lawyer: [place] Tirado M.D. Lymphocytes #/vol (Bld) 1.7 K/mcL Normal 1.0-3.7 O [facility] Comment on above: Performed By: #### C BCDIF, LIPID, HBA1C, CHEM8, TSH #### Unless otherwise noted, all testing performed by [place] [address] CLIA: [id number] Real Estate Lawyer: [place] Tirado M.D. Lymphocytes/100 WBC (Bld) 29.9 % Normal [facility] Comment on above: Performed By: #### C BCDIF, LIPID, HBA1C, CHEM8, TSH #### Unless otherwise noted, all testing performed by [place] [address] CLIA: [id number] Real Estate Lawyer: [place] Tirado M.D. MCH Entitic mass (RBC) 27.1 pg Low 27.9-33.9 [facility] Comment on above: Performed By: #### C BCDIF, LIPID, HBA1C, CHEM8, TSH #### Unless otherwise noted, all testing performed by [place] [address] CLIA: [id number] Real Estate Lawyer: [place] Tirado M.D. MCHC mass conc (RBC) 33.0 g/dL Low 33.1-35.1 [facility] Comment on above: Performed By: #### C BCDIF, LIPID, HBA1C, CHEM8, TSH #### Unless otherwise noted, all testing performed by [place] [phone] CLIA: [id number] Real Estate Lawyer: [place] Tirado M.D. MCV Entitic volume (RBC) 82.1 fL Low 82.6-98.9 [facility] Comment on above: Performed By: #### C BCDIF, LIPID, HBA1C, CHEM8, TSH #### Unless otherwise noted, all testing performed by [place] [address] CLIA: [id number] Real Estate Lawyer: [place] Tirado M.D. Monocytes #/vol (Bld) 0.4 K/mcL Normal 0.1-0.6 [facility] Comment on above: Performed By: #### C BCDIF, LIPID, HBA1C, CHEM8, TSH #### Unless otherwise noted, all testing performed by [place] [address] CLIA: [id number] Real Estate Lawyer: [place] Tirado M.D. Monocytes/100 WBC (Bld) 7.5 % Normal [facility] Comment on above: Performed By: #### C BCDIF, LIPID, HBA1C, CHEM8, TSH #### Unless otherwise noted, all testing performed by [place] [address] CLIA: [id number] Real Estate Lawyer: [place] Tirado M.D. Neutrophils #/vol (Bld) 3.4 K/mcL Normal 1.2-6.9 [facility] Comment on above: Performed By: #### C BCDIF, LIPID, HBA1C, CHEM8, TSH #### Unless otherwise noted, all testing performed by [place] [address] CLIA: [id number] Real Estate Lawyer: [place] Tirado M.D. Platelet mean volume Entitic volume (Bld) 8.2 fL Normal 7.0-10.6 [facility] Comment on above: Performed By: #### C BCDIF, LIPID, HBA1C, CHEM8, TSH #### Unless otherwise noted, all testing performed by [place] [address] CLIA: [id number] Real Estate Lawyer: [place] Tirado M.D. Platelets #/vol (Bld) 457 K/mcL High 162-402 [facility] Comment on above: Performed By: #### C BCDIF, LIPID, HBA1C, CHEM8, TSH #### Unless otherwise noted, all testing performed by [place] [address] CLIA: [id number] Real Estate Lawyer: [place] Tirado M.D. RBC #/vol (Bld) 4.13 M/mcL Normal 3.7-5.0 [facility] Comment on above: Performed By: #### C BCDIF, LIPID, HBA1C, CHEM8, TSH #### Unless otherwise noted, all testing performed by [place] [address] CLIA: [id number] Real Estate Lawyer: [place] Tir[place] M.D. Segmented Neut % 61.0 % Normal [facility] Comment on above: Performed By: #### C BCDIF, LIPID, HBA1C, CHEM8, TSH #### Unless otherwise noted, all testing performed by [place] [address] CLIA: [id number] Real Estate Lawyer: [place] Tir[place] M.D. WBC #/vol (Bld) 5.6 K/mcL Normal 3.4-10.6 [facility] Comment on above: Performed By: #### C BCDIF, LIPID, HBA1C, CHEM8, TSH #### Unless otherwise noted, all testing performed by [place] [address] CLIA: [id number] Real Estate Lawyer: [place] Tir[place] M.D. Hemoglobin A1Con 12-08-2018 Hemoglobin A1c/Hemoglobin.total mass fraction (Bld) 5.5 % Normal 4.1-6.5 [facility] Comment on above: Performed By: #### C BCDIF, LIPID, HBA1C, CHEM8, TSH #### Unless otherwise noted, all testing performed by [place] [address] CLIA: [id number] Real Estate Lawyer: [place] M.D. Hemoglobin A1con 12-08-2018 Hemoglobin A1c/Hemoglobin.total mass fraction (Bld) 5.5 % 4.1 - 6.5 % [facility] Lipid Panelon 12-08-2018 Cholesterol in HDL mass conc 71 mg/dL High 40 - 59 mg/dL [facility] Cholesterol in LDL mass conc 61 mg/dL 10 - 150 mg/dL [facility] Cholesterol in VLDL mass conc 53 mg/dL High 5 - 40 mg/dL [facility] Cholesterol mass conc 185 mg/dL 100 - 199 mg/dL [facility] Cholesterol.total/Jennifer sterol in HDL mass ratio 2.6 {ratio} Low [facility] Comment on above: Female Coronary Hear t Disease Risk Factor (CHDRF): Average risk= 4.4 1/2 Average risk= 3.3 2 times Average risk= 7.1 Interpretation and review of laboratory results Abnormal [facility] Triglyceride mass conc 266 mg/dL High 30 - 150 mg/dL [facility] Cholesterol in HDL mass conc 71 mg/dL High 40-59 [facility] Comment on above: Performed By: #### C BCDIF, LIPID, HBA1C, CHEM8, TSH #### Unless otherwise noted, all testing performed by [place] [address] CLIA: [id number] Real Estate Lawyer: [place] Tirado M.D. Cholesterol in LDL mass conc 61 mg/dL Normal 10-150 [facility] Comment on above: Performed By: #### C BCDIF, LIPID, HBA1C, CHEM8, TSH #### Unless otherwise noted, all testing performed by [place] [address] CLIA: [id number] Real Estate Lawyer: [place] Tirado M.D. Cholesterol in VLDL mass conc 53 mg/dL High 5-40 [facility] Comment on above: Performed By: #### C BCDIF, LIPID, HBA1C, CHEM8, TSH #### Unless otherwise noted, all testing performed by [place] [address] CLIA: [id number] Real Estate Lawyer: [place] Tirado M.D. Cholesterol mass conc 185 mg/dL Normal 100-199 [facility] Comment on above: Performed By: #### C BCDIF, LIPID, HBA1C, CHEM8, TSH #### Unless otherwise noted, all testing performed by [place] [address] CLIA: [id number] Real Estate Lawyer: [place] Tirado M.D. Cholesterol.total/Jennifer sterol in HDL mass ratio 2.6 {ratio} Low 3.2-5.0 [facility] Comment on above: Result Comment: Maxine craig Coronary Heart Disease Risk Factor (CHDRF): Average risk= 4.4 1/2 Average risk= 3.3 2 times Average risk= 7.1 Performed By: #### C BCDIF, LIPID, HBA1C, CHEM8, TSH #### Unless otherwise noted, all testing performed by [place] [address] CLIA: [id number] Real Estate Lawyer: [place] Tirado M.D. Triglyceride mass conc 266 mg/dL High 30-150 [facility] Comment on above: Performed By: #### C BCDIF, LIPID, HBA1C, CHEM8, TSH #### Unless otherwise noted, all testing performed by [address] [place], [place] [address] CLIA: [id number] Real Estate Lawyer: [place] M.D. TSHon 12-08-2018 Thyrotropin Qn 1.34 m[IU]/L [facility] Comment on above: Samples from patient s routinely receiving high dose biotin therapy (100-300 mg/day) may show falsely decreased results. Please correlate clinically. Please note reference range change as of 09/05/18. Thyrotropin Qn 1.34 uIU/mL Normal 0.270-4.200 [facility] Comment on above: Result Comment: Samp les from patients routinely receiving high dose biotin therapy (100-300 mg/day) may show falsely decreased results. Please correlate clinically. Please note reference range change as of 09/05/18. Performed By: #### C BCDIF, LIPID, HBA1C, CHEM8, TSH #### Unless otherwise noted, all testing performed by [place] [address] CLIA: [id number] Real Estate Lawyer: [place] Tirado M.D. Joint Injection/Arthrocentes alexandro 07-10-2018 Rohini Chaudhari CNP 07/11/2018 8:58 AM LG Jt Injection/Arthrocent esis Performed by: ROHINI CHAUDHARI Authorized by: ROHINI CHAUDHARI CPT 88130 - Large Joint Arthrocentesis: Consent given by: Patient Time out: Immediately prior to the procedure a time out was called Timeout performed at: 07/11/2018 3:45 PM Physician or proceduralist has discussed critical or nonroutine steps, procedure duration and anticipated blood loss: Yes Supporting Documentation: Indications: Pain Procedure Details: Location: Knee Site: L knee Prep: patient was prepped and draped in usual sterile fashion Needle size: 22 G Approach: Anterolateral Medications: 1 mL dexamethasone 4 mg/mL, 1 mL triamcinolone acetonide 40 mg/mL Anesthetic used: Bupivacaine 0.5% and Lidocaine 1% Anesthetic amount (mL): 4 Patient tolerance: Patient tolerated the procedure well with no immediate complications Invalid Interpretation Code [facility] Joint Injection/Arthrocentes alexandro 04-02-2018 Joint Injection/Arthrocentesi s Rohini Chaudhari CNP 04/03/2018 2:19 PM LG Jt Injection/Arthrocent esis Performed by: ROHINI CHAUDHARI Authorized by: ROHINI CHAUDHARI CPT 62093 - Large Joint Arthrocentesis: Consent given by: Patient Time out: Immediately prior to the procedure a time out was called Timeout performed at: 04/03/2018 2:24 PM Physician or proceduralist has discussed critical or nonroutine steps, procedure duration and anticipated blood loss: Yes Supporting Documentation: Indications: Pain Procedure Details: Location: Knee Site: L knee Prep: patient was prepped and draped in usual sterile fashion Needle size: 22 G Approach: Anterolateral Medications: 1 mL dexamethasone 4 mg/mL, 1 mL triamcinolone acetonide 40 mg/mL Anesthetic used: Bupivacaine 0.5% and Lidocaine 1% Anesthetic amount (mL): 4 Patient tolerance: Patient tolerated the procedure well with no immediate complications Invalid Interpretation Code [facility] Vital Signs Date Time Vital Sign Value Performing Clinician Facility 06-13-2025 14:48-0400 Body height 167.6 cm Shakira Henleyts [employer]ADER.[employer]IMMER Work Phone: [facility] 06-13-2025 14:48-0400 Body mass index (BMI) [Ratio] 36.15 kg/m2 Shakira Bearutts [employer]ADER.GRID TRIMMER Work Phone: [facility] 06-13-2025 14:48-0400 Body weight 101.61 kg Shakira Henleyts [employer]EX TRADER.GRID TRIMMER Work Phone: [facility] 06-13-2025 14:48-0400 Diastolic blood pressure 73 mm[Hg] Shakira Klutts [employer]ADER.GRID TRIMMER Work Phone: [facility] 06-13-2025 14:48-0400 Systolic blood pressure 117 mm[Hg] Shakira Klutts [employer]EX TRADER.GRID TRIMMER Work Phone: [facility] 05-29-2025 10:09-0400 Body height 167.6 cm Selina Mejia GRID TRIMMER Work Phone: [address]16-2025 10:09-0400 Body mass index (BMI) [Ratio] 35.51 kg/m2 Selina Mejia CNP Work Phone: [facility] 05-29-2025 10:09-0400 Body weight 99.79 kg Selina Mejia CNP Work Phone: [facility] Comment on above: stated 04-27-2025 09:02-0400 Body height 168 cm Percy Huang MD Work Phone: [facility] 04-27-2025 09:02-0400 Body mass index (BMI) [Ratio] 35.52 kg/m2 Percy Huang MD Work Phone: [facility] 04-27-2025 09:02-0400 Body weight 100.25 kg Percy Huang MD Work Phone: [facility] 04-27-2025 09:02-0400 Diastolic blood pressure 72 mm[Hg] Percy Huang MD Work Phone: [facility] 04-27-2025 09:02-0400 Heart rate 60 /min Percy Huang MD Work Phone: [facility] 04-27-2025 09:02-0400 SaO2% (BldA) [Mass fraction] 100 % Percy Huang MD Work Phone: [facility] 04-27-2025 09:02-0400 Systolic blood pressure 102 mm[Hg] Percy Huang MD Work Phone: [facility] 02-05-2025 17:44-0400 Body temperature 98.7 [degF] Dr. Percy Huang MD Work Phone: [facility] 02-05-2025 17:44-0400 Diastolic blood pressure 59 mm[Hg] Dr. Percy Huang MD Work Phone: [facility] 02-05-2025 17:44-0400 Heart rate 61 /min Dr. Percy Huang MD Work Phone: [facility] 02-05-2025 17:44-0400 Respiratory rate 16 /min Dr. Percy Huang MD Work Phone: [facility] 02-05-2025 17:44-0400 SaO2% (BldA) [Mass fraction] 100 % Dr. Percy Huang MD Work Phone: [facility] 02-05-2025 17:44-0400 Systolic blood pressure 134 mm[Hg] Dr. Percy Huang MD Work Phone: [facility] 02-05-2025 17:11-0400 Body height 167.[address] Percy Huang MD Work Phone: [facility] 02-05-2025 17:11-0400 Body mass index (BMI) [Ratio] 35.2 kg/m2 Dr. Percy Huang MD Work Phone: [facility] 02-05-2025 17:11-0400 Body weight 98.[address] Percy Huang MD Work Phone: [facility] 06-26-2024 10:34-0400 Body mass index (BMI) [Ratio] 35.19 kg/m2 Fred Gonzales DO Work Phone: [facility] 06-26-2024 10:34-0400 Body weight 98.88 kg Fred Kitko DO Work Phone: [facility] 06-26-2024 10:34-0400 Diastolic blood pressure 72 mm[Hg] Fred Kitko DO Work Phone: [facility] 06-26-2024 10:34-0400 Systolic blood pressure 110 mm[Hg] Fred Kitko DO Work Phone: [facility] 05-28-2024 13:39-0400 Body height 167.6 cm Shakira Mathews FOREX TRADER.GRID TRIMMER Work Phone: [facility] 05-28-2024 13:39-0400 Body mass index (BMI) [Ratio] 35.35 kg/m2 Shakira Mathews [employer]EX TRADER.GRID TRIMMER Work Phone: [facility] 05-28-2024 13:39-0400 Body weight 99.34 kg Shakira Klutts [employer]EX TRADER.GRID TRIMMER Work Phone: [facility] 05-28-2024 13:39-0400 Diastolic blood pressure 67 mm[Hg] Shakira Klutts [employer]EX TRADER.GRID TRIMMER Work Phone: [facility] 05-28-2024 13:39-0400 Systolic blood pressure 102 mm[Hg] Shakira Klutts [employer]EX TRADER.GRID TRIMMER Work Phone: [facility] 03-24-2024 09:54-0400 Body mass index (BMI) [Ratio] 38.41 kg/m2 Percy Huang MD Work Phone: [facility] 03-24-2024 09:54-0400 Body weight 107.96 kg Percy Huang MD Work Phone: [facility] 03-24-2024 09:54-0400 Diastolic blood pressure 78 mm[Hg] Percy Huang MD Work Phone: [facility] 03-24-2024 09:54-0400 Heart rate 65 /min Percy Huang MD Work Phone: [facility] 03-24-2024 09:54-0400 Respiratory rate 16 /min Percy Huang MD Work Phone: [facility] 03-24-2024 09:54-0400 SaO2% (BldA) [Mass fraction] 99 % Percy Huang MD Work Phone: [facility] 03-24-2024 09:54-0400 Systolic blood pressure 120 mm[Hg] Percy Huang MD Work Phone: [facility] 10-27-2023 15:33-0500 Body height 167.6 cm Shakira Klutts [employer] TRADER.GRID TRIMMER Work Phone: [facility] 10-27-2023 15:33-0500 Body weight 106.14 kg Shakira Klutts [employer] TRADER.GRID TRIMMER Work Phone: [facility] 10-27-2023 15:33-0500 Diastolic blood pressure 76 mm[Hg] Shakira Klutts [employer]ADER.GRID TRIMMER Work Phone: [facility] 10-27-2023 15:33-0500 Systolic blood pressure 120 mm[Hg] Shakiraaliyah Mathews FOREX TRADER.GRID TRIMMER Work Phone: [facility] 12-29-2022 16:55-0500 Body temperature 99.39 [degF] [facility] [employer]AD[employer].GRID TRIMMER Work Phone: [facility] 12-29-2022 16:55-0500 Body weight 113.85 kg [facility] [employer]ADER.GRID TRIMMER Work Phone: [facility] 12-29-2022 16:55-0500 Diastolic blood pressure 78 mm[Hg] [facility] [employer]EX TRADER.GRID TRIMMER Work Phone: [facility] 12-29-2022 16:55-0500 Heart rate 75 /min Yared Felicianobury FOREX TRADER.GRID TRIMMER Work Phone: [facility] 12-29-2022 16:55-0500 Respiratory rate 18 /min [facility] [employer] TRADER.GRID TRIMMER Work Phone: [facility] 12-29-2022 16:55-0500 SaO2% (BldA) [Mass fraction] 100 % [facility] FOREX TRADER.GRID TRIMMER Work Phone: [facility] 12-29-2022 16:55-0500 Systolic blood pressure 110 mm[Hg] [facility] [employer]EX TRADER.GRID TRIMMER Work Phone: [facility] 10-18-2022 19:31-0500 Body weight 112.04 kg Percy Huang MD Work Phone: [facility] 10-18-2022 19:31-0500 Diastolic blood pressure 72 mm[Hg] Percy Huang MD Work Phone: [facility] 10-18-2022 19:31-0500 Heart rate 68 /min Percy Huang MD Work Phone: [facility] 10-18-2022 19:31-0500 SaO2% (BldA) [Mass fraction] 99 % Percy Huang MD Work Phone: [facility] 10-18-2022 19:31-0500 Systolic blood pressure 104 mm[Hg] Percy Huang MD Work Phone: [facility] 04-24-2021 15:17-0400 Body height 167.6 cm Jack Linda MD Work Phone: [facility] 04-24-2021 15:17-0400 Body mass index (BMI) [Ratio] 42.77 kg/m2 Jack Linda MD Work Phone: [facility] 04-24-2021 15:17-0400 Body weight 120.2 kg Jack Linda MD Work Phone: [facility] 03-16-2021 15:24-0400 Diastolic blood pressure 67 mm[Hg] NA [address] [place] [address] 03-16-2021 15:24-0400 Heart rate 70 /min NA [address] [place] [address] 03-16-2021 15:24-0400 Respiratory rate 16 /min NA [address] [place] [address] 03-16-2021 15:24-0400 SaO2% (BldA) [Mass fraction] 100 % NA [address] [place] [address] 03-16-2021 15:24-0400 Systolic blood pressure 104 mm[Hg] NA [address] [place] [address] 03-16-2021 14:09-0400 Body mass index (BMI) [Ratio] 42.91 kg/m2 NA [address] [place] [address] 03-16-2021 14:09-0400 Body temperature 98.6 [degF] NA 16 [facility] 03-16-2021 14:09-0400 Body weight 120.6 kg NA [address] [place] [address] 03-10-2021 16:58-0400 Respiratory rate 16 /min Jack Linda MD Work Phone: [facility] 03-10-2021 14:51-0400 Body temperature 98.29 [degF] Jack Linda MD Work Phone: [facility] 03-10-2021 14:51-0400 Heart rate 59 /min Jack Linda MD Work Phone: [facility] 03-10-2021 14:51-0400 SaO2% (BldA) [Mass fraction] 97 % Jack Linda MD Work Phone: [facility] 03-10-2021 14:46-0400 Diastolic blood pressure 79 mm[Hg] Jack Linda MD Work Phone: [facility] 03-10-2021 14:46-0400 Systolic blood pressure 127 mm[Hg] Jack Linda MD Work Phone: [facility] 03-10-2021 06:21-0400 Body height 167.6 cm Jack Linda MD Work Phone: [facility] 03-10-2021 06:21-0400 Body mass index (BMI) [Ratio] 43.16 kg/m2 Jack Linda MD Work Phone: [facility] 03-10-2021 06:21-0400 Body weight 121.3 kg Jack Linda MD Work Phone: [facility] 03-09-2021 14:26-0400 Diastolic blood pressure 72 mm[Hg] NA 8 [facility] 03-09-2021 14:26-0400 Heart rate 48 /min NA [address] [place] [address] 03-09-2021 14:26-0400 Systolic blood pressure 115 mm[Hg] NA 8 [facility] 03-09-2021 13:02-0400 Body temperature 98.2 [degF] NA 8 [facility] 03-09-2021 13:02-0400 Respiratory rate 14 /min NA 8 [facility] 03-09-2021 13:02-0400 SaO2% (BldA) [Mass fraction] 92 % NA 8 [facility] 03-03-2021 09:15-0400 Body temperature 98.01 [degF] Jai Groves MD Work Phone: [facility] 03-03-2021 09:15-0400 Diastolic blood pressure 63 mm[Hg] Jai Groves MD Work Phone: [facility] 03-03-2021 09:15-0400 Heart rate 58 /min Jai Groves MD Work Phone: [facility] 03-03-2021 09:15-0400 Respiratory rate 23 /min Jai Groves MD Work Phone: [facility] 03-03-2021 09:15-0400 SaO2% (BldA) [Mass fraction] 100 % Jai Groves MD Work Phone: [facility] 03-03-2021 09:15-0400 Systolic blood pressure 124 mm[Hg] Jai Groves MD Work Phone: [facility] 03-03-2021 07:37-0400 Body height 167.6 cm Jai Groves MD Work Phone: [facility] 03-03-2021 07:37-0400 Body mass index (BMI) [Ratio] 41.97 kg/m2 Jai Groves MD Work Phone: [facility] 03-03-2021 07:37-0400 Body weight 117.94 kg Jai Groves MD Work Phone: [facility] 02-27-2021 15:58-0400 Body height 167.6 cm Jack Linda MD Work Phone: [facility] 02-27-2021 15:58-0400 Body mass index (BMI) [Ratio] 41.97 kg/m2 Jack Linda MD Work Phone: [facility] 02-27-2021 15:58-0400 Body weight 117.94 kg Jack Linda MD Work Phone: [facility] 02-27-2021 15:58-0400 Diastolic blood pressure 75 mm[Hg] Jack Linda MD Work Phone: [facility] 02-27-2021 15:58-0400 Heart rate 70 /min Jack Linda MD Work Phone: [facility] 02-27-2021 15:58-0400 Systolic blood pressure 132 mm[Hg] Jack Linda MD Work Phone: [facility] 02-24-2021 08:09-0400 BMI (Body Mass Index) 43.21 kg/m2 Mary Srivastava [facility] 02-24-2021 08:09-0400 Body weight 121.43 kg Mary Srivastava [facility] 02-24-2021 08:09-0400 BP Diastolic 64 mm[Hg] [facility] 02-24-2021 08:09-0400 BP Systolic 112 mm[Hg] Mary Srivastava [facility] 02-24-2021 08:09-0400 Height 167.6 cm Mary Srivastava [facility] 02-24-2021 08:09-0400 Pulse (Heart Rate) 54 /min Mary Srivastava [facility] 02-24-2021 08:09-0400 Pulse Oximetry 98 % [facility] S[facility]ast[facility] 12-08-2020 13:15-0500 Body Temperature 97.39 [degF] Jai Groves [facility] 12-08-2020 13:15-0500 BP Diastolic 74 mm[Hg] Jai Groves [facility] 12-08-2020 13:15-0500 BP Systolic 125 mm[Hg] Jai Groves [facility] 12-08-2020 13:15-0500 Pulse (Heart Rate) 64 /[facility] 13:15-0500 Pulse Oximetry 93 % Jai Groves [facility] 12-08-2020 13:15-0500 Respiratory Rate 17 /min Jai Groves [facility] 12-08-2020 10:19-0500 BMI (Body Mass Index) 42.06 kg/m2 Jai Rgoves [facility] 12-08-2020 10:19-0500 Body weight 118.2 kg [facility]2020 10:19-0500 Height 167.6 cm [facility] Encounter Date Encounter Type Care Provider Facility Start: 07-24-2025 ambulatory [facility] Facility:[facility] Start: 06-28-2025 ambulatory [facility] Facility :[facility] Start: 06-28-2025 End: 06-28-2025 Subsequent hospital visit by physician Screen Mammo [facility] M[facility] Comment on above: Encounter for screen ing mammogram for breast cancer [Z12.31] Start: 06-13-2025 End: 06-13-2025 Patient encounter procedure Shakira Mathews FOREX TRADER.GRID TRIMMER Work Phone: [facility] Ob[facility]ne[facility] Comment on above: Encounter for gyneco logical examination (general) (routine) without abnormal findings (Primary Dx); Encounter for surveillance of contraceptive pills; Screening for cervical cancer; Encounter for screening for human papillomavirus (HPV); Encounter for screening mammogram for breast cancer Start: 06-13-2025 End: 06-13-2025 Patient encounter status Shaikra Mathews APRN.GRID TRIMMER Work Phone: [facility] Start: 06-13-2025 End: 06-13-2025 ambulatory SHAKIRA MATHEWS Facility:[facility] Start: 06-13-2025 Encounter for gynecological examination (general) (routine) without abnormal findings SHAKIRA MATHEWS [facility] Start: 06-08-2025 End: 06-08-2025 ambulatory PERCY HUANG Facility:[facility] Start: 05-31-2025 End: 05-31-2025 Telephone encounter Percy Huang MD Work Phone: [facility] [place] Comment on above: Results Start: 05-30-2025 End: 05-30-2025 ambulatory PERCY HUANG Facility:[facility] Start: 05-29-2025 End: 06-02-20[facility] Start: 05-29-2025 End: 05-29-2025 Office outpatient new 45 minutes Selina Brenda Marroquinck GRID TRIMMER Work Phone: [facility] Comment on above: Primary osteoarthrit is of left knee (Primary Dx) Start: 05-29-2025 ambulatory PERCY HUANG [facility] Ambulatory Start: 04-30-2025 End: 05-02-2025 Telephone encounter Percy Huang MD Work Phone: [facility] [place] Comment on above: Results Start: 04-29-2025 End: 06-29-2025 Follow-up encounter Percy Huang MD Work Phone: [facility] [place] Start: 04-27-2025 End: 04-27-2025 ambulatory PERCY HUANG Facility:[facility] Start: 04-27-2025 End: 04-27-2025 Patient encounter procedure Percy Huang MD Work Phone: [facility] [place] Comment on above: Well adult exam (Lisa lavinia Dx); Encounter for screening examination for other mental health and behavioral disorders; Encounter for screening mammogram for breast cancer; Depression, unspecified depression type; Gastroesophageal reflux disease without esophagitis; Thrombocytosis; Class 2 obesity with body mass index (BMI) of 35.0 to 35.9 in adult, unspecified obesity type, unspecified whether serious comorbidity present; Screening for lipid disorders; Intestinal malabsorption, unspecified type (HCC); Anxiety; Hx of bariatric surgery; Low grade squamous intraepithelial lesion on cytologic smear of cervix (LGSIL); Screening for diabetes mellitus Start: 04-27-2025 End: 04-27-2025 Patient encounter status Percy Huang MD Work Phone: [facility] Start: 04-27-2025 End: 04-27-2025 ambulatory SELF Facility:[facility] Start: 04-27-2025 Encounter for genera l adult medical examination without abnormal findings PERCY HUANG [facility] Start: 04-18-2025 Encounter for other preprocedural examination Prabhu Cleary [facility] Start: 04-05-2025 ambulatory [facility] Start: 04-05-2025 End: 04-05-2025 ambulatory [facility] Facility[facility] Start: 02-20-2025 End: 02-20-2025 Telephone encounter Percy Huang MD Work Phone: [facility] [place] Comment on above: Insurance Authorizat ion Start: 02-18-2025 End: 02-18-2025 Refill Percy Huang MD Work Phone: Family [facility] Comment on above: Refill Request Start: 02-05-2025 End: 02-05-2025 Emergency department patient visit Dr. Percy Huang MD Work Phone: -Emergency Department Work Phone: Start: 02-05-2025 End: 02-05-2025 ambulatory Percy Huang MD Work Phone: Family [facility] Comment on above: Dog Bite Start: 02-05-2025 End: 02-05-2025 E-mail encounter from caregiver Percy Huang MD Work Phone: [facility] [place] Start: 02-05-2025 End: 02-05-2025 Patient encounter procedure Percy Huang MD Work Phone: [facility] [place] Comment on above: Appointment Request Start: 11-05-2024 End: 11-05-2024 Refill Percy Huang MD Work Phone: [facility] [place] Comment on above: Refill Request Start: 10-03-2024 End: 10-03-2024 ambulatory Percy Sal Facility:[facility] Start: 10-03-2024 End: 10-03-2024 ambulatory [facility] Facility:[facility] Start: 09-26-2024 End: 09-26-2024 ambulatory [facility] Start: 09-26-2024 End: 09-26-2024 Encounter for general adult medical examination without abnormal findings [facility] Start: 09-26-2024 End: 09-27-2024 Orders Only Cherie Saeed MD Work Phone: [facility] Start: 09-20-2024 End: 09-24-2024 ambulatory Percy Huang MD Work Phone: [facility] [place] Comment on above: Appt Start: 09-20-2024 End: 09-20-2024 Patient encounter procedure Percy Huang MD Work Phone: [facility] [place] Comment on above: Referral Start: 07-31-2024 End: 07-31-2024 Refill Percy Huang MD Work Phone: [facility] [place] Comment on above: Refill Request Start: 07-05-2024 End: 07-05-2024 Telephone encounter Fred Gonzales DO Work Phone: [facility] Obstetrics & Gynecology Comment on above: Results Start: 06-26-2024 Documentation procedure Mammog alfie Coordinator [facility] Department Start: 06-26-2024 Letter encounter Mammography Coordinator [facility] Department Start: 06-26-2024 ambulatory PERCY HUANG Facility :[id number] Start: 06-26-2024 End: 06-26-2024 Subsequent hospital visit by physician Screen Mammo [facility] 1 RADIO M[facility]MO [facility] Comment on above: Screening breast exa mination [Z12.39] Start: 06-26-2024 End: 06-26-2024 Patient encounter procedure Fred Gonzales DO Work Phone: [facility] Obstetrics & Gyne[facility] Start: 06-26-2024 End: 06-26-2024 ambulatory Fred Gonzales DO Work Phone: [facility] Obstetrics & Gynecology Comment on above: Procedure Start: 05-31-2024 Telephone encounter Shakira eldridge FOREX TRADER.GRID TRIMMER Work Phone: [facility] Obstetrics & Gynecology Comment on above: Results Start: 05-28-2024 End: 05-28-2024 Patient encounter procedure Shakira Mathews FOREX TRADER.GRID TRIMMER Work Phone: [facility] Obstetrics & Gynecology Comment on above: LGSIL on Pap smear o f cervix (Primary Dx); Cervical cancer screening; Special screening examination for human papillomavirus (HPV) Start: 03-30-2024 ambulatory Shakira victoria FOREX TRADER.GRID TRIMMER Work Phone: [facility] Obstetrics & Gynecology Comment on above: Oral contraceptive Start: 03-25-2024 End: 03-25-2024 ambulatory PERCY HUANG Facility:[id number] Start: 03-24-2024 End: 03-24-2024 Patient encounter procedure Percy Huang MD Work Phone: [facility] Comment on above: Depression, unspecif ied depression type (Primary Dx); Hx of bariatric surgery; Thrombocytosis; Gastroesophageal reflux disease without esophagitis; Screening breast examination; Abnormal menses; Intestinal malabsorption, unspecified type; Screening for lipid disorders Start: 02-07-2024 End: 02-07-2024 ambulatory Yuliya Ness FOREX TRADER.GRID TRIMMER Work Phone: Telemedicine Comment on above: Treatment not availa ble (Primary Dx) Start: 02-07-2024 End: 02-07-2024 Telemedicine consultation with patient Urbanocaryl Ness FOREX TRADER.GRID TRIMMER Work Phone: [facility] Start: 10-28-2023 Telephone encounter Shakira eldridge FOREX TRADER.GRID TRIMMER Work Phone: [facility] [place] [facility]necology Comment on above: Results Start: 10-27-2023 End: 10-27-2023 Patient encounter procedure Shakira Nataliia Mathews FOREX TRADER.GRID TRIMMER Work Phone: [facility] Obstetrics & Gynecology Comment on above: Encounter for gyneco logical examination (general) (routine) without abnormal findings (Primary Dx); Encounter for surveillance of contraceptive pills; Screening for cervical cancer; Encounter for screening for human papillomavirus (HPV) Start: 10-27-2023 End: 10-27-2023 Patient encounter status Shakira Nataliia Mathews FOREX TRADER.GRID TRIMMER Work Phone: [facility] Work Phone: Start: 10-13-2023 Refill Percy Huang MD Work Phone: [facility] [place] Comment on above: Refill Request Start: 08-26-2023 Refill Percy Huang MD Work Phone: [facility] [place] Comment on above: Refill Request Start: 07-21-2023 Refill Percy Huang MD Work Phone: [facility] [place] Comment on above: Refill Request Start: 07-14-2023 Telephone encounter Percy Huang MD Work Phone: [facility] [place] Comment on above: Results Start: 07-13-2023 End: 07-13-2023 ambulatory PERCY HUANG Facility:[id number] Start: 07-12-2023 ambulatory Percy Huang MD Work Phone: [facility] [place] Comment on above: Lab work Start: 06-27-2023 ambulatory Percy Huang MD Work Phone: [facility] [place] Comment on above: control Start: 06-13-2023 End: 06-13-2023 Subsequent hospital visit by physician Screen Mammo [facility] 1 RADIO MAMMO [facility] Comment on above: Encounter for screen ing mammogram for breast cancer [Z12.31] Start: 06-01-2023 ambulatory Percy Huang MD Work Phone: [facility] [place] Start: 02-18-2023 Transcribe Orders Audrey Real MA [facility] Comment on above: Polycythemia (Primar y Dx) Start: 12-29-2022 End: 12-29-2022 Office outpatient visit 15 minutes Yared Floyd APRN.CNP Work Phone: [facility] Comment on above: Sore throat (Primary Dx) Start: 12-15-2022 Telephone encounter Gretel rojas MD Work Phone: [facility] Comment on above: Results Start: 11-01-2022 Telephone encounter Percy Huang MD Work Phone: [facility] [place] Comment on above: Results Start: 10-18-2022 End: 10-18-2022 Patient encounter procedure Percy Huang MD Work Phone: [facility] [place] Comment on above: Depression, unspecif ied depression type (Primary Dx); Hx of bariatric surgery; Thrombocytosis; Herpes simplex virus (HSV) infection; Screening for HIV (human immunodeficiency virus); Need for hepatitis C screening test Start: 10-08-2022 Refill Percy Huang MD Work Phone: [facility] [place] Comment on above: Refill Request Start: 10-01-2022 Refill Percy Huang MD Work Phone: [facility] [place] Comment on above: Refill Request Start: 07-29-2022 Refill Chary Pisano on PA-C Work Phone: [facility] [place] Comment on above: Refill Request Lab [facility] Start: 05-04-2022 End: 05-04-2022 Patient encounter procedure [facility] senior research project manager Off Start: 04-09-2022 End: 04-09-2022 Office outpatient visit 10 minutes Jack Linda MD Work Phone: [facility] Comment on above: Status post left par tial knee replacement (Primary Dx) Start: 04-01-2022 Telephone encounter Percy Huang MD Work Phone: Family [facility] [place] Comment on above: Results Start: 03-19-2022 End: 03-19-2022 [facility] Percy Huang MD Work Phone: [facility] [place] Comment on above: Depression, unspecif ied depression type (Primary Dx); History of gastric bypass; Screening for diabetes mellitus; Screening for lipid disorders Start: 03-07-2022 Refill Percy Huang MD Work Phone: [facility] [place] Comment on above: Refill Request Start: 06-17-2021 End: 06-17-2021 Subsequent hospital visit by physician Xr [facility] [place] Work Phone: Radiology Comment on above: Cough [R05] Start: 06-05-2021 End: 06-05-2021 Postop follow up visit related to original px Jack Linda MD Work Phone: [facility] Comment on above: Status post left par tial knee replacement (Primary Dx) Start: 04-24-2021 End: 04-24-2021 Postop follow up visit related to original px Jack Linda MD Work Phone: [facility] Comment on above: Status post left par tial knee replacement (Primary Dx) Start: 04-03-2021 End: 04-03-2021 Refill Tessy Nelson LPN [facility] Comment on above: Status post left par tial knee replacement (Primary Dx) Start: 03-27-2021 End: 03-27-2021 Postop follow up visit related to original px Jack Linda MD Work Phone: [facility] Comment on above: Status post left par tial knee replacement (Primary Dx) Start: 03-19-2021 End: 03-19-2021 Phys/qhp telephone evaluation 5-10 min Jai Groves MD Work Phone: [facility] Comment on above: Iron deficiency anem ia, unspecified iron deficiency anemia type (Primary Dx); S/P gastric bypass Start: 03-16-2021 End: 03-16-2021 Documentation procedure Tessy Nelson LPN [facility] Start: 03-16-2021 End: 03-16-2021 ambulatory Celine Frank GRID TRIMMER Work Phone: [facility] Comment on above: Iron deficiency anem ia, unspecified iron deficiency anemia type (Primary Dx); Other specified intestinal malabsorption Start: 03-12-2021 End: 03-12-2021 Refill Tessy Nelson LPN [facility] Comment on above: Status post left par tial knee replacement (Primary Dx) Start: 03-10-2021 End: 03-10-2021 ambulatory JACK LINDA [facility] Start: 03-10-2021 End: 03-10-2021 Subsequent hospital visit by physician Jack Linda MD Work Phone: [facility] Med Surg Orthopedics Start: 03-09-2021 End: 03-09-2021 ambulatory Celine Frank GRID TRIMMER Work Phone: [facility] Comment on above: Iron deficiency anem ia, unspecified iron deficiency anemia type (Primary Dx); Other specified intestinal malabsorption Start: 03-04-2021 End: 03-04-2021 Orders Only Celine Frank GRID TRIMMER Work Phone: [facility] Start: 03-03-2021 End: 03-03-2021 Subsequent hospital visit by physician Jai Groves MD Work Phone: [facility] Start: 02-27-2021 End: 02-27-2021 Office outpatient visit 15 minutes Jack Linda MD Work Phone: [facility] Comment on above: Primary osteoarthrit is of left knee (Primary Dx) Start: 02-25-2021 End: 02-25-2021 Documentation procedure Mee Dorantes [facility] Start: 02-24-2021 End: 02-24-2021 Office outpatient new 30 minutes Jack Elliott Linda Work Phone: [facility] Comment on above: Pre-operative cardio vascular examination (Primary Dx); Primary osteoarthritis of left knee Start: 02-20-2021 End: 02-20-2021 Documentation procedure Tessy Nelson [facility] Start: 02-19-2021 End: 02-23-2021 ambulatory JACK LINDA [facility] Start: 02-12-2021 End: 02-12-2021 Orders Only Jennyfer Hardin [facility] Start: 02-10-2021 End: 02-10-2021 Orders Only Jack Linda Work Phone: [facility] Comment on above: Primary osteoarthrit is of left knee (Primary Dx) Primary osteoarthrit is of left knee (Primary Dx); Hypertension, unspecified type; Exposure to SARS-associated coronavirus Start: 02-03-2021 End: 02-03-2021 Orders Only Jennyfer Hardin [facility] Start: 02-02-2021 End: 02-02-2021 Patient encounter procedure Celine Frank Work Phone: [facility] Start: 12-29-2020 End: 12-29-2020 Orders Only Celine Frank Work Phone: [facility] Comment on above: Preop testing (Prima ry Dx) Obesity, Class III, BMI 40-49.9 (morbid obesity) (HCC) (Primary Dx) Start: 12-25-2020 End: 12-25-2020 Phys/qhp telephone evaluation 5-10 min Jai Groves Work Phone: [facility] Comment on above: Anastomotic ulcer S/ P gastric bypass Start: 12-08-2020 End: 12-08-2020 Subsequent hospital visit by physician Jai Groves Work Phone: [facility] Comment on above: Obesity, Class III, BMI 40-49.9 (morbid obesity) (HCC); Obesity, Class III, BMI 40-49.9 (morbid obesity) ([facility]) Start: 12-05-2020 End: 12-05-2020 Transcribe Orders Tim Starkey [facility] Start: 12-04-2020 End: 12-04-2020 Orders Only Danni Rendon [facility] Comment on above: Preop testing (Prima ry Dx) Start: 11-24-2020 End: 11-24-2020 Subsequent hospital visit by physician [facility] [place] Work Phone: Radiology Comment on above: Chronic pain of left knee [M25.562, G89.29] Start: 10-30-2020 End: 10-30-2020 Clinical Support Selina Mejia Work Phone: [facility] Comment on above: Primary osteoarthrit is of knee, unspecified laterality (Primary Dx); Primary osteoarthritis of left knee Start: 08-15-2020 End: 08-15-2020 Patient encounter procedure [facility] Start: 07-30-2020 End: 07-30-2020 Clinical Support Rohini Chaudhari Work Phone: [facility] Comment on above: Internal derangement of right knee (Primary Dx); Primary osteoarthritis of left knee Start: 06-03-2020 End: 06-03-2020 Patient encounter procedure [facility] Start: 04-21-2020 End: 04-21-2020 Clinical Support Rohini Chaudhari Work Phone: [facility] Comment on above: Internal derangement of right knee (Primary Dx); Primary osteoarthritis of knee, unspecified laterality Start: 12-03-2019 End: 12-04-2019 Clinical Support Selina Mejia Work Phone: [facility] Comment on above: Primary osteoarthrit is of left knee (Primary Dx) Start: 08-07-2019 End: 08-07-2019 Clinical Support Rohini Chaudhari Work Phone: [facility] Comment on above: 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) Start: 2019 End: 2019 Office outpatient visit 15 minutes Rohini Chaudhari Work Phone: [facility] Comment on above: Primary osteoarthrit is of left knee (Primary Dx) Start: 12-08-2018 Patient encounter procedure Percy Chema Sal Facility:[place] Start: 12-08-2018 End: 12-08-2018 Patient encounter procedure Percy Huang Work Phone: [facility] Start: 07-11-2018 End: 07-11-2018 Patient encounter Rohini Pham Antoinette Work Phone: [facility] Start: 04-03-2018 End: 04-03-2018 Patient encounter Rohini Chaudhari Work Phone: [facility] Start: 09-04-2015 Preoperative state [facility] Start: 03-04-2011 End: 10-09-2014 Patient encounter status Percy Huang MD Work Phone: [facility] Procedures Date Procedure Procedure Detail Performing Clinician Start: 06-04-2025 Arthrocentesis aspir&/inj major jt/bursa w/o us Selina Mejia GRID TRIMMER Work Phone: Start: 09-26-2024 Antibody mumps Cherie Coral Saeed MD Work Phone: Start: 06-26-2024 End: 06-26-2024 Screening mammography bi 2-view breast inc cad Percy Huang MD Work Phone: Start: 06-26-2024 Colposcopy cervix bx cervix & endocrv curretage Fred Gonzales DO Work Phone: Start: 06-26-2024 UA DIP,URINE HCG (POC) Fred Gonzales DO Work Phone: Start: 06-13-2023 Mammography Percy Huang MD Work Phone: Start: 12-29-2022 STREP A MOLECULAR (POC) Madina Fay PA-C Work Phone: Start: 06-17-2021 Radiologic exam chest 2 views Madina R Ath y PA-C Work Phone: Start: 03-30-2021 History of operative procedure on knee Status post left partial knee replacement Percy Huang MD Work Phone: Start: 03-10-2021 Radiologic examination knee 1/2 views Jack Linda MD Work Phone: Start: 03-10-2021 Urine test visual color cmprsn andrews Joby Blandon MD Work Phone: Start: 03-03-2021 Endoscopy of esophagus Jai Groves MD Work Phone: Start: 03-03-2021 detection examination Jai Groves MD Work Phone: Start: 12-08-2020 End: 12-08-2020 ESOPHAGOGASTRODUODENOSCOPY WITH BIOPSY Jai Groves Work Phone: Start: 12-04-2020 EXT LAB BASIC METABOLIC Historical Provider Start: 12-04-2020 EXT LAB CBC (WITH OR WITHOUT DIFF) Historical Provider Start: 11-24-2020 Radex foot complete minimum 3 views Jose Ponce APRN.CNP Work Phone: Start: 11-24-2020 Radiologic examination knee 1/2 views Jose Ponce APRN.CNP Work Phone: Start: 10-30-2020 Arthrocentesis Selina Mejia Work Phone: Start: 07-30-2020 Arthrocentesis Rohini Chaudhari Work Phone: Start: 04-21-2020 Arthrocentesis Rohiniconcha Chaudhari Work Phone: Start: 12-04-2019 Arthrocentesis Selina Mejia Work Phone: Start: 08-07-2019 Arthrocentesis Rohini Chaudhari Work Phone: Start: 2019 Arthrocentesis Rohini Chaudhari Work Phone: Start: 12-08-2018 Basic metabolic 2000 panel - Serum or Plasma Percy Huang Work Phone: Start: 12-08-2018 Complete blood count with white cell differential, manual Percy Huang Work Phone: Start: 12-08-2018 Hemoglobin A1c/Hemoglobin.total in Blood Percy Huang Work Phone: Start: 12-08-2018 Lipid 1996 panel - Serum or Plasma Percy Huang Work Phone: Start: 12-08-2018 Thyrotropin [Units/volume] in Serum or Plasma by Detection limit <= 0.005 mIU/L Percy Huang Work Phone: Start: 07-10-2018 End: 07-10-2018 Arthrocentesis aspir&/inj major jt/bursa w/o Rohini Vero Gilsonmartha Work Phone: History of operative procedure on knee S/P left unicompartmental knee replacement Jack Linda MD Work Phone: History of operative procedure on knee Status post left partial knee replacement Tessy Nelson LPN History of operative procedure on knee Status post left partial knee replacement Tessy Nelson LPN History of operative procedure on knee Status post left partial knee replacement Jack Linda MD Work Phone: History of operative procedure on knee Status post left partial knee replacement Tessy Nelson LPN History of operative procedure on knee Status post left partial knee replacement Jack Linda MD Work Phone: History of operative procedure on knee Status post left partial knee replacement Jack Linda MD Work Phone: History of operative procedure on knee Status post left partial knee replacement Jack Linda MD Work Phone: Plan of Treatment Date Care Activity Detail Author Start: 11-24-2030 Tetanus vaccination Tetanus: Every 10yrs [facility] Start: 11-24-2030 Urine microalbumin profile [facility] Start: 05-28-2029 Screening for malignant neoplasm of cervix [facility] Start: 10-27-2028 Screening for malignant neoplasm of cervix HPV Testing [facility] Start: 06-13-2028 Screening for malignant neoplasm of cervix Cervical Cancer Screening [facility] Start: 05-28-2027 Screening for malignant neoplasm of cervix Cervical Cancer Screening [facility] Start: 05-04-2027 HPV TESTING HPV TESTING [facility] Start: 05-04-2027 Screening for malignant neoplasm of cervix HPV Testing [facility] Start: 10-27-2026 Screening for malignant neoplasm of cervix [facility] Start: 04-27-2026 Anxiety Screening Anxiety Screening [facility] Start: 04-27-2026 Covid-19 Vaccine () Covid-19 Vaccine () [facility] Comment on above: Postponed from 07/15/2024 (Declined at t his time) Start: 10-28-2025 End: 10-28-2025 Patient encounter procedure 10/28/2025 5:00 PM EST Office Visit Family [facility] [place] [address] [place] [address] Percy Huang MD [address] [place] [address] 6 mo follow up Family [facility] [place] Comment on above: 6 mo follow up Start: 08-02-2025 End: 08-02-2025 ambulatory 08/02/2025 10:00 AM EDT Results Only [facility] Station [address] [place] [address] [facility] Station Start: 07-30-2025 End: 07-30-2025 ambulatory [facility] Comment on above: colpo Start: 07-15-2025 Influenza vaccination [facility] Start: 06-28-2025 End: 06-28-2025 Patient encounter procedure 06/28/2025 1:30 PM EDT Appointment Mammogram [address] [place] [address] Dx: Encounter for screening mammogram for breast cancer [Z12.31] Mammogram Comment on above: Dx: Encounter for screening mammogram fo r breast cancer [Z12.31] Start: 06-27-2025 End: 06-27-2025 Patient encounter procedure 06/27/2025 1:30 PM EDT Appointment Mammogram [address] [place] [address] Dx: Encounter for screening mammogram for breast cancer [Z12.31] Mammogram Comment on above: Dx: Encounter for screening mammogram fo r breast cancer [Z12.31] Start: 06-26-2025 Screening for malignant neoplasm of breast [facility] Start: 06-13-2025 End: 06-13-2025 Patient encounter procedure 06/13/2025 2:45 PM EDT Office Visit [facility] [address] [place] [address] Shakira Mathews, FOREX TRADER.GRID TRIMMER [address] [place] [address] Annual and BC refill [facility] Comment on above: Annual and BC refill Start: 06-08-2025 End: 06-08-2025 ambulatory 06/08/2025 9:30 AM EDT Results Only [facility] Station [address] [place] [address] [facility] Draw Station Start: 06-07-2025 End: 09-06-2025 CBC W Auto Differential panel - Blood COMPLETE BLOOD COUNT AND DIFFERENTIAL Lab Routine Anemia, unspecified type Expected: 06/07/2025, Expires: 09/06/2025 [facility] Comment on above: Expected: 06/07/2025, Expires: Start: 06-07-2025 End: 09-06-2025 Ferritin [Mass/volume] in Serum or Plasma FERRITIN Lab Routine Anemia, unspecified type Expected: 06/07/2025, Expires: 09/06/2025 [facility] Work Phone: Comment on above: Expected: 06/07/2025, Expires: Start: 06-07-2025 End: 09-06-2025 Iron and Iron binding capacity panel - Serum or Plasma IRON AND TIBC Lab Routine Anemia, unspecified type Expected: 06/07/2025, Expires: 09/06/2025 [facility] Comment on above: Expected: 06/07/2025, Expires: Start: 05-30-2025 End: 08-29-2025 CBC W Ordered Manual Differential panel - Blood PATHOLOGIST INTERPRETATION WITH CBC AND DIFF Lab Routine Thrombocytosis Expected: 05/30/2025, Expires: 08/29/2025 [facility] Work Phone: Comment on above: Expected: 05/30/2025, Expires: Start: 05-30-2025 End: 05-30-2025 ambulatory 05/30/2025 10:00 AM EDT Results Only [facility] Draw Station [address] [place] [address] [facility] Start: 05-04-2025 PAP TESTING PAP TESTING [facility] Start: 05-04-2025 Screening for malignant neoplasm of cervix Pap Testing [facility] Start: 04-27-2025 End: 07-27-2025 25-hydroxyvitamin D3 [Mass/volume] in Serum or Plasma [facility] Comment on above: Expected: 04/27/2025, Expires: Start: 04-27-2025 End: 07-27-2025 CBC W Auto Differential panel - Blood [facility] Comment on above: Expected: 04/27/2025, Expires: Start: 04-27-2025 End: 07-27-2025 Cobalamin (Vitamin B12) [Mass/volume] in Serum or Plasma [facility] Comment on above: Expected: 04/27/2025, Expires: Start: 04-27-2025 End: 07-27-2025 Comprehensive metabolic 2000 panel - Serum or Plasma [facility] Comment on above: Expected: 04/27/2025, Expires: Start: 04-27-2025 End: 07-27-2025 Folate [Mass/volume] in Serum or Plasma [facility] Comment on above: Expected: 04/27/2025, Expires: Start: 04-27-2025 End: 07-27-2025 Hemoglobin A1c in Blood [facility] Comment on above: Expected: 04/27/2025, Expires: Start: 04-27-2025 End: 07-27-2025 Iron and Iron binding capacity panel - Serum or Plasma [facility] Comment on above: Expected: 04/27/2025, Expires: Start: 04-27-2025 End: 07-27-2025 Lipid 1996 panel - Serum or Plasma [facility] Comment on above: Expected: 04/27/2025, Expires: Start: 04-27-2025 End: 07-27-2025 Magnesium [Mass/volume] in Serum or Plasma [facility] Comment on above: Expected: 04/27/2025, Expires: Start: 04-27-2025 End: 07-27-2025 VITAMIN B1 (THIAMINE), WHOLE BLOOD [facility] Comment on above: Expected: 04/27/2025, Expires: Start: 04-27-2025 End: 04-27-2025 Patient encounter procedure 04/27/2025 9:00 AM EDT Office Visit [facility] [address] [place], [place] [id number] Percy Huang MD [address] [place], [place] [address] [facility] Comment on above: Annual Start: 03-24-2025 Covid-19 Vaccine () Covid-19 Vaccine () [facility] Comment on above: Postponed from 07/15/2023 (Declined at t his time) Start: 02-05-2025 [facility] Start: 07-15-2024 COVID-19 Vaccine () COVID-19 Vaccine () [facility] Start: 07-15-2024 Covid-19 Vaccine () Covid-19 Vaccine () [facility] Start: 07-15-2024 Covid-19 Vaccine () Covid-19 Vaccine () [facility] Start: 07-15-2024 COVID-19 Vaccine ( season) COVID-19 Vaccine () [facility] Start: 07-15-2024 Influenza vaccination [facility] Start: 06-26-2024 End: 06-26-2024 ambulatory [facility] Comment on above: colpo Start: 06-20-2024 End: 06-20-2024 Patient encounter procedure 06/20/2024 1:00 PM EDT Appointment [facility] [address] [facility] [place] [address] [facility] Start: 06-13-2024 Mammography [facility] Start: 06-13-2024 Screening for malignant neoplasm of breast Mammogram Screening [facility] Start: 05-28-2024 End: 05-28-2024 Patient encounter procedure 05/28/2024 1:45 PM EDT Office Visit [facility] Gyne[facility] [address] [place], [place] [address] Shakira Mathews, FOREX TRADER.GRID TRIMMER [address] [facility] [address] [place] [address] 6 MO REPAP [facility] Comment on above: 6 MO REPAP Start: 05-09-2024 End: 05-09-2024 Patient encounter procedure 05/09/2024 1:30 PM EDT Appointment [facility] [address] [facility] [place] [address] screening mammo [facility] Comment on above: screening mammo Start: 03-24-2024 End: 06-23-2024 25-hydroxyvitamin D3 [Mass/volume] in Serum or Plasma VITAMIN D 25 HYDROXY Lab Routine Hx of bariatric surgery Intestinal malabsorption, unspecified type Expected: 03/24/2024, Expires: 06/23/2024 [facility] Comment on above: Expected: 03/24/2024, Expires: Start: 03-24-2024 End: 06-23-2024 CBC W Auto Differential panel - Blood COMPLETE BLOOD COUNT AND DIFFERENTIAL Lab Routine Hx of bariatric surgery Expected: 03/24/2024, Expires: 06/23/2024 [facility] Comment on above: Expected: 03/24/2024, Expires: Start: 03-24-2024 End: 06-23-2024 Cobalamin (Vitamin B12) [Mass/volume] in Serum or Plasma VITAMIN B12 Lab Routine Hx of bariatric surgery Intestinal malabsorption, unspecified type Expected: 03/24/2024, Expires: 06/23/2024 [facility] Comment on above: Expected: 03/24/2024, Expires: Start: 03-24-2024 End: 06-23-2024 Comprehensive metabolic 2000 panel - Serum or Plasma COMPREHENSIVE METABOLIC PANEL Lab Routine Hx of bariatric surgery Expected: 03/24/2024, Expires: 06/23/2024 [facility] Comment on above: Expected: 03/24/2024, Expires: Start: 03-24-2024 End: 06-23-2024 Folate [Mass/volume] in Serum or Plasma FOLATE, SERUM Lab Routine Hx of bariatric surgery Intestinal malabsorption, unspecified type Expected: 03/24/2024, Expires: 06/23/2024 [facility] Comment on above: Expected: 03/24/2024, Expires: Start: 03-24-2024 End: 06-23-2024 Iron and Iron binding capacity panel - Serum or Plasma IRON AND TIBC Lab Routine Hx of bariatric surgery Intestinal malabsorption, unspecified type Expected: 03/24/2024, Expires: 06/23/2024 [facility] Comment on above: Expected: 03/24/2024, Expires: Start: 03-24-2024 End: 06-23-2024 Lipid 1996 panel - Serum or Plasma LIPID PANEL BASIC Lab Routine Screening for lipid disorders Expected: 03/24/2024, Expires: 06/23/2024 [facility] Comment on above: Expected: 03/24/2024, Expires: Start: 03-24-2024 End: 06-23-2024 Thyrotropin [Units/volume] in Serum or Plasma THYROID STIMULATING HORMONE Lab Routine Abnormal menses Expected: 03/24/2024, Expires: 06/23/2024 [facility] Comment on above: Expected: 03/24/2024, Expires: 4 Start: 07-15-2023 Covid-19 Vaccine () Covid-19 Vaccine () [facility] Start: 07-15-2023 Influenza vaccination [facility] Start: 07-12-2023 End: 09-11-2023 25-hydroxyvitamin D3 [Mass/volume] in Serum or Plasma VITAMIN D 25 HYDROXY Lab Routine Hx of bariatric surgery Thrombocytosis Postsurgical malabsorption Expected: 07/12/2023, Expires: 09/11/2023 [facility] Work Phone: Comment on above: Expected: 07/12/2023, Expires: 3 Start: 07-12-2023 End: 09-11-2023 CBC W Auto Differential panel - Blood CBC + DIFF Lab Routine Hx of bariatric surgery Thrombocytosis Postsurgical malabsorption Expected: 07/12/2023, Expires: 09/11/2023 [facility] Work Phone: Comment on above: Expected: 07/12/2023, Expires: 3 Start: 07-12-2023 End: 09-11-2023 Cobalamin (Vitamin B12) [Mass/volume] in Serum or Plasma VITAMIN B12 BLOOD Lab Routine Hx of bariatric surgery Thrombocytosis Postsurgical malabsorption Expected: 07/12/2023, Expires: 09/11/2023 [facility] Work Phone: Comment on above: Expected: 07/12/2023, Expires: 3 Start: 07-12-2023 End: 09-11-2023 Comprehensive metabolic 2000 panel - Serum or Plasma COMP METABOLIC PANEL Lab Routine Hx of bariatric surgery Thrombocytosis Postsurgical malabsorption Expected: 07/12/2023, Expires: 09/11/2023 [facility] Work Phone: Comment on above: Expected: 07/12/2023, Expires: 3 Start: 07-12-2023 End: 09-11-2023 Folate [Mass/volume] in Serum or Plasma FOLATE SERUM Lab Routine Hx of bariatric surgery Thrombocytosis Postsurgical malabsorption Expected: 07/12/2023, Expires: 09/11/2023 [facility] Work Phone: Comment on above: Expected: 07/12/2023, Expires: Start: 07-12-2023 End: 09-11-2023 Hepatitis B virus surface Ab [Presence] in Serum HEP B SURF AB Lab Routine Screening for viral disease Expected: 07/12/2023, Expires: 09/11/2023 [facility] Work Phone: Comment on above: Expected: 07/12/2023, Expires: Start: 07-12-2023 End: 09-11-2023 Iron and Iron binding capacity panel - Serum or Plasma IRON + TIBC Lab Routine Hx of bariatric surgery Thrombocytosis Postsurgical malabsorption Expected: 07/12/2023, Expires: 09/11/2023 [facility] Work Phone: Comment on above: Expected: 07/12/2023, Expires: 3 Start: 07-12-2023 End: 09-11-2023 MUMPS IGG AB MUMPS IGG AB Lab Routine Screening for viral disease Expected: 07/12/2023, Expires: 09/11/2023 [facility] Work Phone: Comment on above: Expected: 07/12/2023, Expires: Start: 07-12-2023 End: 09-11-2023 RUBELLA IGG AB RUBELLA IGG AB Lab Routine Screening for viral disease Expected: 07/12/2023, Expires: 09/11/2023 [facility] Work Phone: Comment on above: Expected: 07/12/2023, Expires: 3 Start: 07-12-2023 End: 09-11-2023 RUBEOLA (MEASLES)IGG RUBEOLA (MEASLES)IGG Lab Routine Screening for viral disease Expected: 07/12/2023, Expires: 09/11/2023 [facility] Work Phone: Comment on above: Expected: 07/12/2023, Expires: 3 Start: 07-12-2023 End: 09-11-2023 VARICELLA ZOSTER IGG VARICELLA ZOSTER IGG Lab Routine Screening for viral disease Expected: 07/12/2023, Expires: 09/11/2023 [facility] Work Phone: Comment on above: Expected: 07/12/2023, Expires: 3 Start: 07-12-2023 End: 09-11-2023 VITAMIN B1 (THIAMINE), WHOLE BLOOD VITAMIN B1 (THIAMINE), WHOLE BLOOD Lab Routine Hx of bariatric surgery Thrombocytosis Postsurgical malabsorption Expected: 07/12/2023, Expires: 09/11/2023 [facility] Work Phone: Comment on above: Expected: 07/12/2023, Expires: 3 Start: 2023 Mammography MAMMOGRAM [facility] Start: 2023 Screening for malignant neoplasm of breast Mammogram [facility] Start: 11-01-2022 End: 01-01-2023 Basic metabolic 2000 panel - Serum or Plasma BASIC METABOLIC PNL Lab Routine Hx of bariatric surgery Expected: 11/01/2022, Expires: 01/01/2023 [facility] Work Phone: Comment on above: Expected: 11/01/2022, Expires: 3 Start: 11-01-2022 End: 01-01-2023 Platelets [#/volume] in Blood PLTCT (PLATELET COUNT) Lab Routine Hx of bariatric surgery Expected: 11/01/2022, Expires: 01/01/2023 [facility] Work Phone: Comment on above: Expected: 11/01/2022, Expires: 3 Start: 10-18-2022 End: 12-18-2022 Basic metabolic 2000 panel - Serum or Plasma BASIC METABOLIC PNL Lab Routine Hx of bariatric surgery Expected: 10/18/2022, Expires: 12/18/2022 [facility] Work Phone: Comment on above: Expected: 10/18/2022, Expires: 3 Start: 10-18-2022 End: 12-18-2022 CBC W Auto Differential panel - Blood CBC + DIFF Lab Routine Hx of bariatric surgery Expected: 10/18/2022, Expires: 12/18/2022 [facility] Work Phone: Comment on above: Expected: 10/18/2022, Expires: 3 Start: 10-18-2022 End: 12-18-2022 Cobalamin (Vitamin B12) [Mass/volume] in Serum or Plasma VITAMIN B12 BLOOD Lab Routine Hx of bariatric surgery Expected: 10/18/2022, Expires: 12/18/2022 [facility] Work Phone: Comment on above: Expected: 10/18/2022, Expires: 3 Start: 10-18-2022 End: 12-18-2022 Folate [Mass/volume] in Serum or Plasma FOLATE SERUM Lab Routine Hx of bariatric surgery Expected: 10/18/2022, Expires: 12/18/2022 [facility] Work Phone: Comment on above: Expected: 10/18/2022, Expires: 3 Start: 10-18-2022 End: 12-18-2022 Hepatitis C virus Ab [Presence] in Serum HEP C AB IA W/CONF SCRN Lab Routine Need for hepatitis C screening test Expected: 10/18/2022, Expires: 12/18/2022 [facility] Work Phone: Comment on above: Expected: 10/18/2022, Expires: 3 Start: 10-18-2022 End: 12-18-2022 HIV 1+2 Ab [Presence] in Serum or Plasma by Immunoassay HIV 1 2 COMBO(AG/AB),WITH REFLEX TO DIFFERENTIATION Lab Routine Screening for HIV (human immunodeficiency virus) Expected: 10/18/2022, Expires: 12/18/2022 [facility] Work Phone: Comment on above: Expected: 10/18/2022, Expires: 3 Start: 10-18-2022 End: 02-04-2023 Iron and Iron binding capacity panel - Serum or Plasma IRON + TIBC Lab Routine Hx of bariatric surgery Expected: 10/18/2022, Expires: 12/18/2022 [facility] Work Phone: Comment on above: Expected: 10/18/2022, Expires: 3 Start: 10-18-2022 End: 12-18-2022 VITAMIN B1 (THIAMINE), WHOLE BLOOD VITAMIN B1 (THIAMINE), WHOLE BLOOD Lab Routine Hx of bariatric surgery Expected: 10/18/2022, Expires: 12/18/2022 [facility] Work Phone: Comment on above: Expected: 10/18/2022, Expires: 3 Start: 08-28-2022 Tetanus vaccination [facility] Start: 07-29-2022 End: 09-28-2022 CBC panel - Blood by Automated count CBC Lab Routine Thrombocytosis Expected: 07/29/2022, Expires: 09/28/2022 [facility] Work Phone: Comment on above: Expected: 07/29/2022, Expires: 2 Start: 07-15-2022 Influenza vaccination [facility] Start: 05-27-2022 End: 07-27-2022 Platelets [#/volume] in Blood PLTCT (PLATELET COUNT) Lab Routine Thrombocytosis Expected: 05/27/2022, Expires: 07/27/2022 [facility] Work Phone: Comment on above: Expected: 05/27/2022, Expires: 2 Start: 03-19-2022 End: 05-19-2022 CBC W Auto Differential panel - Blood CBC + DIFF Lab Routine History of gastric bypass Expected: 03/19/2022, Expires: 05/19/2022 [facility] Work Phone: Comment on above: Expected: 03/19/2022, Expires: 2 Start: 03-19-2022 End: 05-19-2022 Comprehensive metabolic 2000 panel - Serum or Plasma COMP METABOLIC PANEL Lab Routine History of gastric bypass Expected: 03/19/2022, Expires: 05/19/2022 [facility] Work Phone: Comment on above: Expected: 03/19/2022, Expires: 2 Start: 03-19-2022 End: 05-19-2022 Folate [Mass/volume] in Serum or Plasma FOLATE SERUM Lab Routine History of gastric bypass Expected: 03/19/2022, Expires: 05/19/2022 [facility] Work Phone: Comment on above: Expected: 03/19/2022, Expires: 2 Start: 03-19-2022 End: 05-19-2022 Hemoglobin A1c/Hemoglobin.total in Blood HGB A1C Lab Routine Screening for diabetes mellitus Expected: 03/19/2022, Expires: 05/19/2022 [facility] Work Phone: Comment on above: Expected: 03/19/2022, Expires: 2 Start: 03-19-2022 End: 05-19-2022 IRON + TIBC IRON + TIBC Lab Routine History of gastric bypass Expected: 03/19/2022, Expires: 05/19/2022 [facility] Work Phone: Comment on above: Expected: 03/19/2022, Expires: 2 Start: 03-19-2022 End: 05-19-2022 LIPID PANEL BASIC LIPID PANEL BASIC Lab Routine Screening for lipid disorders Expected: 03/19/2022, Expires: 05/19/2022 [facility] Work Phone: Comment on above: Expected: 03/19/2022, Expires: 2 Start: 03-19-2022 End: 05-19-2022 VITAMIN B1 (THIAMINE), WHOLE BLOOD VITAMIN B1 (THIAMINE), WHOLE BLOOD Lab Routine History of gastric bypass Expected: 03/19/2022, Expires: 05/19/2022 [facility] Work Phone: Comment on above: Expected: 03/19/2022, Expires: 2 Start: 03-19-2022 End: 05-19-2022 VITAMIN B12 BLOOD VITAMIN B12 BLOOD Lab Routine History of gastric bypass Expected: 03/19/2022, Expires: 05/19/2022 [facility] Work Phone: Comment on above: Expected: 03/19/2022, Expires: 2 Start: 03-19-2022 End: 05-19-2022 VITAMIN D 25 HYDROXY VITAMIN D 25 HYDROXY Lab Routine History of gastric bypass Expected: 03/19/2022, Expires: 05/19/2022 [facility] Work Phone: Comment on above: Expected: 03/19/2022, Expires: 2 Start: 11-11-2021 COVID-19 VACCINE (3 - Booster for Bonnie series) COVID-19 VACCINE (3 - Booster for Bonnie series) [facility] Start: 07-22-2021 End: 07-22-2021 Telemedicine consultation with patient 07/22/2021 Telemedicine Bariatrics Jai Groves MD [address] [place] [address] [phone] [facility] Start: 07-15-2021 Influenza vaccination [facility] Start: 06-15-2021 COVID-19 VACCINE (2 - Booster for Bonnie series) COVID-19 VACCINE (2 - Booster for Bonnie series) [facility] Start: 06-05-2021 End: 06-05-2021 Follow-up encounter 06/05/2021 Follow-Up Sports Jack Melton MD [address] [place] [address] [phone] [facility] Start: 04-24-2021 End: 04-24-2021 Follow-up encounter 04/24/2021 Follow-Up Jack Almanza MD [address] [place] [address] [phone] [facility] Start: 03-27-2021 End: 03-27-2021 Follow-up encounter 03/27/2021 Follow-Up Sports Jack Melton MD [address] [place] [address] [phone] [facility] Start: 03-19-2021 End: 03-19-2021 Telemedicine consultation with patient 03/19/2021 Telemedicine Bariatrics Jai Groves MD [address] [place] [address] [phone] [facility] Start: 03-16-2021 End: 03-16-2021 Infusion/Injection [facility] Start: 03-10-2021 End: 03-10-2021 Hospital Encounter [facility] Comment on above: Left knee partial knee replacement Start: 03-09-2021 End: 03-09-2021 Infusion/Injection [facility] Start: 03-06-2021 End: 03-06-2021 Office Visit 03/06/2021 Office Visit Lab Jack Linda MD [address] [place] [address] [phone] [facility] Start: 03-03-2021 End: 03-03-2021 Hospital Encounter [facility] Comment on above: ESOPHAGOGASTRODUODENOSCOPY WITH BIOPSY Start: 02-27-2021 End: 02-27-2021 Surgical Consult 02/27/2021 Surgical Consult Sports Medicine Jack Linda MD [address] [place] [address] [phone] [facility] Start: 02-27-2021 End: 02-27-2021 Office Visit 02/27/2021 Office Visit Lab Jai Groves MD [address] [place] [address] [phone] [facility] Start: 02-24-2021 End: 02-24-2021 Office Visit 02/24/2021 Office Visit Cardiology Jack Linda MD [address] [place] [address] [phone] Mary Srivastava MD [address] [facility] [place] [address] [phone] [facility] Start: 02-05-2021 End: 02-05-2021 Office Visit 02/05/2021 Office Visit Sports Medicine Selina Mejia, GRID TRIMMER [address] [place] [address] [phone] [facility] Start: 12-08-2020 End: 12-08-2020 Hospital Encounter [facility] Comment on above: Obesity, Class III, BMI 40-49.9 (morbid obesity) (HCC) ESOPHAGOGASTRODUODEN OSCOPY WITH BIOPSY Start: 12-08-2020 End: 12-08-2020 Hospital Encounter [facility] Comment on above: Obesity, Class III, BMI 40-49.9 (morbid obesity) (HCC) ESOPHAGOGASTRODUODEN OSCOPY WITH BIOPSY Start: 07-15-2020 Influenza vaccination Sequential Influenza Vaccine (#1) [facility] Start: 07-15-2020 Influenza vaccination given [facility] Start: 12-14-2019 History and physical examination, annual for health maintenance Wellness Visit [facility] Start: 07-15-2019 Influenza vaccination given [facility] Start: 06-14-2019 End: 06-14-2019 Office Visit 06/14/2019 Office [place] [address] [place] [address] [phone] [facility] Start: 06-13-2019 End: 06-13-2019 Office Visit 06/13/2019 Office Visit Jai Maier IV, MD [address] [place] [address] [phone] [facility] Start: 07-15-2018 Influenza vaccination [facility] Start: 07-15-2018 Influenza vaccination given SEQUENTIAL INFLUENZA VACCINE (#1) [facility] Start: 05-18-2018 History and physical examination, annual for health maintenance Wellness Visit [facility] Start: 04-25-2018 PAP TESTING PAP TESTING [facility] Start: 2013 HPV TESTING HPV TESTING [facility] Start: 2013 Screening for malignant neoplasm of cervix [facility] Start: 2010 HPV Vaccine (1 - 3-dose SCDM series) HPV Vaccine (1 - 3-dose SCDM series) [facility] Start: 2004 Screening for malignant neoplasm of cervix Pap Smear [facility] Start: 2001 Anxiety Screening Anxiety Screening [facility] Start: 2001 Hepatitis C antibody, confirmatory test Hepatitis C Screening [facility] Start: 2001 Hepatitis C screening Hepatitis C Screening [facility] Start: 2001 HEPATITIS C SCREENING HEPATITIS C SCREENING [facility] Start: 2001 HIV SCREENING HIV SCREENING [facility] Start: 1999 COVID-19 Vaccine (1) COVID-19 Vaccine (1) [facility] Start: 1998 HIV screening HIV Screening [facility] Start: 1995 COVID-19 Vaccine (1) COVID-19 Vaccine (1) [facility] Start: 1995 Depression screening using PHQ-9 (Patient Health Questionnaire 9) score Depression Screening/Follow-Up (PHQ-2/9) [facility] Start: 1986 History and physical examination, annual for health maintenance Wellness Visit [facility] Start: 1983 Depression screening using PHQ-9 (Patient Health Questionnaire 9) score DEPRESSION SCREENING (PHQ9) [facility] Start: 1983 HEPATITIS B (1 of 3 - 3-dose series) HEPATITIS B (1 of 3 - 3-dose series) [facility] Start: 1983 Screening for malignant neoplasm of cervix PAP SMEAR [facility] End: 02-10-2022 12 lead ECG ECG 12 Lead ECG Routine Primary osteoarthritis of left knee 1 Occurrences starting 02/16/2021 until 02/10/2022 [facility] Comment on above: 1 Occurrences starting 02/16/2021 until 02/10/2022 End: 02-10-2022 Basic metabolic 2000 panel Basic metabolic panel Lab Routine Primary osteoarthritis of left knee 1 Occurrences starting 02/16/2021 until 02/10/2022 [facility] Comment on above: 1 Occurrences starting 02/16/2021 until 02/10/2022 End: 12-27-2021 Blood zinc measurement Zinc Lab Routine Anastomotic ulcer S/P gastric bypass 1 Occurrences starting 12/26/2020 until 12/27/2021 [facility] Comment on above: 1 Occurrences starting 12/26/2020 until 12/27/2021 End: 12-27-2021 Cobalamin (Vitamin B12) [Mass/Vol] Vitamin B12 Lab Routine Anastomotic ulcer S/P gastric bypass 1 Occurrences starting 12/26/2020 until 12/27/2021 [facility] Comment on above: 1 Occurrences starting 12/26/2020 until 12/27/2021 End: 12-27-2021 Complete blood count with white cell differential, manual CBC and Differential Lab Routine Anastomotic ulcer S/P gastric bypass 1 Occurrences starting 12/26/2020 until 12/27/2021 [facility] Comment on above: 1 Occurrences starting 12/26/2020 until 12/27/2021 End: 02-10-2022 Complete blood count with white cell differential, manual CBC and differential Lab Routine Primary osteoarthritis of left knee Hypertension, unspecified type 1 Occurrences starting 02/16/2021 until 02/10/2022 [facility] Comment on above: 1 Occurrences starting 02/16/2021 until 02/10/2022 End: 12-27-2021 Comprehensive metabolic 2000 panel Comprehensive Metabolic Panel Lab Routine Anastomotic ulcer S/P gastric bypass 1 Occurrences starting 12/26/2020 until 12/27/2021 [facility] Comment on above: 1 Occurrences starting 12/26/2020 until 12/27/2021 End: 12-04-2021 Covid-19/Influenza Order Algorithm : COVID-19 Lab Test Only (OP in UTM) Covid-19/Influenza Order Algorithm : COVID-19 Lab Test Only (OP in UTM) Microbiology Routine Preop testing 1 Occurrences starting 12/04/2020 until 12/04/2021 [facility] Comment on above: 1 Occurrences starting 12/04/2020 until 12/04/2021 End: 12-29-2021 Covid-19/Influenza Order Algorithm : COVID-19 Lab Test Only (OP in UTM) Covid-19/Influenza Order Algorithm : COVID-19 Lab Test Only (OP in UTM) Microbiology Routine Preop testing 1 Occurrences starting 12/29/2020 until 12/29/2021 [facility] Comment on above: 1 Occurrences starting 12/29/2020 until 12/29/2021 End: 02-10-2022 Covid-19/Influenza Order Algorithm : COVID-19 Lab Test Only (OP in UTM) Covid-19/Influenza Order Algorithm : COVID-19 Lab Test Only (OP in UTM) Microbiology Routine Exposure to SARS-associated coronavirus 1 Occurrences starting 02/16/2021 until 02/10/2022 [facility] Comment on above: 1 Occurrences starting 02/16/2021 until 02/10/2022 End: 05-27-2026 DBT Breast - bilateral screening MYRIAM SCREENING W [facility] Radiology Routine Encounter for screening mammogram for breast cancer 1 Occurrences starting 04/27/2025 until 05/27/2026 [facility] Work Phone: Comment on above: 1 Occurrences starting 04/27/2025 until 05/27/2026 End: 07-13-2026 DBT Breast - bilateral screening MYRIAM SCREENING W [facility] Radiology Routine Encounter for screening mammogram for breast cancer 1 Occurrences starting 06/13/2025 until 07/13/2026 [facility] Comment on above: 1 Occurrences starting 06/13/2025 until 07/13/2026 DBT Breast - bilateral screening MYRIAM SCREENING W [facility]IN Radiology Routine Encounter for screening mammogram for breast cancer 06/28/2025 1:55 PM EDT [facility] Work Phone: External Lab CBC (Wi th or without Diff) External Lab CBC (With or without Diff) Lab Routine 01/20/2021 [facility] External Lab Compreh ensive Metabolic Panel External Lab Comprehensive Metabolic Panel Lab Routine 01/20/2021 [facility] External Lab Iron Studies Principle Software Engineer al Lab Iron Studies Lab Routine 01/20/2021 [facility] External Lab PTH External Lab PT H Lab Routine 01/20/2021 [facility] External Lab Vit D 1 ,25 Dihydroxy External Lab Vit D 1,25 Dihydroxy Lab Routine 01/20/2021 [facility] External Lab Vitamin B6 External Lab Vitamin B6 Lab Routine 01/20/2021 [facility] External Vitamin B12 and Folate External Vitamin B12 and Folate Lab Routine 01/20/2021 [facility] End: 12-26-2021 Ferritin [Mass/Vol] Ferritin Lab Routine Anastomotic ulcer S/P gastric bypass 1 Occurrences starting 12/26/2020 until 12/26/2021 [facility] Comment on above: 1 Occurrences starting 12/26/2020 until 12/26/2021 End: 12-27-2021 Folate [Mass/Vol] Folate Lab Routine Anastomotic ulcer S/P gastric bypass 1 Occurrences starting 12/26/2020 until 12/27/2021 [facility] Comment on above: 1 Occurrences starting 12/26/2020 until 12/27/2021 HCG ( test) Ql (U) POC , Urine Point of Care Testing STAT Obesity, Class III, BMI 40-49.9 (morbid obesity) (HCC) 12/08/2020 10:41 AM EST [facility] HPV W/GENOTYPE THIN PREP HPV W/G ENOTYPE THIN PREP Lab Routine Screening for cervical cancer Encounter for screening for human papillomavirus (HPV) 10/27/2023 4:02 PM EST [facility] Work Phone: End: 02-10-2022 Incentive spirometry - Initial Instruction Incentive spirometry - Initial Instruction Respiratory Care Routine Primary osteoarthritis of left knee 1 Occurrences starting 02/16/2021 until 02/10/2022 [facility] Comment on above: 1 Occurrences starting 02/16/2021 until 02/10/2022 End: 12-27-2021 Lipid 1996 panel Lipid Panel Lab Routine Anastomotic ulcer S/P gastric bypass 1 Occurrences starting 12/26/2020 until 12/27/2021 [facility] Comment on above: 1 Occurrences starting 12/26/2020 until 12/27/2021 End: 06-30-2024 MYRIAM SCREENING MYRIAM SCREENING Radiology Routine Encounter for screening mammogram for breast cancer 1 Occurrences starting 06/01/2023 until 06/30/2024 [facility] Work Phone: Comment on above: 1 Occurrences starting 06/01/2023 until 06/30/2024 MYRIAM SCREENING MYRIAM SCREENING Radiology Routine Encounter for screening mammogram for breast cancer 06/13/2023 4:44 PM EDT [facility] Work Phone: End: 04-23-2025 MG Breast Screening MYRIAM SCREENING Radiology Routine Screening breast examination 1 Occurrences starting 03/24/2024 until 04/23/2025 [facility] Work Phone: Comment on above: 1 Occurrences starting 03/24/2024 until 04/23/2025 End: 02-10-2022 MRSA isol Org specific cx Ql (Unsp spec) MRSA Culture Microbiology Routine Primary osteoarthritis of left knee 1 Occurrences starting 02/16/2021 until 02/10/2022 [facility] Comment on above: 1 Occurrences starting 02/16/2021 until 02/10/2022 PAP TEST PAP TEST Lab Rou emily Screening for cervical cancer Encounter for screening for human papillomavirus (HPV) 10/27/2023 4:02 PM EST [facility] Work Phone: PAP TEST PAP TEST Lab Rou emily LGSIL on Pap smear of cervix Cervical cancer screening Special screening examination for human papillomavirus (HPV) Ordered: 05/28/2024 [facility] Work Phone: Comment on above: Ordered: 05/28/2024 PAP TEST PAP TEST Lab Rou emily Screening for cervical cancer Encounter for screening for human papillomavirus (HPV) Ordered: 06/13/2025 [facility] Work Phone: Comment on above: Ordered: 06/13/2025 End: 12-27-2021 Parathyrin.intact and Calcium panel - Serum or Plasma PTH, Intact Lab Routine Anastomotic ulcer S/P gastric bypass 1 Occurrences starting 12/26/2020 until 12/27/2021 [facility] Comment on above: 1 Occurrences starting 12/26/2020 until 12/27/2021 Path report.final Dx Spec [facility] Work Phone: Patient Education Bruises (Contu sions) ED Dog Bite [facility] Work Phone: Patient referral [facility] Work Phone: Procedure on tissue specimen [facility] Comment on above: Release Upon Ordering for 1 Occurrences starting 12/08/2020, 1 completed Release Upon Orderin g for 1 Occurrences starting 03/03/2021 Release Upon Orderin g for 1 Occurrences starting 03/10/2021, 1 completed End: 12-27-2021 Pyridoxal 5 phosphate level Vitamin B6 Lab Routine Anastomotic ulcer S/P gastric bypass 1 Occurrences starting 12/26/2020 until 12/27/2021 [facility] Comment on above: 1 Occurrences starting 12/26/2020 until 12/27/2021 SURGICAL PATHOLOGY SURGICAL PATH OLOGY Lab Routine LGSIL on Pap smear of cervix High risk HPV infection Ordered: 06/26/2024 [facility] Comment on above: Ordered: 06/26/2024 End: 12-27-2021 Thiamine measurement Vitamin B1, Whole Blood Lab Routine Anastomotic ulcer S/P gastric bypass 1 Occurrences starting 12/26/2020 until 12/27/2021 [facility] Comment on above: 1 Occurrences starting 12/26/2020 until 12/27/2021 UA DIP,URINE HCG (POC) UA DIP,UR INE HCG (POC) Lab Routine Ordered: 06/25/2024 [facility] Work Phone: Comment on above: Ordered: 06/25/2024 Vitamin A Vitamin A Lab Ro utine 01/20/2021 [facility] End: 12-27-2021 Vitamin A measurement Vitamin A Lab Routine Anastomotic ulcer S/P gastric bypass 1 Occurrences starting 12/26/2020 until 12/27/2021 [facility] Comment on above: 1 Occurrences starting 12/26/2020 until 12/27/2021 Vitamin B1 Vitamin B1 Lab R outine 01/20/2021 [facility] End: 12-27-2021 Vitamin D, 25-hydroxy measurement Vitamin D, Total, 25-OH Lab Routine Anastomotic ulcer S/P gastric bypass 1 Occurrences starting 12/26/2020 until 12/27/2021 [facility] Comment on above: 1 Occurrences starting 12/26/2020 until 12/27/2021 Zinc Zinc Lab Routine 01/20/2021 [facility] Immunizations Immunization Date Immunization Notes Care Provider Fa cili 08-11-2022 influenza, seasonal, injectable Percy Huang MD Work Phone: [facility] 08-11-2022 influenza virus vaccine, unspecified formulation Percy Huang MD Work Phone: [facility] 11-24-2020 tetanus toxoid, redu chloe diphtheria toxoid, and acellular pertussis vaccine, adsorbed Percy Huang MD Work Phone: [facility] Work Phone: 10-13-2018 influenza, injectabl e, quadrivalent, contains preservative Percy Huang MD Work Phone: [facility] 12-24-2014 tuberculin skin test ; purified protein derivative solution, intradermal Fred Gonzales Work Phone: [facility] 09-03-2014 influenza, seasonal, injectable Percy Huang MD Work Phone: [facility] 08-28-2012 influenza virus vaccine, unspecified formulation Percy Huang MD Work Phone: [facility] 08-28-2012 tetanus toxoid, redu chloe diphtheria toxoid, and acellular pertussis vaccine, adsorbed Percy Huang MD Work Phone: [facility] 07-29-2011 influenza virus vaccine, unspecified formulation Percy Huang MD Work Phone: [facility] 09-19-2009 novel [id number], preservative-free, injectable Percy Huang MD Work Phone: [facility] Payers Date Payer Category Payer Unknown [id number] 2024 Private Health Insurance [id number] 2024 Self-pay [id number] 2023 Private Health Insurance [id number] 2023 Private Health Insurance [id number] 2019 Managed Care PPO (unspecified) [facility] [id number] 2019 Unknown MMO MED [employer] S [employer]PERMED PPO xxxxxxxx 2019-Present [id number] 2019 Unknown [id number] 2019 Unknown [id number] 2019 Unknown [id number] 2016 Unknown xxxxxxxxx [id number] 1983 Unknown [id number]. 651 1983 Unknown [id number]. 651 1983 Unknown [id number]. 903 1983 Unknown [id number]. 903 1983 Unknown [id number]. 903 1983 Unknown [id number] 903 1983 Unknown [id number] 903 Private Health Insurance [id number] Unknown [id number] Unknown MED MUTUAL TPA [id number] Unknown [id number] Unknown [id number] 462 Unknown [id number] 462 Unknown [id number] 462 Unknown [id number] 462 Unknown [id number] 462 Social History Date Type Detail Facility Start: 04-03-2018 End: 04-27-2025 Tobacco smoking status NHIS Former smoker [facility] Start: 05-06-2007 End: 05-06-2010 History of tobacco use Current smoker [facility] Start: 1985 Sex Assigned At Not on file [facility] Start: 2019 End: 02-05-2021 Alcohol intake Current non-drinker of alcohol (finding) [facility] Start: 10-25-2020 End: 10-18-2022 Exposure to SARS-CoV-2 (event) Not sure [facility] Start: 12-04-2019 End: 04-27-2025 Tobacco use and exposure Never used [facility] Exposure to SARS-CoV -2 (event) Unable to assess [facility] Start: 02-19-2021 Alcohol Comment social [facility] Start: 02-24-2021 Alcohol intake Ex-drinker (finding) [facility] Start: 03-03-2021 End: 04-27-2025 Alcohol intake Current drinker of alcohol (finding) [facility] Start: 02-27-2021 Alcohol Comment 2 per month [facility] Start: 05-06-2007 End: 05-06-2010 History of tobacco use Cigarette Smoker [facility] Start: 02-11-2021 End: 10-11-2022 History SDOH Alcohol Frequency 3 [facility] Start: 02-11-2021 End: 10-11-2022 History SDOH Alcohol Std Drinks 1 [facility] Start: 02-11-2021 End: 10-11-2022 History SDOH Social Connections Phone 5 [facility] Start: 02-11-2021 End: 10-11-2022 History SDOH Social Connections Living 7 [facility] Start: 02-11-2021 History SDOH Physical Activity DPW 0 [facility] Start: 02-11-2021 End: 10-11-2022 History SDOH Transport Med 2 [facility] Start: 02-11-2021 Education 18 [facility] Start: 03-17-2022 History SDOH Social Connections Living 8 [facility] Start: 03-17-2022 History SDOH Physical Activity MPS 4 [facility] Start: 04-09-2022 End: 04-20-2025 Cigarette pack-years [facility] Start: 12-03-2020 Tobacco smoking status NHIS Unknown if ever smoked [facility] Work Phone: Start: 1985 Sex Assigned At Female [facility] Start: 10-11-2022 History SDOH Social Connections Meetings 98 [facility] Start: 04-11-2022 End: 04-20-2025 Tobacco use panel [facility] Start: 09-20-2018 Gender identity Identifies as female gender (finding) [facility] Start: 09-20-2018 Sexual orientation Heterosexual (finding) [facility] Do you belong to any clubs or organizations such as pentecostal groups, [employer], [employer] or athletic groups, or school groups? No [facility] Start: 10-15-2012 How often do you attend meetings of the clubs or organizations you belong to? Patient refused [facility] Are you now , , , , never or living with a partner? Never [facility] How often to you hav e a drink containing alcohol? Monthly or less [facility] How many standard dr inks containing alcohol do you have on a typical day? 1 or 2 [facility] How often do you hav e 6 or more drinks on 1 occasion? Never [facility] Do you feel stress - tense, restless, nervous, or anxious, or unable to sleep at night because your mind is troubled all the time - these days [OSQ] Only a little [facility] (I/We) worried eben er (my/our) food would run out before (I/we) got money to buy more. Never true [facility] Do you belong to any clubs or organizations such as pentecostal groups, [employer], [employer] [place] or athletic groups, or school groups? Yes [facility] How often to you hav e a drink containing alcohol? 2-4 times a month [facility] Do you feel stress - tense, restless, nervous, or anxious, or unable to sleep at night because your mind is troubled all the time - these days [OSQ] Not at all [facility] Start: 02-05-2025 Sex Female (finding) [facility] Are you now , , , , never or living with a partner? Living with partner [facility] Medical Equipment Procedure Code Equipment Code Equipment Origin al Text Equipment Identifier Dates Sealant 5ml Fibr in Evicel Kit - [id number] Start: 03-30-2016 Strip Ech 60 Sta ple Line Linear Reinforcement - [id number] Start: 03-30-2016 Sealant 5ml Fibr in Evicel Kit - [id number] Start: 03-30-2016 Strip Ech 60 Sta ple Line Linear Reinforcement - [id number] Start: 03-30-2016 Sealant 5ml Fibr in Evicel Kit - [id number] Start: 03-30-2016 Strip Ech 60 Sta ple Line Linear Reinforcement - [id number] Start: 03-30-2016 Sealant 5ml Fibr in Evicel Kit - [id number] Start: 03-30-2016 Strip Ech 60 Sta ple Line Linear Reinforcement - [id number] Start: 03-30-2016 Simplex P Bone C ement 1/2 Dose [id number] Start: 03-10-2021 Component 4 Fem Lm/Rl Triathlon Pkr - [id number]( [id number], [id number] FDA Start: 03-10-2021 Baseplate Sz4 Lm /Rl Triathlon Pkr - [id number] , [id number] FDA Start: 03-10-2021 Insert Sz3 8mm L m/Rl Triathlon Pkr [id number] - [id number]( [id number] , [id number] FDA Start: 03-10-2021 Goals Date Patient Goal Desired Activity /State Personal health goal Comment on above: Formatting of this n ote might be different from the original. Good Nutrition: Make healthier food choices Reduce portion size Follow meal plan Individualized goal: - food records (3x/week - ) - gym membership and/or phone exercise apps - consistency with meal schedule - discuss with switchboard operator supervisor, bariatric timer matthew, cooler? - Protein first - no carbs until eat protein. Comment on above: Good Nutrition: Make healthier food choices Reduce portion size Follow meal plan Individualized goal: - food records (3x/week - ) - gym membership and/or phone exercise apps - consistency with meal schedule - discuss with switchboard operator supervisor, bariatric timer matthew, cooler? - Protein first - no carbs until eat protein. Formatting of this n ote might be different from the original. Good Nutrition: Make healthier food choices Reduce portion size Follow meal plan Individualized goal: - food records (3x/week - ) - gym membership and/or phone exercise apps - consistency with meal schedule - discuss with switchboard operator supervisor, bariatric timer matthew, cooler? - Protein first - no carbs until eat protein. Functional Status Date Assessment Result Facility 10-09-2014 Are you deaf, or do you have serious difficulty hearing No 10/09/2014 12:56 PM Riddhi Cueto LPN No [facility] 10-09-2014 Are you blind, or do you have serious difficulty seeing, even when wearing glasses No 10/09/2014 12:56 PM Riddhi Cueto LPN No [facility] 10-09-2014 Do you have serious difficulty walking or climbing stairs No 10/09/2014 12:56 PM Riddhi Cueto LPN No [facility] 10-09-2014 Do you have difficul ty dressing or bathing No 10/09/2014 12:56 PM Riddhi Cueto LPN [facility] 10-09-2014 Because of a physica l, mental, or emotional condition, do you have difficulty doing errands alone such as visiting a physician's office or shopping No 10/09/2014 12:56 PM Riddhi Cueto LPN No [facility] Mental Status Date Assessment Result Facility 10-09-2014 Because of a physica l, mental, or emotional condition, do you have serious difficulty concentrating, remembering, or making decisions No 10/09/2014 12:56 PM EST Riddhi Evans LPN No [facility] Clinical Notes 03-04-2011 to 06-28-2025 Cecil Mazariegos Mammo Tech - 06/28/2025 1:30 PM EDTShakira Mathews APRN.GRID TRIMMER - 06/13/2025 2:58 PM EDTPatient InstructionsSelina Mejia, GRID TRIMMER - 06/04/2025 10:49 PM EDTPatient Instructions Note Date & Type Note Facility 06-28-2025 History of Present illness Narrative Radiology Service Progress Note PATIENT NAME: Krista Bell DATE OF SERVICE: June 28, 2025 TIME: 2:42 PM PATIENT IDENTITY VERIFICATION COMPLETED USING TWO (2) IDENTIFIERS: Name and Date of confirmed by patient verbally. FALL SCREENING: Has the patient had 2 falls in the last year or 1 fall with injury or currently using an Ambulatory Assistive Device (Walker, Cane, Wheelchair, Crutches, etc.)? No PATIENT GENDER DATA: Assigned female at . status: : No status: NO. PATIENT RELEVANT IMPLANT DATA REVIEWED: Not Applicable PATIENT PRESENTS WITH AN IMPLANTABLE OR ATTACHED ENVIRONMENTAL CONSERVATION PROFESSOR: No RADIOLOGY DEPARTMENT: Mammography PERIPHERAL IV DATA: Not applicable SIGNED BY: Siri Frazier June 28, 2025 2:42 PM documented in this encounter [facility] 06-28-2025 Note HNO ID: [id number] Author: CECIL MAZARIEGOS Mammo Tech Service: ? Author Type: Tester Compressed Gases Type: Progress Notes Filed: 06/28/2025 14:42 Note Text: Radiology Service Progress Note PATIENT NAME: Krista Bell DATE OF SERVICE: June 28, 2025 TIME: 2:42 PM PATIENT IDENTITY VERIFICATION COMPLETED USING TWO (2) IDENTIFIERS: Name and Date of confirmed by patient verbally. FALL SCREENING: Has the patient had 2 falls in the last year or 1 fall with injury or currently using an Ambulatory Assistive Device (Walker, Cane, Wheelchair, Crutches, etc.)? No PATIENT GENDER DATA: Assigned female at . status: : No status: NO. PATIENT RELEVANT IMPLANT DATA REVIEWED: Not Applicable PATIENT PRESENTS WITH AN IMPLANTABLE OR ATTACHED ENVIRONMENTAL CONSERVATION PROFESSOR: No RADIOLOGY DEPARTMENT: Mammography PERIPHERAL IV DATA: Not applicable SIGNED BY: Cecil Mazariegos Yummlyo [employer] June 28, 2025 2:42 PM [facility] 06-13-2025 Note HNO ID: [id number] Author: SHAKIRA MATHEWS APRN.CNP Service: ? Author Type: Nurse Practitioner Type: Progress Notes Filed: 06/13/2025 15:07 Note Text: Krista is a 40 year old who presents for an annual gynecologic exam vaginal dryness. Still get period: Yes Bleeding amount bothersome: No Bleeding between periods: No Period symptoms: Breast tenderness; Cramps; Mood change Time with current partner: 19 months Contraception: ocps HPV vaccine: No; HPV:positive Last pap smear: 2023 History of abnormal pap: Yes, history of abnormal PAP smears 05/2024 LGSIL positive HRHPV. 07/07 colpo A. Cervix, 3:00, biopsy: - Benign ectocervix. - Cervical transformation zone is not present for evaluation. B. Cervix, 10:00, biopsy: - Benign ectocervix. - Cervical transformation zone is not present for evaluation. C. Endocervix, curettage: - Scant benign endocervical glandular epithelium. Bothersome pelvic pain: No Last mammogram: 2023normal Patient concerns for STD exposure: No. OB History Gravida2 Para2 Term0 Preterm0 AB0 Living2 SAB0 IAB0 Ectopic0 Multiple0 Live Births0 Nurse Plastics History LMP: 05/29/2025 (Exact Date), Having periods Age at Menarche: 10 Age at First : Age at Menopause: Nurse Plastics History Comments: Sexual Activity: Yes; Male Contraception: Pill Menstrual Tracking History Flowsheet Row Office Visit from 06/13/2025 in [facility] Obstetrics AND Gynecology Appointment from 04/25/2025 in [facility] Obstetrics AND Gynecology Period Cycle (Days) 28 28 Period Duration (Days) 5 5 Menstrual Flow Moderate Moderate PAST MEDICAL HISTORY Diagnosis Date Cold sores Depression Gallstones 03/14/2011 H. 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) 05/28/2024 + HR HPV PAST SURGICAL HISTORY Procedure Laterality Date ABDOMINOPLASTY 04/03/2024 GSTRCT PRTL DSTL W/GASTRODUODENOSTOMY 03/30/2016 Gastrectomy, partial, sleeve Gastrectomy LAPS SURG CHOLECYSTECTOMY W/CHOLANGIOGRAPHY 05/21/2011 failed IOC PAST SURGICAL HISTORY OF wisdom teeth PAST SURGICAL HISTORY OF cryotherapy for abnormal pap after per pt 2001 PAST SURGICAL HISTORY OF 11/30/2023 colposcopy RPR EPIGASTRIC HERNIA REDUCIBLE SPX 03/30/2016 Hiatal hernia repair TONSILLECTOMY HX 09/15/2022 Dr Jewell [facility] [place] FAMILY HISTORY Problem Relation Age of Onset Hypertension Mother Psychiatry Mother depression Stroke Father Blood Disease Father blood clots Psychiatry Sister depression Heart Brother at about 1.5 years due to heart problems Diabetes Paternal Grandfather + SOCIAL HISTORY Social History Tobacco Use Smoking status: Former Current packs/day: 0.00 Types: Cigarettes Quit date: 01/26/2009 Years since quittin.3 Smokeless tobacco: Never Vaping Use Vaping status: Never Used Substance Use Topics Alcohol use: Yes Comment: occasionally Drug use: No REVIEW OF SYSTEMS Abdomen: No abdominal pain, nausea, vomiting, diarrhea, or constipation. No bloating, early satiety, indigestion, or increased flatulence. Bladder: No dysuria, gross hematuria, urinary frequency, urinary urgency, or incontinence. Breast: No breast lumps, nipple d/c, overlying skin changes, redness or skin retraction. Allergies and current medication updated:Yes SENSITIVE EXAM: The sensitive examination was discussed with the Patient or Patient's Authorized Varnishing Unit Operator. As applicable, any other physician, advance practice provider, medical student, or other health professional student that will be observing or involved in the sensitive examination for educational or training purposes was discussed with the Patient or Authorized Varnishing Unit Operator. The Patient or Authorized Varnishing Unit Operator has agreed to proceed with the sensitive examination. (Sensitive examination includes inspection and/or palpation of the breasts, pelvis, prostate and anorectal regions). EXAM: BP 117/73 Ht 5' 6 (1.68m) Wt 224 lb (101.6kg) LMP 05/29/2025 BMI 36.17 kg/(m2). GENERAL: pleasant, female in no apparent distress HEENT: Normocephalic, atraumatic, mucus membranes moist, and no lesions NECK: Supple, full range of motion, no adenopathy, and thyroid normal DERMATOLOGY: Normal, without lesions, non-icteric, and non-hirsute BREAST: soft, non-tender, symmetric, no dominant mass, normal nipple-areolar complex, no lymphadenopathy, and no nipple discharge CHEST: Normal inspiratory effort ABDOMEN: soft, non-tender, and no masses PELVIC: external genitalia normal, normal Bartholin's glands, urethra, Soquel's glands, no vulvar lesions, no cervical lesions, good vaginal support, physiologic discharge present, normal appearing perineal body and perianal region BIMANUAL: uterus normal size, shape and consistency, no ad (more content not included)... [facility] 06-13-2025 History of Present illness Narrative Krista is a 40 year old who presents for an annual gynecologic exam vaginal dryness. Still get period: Yes Bleeding amount bothersome: No Bleeding between periods: No Period symptoms: Breast tenderness; Cramps; Mood change Time with current partner: 19 months Contraception: ocps HPV vaccine: No; HPV:positive Last pap smear: 2023 History of abnormal pap: Yes, history of abnormal PAP smears 05/2024 LGSIL positive HRHPV. 07/07 colpo A. Cervix, 3:00, biopsy: - Benign ectocervix. - Cervical transformation zone is not present for evaluation. B. Cervix, 10:00, biopsy: - Benign ectocervix. - Cervical transformation zone is not present for evaluation. C. Endocervix, curettage: - Scant benign endocervical glandular epithelium. Bothersome pelvic pain: No Last mammogram: 2023normal Patient concerns for STD exposure: No. OB History Gravida2 Para2 Term0 Preterm0 AB0 Living2 SAB0 IAB0 Ectopic0 Multiple0 Live Births0 Nurse Plastics History LMP: 05/29/2025 (Exact Date), Having periods Age at Menarche: 10 Age at First : Age at Menopause: Nurse Plastics History Comments: Sexual Activity: Yes; Male Contraception: Pill Menstrual Tracking History Flowsheet Row Office Visit from 06/13/2025 in [facility] Obstetrics & Gynecology Appointment from 04/25/2025 in [facility] Obstetrics & Gynecology Period Cycle (Days) 28 28 Period Duration (Days) 5 5 Menstrual Flow Moderate Moderate PAST MEDICAL HISTORY Diagnosis Date Cold sores Depression Gallstones 03/14/2011 H. 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) 05/28/2024 + HR HPV PAST SURGICAL HISTORY Procedure Laterality Date ABDOMINOPLASTY 04/03/2024 GSTRCT PRTL DSTL W/GASTRODUODENOSTOMY 03/30/2016 Gastrectomy, partial, sleeve Gastrectomy LAPS SURG CHOLECYSTECTOMY W/CHOLANGIOGRAPHY 05/21/2011 failed IOC PAST SURGICAL HISTORY OF wisdom teeth PAST SURGICAL HISTORY OF cryotherapy for abnormal pap after per pt 2001 PAST SURGICAL HISTORY OF 11/30/2023 colposcopy RPR EPIGASTRIC HERNIA REDUCIBLE SPX 03/30/2016 Hiatal hernia repair TONSILLECTOMY HX 09/15/2022 Dr Jewell [facility] [place] FAMILY HISTORY Problem Relation Age of Onset Hypertension Mother Psychiatry Mother depression Stroke Father Blood Disease Father blood clots Psychiatry Sister depression Heart Brother at about 1.5 years due to heart problems Diabetes Paternal Grandfather + SOCIAL HISTORY Social History Tobacco Use Smoking status: Former Current packs/day: 0.00 Types: Cigarettes Quit date: 01/26/2009 Years since quittin.3 Smokeless tobacco: Never Vaping Use Vaping status: Never Used Substance Use Topics Alcohol use: Yes Comment: occasionally Drug use: No REVIEW OF SYSTEMS Abdomen: No abdominal pain, nausea, vomiting, diarrhea, or constipation. No bloating, early satiety, indigestion, or increased flatulence. Bladder: No dysuria, gross hematuria, urinary frequency, urinary urgency, or incontinence. Breast: No breast lumps, nipple d/c, overlying skin changes, redness or skin retraction. Allergies and current medication updated:Yes SENSITIVE EXAM: The sensitive examination was discussed with the Patient or Patient's Authorized Varnishing Unit Operator. As applicable, any other physician, advance practice provider, medical student, or other health professional student that will be observing or involved in the sensitive examination for educational or training purposes was discussed with the Patient or Authorized Varnishing Unit Operator. The Patient or Authorized Varnishing Unit Operator has agreed to proceed with the sensitive examination. (Sensitive examination includes inspection and/or palpation of the breasts, pelvis, prostate and anorectal regions). EXAM: BP 117/73 Ht 5' 6 (1.68m) Wt 224 lb (101.6kg) LMP 05/29/2025 BMI 36.17 kg/(m^2). GENERAL: pleasant, female in no apparent distress HEENT: Normocephalic, atraumatic, mucus membranes moist, and no lesions NECK: Supple, full range of motion, no adenopathy, and thyroid normal DERMATOLOGY: Normal, without lesions, non-icteric, and non-hirsute BREAST: soft, non-tender, symmetric, no dominant mass, normal nipple-areolar complex, no lymphadenopathy, and no nipple discharge CHEST: Normal inspiratory effort ABDOMEN: soft, non-tender, and no masses PELVIC: external genitalia normal, normal Bartholin's glands, urethra, Soquel's glands, no vulvar lesions, no cervical lesions, good vaginal support, physiologic discharge present, normal appearing perineal body and perianal region BIMANUAL: uterus normal size, shape and consistency, no adnexal masses, and non-tender RECTOVAGINAL: deferred. NEURO: alert and oriented x3,exam grossly non-focal EXTREMITIES: normal ASSESSMENT/PLAN: 1) Health maintenance: Pap done with HPV. Mammogram ordered. 2) Contraception: combined hormonal contraceptives. Contraceptive options reviewed and information provided. 3) STD screening: Declined STI check. 4) Follow up one year or sooner as needed 5) revaree for vaginal dryness Shakira Mathews APRN.GRID TRIMMER documented in this encounter [facility] 06-13-2025 Instructions Shakira Mathews APRN.CNP - 06/13/2025 2:58 PM EDT ACOG Screening Guidelines The following health screening schedule is recommended by the [employer] (ACOG). Some of these tests may be ordered or performed by your primary care doctor. Pap test screening The pap test looks at cells on the cervix (the opening from the vagina to the uterus) to look for cancer or pre-cancerous changes. These changes are caused by the human papillomavirus (HPV). Studies estimate that half of all women will test positive for this virus within 3 years of starting sexual activity. For young women with a normal immune system, 90% of HPV infections will resolve within 2 years. There is a vaccine available against some forms of HPV. This is recommended for girls and women age 9-45. For ages 9-14, two injections are given at 0 and 6 months. For ages 15-45, three injections are given at 0,2 and 6 months. Because this vaccine does not protect against all HPV types which can cause cervical cancer, women who received the vaccine still need pap tests. Pap smear screening should be started at age 21. The pap test should be done every 3 years from age 21-29. From age 30-65, pap smears can be done every 5 years if HPV test is negative or every 3 years if HPV testing is not done. For women over the age of 65, ACOG recommends against screening women who have had adequate prior screening and are not otherwise at high risk for cervical cancer. Women who have had a hysterectomy also do not need routine pap smear screening unless the pap smear was done for a cervical cancer or moderate to severe dysplasia. Breast cancer screening Mammogram should be performed every 1-2 years starting at age 40 and every year starting at age 50. Screening may be started earlier depending on family history. Cholesterol screening Lipid panel (cholesterol test) should be checked every 5 years starting at age 45. Diabetes screening Fasting glucose (blood sugar) test should be performed every 3 years starting at age 45. Colorectal cancer screening Starting at age 45, women should have a screening colonoscopy at least every 10 years. Screening may be started earlier depending on family history. Thyroid screening Thyroid function test (TSH) should be checked every 5 years starting at age 50. Bone mineral density screening All postmenopausal women age 65 and over and postmenopausal women with risk factors for osteoporosis should have a bone mineral density test performed. Risk factors include race, family history of osteoporosis, personal history of fractures, poor nutrition, smoking, heavy alcohol use, early menopause, low calcium intake and low body weight. Certain medical conditions and long-term use of some medications may also increase risk. documented in this encounter [facility] 06-04-2025 Note Krista Bell 1985 CC: 40 y.o. is a she with left knee pain. Chief Complaint Patient presents with - Left Knee - Pain . HPI: Knee Pain: Patient presents to the office today with left knee pain. She has had a partial knee replacement back in 2020. She denies any new injury to the knee. About a week ago she started having increased pain and tightness in the left knee. 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 She will use otc pain medications as needed but they don't resolve her symptoms. No reported falls or instability in the knee. PMH: Allergies[1] Current Medications[2] Past Medical History: Diagnosis Date - Anemia - Arthritis - Depression - GERD (gastroesophageal reflux disease) - Internal derangement of knee 05/13/2015 - Obesity, Class III, BMI 40-49.9 (morbid obesity) (HCC) 05/13/2015 - Peptic ulcer disease - JUJU (stress urinary incontinence, female) 05/13/2015 Past Surgical History: Procedure Laterality Date - ARTHROPLASTY KNEE UNICOMPARTMENTAL Left 03/10/2021 Procedure: Left knee partial knee replacement; Surgeon: Jack Linda MD; Location: Main OR; Service: Orthopedic - ARTHROSCOPY KNEE Left 10/2014 - CHOLECYSTECTOMY 2010 - EGD N/A 03/03/2021 Procedure: ESOPHAGOGASTRODUODENOSCOPY WITH BIOPSY; Surgeon: Jai Groves MD; Location: [facility]; Service: General Surgery - ESOPHAGOGASTRODUODENOSCOPY WITH BIOPSY N/A 12/08/2020 Procedure: ESOPHAGOGASTRODUODENOSCOPY WITH BIOPSY; Surgeon: Jai Groves MD; Location: [facility] Main OR; Service: General Surgery - GASTRIC BYPASS OPEN 2019 - GASTRIC SLEEVE BYPASS LAPAROSCOPIC WITH EGD N/A 03/30/2016 Procedure: LAPAROSCOPIC SLEEVE GASTRECTOMY, HIATAL HERNIA REPAIR, LIVER BIOPSY, ESOPHAGOGASTRODUODENOSCOPY; Surgeon: Jai Esquivel MD; Location: [facility] Main OR; Service: Social History[3] The patient's past medical history, surgical history, social history, family history, medications and allergies were reviewed with the patient today and are available in the chart for further review. ROS: Review of Systems Constitutional: Negative for activity change and fatigue. HENT: Negative for congestion, hearing loss and trouble swallowing. Eyes: Negative for visual disturbance. Respiratory: Negative for chest tightness and shortness of breath. Cardiovascular: Negative for chest pain and palpitations. Gastrointestinal: Negative for abdominal pain, diarrhea, nausea and vomiting. Endocrine: Negative for polydipsia, polyphagia and polyuria. Genitourinary: Negative for decreased urine volume, difficulty urinating and hematuria. Musculoskeletal: Positive for arthralgias, joint swelling and myalgias. Skin: Negative for color change, rash and wound. Allergic/Immunologic: Negative for immunocompromised state. Neurological: Negative for dizziness, weakness, light-headedness and numbness. Hematological: Does not bruise/bleed easily. Psychiatric/Behavioral: Negative for confusion and sleep disturbance. The patient is not nervous/anxious. PE: Physical Exam Musculoskeletal: General: Swelling and tenderness present. Left knee: Effusion present. ORTHO: Left Knee Exam Tenderness The patient is experiencing tenderness in the lateral joint line and lateral retinaculum. Range of Motion Extension: normal Left knee flexion: 128 degrees extension. Tests Varus: negative Valgus: negative Drawer: Posterior - negative Other Erythema: absent Scars: present Sensation: normal Pulse: present Swelling: mild Effusion: effusion present Imaging: L Knee: No acute fracture or dislocation. Intact medial partial knee replacement without evidence of loosening or hardware complications. Small to moderate joint effusion Assessment/Plan: After examination and reviewing of the patient x-ray images, we discussed treatment options for the left knee. No signs of infection, I do not believe we need to draw any blood work at this point in time. I did offer her an injection to the lateral compartment which she gladly excepted. I did this without complications and she tolerated this well. If no improvement after 2 weeks, I will see her back in the office for follow-up. Diagnosis: Problem List Items Addressed This Visit None LG Jt Injection/Arthrocentesis: L knee Performed by: Selina Mejia CNP Authorized by: Selina Mejia CNP Consent given by: Patient Time out: Immediately prior to the procedure a time out was called Physician or proceduralist has discussed critical or nonroutine steps, procedure duration and anticipated blood loss: Yes Supporting Documentation: Indications: Pain and diagnostic evaluation Procedure Details: Location: Knee Site: L knee Prep: patient was prepped and draped in usual sterile fashion Needle size: 22 G Approach: Anterolateral Medication (more content not included)... [facility] 06-04-2025 History of Present illness Narrative Associated Order(s): LG Jt Injection/Arthrocentesis: L knee Post-Procedure Diagnose(s): Primary osteoarthritis of left knee Krista Bell 1985 CC: 40 y.o. is a she with left knee pain. Chief Complaint Patient presents with Left Knee - Pain . HPI: Knee Pain: Patient presents to the office today with left knee pain. She has had a partial knee replacement back in 2020. She denies any new injury to the knee. About a week ago she started having increased pain and tightness in the left knee. 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 She will use otc pain medications as needed but they don't resolve her symptoms. No reported falls or instability in the knee. PMH: Allergies[1] Current Medications[2] Past Medical History: Diagnosis Date Anemia Arthritis Depression GERD (gastroesophageal reflux disease) Internal derangement of knee 05/13/2015 Obesity, Class III, BMI 40-49.9 (morbid obesity) (HCC) 05/13/2015 Peptic ulcer disease JUJU (stress urinary incontinence, female) 05/13/2015 Past Surgical History: Procedure Laterality Date ARTHROPLASTY KNEE UNICOMPARTMENTAL Left 03/10/2021 Procedure: Left knee partial knee replacement; Surgeon: Jack Linda MD; Location: Main OR; Service: Orthopedic ARTHROSCOPY KNEE Left 10/2014 CHOLECYSTECTOMY 2010 EGD N/A 03/03/2021 Procedure: ESOPHAGOGASTRODUODENOSCOPY WITH BIOPSY; Surgeon: Jai Groves MD; Location: [facility]; Service: General Surgery ESOPHAGOGASTRODUODENOSCOPY WITH BIOPSY N/A 12/08/2020 Procedure: ESOPHAGOGASTRODUODENOSCOPY WITH BIOPSY; Surgeon: Jai Groves MD; Location: [facility] Main OR; Service: General Surgery GASTRIC BYPASS OPEN 2019 GASTRIC SLEEVE BYPASS LAPAROSCOPIC WITH EGD N/A 03/30/2016 Procedure: LAPAROSCOPIC SLEEVE GASTRECTOMY, HIATAL HERNIA REPAIR, LIVER BIOPSY, ESOPHAGOGASTRODUODENOSCOPY; Surgeon: Jai Esquivel MD; Location: [facility] Main OR; Service: Social History[3] The patient's past medical history, surgical history, social history, family history, medications and allergies were reviewed with the patient today and are available in the chart for further review. ROS: Review of Systems Constitutional: Negative for activity change and fatigue. HENT: Negative for congestion, hearing loss and trouble swallowing. Eyes: Negative for visual disturbance. Respiratory: Negative for chest tightness and shortness of breath. Cardiovascular: Negative for chest pain and palpitations. Gastrointestinal: Negative for abdominal pain, diarrhea, nausea and vomiting. Endocrine: Negative for polydipsia, polyphagia and polyuria. Genitourinary: Negative for decreased urine volume, difficulty urinating and hematuria. Musculoskeletal: Positive for arthralgias, joint swelling and myalgias. Skin: Negative for color change, rash and wound. Allergic/Immunologic: Negative for immunocompromised state. Neurological: Negative for dizziness, weakness, light-headedness and numbness. Hematological: Does not bruise/bleed easily. Psychiatric/Behavioral: Negative for confusion and sleep disturbance. The patient is not nervous/anxious. PE: Physical Exam Musculoskeletal: General: Swelling and tenderness present. Left knee: Effusion present. ORTHO: Left Knee Exam Tenderness The patient is experiencing tenderness in the lateral joint line and lateral retinaculum. Range of Motion Extension: normal Left knee flexion: 128 degrees extension. Tests Varus: negative Valgus: negative Drawer: Posterior - negative Other Erythema: absent Scars: present Sensation: normal Pulse: present Swelling: mild Effusion: effusion present Imaging: L Knee: No acute fracture or dislocation. Intact medial partial knee replacement without evidence of loosening or hardware complications. Small to moderate joint effusion Assessment/Plan: After examination and reviewing of the patient x-ray images, we discussed treatment options for the left knee. No signs of infection, I do not believe we need to draw any blood work at this point in time. I did offer her an injection to the lateral compartment which she gladly excepted. I did this without complications and she tolerated this well. If no improvement after 2 weeks, I will see her back in the office for follow-up. Diagnosis: Problem List Items Addressed This Visit None LG Jt Injection/Arthrocentesis: L knee Performed by: Selina Mejia, GRID TRIMMER Authorized by: Selina Mejia CNP Consent given by: Patient Time out: Immediately prior to the procedure a time out was called Physician or proceduralist has discussed critical or nonroutine steps, procedure duration and anticipated blood loss: Yes Supporting Documentation: Indications: Pain and diagnostic evaluation Procedure Details: Location: Knee Site: L knee Prep: patient was prepped and draped in usual sterile fashion Needle size: 22 G Approach: Anterolateral Medications: 40 mg triamcinolone acetonide 40 mg/mL Anesthetic used: Lidocaine 1% Anesthetic amount (mL): 2 Patient tolerance: Patient tolerated the procedure well with no immediate complications Follow Up: No follow-ups on file. Selina Mejia CNP [1] Allergies Allergen Reactions Oxycontin [Oxycodone] Unknown [2] Current Outpatient Medications: drospirenone-ethinyl estradioL (ROSIE) 3-0.03 mg per tablet, Take 1 tablet by mouth daily ., Disp: , Rfl: escitalopram oxalate (LEXAPRO) 10 MG tablet, Take 20 mg by mouth every morning ., Disp: , Rfl: pantoprazole (PROTONIX) 20 MG tablet, Take 1 (one) tablet (20 mg total) by mouth daily Start: 03/11/21., Disp: 30 tablet, Rfl: 0 valACYclovir (VALTREX) 1000 MG tablet, Take 1,000 mg by mouth as needed ., Disp: , Rfl: 2 [3] Social History Socioeconomic History Marital status: Single Tobacco Use Smoking status: Former Current packs/day: 0.00 Types: Cigarettes Start date: 05/06/2007 Quit date: 05/06/2010 Years since quittin.0 Smokeless tobacco: Never Vaping Use Vaping status: Never Used Substance and Sexual Activity Alcohol use: Yes Comment: 2 per month Drug use: No Sexual activity: Not Currently Social Drivers of Health Financial Resource Strain: Low Risk (04/20/2025) Received from [facility] Overall Financial Resource Strain (CARDIA) Difficulty of Paying Living Expenses: Not hard at all Food Insecurity: No Food Insecurity (04/20/2025) Received from [facility] Hunger Vital Sign Worried About Running Out of Food in the Last Year: Never true Ran Out of Food in the Last Year: Never true Transportation Needs: No Transportation Needs (04/20/2025) Received from [facility] PRAPARE - Transportation Lack of Transportation (Medical): No Lack of Transportation (Non-Medical): No Physical Activity: Insufficiently Active (04/20/2025) Received from [facility] Exercise Vital Sign Days of Exercise per Week: 3 days Minutes of Exercise per Session: 30 min Stress: No Stress Concern Present (04/20/2025) Received from [facility] [employer] - Occupational Stress Questionnaire Feeling of Stress : Not at all Social Connections: Moderately Integrated (04/20/2025) Received from [facility] Social Connection and Isolation Panel [NHANES] Frequency of Communication with Friends and Family: More than three times a week Frequency of Social Gatherings with Friends and Family: More than three times a week Attends Jewish Services: 1 to 4 times per year Active Member of Clubs or Organizations: No Marital Status: Living with partner Housing Stability: Low Risk (10/11/2022) Received from [facility] Housing Stability Vital Sign Unable to Pay for Housing in the Last Year: No Number of Places Lived in the Last Year: 1 Unstable Housing in the Last Year: No documented in this encounter [facility] 05-31-2025 Telephone encounter Note Patient notified of provider message Suzi Andino MA May 31, 2025 3:26 PM [facility] 05-31-2025 Miscellaneous Notes Patient notified of provider message Suzi Andino MA May 31, 2025 3:26 PM Ok. Could be periods but check labs next week Patient notified of results and provider's instructions. Patient verbalizes understanding. Patient has not had any black or blood stools. Patient is currently on menstrual cycle. Patient denies unusual bleeding with periods. Ynes Saleem RN Left message to call and speak with triage nurse. Her platelets are back down to her baseline, however, she is now anemic. I know has been seeing gi for recent issues. Recheck labs for anemia to make sure not iron deficient with her hx. -was just ok when we recently checked it as were her vitamin levels. Do labs next week Any recent black stools or bloody stools? Any unusual bleeding with periods.? documented in this encounter [facility] 05-31-2025 Telephone encounter Note Ok. Could be periods but check labs next week [facility] 05-31-2025 Telephone encounter Note Patient notified of results and provider's instructions. Patient verbalizes understanding. Patient has not had any black or blood stools. Patient is currently on menstrual cycle. Patient denies unusual bleeding with periods. Ynes Saleem RN [facility] 05-31-2025 Telephone encounter Note Left message to call and speak with triage nurse. [facility] 05-31-2025 Telephone encounter Note Her platelets are back down to her baseline, however, she is now anemic. I know has been seeing gi for recent issues. Recheck labs for anemia to make sure not iron deficient with her hx. -was just ok when we recently checked it as were her vitamin levels. Do labs next week Any recent black stools or bloody stools? Any unusual bleeding with periods.? [facility] 05-02-2025 Telephone encounter Note Pt called and is notified of providers results and instructions. Pt voices understanding. Ally Hennessy RN [facility] 05-02-2025 Miscellaneous Notes Pt called and is notified of providers results and instructions. Pt voices understanding. Ally Hennessy RN Left message for pt to contact office. Alcides Santiago LPN Her labs are stable, except her platelets are up higher again. They have been usually in the low 400's. Above 500 today. Again have been intermittently high for years, however, were normal a year ago. Can go up with stress on the body etc. To be on safe side recheck in one month, if not coming back down, to hematology documented in this encounter [facility] 05-01-2025 Telephone encounter Note Left message for pt to contact office. Alcides Santiago LPN [facility] 04-30-2025 Telephone encounter Note Her labs are stable, except her platelets are up higher again. They have been usually in the low 400's. Above 500 today. Again have been intermittently high for years, however, were normal a year ago. Can go up with stress on the body etc. To be on safe side recheck in one month, if not coming back down, to hematology [facility] 04-27-2025 Note HNO ID: [id number] Author: PERCY HUANG MD Service: ? Author Type: Physician Type: Progress Notes Filed: 04/27/2025 11:30 Note Text: Krista Bell is a 40-year-old female with a history of gastric ulcers, presenting for physical. HPI Gastric Ulcers: - Recent colonoscopy and EGD revealed persistent gastric ulcers and a loose suture. - Currently taking Cytotec 200 mg TID and Protonix as prescribed by Dr. Cleary. - REGISTERED NURSE NURSERY recommended adding Carafate, but Krista is already on Cytotec and Protonix. - Follow-up EGD scheduled in 12 weeks. - Considering consulting a surgeon in [place] who previously treated her for ulcers. - Denies hematochezia, melena, abdominal pain, dysphagia, or heartburn. - Reports occasional bloating. Depression: - Well-managed with Lexapro; denies side effects. - Reports some stress related to her daughter but feels okay overall. Weight Management: - Current weight is 221 lbs; has lost 20 lbs since November. - Underwent abdominoplasty last year, contributing to weight loss. - Desires to lose an additional 20 lbs but has difficulty achieving this goal. Lifestyle: - Recently purchased a house with her fiance and is in the process of selling her previous home. - Switched jobs and returned to [employer] in [place]. - Youngest child recently graduated. MEDICATIONS: Current Outpatient Medications Medication Sig miSOPROStol (CYTOTEC) 200 mcg tablet Take 200 mcg by mouth four times daily. Per Dr Cleary Drospirenone-Ethinyl Estradiol 3-0.03 mg per tablet Take 1 tablet by mouth once daily. escitalopram oxalate (LEXAPRO) 10 mg tablet Take 1 tablet by mouth once daily. pantoprazole DR (PROTONIX) 40 mg tablet Take 1 tablet by mouth once daily. valACYclovir (VALTREX) 1 gram tablet TAKE 1 TABLET BY MOUTH EVERY 12 HOURS FOR 3 DAYS NEEDED No current facility-administered medications for this visit. ALLERGIES: ALLERGIES Allergen Reactions Oxycodone Rash PAST MEDICAL HISTORY Diagnosis Date Cold sores Depression Gallstones 03/14/2011 H. 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) 05/28/2024 + HR HPV PAST SURGICAL HISTORY Procedure Laterality Date ABDOMINOPLASTY 04/03/2024 GSTRCT PRTL DSTL W/GASTRODUODENOSTOMY 03/30/2016 Gastrectomy, partial, sleeve Gastrectomy LAPS SURG CHOLECYSTECTOMY W/CHOLANGIOGRAPHY 05/21/2011 failed IOC PAST SURGICAL HISTORY OF wisdom teeth PAST SURGICAL HISTORY OF cryotherapy for abnormal pap after per pt 2001 PAST SURGICAL HISTORY OF 11/30/2023 colposcopy RPR EPIGASTRIC HERNIA REDUCIBLE SPX 03/30/2016 Hiatal hernia repair TONSILLECTOMY HX 09/15/2022 Dr Jewell [facility] [place] FAMILY HISTORY Problem Relation Age of Onset Hypertension Mother Psychiatry Mother depression Stroke Father Blood Disease Father blood clots Psychiatry Sister depression Heart Brother at about 1.5 years due to heart problems Diabetes Paternal Grandfather + Social History Tobacco Use Smoking status: Former Current packs/day: 0.00 Types: Cigarettes Quit date: 01/26/2009 Years since quittin.2 Smokeless tobacco: Never Vaping Use Vaping status: Never Used Substance Use Topics Alcohol use: Yes Comment: occasionally Drug use: No Reviewed current medications, allergies, past medical history, surgical history, family history and social history today. REVIEW OF SYSTEMS Gastrointestinal: (+) abdominal bloating, (-) abdominal pain, (-) melena, (-) hematochezia Psychiatric: (+) stress HEALTH MAINTENANCE: Reviewed health maintenance issues today and recommended the following in detail. Mammogram Screening due on 06/26/2025 LAB REVIEWED: Tests (06/26/2024) Cervical Biopsy: No abnormalities Pap smear: Low-grade squamous intraepithelial lesion Colonoscopy: No abnormalities EGD: Gastric ulcers and a loose suture, no evidence of active bleeding Colonoscopy (twice last year): No abnormalities VITALS: BP 102/72 Pulse 60 Ht 168 cm (5' 6.14) Wt 100.2 kg (221 lb) LMP 06/04/2024 (Approximate) SpO2 100% BMI 35.52 kg/m? Last 4 Encounter Wt Readings: Date: Wt: 04/27/2025 100.2 kg (221 lb) 06/26/2024 98.9 kg (218 lb) 05/28/2024 99.3 kg (219 lb) 03/24/2024 108 kg (238 lb) PHYSICAL EXAMINATION: GENERAL: NAD, alert and oriented. SKIN: Unremarkable, no rash or skin lesions. HEAD: Normocephalic. EYES: PERRLA, EOMI, conjunctiva clear. EARS: External ears normal, canals clear, TM's normal. NOSE/SINUSES: Nares normal. Septum midline. OROPHARYNX: Lips, mucosa, and tongue normal, good dentition. No oral lesions noted. NECK: Supple, no lymphadenopathy, normal thyroid, no carotid bruits. LUNGS: Clear to auscultation bilaterally, no wheezes/rhonchi/rales. HEART: Regular rate and rhythm (more content not included)... [facility] 04-27-2025 History of Present illness Narrative Krista Bell is a 40-year-old female with a history of gastric ulcers, presenting for physical. HPI Gastric Ulcers: - Recent colonoscopy and EGD revealed persistent gastric ulcers and a loose suture. - Currently taking Cytotec 200 mg TID and Protonix as prescribed by Dr. Cleary. - REGISTERED NURSE NURSERY recommended adding Carafate, but Krista is already on Cytotec and Protonix. - Follow-up EGD scheduled in 12 weeks. - Considering consulting a surgeon in [place] who previously treated her for ulcers. - Denies hematochezia, melena, abdominal pain, dysphagia, or heartburn. - Reports occasional bloating. Depression: - Well-managed with Lexapro; denies side effects. - Reports some stress related to her daughter but feels okay overall. Weight Management: - Current weight is 221 lbs; has lost 20 lbs since November. - Underwent abdominoplasty last year, contributing to weight loss. - Desires to lose an additional 20 lbs but has difficulty achieving this goal. Lifestyle: - Recently purchased a house with her fianc and is in the process of selling her previous home. - Switched jobs and returned to [employer] in [place]. - Youngest child recently graduated. MEDICATIONS: Current Outpatient Medications Medication Sig miSOPROStol (CYTOTEC) 200 mcg tablet Take 200 mcg by mouth four times daily. Per Dr Friend Drospirenone-Ethinyl Estradiol 3-0.03 mg per tablet Take 1 tablet by mouth once daily. escitalopram oxalate (LEXAPRO) 10 mg tablet Take 1 tablet by mouth once daily. pantoprazole DR (PROTONIX) 40 mg tablet Take 1 tablet by mouth once daily. valACYclovir (VALTREX) 1 gram tablet TAKE 1 TABLET BY MOUTH EVERY 12 HOURS FOR 3 DAYS NEEDED No current facility-administered medications for this visit. ALLERGIES: ALLERGIES Allergen Reactions Oxycodone Rash PAST MEDICAL HISTORY Diagnosis Date Cold sores Depression Gallstones 03/14/2011 H. 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) 05/28/2024 + HR HPV PAST SURGICAL HISTORY Procedure Laterality Date ABDOMINOPLASTY 04/03/2024 GSTRCT PRTL DSTL W/GASTRODUODENOSTOMY 03/30/2016 Gastrectomy, partial, sleeve Gastrectomy LAPS SURG CHOLECYSTECTOMY W/CHOLANGIOGRAPHY 05/21/2011 failed IOC PAST SURGICAL HISTORY OF wisdom teeth PAST SURGICAL HISTORY OF cryotherapy for abnormal pap after per pt 2001 PAST SURGICAL HISTORY OF 11/30/2023 colposcopy RPR EPIGASTRIC HERNIA REDUCIBLE SPX 03/30/2016 Hiatal hernia repair TONSILLECTOMY HX 09/15/2022 Dr Jewell [facility] [place] FAMILY HISTORY Problem Relation Age of Onset Hypertension Mother Psychiatry Mother depression Stroke Father Blood Disease Father blood clots Psychiatry Sister depression Heart Brother at about 1.5 years due to heart problems Diabetes Paternal Grandfather + Social History Tobacco Use Smoking status: Former Current packs/day: 0.00 Types: Cigarettes Quit date: 01/26/2009 Years since quittin.2 Smokeless tobacco: Never Vaping Use Vaping status: Never Used Substance Use Topics Alcohol use: Yes Comment: occasionally Drug use: No Reviewed current medications, allergies, past medical history, surgical history, family history and social history today. REVIEW OF SYSTEMS Gastrointestinal: (+) abdominal bloating, (-) abdominal pain, (-) melena, (-) hematochezia Psychiatric: (+) stress HEALTH MAINTENANCE: Reviewed health maintenance issues today and recommended the following in detail. Mammogram Screening due on 06/26/2025 LAB REVIEWED: Tests (06/26/2024) Cervical Biopsy: No abnormalities Pap smear: Low-grade squamous intraepithelial lesion Colonoscopy: No abnormalities EGD: Gastric ulcers and a loose suture, no evidence of active bleeding Colonoscopy (twice last year): No abnormalities VITALS: BP 102/72 Pulse 60 Ht 168 cm (5' 6.14) Wt 100.2 kg (221 lb) LMP 06/04/2024 (Approximate) SpO2 100% BMI 35.52 kg/m Last 4 Encounter Wt Readings: Date: Wt: 04/27/2025 100.2 kg (221 lb) 06/26/2024 98.9 kg (218 lb) 05/28/2024 99.3 kg (219 lb) 03/24/2024 108 kg (238 lb) PHYSICAL EXAMINATION: GENERAL: NAD, alert and oriented. SKIN: Unremarkable, no rash or skin lesions. HEAD: Normocephalic. EYES: PERRLA, EOMI, conjunctiva clear. EARS: External ears normal, canals clear, TM's normal. NOSE/SINUSES: Nares normal. Septum midline. OROPHARYNX: Lips, mucosa, and tongue normal, good dentition. No oral lesions noted. NECK: Supple, no lymphadenopathy, normal thyroid, no carotid bruits. LUNGS: Clear to auscultation bilaterally, no wheezes/rhonchi/rales. HEART: Regular rate and rhythm, no murmurs. No ectopy. EXTREMITIES: Normal, no deformities, no skin discoloration, no edema. NEURO: Awake, alert and oriented x3, cranial nerves II-XII grossly intact, normal gait, no involuntary motions. ASSESSMENT AND PLAN 1. Well adult exam (Z00.00) - No significant issues reported; vital signs stable with BP 102/72 mmHg and weight 221 lbs. - Physical examination unremarkable. - Follow-up in 6 months. 2. Encounter for screening examination for other mental health and behavioral disorders (Z13.39) - No new mental health or behavioral concerns identified during the visit. 3. Encounter for screening mammogram for breast cancer (Z12.31) - Ordered screening mammogram. 4. Depression, unspecified depression type (F32.A) 5. Anxiety (F41.9) - Stable on escitalopram; no side effects reported. - Continue current medication regimen. 6. Gastroesophageal reflux disease without esophagitis (K21.9) - Managed with Protonix. - No current symptoms of heartburn or dysphagia. 7. Thrombocytosis (D75.839) - Follow labs. 8. Class 2 obesity with body mass index (BMI) of 35.0 to 35.9 in adult, unspecified obesity type, unspecified whether serious comorbidity present (E66.812) - Current weight 221 lbs; BMI within Class 2 obesity range. - Discussed challenges of weight loss and potential risks of GLP-1 medications given history of gastric issues. - Encouraged continued efforts in weight management. 9. Screening for lipid disorders (Z13.220) - Ordered lipid panel. 10. Intestinal malabsorption, unspecified type (HCC) (K90.9) - Recent EGD revealed stomach ulcers and a loose suture. - Currently on Cytotec 200 mg TID and Protonix. - Ordered CBC, iron studies, B12, folate, B1, vitamin D, magnesium, CMP to assess for potential malabsorption issues. - Follow-up EGD scheduled in [address] Cleary. 11. Hx of bariatric surgery (Z98.84) - As above. 12. Low grade squamous intraepithelial lesion on cytologic smear of cervix (LGSIL) (R87.612) - Recent cervical biopsy on 06/26/2024 showed LGSIL. - Follow-up with [facility] ongoing. 13. Screening for diabetes mellitus (Z13.1) - Ordered A1c test. (See patient after visit summary for additional instructions to patient) Percy Huang MD Recording using [employer] software for draft documentation of the visit was discussed with the patient/authorized product sales representative; all questions welcomed and answered. Patient/authorized product sales representative agreed to proceed documented in this encounter [facility] 04-27-2025 Instructions Percy Huang MD - 04/27/2025 9:48 AM EDT - Continue your current dose of Protonix as prescribed. - cont inue Cytotec 200 mg by mouth three times daily. - Refills have been provided for Lexapro; continue taking it as before. - Schedule a fasting blood draw for: Complete blood count (CBC) Comprehensive metabolic panel (CMP) Magnesium Vitamin B12, folate, and vitamin B1 Iron Vitamin D Lipid panel Hemoglobin A1c - Arrange a repeat upper endoscopy (EGD) in 12 weeks to reassess your stomach ulcers and loose suture. - Monitor for any worsening stomach pain, black or bloody stools, or new gastrointestinal symptoms and contact Dr. Cleary immediately if they occur. - If you have difficulty scheduling with Dr. Cleary s office, please let us know so we can assist. - Return for routine follow-up in 6 months to review your lab results and overall health status. documented in this encounter [facility] 04-05-2025 Note [facility] Medical Records Department [address] [place] [address] History Physical Exam 04/05/25 0655 MR#: [id number] Acct: [id number] Name: KRISTA BELL Rep #: [id number] : 1985 39 From: Prabhu Cleary DO PCP: Dr. Percy Huang MD Status:REG [facility] [place] Location: [place] [address] HPI - General General Date of Admission: 04/05/25 Date of Service: 04/05/25 Chief Complaint: Abdominal pain HPI Narrative KRISTA BELL, is a 39 F who presents with abd discomfort and bloating 39y/o female presents for consultation of abdominal pain. CBC, CMP and Fe panel were unremarkable March 2024. CBC: 03/25/2024 unremarkable - she reports symptoms date back to high school - was on Imodium often for diarrhea - CCX - diarrhea after dining out - reports she had H. Pylori prior to gastric sleeve - Gastric Sleeve - alternating constipation and diarrhea ----- later had conversion to bypass 2019 - then a gastric ulcer 2020 - total weight loss 100lbs - she reports she does not take her vitamins as recommended - she is still having alternating constipation and diarrhea - episodes of fecal incontinence - c/o bloating - c/o flatulence - constipation - can be a few days w/o a BM then will have hard balls of stool - having episodes diarrhea - urgency, incontinence - sx's worse in the past couple years - denies any bleeding - denies any new medications - gas and flatulence - foul odor - 2 episodes in the past week of vomiting secondary to dysphagia - reports experiencing dysphagia more with pasta - has trouble swallowing capsules - does not feel good after eating ground beef B: protein shake L: salad or left overs D: protein (mainly chicken) [facility] Medical History Wears contact lenses Wears glasses History of ulceration History of IBS Former smoker Bloating Abdominal distention Depression Anemia Abdominal pain Stomach ulcer Home Medications ???Medication ???Instructions ???Recorded ???Last Taken ???Type escitalopram oxalate 10 mg tablet 10 mg PO DAILY 12/03/20 04/04/25 History drospirenone 3 mg-ethinyl 1 tab PO QDAY 10/03/24 04/04/25 Hi story estradiol 0.03 mg tablet (Ocella) pantoprazole 40 mg tablet,delayed 40 mg PO QDAY 10/03/24 04/04/25 H istory release Allergy/AdvReac Type Severity Reaction Status Date / Time oxycodone (From OxyContin) Allergy Rash Verified 04/05/25 05:47 Surgical History History of esophagogastroduodenoscopy (EGD) History of tonsillectomy History of partial knee replacement History of abdominoplasty History of cholecystectomy H/O gastric bypass Social History Smoking Status: Former smoker ROS Constitutional Constitutional: Denies fatigue, fever(s), poor appetite, weight gain or weight loss Gastrointestinal Gastrointestinal: Denies belching, bloating, change in bowel habits, change in stool character, chewing difficulty, coffee ground emesis, constipation, cramping, diarrhea, dyspepsia, dysphagia, early satiety, excessive flatus, fecal incontinence, heartburn, hematemesis, hematochezia, hemorrhoids, loose stools, melena, nausea, odynophagia, rectal bleeding, tenesmus, vomiting or weight changes Vital Signs Vital Signs Vital Signs: 04/05/25 05:56 04/05/25 05:59 04/05/25 06:44 Temperature 97.3 F L 97.3 F L Temperature Source Temporal Pulse Rate 59 L 59 L Respiratory Rate 16 16 Respiratory Pattern Normal Blood Pressure 112/52 L 112/52 L Blood Pressure Mean 72 Blood Pressure Source Monitor Blood Pressure Position Semi-Fowlers Blood Pressure Location Left Arm Pulse Ox 100 100 Oxygen Delivery Method Room Air Weight Weight: 220 lb Body Mass Index (BMI) 35.5 Physical Exam Const alert, oriented x3, no apparent distress and healthy appearing General Appearance: cooperative GI normal to inspection, nondistended, normoactive bowel sounds, soft to palpation, non-tender and non- distended Percussion: normal to percussion Rectal Exam: deferred Results Lab / Micro Data Labs: Laboratory Results - last 24 hr 04/05/25 05:42: Urine Test Negative Assessment Plan Assessment/Plan (1) Dysphagia: QUALIFIERS: Dysphagia type: esophageal phase Qualified Code(s): R13.19 - Other dysphagia (2) Mixed irritable bowel syndrome: (3) GERD (gastroesophageal reflux disease): QUALIFIERS: Esophagitis presence: esophagitis presence not specified Qualified Code(s): K21.9 - Gastro-esophageal reflux disease without esophagitis (4) Bloating: (5) Flatulence: PLAN: Assessment and Plan Assessment and Plan (1) Abdominal symptoms: (2) B (more content not included)... [facility] 02-20-2025 Telephone encounter Note Patient is aware and using [facility]. [facility] 02-20-2025 Miscellaneous Notes Patient is aware and using [facility]. Please make sure she is aware Images from the original note were not included. Electronic PA completed for pantoprazole 40mg. This was denied. Note from payer: Document: Decision Notes: Our prior authorization criteria for Proton Pump Inhibitors (PPIs) have not been met. From the records that we have received, PANTOPRAZOLE was denied for these reasons: 1) This drug is not being used for severe esophagitis, Payne?s esophagus, idiopathic chronic ulcer, refractory gastroesophageal reflux disease, pathologic hypersecretory conditions (such as Cortney-Herman syndrome), or history of gastrointestinal ulcer with bleeding. These are all health issues that cause increased stomach acid. Since the criteria have not been met, we are not able to approve. Please look at our list of covered drugs, also known as the formulary, to see what is covered. ADDITIONAL INFORMATION FOR YOUR HEALTH CARE PROVIDER: This request has not been approved because our prior authorization criteria for Proton Pump Inhibitors (PPIs) have not been met. From the information we have received, the member does not meet number(s) 1 of our prior authorization criteria for PANTOPRAZOLE. The reason for denial is explained to the member above. The criteria are listed here. 1) Member has a diagnosis of severe esophagitis, Payne?s esophagus, idiopathic chronic ulcer, refractory gastroesophageal reflux disease, pathologic hypersecretory conditions (e.g, Cortney-Herman syndrome), or history of gastrointestinal ulcer with bleeding. Since criteria have not been met, we are unable to approve coverage for this drug at this time. Please refer to our formulary for information on what is covered. Prior authorization may be required, and quantity limits may apply to covered drugs. Payer: Syed [phone] Electronic appeal: Not supported View History Pharmacy Benefits Open Encounter KRISTA BELL - (SYDE) Covered: Retail, Mail Order Unknown: Specialty, Long-Term Care BIN: [id number] : 1985 Group ID: [id number] PCN: [id number] Legal sex: F Group name: [facility] Address: [address] [place] [id number] Medication Being Authorized pantoprazole DR (PROTONIX) 40 mg tablet Take 1 tablet by mouth once daily. Dispense: 30 tablet Refills: 2 Start: 02/18/2025 End: 05/19/2025 Class: Normal Diagnoses: Gastroesophageal reflux disease without esophagitis This order has been released to its destination. To be filled at: [facility] #[id number] - [place] [address] - [address] - [phone] & [place] [address] Pt can check with the pharmacy to see if there is a goodrx they can apply to the prescriptions since she doesn't meet the criteria for approval. documented in this encounter [facility] 02-20-2025 Telephone encounter Note Please make sure she is aware [facility] 02-20-2025 Telephone encounter Note Images from the original note were not included. Electronic PA completed for pantoprazole 40mg. This was denied. Note from payer: Document: Decision Notes: Our prior authorization criteria for Proton Pump Inhibitors (PPIs) have not been met. From the records that we have received, PANTOPRAZOLE was denied for these reasons: 1) This drug is not being used for severe esophagitis, Payne?s esophagus, idiopathic chronic ulcer, refractory gastroesophageal reflux disease, pathologic hypersecretory conditions (such as Cortney-Herman syndrome), or history of gastrointestinal ulcer with bleeding. These are all health issues that cause increased stomach acid. Since the criteria have not been met, we are not able to approve. Please look at our list of covered drugs, also known as the formulary, to see what is covered. ADDITIONAL INFORMATION FOR YOUR HEALTH CARE PROVIDER: This request has not been approved because our prior authorization criteria for Proton Pump Inhibitors (PPIs) have not been met. From the information we have received, the member does not meet number(s) 1 of our prior authorization criteria for PANTOPRAZOLE. The reason for denial is explained to the member above. The criteria are listed here. 1) Member has a diagnosis of severe esophagitis, Payne?s esophagus, idiopathic chronic ulcer, refractory gastroesophageal reflux disease, pathologic hypersecretory conditions (e.g, Cortney-Herman syndrome), or history of gastrointestinal ulcer with bleeding. Since criteria have not been met, we are unable to approve coverage for this drug at this time. Please refer to our formulary for information on what is covered. Prior authorization may be required, and quantity limits may apply to covered drugs. Payer: Syed [phone] Electronic appeal: Not supported View History Pharmacy Benefits Open Encounter KRISTA BELL - (SYED) Covered: Retail, Mail Order Unknown: Specialty, Long-Term Care BIN: [id number] : 1985 Group ID: [id number] PCN: [id number] Legal sex: F Group name: [facility] Address: [address] [place] [id number] Medication Being Authorized pantoprazole DR (PROTONIX) 40 mg tablet Take 1 tablet by mouth once daily. Dispense: 30 tablet Refills: 2 Start: 02/18/2025 End: 05/19/2025 Class: Normal Diagnoses: Gastroesophageal reflux disease without esophagitis This order has been released to its destination. To be filled at: [facility] #[id number] - [place] [address] - [address] - [phone] [address] & [place] [address] [place] [id number] Pt can check with the pharmacy to see if there is a goodrx they can apply to the prescriptions since she doesn't meet the criteria for approval. [facility] 02-18-2025 Telephone encounter Note Prescription Refill Information The patient has been identified by name and date of : Yes Caregiver verified no other encounters exist for this prescription request: Yes Caregiver confirmed with patient/requestor that no other refills are due, in the near future, with this provider at this time: Yes The last office visit in the department: 03/24/24 Does the patient have a future office visit with this provider/department: No - pt sent Needl message notifying her she's coming up due for a Wellness visit. Requested Prescriptions Pending Prescriptions Disp Refills pantoprazole DR (PROTONIX) 40 mg tablet 30 tablet 5 Sig: Take 1 tablet by mouth once daily. Shelby Mccracken MA February 18, 2025 12:52 PM [facility] 02-18-2025 Miscellaneous Notes Prescription Refill Information The patient has been identified by name and date of : Yes Caregiver verified no other encounters exist for this prescription request: Yes Caregiver confirmed with patient/requestor that no other refills are due, in the near future, with this provider at this time: Yes The last office visit in the department: 03/24/24 Does the patient have a future office visit with this provider/department: No - pt sent Needl message notifying her she's coming up due for a Wellness visit. Requested Prescriptions Pending Prescriptions Disp Refills pantoprazole DR (PROTONIX) 40 mg tablet 30 tablet 5 Sig: Take 1 tablet by mouth once daily. Shelby Mccracken MA February 18, 2025 12:52 PM documented in this encounter [facility] 02-05-2025 Telephone encounter Note Appt cancelled. Pt aware. See triage encounter 02/05/25. Ivana Hickman RN [facility] 02-05-2025 Miscellaneous Notes Appt cancelled. Pt aware. See triage encounter 02/05/25. Ivana Hickman RN documented in this encounter [facility] 02-05-2025 Telephone encounter Note Per communication with Dr. Huang, ER advised due to concern for abscess. Pt informed and agreeable. She is not sure which ER she will go to but states she will go. Ivana Hickman RN [facility] 02-05-2025 Miscellaneous Notes Per communication with Dr. Huang, ER advised due to concern for abscess. Pt informed and agreeable. She is not sure which ER she will go to but states she will go. Ivana Hickman RN Triage Protocol Advised: PCP to advise/see PCP within 4 hours. Pt wishes to see Dr. Huang. Declines EC this afternoon. Pt's original appt that was made for 02/07 has been moved to tomorrow afternoon per pt request. Pt aware to proceed to ER for red flag sx's as discussed. Please call patient if ER advised by Dr. Huang. Reason for Disposition [1] Puncture wound or small cut AND [2] weak immune system (e.g., HIV positive, cancer chemo, splenectomy, organ transplant, chronic steroids) Answer Assessment - Initial Assessment Questions Pt contacted for further triage of MC message received regarding dog bite. Pt states her dog bit her on 01/28/25, over a week ago. Reports 4 puncture wounds to left lateral thigh. Bruising present. Scabbing present. No current drainage or bleeding. Reports she took 3 days of Augmentin that she had at her home but may need additional treatment. Sharp pains at times at area, when she sits. Reports she can feel areas of hardness. One swollen area has a swollen lump in the center. Denies fever/sweats/chills. History includes thrombocytosis, left partial knee replacement in 2020. 1. ANIMAL: her own dog 2. LOCATION: left lateral thigh 3. SIZE: total sizes of areas togather-size of palm of hand 4. ONSET:01/28/25 5. CIRCUMSTANCES: (not discussed) 6. TETANUS: Pt is up to date 7. RABIES VACCINE:pet is vaccinated against rabies Protocols used: Animal [id number] documented in this encounter [facility] 02-05-2025 Telephone encounter Note Triage Protocol Advised: PCP to advise/see PCP within 4 hours. Pt wishes to see Dr. Huang. Declines EC this afternoon. Pt's original appt that was made for 02/07 has been moved to tomorrow afternoon per pt request. Pt aware to proceed to ER for red flag sx's as discussed. Please call patient if ER advised by Dr. Huang. Reason for Disposition [1] Puncture wound or small cut AND [2] weak immune system (e.g., HIV positive, cancer chemo, splenectomy, organ transplant, chronic steroids) Answer Assessment - Initial Assessment Questions Pt contacted for further triage of MC message received regarding dog bite. Pt states her dog bit her on 01/28/25, over a week ago. Reports 4 puncture wounds to left lateral thigh. Bruising present. Scabbing present. No current drainage or bleeding. Reports she took 3 days of Augmentin that she had at her home but may need additional treatment. Sharp pains at times at area, when she sits. Reports she can feel areas of hardness. One swollen area has a swollen lump in the center. Denies fever/sweats/chills. History includes thrombocytosis, left partial knee replacement in 2020. 1. ANIMAL: her own dog 2. LOCATION: left lateral thigh 3. SIZE: total sizes of areas togather-size of palm of hand 4. ONSET:01/28/25 5. CIRCUMSTANCES: (not discussed) 6. TETANUS: Pt is up to date 7. RABIES VACCINE:pet is vaccinated against rabies Protocols used: Animal [id number] [facility] 09-24-2024 Telephone encounter Note 06.26.24 colpo appt Requested Prescriptions Pending Prescriptions Disp Refills Drospirenone-Ethinyl Estradiol 3-0.03 mg per tablet 84 tablet 3 Sig: Take 1 tablet by mouth once daily. Thank you, Mackenzie Orozco, ANGELA [facility] 09-24-2024 Miscellaneous Notes 06.26.24 colpo appt Requested Prescriptions Pending Prescriptions Disp Refills Drospirenone-Ethinyl Estradiol 3-0.03 mg per tablet 84 tablet 3 Sig: Take 1 tablet by mouth once daily. Thank you, Mackenzie Orozco, RN documented in this encounter [facility] 09-20-2024 Telephone encounter Note Consult placed. Please route to Dr. cleary [facility] 09-20-2024 Miscellaneous Notes Consult placed. Please route to Dr. cleary documented in this encounter [facility] 07-31-2024 Telephone encounter Note Prescription Refill Information The patient has been identified by name and date of : Yes Caregiver verified no other encounters exist for this prescription request: Yes Caregiver confirmed with patient/requestor that no other refills are due, in the near future, with this provider at this time: Yes The last office visit in the department: 03/24/24 Does the patient have a future office visit with this provider/department: No Requested Prescriptions Pending Prescriptions Disp Refills valACYclovir (VALTREX) 1 gram tablet 6 tablet 5 Sig: TAKE 1 TABLET BY MOUTH EVERY 12 HOURS FOR 3 DAYS NEEDED escitalopram oxalate (LEXAPRO) 10 mg tablet 30 tablet 5 Sig: Take 1 tablet by mouth once daily. Eris Nina LPN July 31, 2024 10:14 AM [facility] 07-31-2024 Miscellaneous Notes Prescription Refill Information The patient has been identified by name and date of : Yes Caregiver verified no other encounters exist for this prescription request: Yes Caregiver confirmed with patient/requestor that no other refills are due, in the near future, with this provider at this time: Yes The last office visit in the department: 03/24/24 Does the patient have a future office visit with this provider/department: No Requested Prescriptions Pending Prescriptions Disp Refills valACYclovir (VALTREX) 1 gram tablet 6 tablet 5 Sig: TAKE 1 TABLET BY MOUTH EVERY 12 HOURS FOR 3 DAYS NEEDED escitalopram oxalate (LEXAPRO) 10 mg tablet 30 tablet 5 Sig: Take 1 tablet by mouth once daily. Eris Nina LPN July 31, 2024 10:14 AM documented in this encounter [facility] 07-31-2024 Telephone encounter Note Prescription Refill Information The patient has been identified by name and date of : Yes Caregiver verified no other encounters exist for this prescription request: Yes Caregiver confirmed with patient/requestor that no other refills are due, in the near future, with this provider at this time: Yes The last office visit in the department: 03/24/24 Does the patient have a future office visit with this provider/department: No Requested Prescriptions Pending Prescriptions Disp Refills pantoprazole DR (PROTONIX) 40 mg tablet 30 tablet 5 Sig: Take 1 tablet by mouth once daily. Eris Nina LPN July 31, 2024 10:13 AM [facility] 07-31-2024 Miscellaneous Notes Prescription Refill Information The patient has been identified by name and date of : Yes Caregiver verified no other encounters exist for this prescription request: Yes Caregiver confirmed with patient/requestor that no other refills are due, in the near future, with this provider at this time: Yes The last office visit in the department: 03/24/24 Does the patient have a future office visit with this provider/department: No Requested Prescriptions Pending Prescriptions Disp Refills pantoprazole DR (PROTONIX) 40 mg tablet 30 tablet 5 Sig: Take 1 tablet by mouth once daily. Eris Nina LPN July 31, 2024 10:13 AM documented in this encounter [facility] 07-05-2024 Telephone encounter Note Aware of results and recommendations. Enc to call in February for appt due 05.28.25 Diane Pruitt RN Negative biopsies. Repeat pap in 1 year. Due 05.28.25 Fred Gonzales, [facility] 07-05-2024 Miscellaneous Notes Aware of results and recommendations. Enc to call in February for appt due 05.28.25 Diane Pruitt RN Negative biopsies. Repeat pap in 1 year. Due 05.28.25 Fred Gonzales, documented in this encounter [facility] 06-26-2024 Note Formatting of this n ote might be different from the original. June 26, 2024 PID: [id number] Krista Bell [address] [place] [address] Dear Ms. Bell, We are pleased to inform you that the results of your recent breast imaging exam on 06/26/2024 are normal. Breast tissue can be either dense or not dense. Dense tissue makes it harder to find breast cancer on a mammogram and also raises the risk of developing breast cancer. Your breast tissue is not dense. Talk to your healthcare provider about breast density, risks for breast cancer, and your individual situation. Early detection of cancer is very important. We also understand recommendations regarding breast cancer screening are controversial. Please discuss with your primary care provider which strategy is best for you and whether a mammogram is right for you. Your imaging studies and report will be kept on file at [facility] as part of your permanent medical record and are available for your continuing care. Thank you for allowing us to help in meeting your health care needs. Sincerely, Dr. Joseph Interpreting Radiologist Glory Caputo, [facility] Breast Imaging (Normal over 40) [facility] 06-26-2024 Miscellaneous Notes June 26, 2024 PID: [id number] Krista Bell [address] [place] [address] Dear Ms. Bell, We are pleased to inform you that the results of your recent breast imaging exam on 06/26/2024 are normal. Breast tissue can be either dense or not dense. Dense tissue makes it harder to find breast cancer on a mammogram and also raises the risk of developing breast cancer. Your breast tissue is not dense. Talk to your healthcare provider about breast density, risks for breast cancer, and your individual situation. Early detection of cancer is very important. We also understand recommendations regarding breast cancer screening are controversial. Please discuss with your primary care provider which strategy is best for you and whether a mammogram is right for you. Your imaging studies and report will be kept on file at [facility] as part of your permanent medical record and are available for your continuing care. Thank you for allowing us to help in meeting your health care needs. Sincerely, Dr. Joseph Interpreting Radiologist Glory Caputo, [facility] Breast Imaging (Normal over 40) documented in this encounter [facility] 06-26-2024 History of Present illness Narrative Radiology Service Progress Note PATIENT NAME: Krista Bell DATE OF SERVICE: June 26, 2024 TIME: 1:27 PM PATIENT IDENTITY VERIFICATION COMPLETED USING TWO (2) IDENTIFIERS: Name and Date of confirmed by patient verbally. FALL SCREENING: Has the patient had 2 falls in the last year or 1 fall with injury or currently using an Ambulatory Assistive Device (Walker, Cane, Wheelchair, Crutches, etc.)? No PATIENT GENDER DATA: Female. status: : No status: NO. PATIENT RELEVANT IMPLANT DATA REVIEWED: Not Applicable PATIENT PRESENTS WITH AN IMPLANTABLE OR ATTACHED ENVIRONMENTAL CONSERVATION PROFESSOR: No RADIOLOGY DEPARTMENT: Mammography PERIPHERAL IV DATA: Not applicable SIGNED BY: RT Altagracia(Flavio) June 26, 2024 1:27 PM documented in this encounter [facility] 06-26-2024 Note HNO ID: [id number] Author: ANU JENNINGS RT(R) Service: Radiology Author Type: Technologist Type: Progress Notes Filed: 06/26/2024 13:27 Note Text: Radiology Service Progress Note PATIENT NAME: Krista Bell DATE OF SERVICE: June 26, 2024 TIME: 1:27 PM PATIENT IDENTITY VERIFICATION COMPLETED USING TWO (2) IDENTIFIERS: Name and Date of confirmed by patient verbally. FALL SCREENING: Has the patient had 2 falls in the last year or 1 fall with injury or currently using an Ambulatory Assistive Device (Walker, Cane, Wheelchair, Crutches, etc.)? No PATIENT GENDER DATA: Female. status: : No status: NO. 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 Informed Consent Consent Obtained: Written [place] Protocol A moment to CARE was completed. SIGN IN Personnel directly involved with the procedure wore the appropriate PPE. Patient/Surrogate Stated/Verified: Patient name, Date of , Relevant allergies and Intended procedure TIME OUT Intended patient and procedure match the source document(s). Consent documented and matches the intended procedure. Relevant labs, photos, and/or imaging studies have been reviewed. Correct side/site marked and visible. Medications required for procedure verified. Fire risk assessed and interventions discussed. Pre-Procedure Details: Pre-meds: None Local anesthetic: Benzocaine spray Procedure Details: Procedure: Colposcopy of Cervix including upper/adjacent vagina with biopsy of cervix and ECC [place] speculum was placed in the vagina. Acetic acid placed on cervix. Under colposcopic examination the transition zone was seen in entirety. Biopsy done. (if location image was completed, see below) Location: 3 o'clock and 10 o'clock Specimen sent to pathology. ECC done. Monsel's solution was applied. Post-Procedure Details: Findings: White epithelium Patient tolerated the procedure well with no immediate complications. Follow-Up: will call patient with results SIGN OUT All specimen containers correctly labeled. All instruments, equipment, possible retained foreign bodies accounted for. Post-procedure follow-up management communicated and Plan of Care Visit completed when applicable [facility] 06-26-2024 Note HNO ID: [id number] Author: FRED GONZALES DO Service: ? 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 Informed Consent Consent Obtained: Written [place] Protocol A moment to CARE was completed. SIGN IN Personnel directly involved with the procedure wore the appropriate PPE. Patient/Surrogate Stated/Verified: Patient name, Date of , Relevant allergies and Intended procedure TIME OUT Intended patient and procedure match the source document(s). Consent documented and matches the intended procedure. Relevant labs, photos, and/or imaging studies have been reviewed. Correct side/site marked and visible. Medications required for procedure verified. Fire risk assessed and interventions discussed. Pre-Procedure Details: Pre-meds: None Local anesthetic: Benzocaine spray Procedure Details: Procedure: Colposcopy of Cervix including upper/adjacent vagina with biopsy of cervix and ECC [place] speculum was placed in the vagina. Acetic acid placed on cervix. Under colposcopic examination the transition zone was seen in entirety. Biopsy done. (if location image was completed, see below) Location: 3 o'clock and 10 o'clock Specimen sent to pathology. ECC done. Monsel's solution was applied. Post-Procedure Details: Findings: White epithelium Patient tolerated the procedure well with no immediate complications. Follow-Up: will call patient with results SIGN OUT All specimen containers correctly labeled. All instruments, equipment, possible retained foreign bodies accounted for. 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 Informed Consent Consent Obtained: Written [place] Protocol A moment to CARE was completed. SIGN IN Personnel directly involved with the procedure wore the appropriate PPE. Patient/Surrogate Stated/Verified: Patient name, Date of , Relevant allergies and Intended procedure TIME OUT Intended patient and procedure match the source document(s). Consent documented and matches the intended procedure. Relevant labs, photos, and/or imaging studies have been reviewed. Correct side/site marked and visible. Medications required for procedure verified. Fire risk assessed and interventions discussed. Pre-Procedure Details: Pre-meds: None Local anesthetic: Benzocaine spray Procedure Details: Procedure: Colposcopy of Cervix including upper/adjacent vagina with biopsy of cervix and ECC [place] speculum was placed in the vagina. Acetic acid placed on cervix. Under colposcopic examination the transition zone was seen in entirety. Biopsy done. (if location image was completed, see below) Location: 3 o'clock and 10 o'clock Specimen sent to pathology. ECC done. Monsel's solution was applied. Post-Procedure Details: Findings: White epithelium Patient tolerated the procedure well with no immediate complications. Follow-Up: will call patient with results SIGN OUT All specimen containers correctly labeled. All instruments, equipment, possible retained foreign bodies accounted for. Post-procedure follow-up management communicated and Plan of Care Visit completed when applicable Fred Goznales DO [facility] 06-26-2024 Procedure note Associated Ord er(s): COLPOSCOPY Post-Procedure Diagnose(s): High risk HPV infection; LGSIL on Pap smear of cervix COLPOSCOPY PROCEDURE Date/Time: 06/26/2024 11:04 AM Performed by: Fred Gonzales DO Authorized by: Fred Gonzales DO Indication: LSIL and HPV + Diagnosis: (R87.612) LGSIL on Pap smear of cervix (primary encounter diagnosis) (B97.7) High risk HPV infection Patient's last menstrual period was 06/04/2024 (approximate). Informed Consent Consent Obtained: Written [place] Protocol A moment to CARE was completed. SIGN IN Personnel directly involved with the procedure wore the appropriate PPE. Patient/Surrogate Stated/Verified: Patient name, Date of , Relevant allergies and Intended procedure TIME OUT Intended patient and procedure match the source document(s). Consent documented and matches the intended procedure. Relevant labs, photos, and/or imaging studies have been reviewed. Correct side/site marked and visible. Medications required for procedure verified. Fire risk assessed and interventions discussed. Pre-Procedure Details: Pre-meds: None Local anesthetic: Benzocaine spray Procedure Details: Procedure: Colposcopy of Cervix including upper/adjacent vagina with biopsy of cervix and ECC [place] speculum was placed in the vagina. Acetic acid placed on cervix. Under colposcopic examination the transition zone was seen in entirety. Biopsy done. (if location image was completed, see below) Location: 3 o'clock and 10 o'clock Specimen sent to pathology. ECC done. Monsel's solution was applied. Post-Procedure Details: Findings: White epithelium Patient tolerated the procedure well with no immediate complications. Follow-Up: will call patient with results SIGN OUT All specimen containers correctly labeled. All instruments, equipment, possible retained foreign bodies accounted for. Post-procedure follow-up management communicated and Plan of Care Visit completed when applicable Fred Gonzales DO documented in this encounter [facility] 05-31-2024 Telephone encounter Note Called back and colpo sched. Instructions given as follows. Diane Pruitt RN RN explained Colposcopy is an in-office procedure used after abnormal or inconclusive pap smears that allows us to look more closely at the cervix using a colposcope. Vinegar is placed on the cervix which highlights any abnormal areas. If any abnormal areas are seen, biopsies are taken and sent to pathology for further grading. We do recommend that you take 600-800 mg of Motrin or 2 Tylenol about 30 min prior to the procedure and nothing in vagina for 1 wk after the procedure. Note that if you are child bearing age, a urine will be obtained to make sure you are not . [facility] 05-31-2024 Miscellaneous Notes Called back and colpo sched. Instructions given as follows. Diane Pruitt RN RN explained Colposcopy is an in-office procedure used after abnormal or inconclusive pap smears that allows us to look more closely at the cervix using a colposcope. Vinegar is placed on the cervix which highlights any abnormal areas. If any abnormal areas are seen, biopsies are taken and sent to pathology for further grading. We do recommend that you take 600-800 mg of Motrin or 2 Tylenol about 30 min prior to the procedure and nothing in vagina for 1 wk after the procedure. Note that if you are child bearing age, a urine will be obtained to make sure you are not . [facility] for results and recommendations. MC sent. Diane Pruitt RN HPV other LGSIL pap please schedule colpo Shakira Mathews, FOREX TRADER.GRID TRIMMER documented in this encounter [facility] 05-31-2024 Telephone encounter Note [facility] for results and recommendations. MC sent. Diane Pruitt RN HPV other LGSIL pap please schedule colpo Shakira Nataliia Mathews, FOREX TRADER.GRID TRIMMER [facility] 05-28-2024 History of Present illness Narrative Krista Bell is a 39 year old female who presents with a chief complaint of Follow Up (repap) SUBJECTIVE Pt presents for rpt pap. Prior LGSIL, s/p colpo PAST MEDICAL HISTORY Diagnosis Date Cold sores Depression Gallstones 03/14/2011 H. 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/2023 + HR HPV PAST SURGICAL HISTORY Procedure Laterality Date ABDOMINOPLASTY 04/03/2024 GSTRCT PRTL DSTL W/GASTRODUODENOSTOMY 03/30/2016 Gastrectomy, partial, sleeve Gastrectomy LAPS SURG CHOLECYSTECTOMY W/CHOLANGIOGRAPHY 05/21/2011 failed IOC PAST SURGICAL HISTORY OF wisdom teeth PAST SURGICAL HISTORY OF cryotherapy for abnormal pap after per pt 2001 PAST SURGICAL HISTORY OF 11/30/2023 colposcopy RPR EPIGASTRIC HERNIA REDUCIBLE SPX 03/30/2016 Hiatal hernia repair TONSILLECTOMY HX 09/15/2022 Dr Jewell [facility] [place] Social History Tobacco Use Smoking status: Former Types: Cigarettes Quit date: 01/26/2009 Years since quittin.3 Smokeless tobacco: Never Vaping Use Vaping Use: Never used Substance Use Topics Alcohol use: Yes Comment: occasionally Drug use: No FAMILY HISTORY Problem Relation Age of Onset Hypertension Mother Psychiatry Mother depression Stroke Father Blood Disease Father blood clots Psychiatry Sister depression Heart Brother at about 1.5 years due to heart problems Diabetes Paternal Grandfather + OB History T0 L0 SAB0 IAB0 Ectopic0 Multiple0 Live Births0 OBJECTIVE ALLERGIES Allergen Reactions Oxycodone Rash Current Outpatient Medications Medication Sig Drospirenone-Ethinyl Estradiol 3-0.03 mg per tablet Take 1 tablet by mouth once daily. Lactobacillus acidophilus (PROBIOTIC ORAL) Take by mouth. thiamine HCl (VITAMIN B-1 ORAL) Take by mouth. escitalopram oxalate (LEXAPRO) 10 mg tablet Take 1 tablet by mouth once daily. pantoprazole DR (PROTONIX) 40 mg tablet Take 1 tablet by mouth once daily. valACYclovir (VALTREX) 1 gram tablet TAKE 1 TABLET BY MOUTH EVERY 12 HOURS FOR 3 DAYS NEEDED Multivitamin capsule Take 1 capsule by mouth every morning. Cholecalciferol, Vitamin D3, 125 mcg (5,000 unit) cap Take 5,000 Units by mouth. No current facility-administered medications for this visit. Review of Systems Constitutional: Denies weight loss, weight gain, fever Eyes: Negative vision changes ENT/Mouth: No ulcers, sinusitis, tinnitus Cardiovascular: Denies DARNELL, Edema, palpitations, chest pain Respiratory: Denies wheezing, hemoptysis, SOB, cough Gastrointestinal: Denies diarrhea, bloody stool, constipation Genitourinary: See HPI Musculoskeletal: Denies muscle weakness Skin/breast: Denies discharge, masses, rash, ulcers Neurological: Denies syncope, seizures, numbness Physical Exam BP 102/67 Ht 5' 6 (1.68m) Wt 219 lb (99.3kg) LMP 05/09/2024 BMI 35.36 kg/(m^2). General: No Acute Distress, Well nourished, Well developed, No obvious deformities, and Alert/Oriented x 3 Mood/Affect: Normal HEENT: Normocephalic, Atraumatic, and Grossly Within Normal Limits CV: RRR and No murmurs Pulmonary: Clear to auscultation and Equal breath sounds WAITRESS: Vulva - no lesions, skin intact with no discolorations, Vagina - no lesions, no discharge, normal color, Bartholin glands - no enlargement, no tenderness, Cervix - no lesions, not friable, no CMT, and Adnexa - non-tender, no masses A. Cervix, 4:00, biopsy: -- Squamous mucosa with no significant histopathologic abnormalities. -- No transformation zone identified. B. Endocervix, curettage: -- Benign endocervical epithelium in the background of abundant mucus and acute inflammatory exudate. ASSESSMENT/PLAN: 1. LGSIL on Pap smear of cervix - ICD9: 795.03, ICD10: R87.612 (primary diagnosis) - PAP TEST 2. Cervical cancer screening - ICD9: V76.2, ICD10: Z12.4 - PAP TEST 3. Special screening examination for human papillomavirus (HPV) - ICD9: V73.81, ICD10: Z11.51 - PAP TEST Shakira Mathews, SOUTH.GRID TRIMMER Total time in direct patient contact = 20 min. Greater than 50% of the time was spent in counseling and/or coordination of care. I have confirmed and edited as necessary, the PFSH and ROS obtained by others. documented in this encounter [facility] 03-30-2024 Telephone encounter Note AE 10.27.23 Requested Prescriptions Pending Prescriptions Disp Refills Drospirenone-Ethinyl Estradiol 3-0.03 mg per tablet 28 tablet 3 Sig: Take 1 tablet by mouth once daily. Thank you, Mackenzie Orozco RN [facility] 03-30-2024 Miscellaneous Notes AE 10.27.23 Requested Prescriptions Pending Prescriptions Disp Refills Drospirenone-Ethinyl Estradiol 3-0.03 mg per tablet 28 tablet 3 Sig: Take 1 tablet by mouth once daily. Thank you, Mackenzie Orozco RN documented in this encounter [facility] 03-24-2024 History of Present illness Narrative Patient presents with: Yearly Exam HPI: Patient presents today for office visit for follow up. Last seen in 2021. PSYCH:no issues with moods. Sleeping well. No anxiety or depression. No side effects. No irritability or fatigue. No chest pain or shortness of breath GERD:no heartburn. No dysphagia. Hx of bariatric surgery. May want to consider repeat labs. No black or bloody stools . Latest Ref Rng 07/13/2023 WBC 3.70 - 11.00 k/uL 6.08 RBC 3.90 - 5.20 m/uL 4.09 Hemoglobin 11.5 - 15.5 g/dL 12.2 Hematocrit 36.0 - 46.0 % 37.0 MCV 80.0 - 100.0 fL 90.5 MCH 26.0 - 34.0 pg 29.8 MCHC 30.5 - 36.0 g/dL 33.0 RDW-CV 11.5 - 15.0 % 12.6 Platelet Count 150 - 400 k/uL 385 MPV 9.0 - 12.7 fL 9.5 Neut% % 55.9 Abs Neut (ANC) 1.45 - 7.50 k/uL 3.40 Lymph% % 31.9 Abs Lymph 1.00 - 4.00 k/uL 1.94 [place]% % 8.6 Abs [place] <0.87 k/uL 0.52 Eosin% % 3.1 Abs Eosin <0.46 k/uL 0.19 Baso% % 0.5 Abs Baso <0.11 k/uL 0.03 Immature Gran % % 0.0 IMMATURE GRANS (ABS) <0.10 k/uL <0.03 NRBC /100 WBC 0.0 Absolute nRBC <0.01 k/uL <0.01 DTYPE Auto Protein, Total 6.0 - 8.5 g/dL 6.8 Albumin 3.2 - 5.0 g/dL 3.3 Calcium 8.5 - 10.5 mg/dL 9.6 Bilirubin, Total 0.2 - 1.0 mg/dL 0.5 Alkaline Phosphatase 45 - 117 U/L 76 AST 8 - 34 U/L 17 ALT 13 - 61 U/L 16 Glucose 70 - 100 mg/dL 87 BUN 7 - 26 mg/dL 8 Creatinine 0.51 - 0.95 mg/dL 0.78 Sodium 136 - 145 mmol/L 141 Potassium 3.5 - 5.1 mmol/L 4.3 Chloride 98 - 107 mmol/L 107 CO2 21 - 32 mmol/L 26 Anion Gap 5 - 16 mmol/L 8 eGFR >=60 mL/min/1.73m 99 Iron 50 - 170 ug/dL 64 TIBC 221 - 481 ug/dL 447 Transferrin Saturation 22.0 - 44.0 % 14.3 (L) Hep B Surface Ab, Qual Positive Hep B Surf Ab Quant mIU/mL 182.80 Vitamin B12 193 - 986 pg/mL 676 Folate >3.0 ng/mL 10.3 Vitamin D 25 Hydroxy 30.0 - 100.0 ng/mL 32.8 Vitamin B1 (TDP), Whole Blood 84.3 - 213.3 nmol/L 137.4 Measles Antibody, IGG Qualitative Positive Positive Rubella IgG, Qual Positive Positive Varicella Zoster IgG, Qual Positive Positive Mumps IgG, Qual Positive Negative ! Legend: (L) Low ! Abnormal MEDICATIONS: Current Outpatient Medications Medication Sig Lactobacillus acidophilus (PROBIOTIC ORAL) Take by mouth. thiamine HCl (VITAMIN B-1 ORAL) Take by mouth. valACYclovir (VALTREX) 1 gram tablet TAKE 1 TABLET BY MOUTH EVERY 12 HOURS FOR 3 DAYS NEEDED Drospirenone-Ethinyl Estradiol 3-0.03 mg per tablet Take 1 tablet by mouth once daily. escitalopram oxalate (LEXAPRO) 10 mg tablet Take 1 tablet by mouth once daily. pantoprazole DR (PROTONIX) 40 mg tablet Take 1 tablet by mouth once daily. Multivitamin capsule Take 1 capsule by mouth every morning. Cholecalciferol, Vitamin D3, 125 mcg (5,000 unit) cap Take 5,000 Units by mouth. No current facility-administered medications for this visit. ALLERGIES: ALLERGIES Allergen Reactions Oxycodone Rash PAST MEDICAL HISTORY Diagnosis Date Cold sores Depression Gallstones 03/14/2011 H. 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/2023 + HR HPV PAST SURGICAL HISTORY Procedure Laterality Date GSTRCT PRTL DSTL W/GASTRODUODENOSTOMY 03/30/2016 Gastrectomy, partial, sleeve Gastrectomy LAPS SURG CHOLECYSTECTOMY W/CHOLANGIOGRAPHY 05/21/2011 failed IOC PAST SURGICAL HISTORY OF wisdom teeth PAST SURGICAL HISTORY OF cryotherapy for abnormal pap after per pt 2001 PAST SURGICAL HISTORY OF 11/30/2023 colposcopy RPR EPIGASTRIC HERNIA REDUCIBLE SPX 03/30/2016 Hiatal hernia repair TONSILLECTOMY HX 09/15/2022 Dr Jewell [facility] [place] FAMILY HISTORY Problem Relation Age of Onset Hypertension Mother Psychiatry Mother depression Stroke Father Blood Disease Father blood clots Psychiatry Sister depression Heart Brother at about 1.5 years due to heart problems Diabetes Paternal Grandfather + Social History Tobacco Use Smoking status: Former Types: Cigarettes Quit date: 01/26/2009 Years since quittin.1 Smokeless tobacco: Never Vaping Use Vaping Use: Never used Substance Use Topics Alcohol use: Yes Comment: occasionally Drug use: No Reviewed current medications, allergies, past medical history, surgical history, family history and social history today. REVIEW OF SYSTEMS All other reviewed and negative other than HPI. HEALTH MAINTENANCE: Reviewed health maintenance issues today and recommended the following in detail. Mammogram Screening due on 06/13/2024 Following with cloth tearer. Had a colposcopy. Did have breakthrough bleeding recently and then had some heavier bleeding and cramps. Getting tummy tuck. Not sexually active so no need to do preg per patient. Advised to follow up with cloth tearer if continues. VITALS: BP 120/78 Pulse 65 Resp 16 Wt 108 kg (238 lb) LMP (LMP Unknown) SpO2 99% BMI 38.41 kg/m Last 4 Encounter Wt Readings: Date: Wt: 03/24/2024 108 kg (238 lb) 11/30/2023 109.3 kg (241 lb) 10/27/2023 106.1 kg (234 lb) 12/29/2022 113.9 kg (251 lb) PHYSICAL EXAMINATION: General appearance: Well appearing, alert, in no acute distress, well-hydrated, well nourished. Skin: Skin color, texture, turgor normal, no suspicious rashes or lesions Head: Normocephalic, no masses, lesions, tenderness or abnormalities Lungs: Lungs clear to auscultation. No wheezing, rhonchi, rales Heart: RRR without murmur, gallop, or rubs. No ectopy Abdomen: Normal abdominal exam, Abdomen soft, non-tender. Bowel sounds normal. No masses, organomegaly Extremities: No deformities, edema, skin discoloration, clubbing or cyanosis. Good capillary refill. ASSESSMENT/PLAN: 1. Depression, unspecified depression type - ICD9: 311, ICD10: F32.A (primary diagnosis) - Continue current medications. Notify us if any difficulties are noted. - ESCITALOPRAM 10 MG TABLET 2. Hx of bariatric surgery - ICD9: V45.86, ICD10: Z98.84 - get labs. - COMPLETE BLOOD COUNT AND DIFFERENTIAL - COMPREHENSIVE METABOLIC PANEL - VITAMIN B12 - FOLATE, SERUM - VITAMIN D 25 HYDROXY - IRON AND TIBC 3. Thrombocytosis - ICD9: 238.71, ICD10: D75.839 - recheck labs. 4. Gastroesophageal reflux disease without esophagitis - ICD9: 530.81, ICD10: K21.9 - continue meds. - PANTOPRAZOLE 40 MG TABLET,DELAYED RELEASE 5. Screening breast examination - ICD9: V76.10, ICD10: Z12.39 - MYRIAM SCREENING 6. Abnormal menses - ICD9: 626.9, ICD10: N92.6 - continue meds. - THYROID STIMULATING HORMONE 7. Intestinal malabsorption, unspecified type - ICD9: 579.9, ICD10: K90.9 - stable. - VITAMIN B12 - FOLATE, SERUM - VITAMIN D 25 HYDROXY - IRON AND TIBC Percy Huang documented in this encounter [facility] 02-07-2024 History of Present illness Narrative Advised patient to obtain letter from the provider who provided treatment for strep throat. Patient admits to not officially having a medical visit and treated by a friend. Yuliya Ness APRN.ROC documented in this encounter [facility] 10-28-2023 Miscellaneous Notes Aware of results and recommendations.Colpo sched. Instructions given as follows. Diane Pruitt RN LGSIL needs colpo Shakira Mathews APRN.CNP Low grade squamous intraepithelial lesion (LSIL). RN explained Colposcopy is an in-office procedure used after abnormal or inconclusive pap smears that allows us to look more closely at the cervix using a colposcope. Vinegar is placed on the cervix which highlights any abnormal areas. If any abnormal areas are seen, biopsies are taken and sent to pathology for further grading. We do recommend that you take 600-800 mg of Motrin or 2 Tylenol about 30 min prior to the procedure and nothing in vagina for 1 wk after the procedure. documented in this encounter [facility] 10-27-2023 History of Present illness Narrative Krista is a 38 year old who presents for an annual gynecologic exam with complaints of night sweats. Menses: monthly. Contraception: combined hormonal contraceptives HPV vaccine: N/A Last Pap: normal History of abnormal pap: Yes; cyro Last mammogram: 2022normal Sexually active: Yes Pain with intercourse: No Postcoital bleeding: No OB History T0 L0 SAB0 IAB0 Ectopic0 Multiple0 Live Births0 Nurse Plastics History LMP: 10/10/2023 (Exact Date), Having periods Age at Menarche: Age at First : Age at Menopause: Nurse Plastics History Comments: Sexual Activity: Yes; Male Contraception: Pill PAST MEDICAL HISTORY Diagnosis Date Cold sores Depression Gallstones 03/14/2011 H. pylori infection 12/15/2015 Treated with Biaxin, Amoxil, Prilosec PAST SURGICAL HISTORY Procedure Laterality Date GSTRCT PRTL DSTL W/GASTRODUODENOSTOMY 03/30/2016 Gastrectomy, partial, sleeve Gastrectomy LAPS SURG CHOLECYSTECTOMY W/CHOLANGIOGRAPHY 05/21/2011 failed IOC PAST SURGICAL HISTORY OF wisdom teeth PAST SURGICAL HISTORY OF cryotherapy for abnormal pap after per pt 2001 RPR EPIGASTRIC HERNIA REDUCIBLE SPX 03/30/2016 Hiatal hernia repair TONSILLECTOMY HX 09/15/2022 Dr Jewell [facility] [place] FAMILY HISTORY Problem Relation Age of Onset Stroke Father Blood Disease Father blood clots Hypertension Mother Psychiatry Mother depression Diabetes Paternal Grandfather + Psychiatry Sister depression Heart Brother at about 1.5 years due to heart problems SOCIAL HISTORY Social History Tobacco Use Smoking status: Former Types: Cigarettes Quit date: 01/26/2009 Years since quittin.7 Smokeless tobacco: Never Vaping Use Vaping Use: Never used Substance Use Topics Alcohol use: Yes Comment: occasionally Drug use: No REVIEW OF SYSTEMS Abdomen: No abdominal pain, nausea, vomiting, diarrhea, or constipation. No bloating, early satiety, indigestion, or increased flatulence. Bladder: No dysuria, gross hematuria, urinary frequency, urinary urgency, or incontinence. Breast: No breast lumps, nipple d/c, overlying skin changes, redness or skin retraction. Allergies and current medication updated:Yes EXAM: BP 120/76 Ht 5' 6 (1.68m) Wt 234 lb (106.1kg) LMP 10/10/2023 BMI 37.79 kg/(m^2). GENERAL: pleasant, female in no apparent distress HEENT: Normocephalic, atraumatic, mucus membranes moist, and no lesions NECK: Supple, full range of motion, no adenopathy, and thyroid normal DERMATOLOGY: Normal, without lesions, non-icteric, and non-hirsute BREAST: soft, non-tender, symmetric, no dominant mass, normal nipple-areolar complex, no lymphadenopathy, and no nipple discharge CHEST: Normal inspiratory effort ABDOMEN: soft, non-tender, and no masses PELVIC: external genitalia normal, normal Bartholin's glands, urethra, Soquel's glands, no vulvar lesions, no cervical lesions, good vaginal support, physiologic discharge present, normal appearing perineal body and perianal region BIMANUAL: uterus normal size, shape and consistency, no adnexal masses, and non-tender RECTOVAGINAL: deferred. NEURO: alert and oriented x3,exam grossly non-focal EXTREMITIES: normal ASSESSMENT/PLAN: 1) Health maintenance: Pap done with HPV. Mammogram up to date . 2) Contraception: combined hormonal contraceptives. Contraceptive options reviewed and information provided. 3) STD screening: Declined STD check. 4) Follow up one year or sooner as needed Shakira Mathews APRN.GRID TRIMMER documented in this encounter [facility] 10-27-2023 Instructions Shakira Mathews APRN.ROC - 10/27/2023 3:51 PM EST ACOG Screening Guidelines The following health screening schedule is recommended by the [employer] (ACOG). Some of these tests may be ordered or performed by your primary care doctor. Pap test screening The pap test looks at cells on the cervix (the opening from the vagina to the uterus) to look for cancer or pre-cancerous changes. These changes are caused by the human papillomavirus (HPV). Studies estimate that half of all women will test positive for this virus within 3 years of starting sexual activity. For young women with a normal immune system, 90% of HPV infections will resolve within 2 years. There is a vaccine available against some forms of HPV. This is recommended for girls and women age 9-45. For ages 9-14, two injections are given at 0 and 6 months. For ages 15-45, three injections are given at 0,2 and 6 months. Because this vaccine does not protect against all HPV types which can cause cervical cancer, women who received the vaccine still need pap tests. Pap smear screening should be started at age 21. The pap test should be done every 3 years from age 21-29. From age 30-65, pap smears can be done every 5 years if HPV test is negative or every 3 years if HPV testing is not done. For women over the age of 65, ACOG recommends against screening women who have had adequate prior screening and are not otherwise at high risk for cervical cancer. Women who have had a hysterectomy also do not need routine pap smear screening unless the pap smear was done for a cervical cancer or moderate to severe dysplasia. Breast cancer screening Mammogram should be performed every 1-2 years starting at age 40 and every year starting at age 50. Screening may be started earlier depending on family history. Cholesterol screening Lipid panel (cholesterol test) should be checked every 5 years starting at age 45. Diabetes screening Fasting glucose (blood sugar) test should be performed every 3 years starting at age 45. Colorectal cancer screening Starting at age 45, women should have a screening colonoscopy at least every 10 years. Screening may be started earlier depending on family history. Thyroid screening Thyroid function test (TSH) should be checked every 5 years starting at age 50. Bone mineral density screening All postmenopausal women age 65 and over and postmenopausal women with risk factors for osteoporosis should have a bone mineral density test performed. Risk factors include race, family history of osteoporosis, personal history of fractures, poor nutrition, smoking, heavy alcohol use, early menopause, low calcium intake and low body weight. Certain medical conditions and long-term use of some medications may also increase risk. documented in this encounter [facility] 10-14-2023 Miscellaneous Notes Patient phones requesting refills as follows: Requested Prescriptions Pending Prescriptions Disp Refills escitalopram oxalate (LEXAPRO) 10 mg tablet 90 tablet 3 Sig: Take 1 tablet by mouth once daily. TISH 10/18/22 NOV no upcoming appt *Pt due for Annual appt. message to pt advising of the same. Please review and advise. Eris Nina documented in this encounter [facility] 08-26-2023 Miscellaneous Notes Patient has been identified by name and date of : Yes, Provider Dr. Huang Date 08/26/23 Time 9:48 am Patient phones for refill(s): Requested Prescriptions Pending Prescriptions Disp Refills Drospirenone-Ethinyl Estradiol 3-0.03 mg per tablet 28 tablet 1 Sig: Take 1 tablet by mouth once daily. Date of last office visit in primary care: 10/18/2022 Date of next office visit in primary care: Visit date not found Last 2 Encounter Wt Readings: Date: Wt: 12/29/2022 113.9 kg (251 lb) 12/15/2022 112.4 kg (247 lb 12.8 oz) Previous labs/tests for medication: Not applicable Thank you. Sujey Razo LPN. documented in this encounter [facility] 07-21-2023 Miscellaneous Notes Patient has been identified by name and date of : Yes Patient phones for refill(s): Requested Prescriptions Pending Prescriptions Disp Refills pantoprazole DR (PROTONIX) 40 mg tablet 90 tablet 3 Sig: Take 1 tablet by mouth once daily. Date of last office visit in primary care: 10/18/2022 Change of pharmacy Please advise. Thank you. Riddhi Evans LPN documented in this encounter [facility] 07-14-2023 Miscellaneous Notes Pt called and is notified of providers results and instructions. Pt voices understanding. She declines the MMR at this time. States she will think about it. Carrie Willoughby, RN All labs are back except her b1 She is ok and immune to everything other than mumps. Can consider a mmr booster. documented in this encounter [facility] 06-27-2023 Miscellaneous Notes Addended by: PERCY HUANG on: 06/27/2023 04:22 PM Modules accepted: Orders documented in this encounter [facility] 12-29-2022 Instructions Yared Floyd APRN.GRID TRIMMER - 12/29/2022 5:25 PM EST [facility] PATIENT INFO PHARYNGITIS OVERVIEW A sore throat (pharyngitis) is a common problem, and usually is caused by a viral or bacterial infection. Sore throat usually resolves on its own without complications in adults, although it is important to know when to seek medical attention. Viruses can cause a sore throat and other upper respiratory infections, such as the common cold. Sore throat caused by a virus is not treated with antibiotics, but instead may be treated with rest, pain medication, and other therapies aimed at relieving symptoms. Strep throat is a particular kind of pharyngitis that is caused by a bacterium known as group A streptococcus (GAS). Strep throat is treated with a course of antibiotics. SORE THROAT SYMPTOMS Viral pharyngitis -- Most people with a sore throat have a virus. The most common viruses are those that cause upper respiratory infections, such as the common cold. Symptoms of a viral infection can include: A runny or congested nose Irritation or redness of the eyes Cough, hoarseness, or soreness in the roof of the mouth Some viruses cause a fever and can make you feel quite ill. Strep throat -- Approximately 10 percent of adults with a sore throat have strep throat. Signs and symptoms of strep throat include the following: Pain in the throat Fever (temperature greater than 100.4 F or 38 C) Enlarged lymph glands in the neck White patches of pus on the side or back of the throat No cough, runny nose, or irritation/redness of the eyes Other infections -- Many other less common but more serious infections can cause a sore throat, including mononucleosis (mono), influenza (the flu), N. gonococcus (gonorrhea), human immunodeficiency virus (HIV), and others. When to seek urgent help -- See your doctor or nurse immediately if you have a sore throat along with any of the following: Difficulty breathing Skin rash Drooling because you cannot swallow Swelling of the neck or tongue Stiff neck or difficulty opening the mouth SORE THROAT DIAGNOSIS Most people with a sore throat get better without treatment. There is no specific treatment for a sore throat caused by usual cold viruses. Is it strep or not? -- A combination of symptoms (fever, enlarged glands in the neck, white patches on your tonsils, and no cough) can help in determining if you have strep. If you have two or more symptoms, a rapid test or throat culture may be done. People with fewer than two symptoms usually do not need testing or treatment for strep throat. Rapid test -- The rapid test determines if there are streptococcus bacteria on a throat swab. The test can be done in a clinician's office and the results are available within a few minutes. The test is accurate in most cases, although a small percentage of tests are falsely negative (the bacteria are present but the test is negative). Throat culture -- A throat culture involves swabbing the throat, sending the swab to a laboratory, and waiting 24 to 48 hours for the results. Throat cultures are slightly more accurate than the rapid test. TREATMENT OF SORE THROAT Sore throat treatment -- Antibiotics do not help throat pain caused by a virus and are not recommended. Sore throat caused by viral infections usually lasts four to five days. During this time, treatments to reduce pain may be helpful. Several therapies can help to relieve throat pain. Pain medication -- You can treat your throat pain with a mild pain reliever such as acetaminophen (Tylenol ) or a non-steroidal anti-inflammatory agent such as ibuprofen or naproxen (Motrin or Aleve ). Oral rinses -- Salt-water gargles are an old stand-by for throat pain. It is not clear that salt water works to relieve pain, but it is unlikely to be harmful. Most recipes suggest 1/4 to 1/2 teaspoon of salt per one cup (8 ounces) of warm water. Sprays -- Sprays containing topical anesthetics (eg, benzocaine, phenol) are available to treat sore throat. However, such sprays are no more effective than sucking on hard candy. Lozenges -- A variety of lozenges (cough drops) are available to treat throat pain or relieve dryness. However, it is not clear that lozenges work any better than other forms of hard candy, which are generally less expensive. Other treatments -- Other treatments that may help with throat pain include sipping warm beverages (eg, honey or lemon tea, chicken soup), cold beverages, or eating cold or frozen desserts (eg, ice cream, popsicles). Alternative therapies -- Health food stores, vitamin outlets, and Internet Web sites offer alternative treatments for relief of sore throat pain. We do not recommend these type of treatments due to the risks of contamination with pesticides/herbicides, inaccurate labeling and dosing information, and a lack of studies showing that these treatments are safe and effective. Strep throat -- Although strep throat typically resolves on its own within two to five days, treatment with antibiotics is recommended for adults whose rapid test or throat culture is positive for strep throat. Penicillin, or an antibiotic related to penicillin, is the treatment of choice for strep throat. It is usually given in pill or liquid form two to four times per day for 10 days. A one time injection of penicillin is also available. People who are allergic to penicillin are given an alternate antibiotic. It is important to finish the entire course of treatment to completely eliminate the infection. If symptoms do not begin to improve or worsen by three days of antibiotic treatment, you should see your doctor or nurse again. Return to work/school -- If you have been diagnosed with strep throat, stay home from work or school until you have completed 24 hours of antibiotics. Within 24 hours of beginning antibiotic treatment, you will feel better and will be less contagious [1]. If you have a sore throat (not diagnosed as strep), you may participate in your usual activities as soon as you feel well. SORE THROAT PREVENTION Hand washing is an essential and highly effective way to prevent the spread of infection. Wet your hands with water and plain soap, and rub them together for 15 to 30 seconds. Pay special attention to the fingernails, between the fingers, and the wrists. Rinse your hands thoroughly, and dry them with a clean towel. Alcohol-based hand rubs are a good alternative for disinfecting hands if a sink is not available. Hand rubs should be spread over the entire surface of hands, fingers, and wrists until dry, and may be used several times. These rubs can be used repeatedly without skin irritation or loss of effectiveness. Hand rubs are available as a liquid or wipe in small, portable sizes that are easy to carry in a pocket or handbag. When a sink is available, visibly soiled hands should be washed with soap and water. Wash your hands after coughing, blowing the nose, or sneezing. While it is not always possible to avoid being near a person who is sick, avoiding touching your eyes, nose, or mouth to prevent the spread of infection. In addition, tissues should be used to cover the mouth when sneezing or coughing. These used tissues should be disposed of promptly. Sneezing/coughing into your sleeve (at the inner elbow) is another way to contain sprays of saliva and secretions and will not contaminate your hand documented in this encounter [facility] 12-29-2022 History of Present illness Narrative Subjective HPI Nontoxic-appearing female presents urgent care chief plaint sore throat. Duration of symptoms today. Associated symptoms sore throat body aches fatigue. Patient states feels like fatigue is lingering from COVID-19 diagnosis 2 weeks ago. Concerned about possible strep throat. 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 Presents today for evaluation. States has had strep throat but not for quite some time. Did recently have tonsils removed 2 months ago. Had no complications from surgery. Has not used any OTC medication recently. Denies any trismus difficulty swallowing or handling secretions. Denies any fever body aches chills productive cough chest pain shortness of breath pleuritic pain hemoptysis nausea vomiting abdominal pain change in bowel or bladder habits. Past medical history prescription medication use and allergies reviewed. .Patient presents with: Sore Throat: Bodyaches x this AM PAST MEDICAL HISTORY Diagnosis Date Depression Gallstones 03/2011 H. pylori infection 12/2015 Treated with Biaxin, Amoxil, Prilosec PAST SURGICAL HISTORY Procedure Laterality Date GSTRCT PRTL DSTL W/GASTRODUODENOSTOMY 03/30/2016 Gastrectomy, partial, sleeve Gastrectomy LAPS SURG CHOLECYSTECTOMY W/CHOLANGIOGRAPHY 05/21/2011 failed IOC PAST SURGICAL HISTORY OF wisdom teeth RPR EPIGASTRIC HERNIA REDUCIBLE SPX 03/30/2016 Hiatal hernia repair TONSILLECTOMY HX 09/15/2022 Dr Jewell [facility] [place] ALLERGIES Oxycodone MEDICATIONS Multivitamin capsule Take 1 capsule by mouth every morning. Cholecalciferol, Vitamin D3, 125 mcg (5,000 unit) cap Take 5,000 Units by mouth. cyanocobalamin (VITAMIN B-12) 1,000 mcg tab Take 1,000 mcg by mouth. biotin 1 mg cap Take 1 mg by mouth. valACYclovir (VALTREX) 1 gram TAKE 1 TABLET BY MOUTH EVERY 12 HOURS FOR 3 DAYS NEEDED Qmvvzozgoxuigiz-Lynccwysd-NW (BROMFED DM) 2-30-10 mg/5 mL syrup Take 10 mL by mouth four times daily as needed. escitalopram oxalate (LEXAPRO) 10 mg tablet Take 1 tablet by mouth once daily. pantoprazole DR (PROTONIX) 40 mg tablet Take 40 mg by mouth once daily. Drospirenone-Ethinyl Estradiol 3-0.03 mg per tablet Take 1 tablet by mouth once daily. FAMILY HISTORY Problem Relation Age of Onset Stroke Father Blood Disease Father blood clots Hypertension Mother Psychiatry Mother depression Diabetes Paternal Grandfather + Psychiatry Sister depression Heart Brother at about 1.5 years due to heart problems Social History Tobacco Use Smoking status: Former Types: Cigarettes Quit date: 01/26/2009 Years since quittin.9 Smokeless tobacco: Never Substance Use Topics Alcohol use: Yes Comment: occasionally Drug use: No BP 110/78 Pulse 75 Temp 37.4 C (99.4 F) Resp 18 Wt 113.9 kg (251 lb) LMP 11/24/2022 (Approximate) SpO2 100% BMI 40.34 kg/m Review of Systems Constitutional: Positive for malaise/fatigue. Negative for chills and fever. HENT: Positive for sore throat. Negative for congestion, ear discharge, ear pain and sinus pain. Eyes: Negative for blurred vision, pain, discharge and redness. Respiratory: Negative for cough, hemoptysis, sputum production, shortness of breath, wheezing and stridor. Cardiovascular: Negative for chest pain. Gastrointestinal: Negative for abdominal pain, diarrhea, nausea and vomiting. Musculoskeletal: Positive for myalgias. Skin: Negative for itching and rash. Neurological: Negative for dizziness and headaches. Objective Physical Exam Constitutional: General: She is not in acute distress. Appearance: She is not diaphoretic. HENT: Head: Normocephalic. Jaw: No trismus, tenderness, swelling or pain on movement. Mouth/Throat: Lips: [place]. Mouth: Mucous membranes are moist. Pharynx: Oropharynx is clear. Uvula midline. Posterior oropharyngeal erythema present. No pharyngeal swelling, oropharyngeal exudate or uvula swelling. Eyes: Conjunctiva/sclera: Conjunctivae normal. Pupils: Pupils are equal, round, and reactive to light. Cardiovascular: Rate and Rhythm: Normal rate and regular rhythm. Heart sounds: Normal heart sounds. Pulmonary: Effort: Pulmonary effort is normal. No tachypnea, accessory muscle usage or respiratory distress. Breath sounds: Normal breath sounds. No stridor. No wheezing, rhonchi or rales. Abdominal: General: There is no distension. Palpations: Abdomen is soft. Tenderness: There is no abdominal tenderness. There is no guarding or rebound. Musculoskeletal: Cervical back: Normal range of motion and neck supple. No rigidity or tenderness. Lymphadenopathy: Cervical: No cervical adenopathy. Skin: General: Skin is warm and dry. Neurological: Mental Status: She is alert and oriented to person, place, and time. ASSESSMENT/PLAN: 1. Sore throat - ICD9: 462, ICD10: J02.9 - STREP A MOLECULAR (POC) Strep test negative. Treat as viral pharyngitis at this point. Red flags for prompt reevaluation discussed. Follow-up with PCP 3 to 5 days symptoms persist. Patient was educated on supportive therapies. Patient was instructed to immediately proceed to emergency room for any new, worsening, or symptoms lasting longer than anticipated. The patient's clinical presentation is otherwise unremarkable at this time. Based on exam and clinical finding, the patient is stable for discharge. Plan of care was discussed with patient. Patient verbalizes understanding and agrees to plan of care. This note was generated using Scan[employer] software. It may contain errors in wording, punctuation, or spelling. Yared Floyd APRN.ROC documented in this encounter [facility] 12-15-2022 Miscellaneous Notes Results given to patient, voiced understanding. Ian Ochoa LPN ----- Message from Gretel Marroquin MD sent at 12/15/2022 3:19 PM EST ----- I have reviewed the results. COVID positive. Please make patient aware. Gretel Marroquin MD documented in this encounter [facility] 11-01-2022 Miscellaneous Notes Patient notified. Labs are stable. Except platelets are slightly higher. (Lab did not do the bmp ordered as well)]recheck platelets and bmp in one month documented in this encounter [facility] 10-18-2022 History of Present illness Narrative Patient presents with: 6 Month Exam HPI: Patient presents today for office visit for follow up. PSYCH:emotionally doing well. Sleeping well. No side effects. No fatigue. No suicidal ideation. Now only taking 10 mg a day and working well. GERD:heartburn is doing well. Had tonsillectomy. Doing well. Insurance will only cover valtrex 1 gm bid. Discussed platelets have been stable for 9 years. Has hx of bariatric surgery. MEDICATIONS: Current Outpatient Medications Medication Sig valACYclovir (VALTREX) 1 gram Take 2 tablets by mouth every 12 hours. (Patient taking differently: Take 1,000 mg by mouth every [address] (PROTONIX) 40 mg tablet Take 40 mg by mouth once daily. escitalopram oxalate (LEXAPRO) 20 mg tablet Take 1 tablet by mouth once daily. Drospirenone-Ethinyl Estradiol 3-0.03 mg per tablet Take 1 tablet by mouth once daily. pantoprazole DR (PROTONIX) 40 mg tablet Take 1 tablet by mouth daily before breakfast. Take on empty stomach, 1/2 hr before meal. No current facility-administered medications for this visit. ALLERGIES: ALLERGIES Allergen Reactions Oxycodone Rash PAST MEDICAL HISTORY Diagnosis Date Depression Gallstones 03/2011 H. pylori infection 12/2015 Treated with Biaxin, Amoxil, Prilosec PAST SURGICAL HISTORY Procedure Laterality Date GSTRCT PRTL DSTL W/GASTRODUODENOSTOMY 03/30/2016 Gastrectomy, partial, sleeve Gastrectomy LAPS SURG CHOLECYSTECTOMY W/CHOLANGIOGRAPHY 05/21/2011 failed IOC PAST SURGICAL HISTORY OF wisdom teeth RPR EPIGASTRIC HERNIA REDUCIBLE SPX 03/30/2016 Hiatal hernia repair TONSILLECTOMY HX 09/15/2022 Dr Jewell [facility] [place] FAMILY HISTORY Problem Relation Age of Onset Stroke Father Blood Disease Father blood clots Hypertension Mother Psychiatry Mother depression Diabetes Paternal Grandfather + Psychiatry Sister depression Heart Brother at about 1.5 years due to heart problems Social History Tobacco Use Smoking status: Former Types: Cigarettes Quit date: 01/26/2009 Years since quittin.7 Smokeless tobacco: Never Substance Use Topics Alcohol use: Yes Comment: occasionally Drug use: No Reviewed current medications, allergies, past medical history, surgical history, family history and social history today. REVIEW OF SYSTEMS All other reviewed and negative other than HPI. HEALTH MAINTENANCE: Reviewed health maintenance issues today and recommended the following in detail. HEPATITIS C SCREENING Never done HIV SCREENING Never done VITALS: BP 104/72 Pulse 68 Wt 112 kg (247 lb) LMP 03/14/2017 SpO2 99% BMI 39.70 kg/m Last 4 Encounter Wt Readings: Date: Wt: 10/18/2022 112 kg (247 lb) 06/17/2021 121.1 kg (267 lb) 02/11/2021 121.8 kg (268 lb 9.6 oz) 11/24/2020 117.9 kg (260 lb) PHYSICAL EXAMINATION: General appearance: Well appearing, alert, in no acute distress, well-hydrated, well nourished. Skin: Skin color, texture, turgor normal, no suspicious rashes or lesions Head: Normocephalic, no masses, lesions, tenderness or abnormalities Lungs: Lungs clear to auscultation. No wheezing, rhonchi, rales Heart: RRR without murmur, gallop, or rubs. No ectopy Abdomen: Normal abdominal exam, Abdomen soft, non-tender. Bowel sounds normal. No masses, organomegaly Extremities: No deformities, edema, skin discoloration, clubbing or cyanosis. Good capillary refill. ASSESSMENT/PLAN: 1. Depression, unspecified depression type - ICD9: 311, ICD10: F32.A (primary diagnosis) - continue meds. - ESCITALOPRAM 10 MG TABLET 2. Hx of bariatric surgery - ICD9: V45.86, ICD10: Z98.84 - check labs. - BASIC METABOLIC PNL - CBC + DIFF - VITAMIN B12 BLOOD - FOLATE SERUM - IRON + TIBC - VITAMIN B1 (THIAMINE), WHOLE BLOOD 3. Thrombocytosis - ICD9: 238.71, ICD10: D75.839 - follow q 6 months. To hematology if worsens. 4. Herpes simplex virus (HSV) infection - ICD9: 054.9, ICD10: B00.9 - continue meds. 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 Sujey Razo LPN Patient has been identified by name and date of : Yes Patient phones for refill(s): Requested Prescriptions Pending Prescriptions Disp Refills valACYclovir (VALTREX) 1 gram 8 tablet 0 Sig: Take 2 tablets by mouth every 12 hours. Date of last office visit in primary care: 03/19/22 Last 2 Encounter Wt Readings: Date: Wt: 06/17/2021 121.1 kg (267 lb) 02/11/2021 121.8 kg (268 lb 9.6 oz) Previous labs/tests for medication: Not applicable Thank you. Sujey Razo LPN documented in this encounter [facility] 07-29-2022 Miscellaneous Notes Patient has been identified by name and date of : Yes Requested Prescriptions Pending Prescriptions Disp Refills valACYclovir (VALTREX) 1 gram 8 tablet 0 Sig: Take 2 tablets by mouth every 12 hours. Patient's last visit within dept: 03/19/22 Next appt: none RX INSTRUCTIONS: Patient aware RX will be sent to pharmacy. No need to notify patient. Suzi Andino Ma documented in this encounter [facility] 04-01-2022 Miscellaneous Notes Patient was made aware of the results. Patient verbalizes understanding. Suzi Andino Ma Labs are overall ok. Her platelets are minimally up. Not bad enough to do anything with at this point and have been mildly up before. To be on safe side recheck them in eight weeks. documented in this encounter [facility] 03-19-2022 History of Present illness Narrative Patient presents with: Follow Up HPI:This Team Access Model visit is a virtual encounter. It required patient-provider interaction for the medical decision making as documented below. Patient was offered a virtual/telemedicine appointment in lieu of an office visit due to recommendations to reduce patient exposure to COVID-19. Patient is aware of limitations of performing the visit without a face to face visit in the office setting and agrees. At last visit. Adjusted meds. Added buspar prn and increased lexapro. Overall is doing well Is back on 10 mg lexapro. Not using buspar. Sleeping well. Moods are well. No gi issues currently No black or bloody stools. Using a low dose iron. No current issues. Due for labs. See previous ov: A lot of stress. Issues at home with daughter and ex boyfriend. Some mild depression. No current suicidal ideation. Wants something prn. Asks about buspar. Tolerating lexapro well. Had a gastric sleeve converted to a bypass. Had worsening anemia since then. Has a gastric ulcer at her anastamosis site. Having issues with cytotec and protonix as much as she is supposed to. Seeing surgery who is scheduling iron infusions MEDICATIONS: Current Outpatient Medications Medication Sig valACYclovir (VALTREX) 1 gram Take 2 tablets by mouth every 12 hours. escitalopram oxalate (LEXAPRO) 20 mg tablet Take 1 tablet by mouth once daily. Drospirenone-Ethinyl Estradiol (OCELLA) 3-0.03 mg per tablet Take 1 tablet by mouth once daily. No current facility-administered medications for this visit. ALLERGIES: ALLERGIES No Known Allergies PAST MEDICAL HISTORY Diagnosis Date Depression Gallstones 03/2011 H. pylori infection 12/2015 Treated with Biaxin, Amoxil, Prilosec PAST SURGICAL HISTORY Procedure Laterality Date LAP CHOLECYSTECT/CHOLANGIOGRAPHY 05/21/11 failed IOC PAST SURGICAL HISTORY OF wisdom teeth REMV STOM,PART,DISTAL,GASTRODUOD 03/30/16 Gastrectomy, partial, sleeve Gastrectomy REPAIR EPIGASTRIC HERNIA,REDUC 03/30/16 Hiatal hernia repair FAMILY HISTORY Problem Relation Age of Onset Stroke Father Blood Disease Father blood clots Hypertension Mother Psychiatry Mother depression Diabetes Paternal Grandfather + Psychiatry Sister depression Heart Brother at about 1.5 years due to heart problems Social History Tobacco Use Smoking status: Former Smoker Types: Cigarettes Quit date: 01/26/2009 Years since quittin.1 Smokeless tobacco: Never Used Substance Use Topics Alcohol use: Yes Comment: occasionally Drug use: No Reviewed current medications, allergies, past medical history, surgical history, family history and social history today. REVIEW OF SYSTEMS chest pain or shortness of breath All other reviewed and negative other than HPI. VITALS: LMP 03/14/2017 Last 4 Encounter Wt Readings: Date: Wt: 06/17/2021 121.1 kg (267 lb) 02/11/2021 121.8 kg (268 lb 9.6 oz) 11/24/2020 117.9 kg (260 lb) 10/20/2020 115.7 kg (255 lb) PHYSICAL EXAMINATION: Patient is alert and oriented during visit. Answers appropriately. Breathing comfortably. ASSESSMENT/PLAN: 1. Depression, unspecified depression type - ICD9: 311, ICD10: F32.A (primary diagnosis) - continue meds. 2. History of gastric bypass - ICD9: V45.86, ICD10: Z98.84 - check labs. - CBC + DIFF - COMP METABOLIC PANEL - VITAMIN B12 BLOOD - FOLATE SERUM - IRON + TIBC - VITAMIN B1 (THIAMINE), WHOLE BLOOD - VITAMIN D 25 HYDROXY 3. Screening for diabetes mellitus - ICD9: V77.1, ICD10: Z13.1 - HGB A1C 4. Screening for lipid disorders - ICD9: V77.91, ICD10: Z13.220 - LIPID PANEL BASIC Percy LESLIEO in six months. and prn. documented in this encounter [facility] 03-17-2022 Miscellaneous Notes Please check with your pharmacy. Our records show they have have refills left on last prescription. Sujey Razo LPN documented in this encounter [facility] 06-17-2021 History of Present illness Narrative Radiology Service Progress Note PATIENT NAME: Krista Bell DATE OF SERVICE: June 17, 2021 TIME: 9:38 AM PATIENT IDENTITY VERIFICATION COMPLETED USING TWO (2) IDENTIFIERS: Name and Date of confirmed by patient verbally. FALL SCREENING: Has the patient had 2 falls in the last year or 1 fall with injury or currently using an Ambulatory Assistive Device (Walker, Cane, Wheelchair, Crutches, etc.)? No PATIENT GENDER DATA: Female. status: : No status: NO. PATIENT RELEVANT IMPLANT DATA REVIEWED: Yes RADIOLOGY DEPARTMENT: General X-ray: Exam(s) Completed: Chest X-Ray PERIPHERAL IV DATA: Not applicable SIGNED BY: RT Timothy(R) June 17, 2021 9:38 AM documented in this encounter [facility] 06-05-2021 History of Present illness Narrative Dictation on: 06/05/2021 6:17 PM by: JACK LINDA [[id number]] documented in this encounter [facility] 04-24-2021 History of Present illness Narrative Dictation on: 04/24/2021 6:48 PM by: JACK LINDA [[id number]] documented in this encounter [facility] 04-01-2021 History of Present illness Narrative Dictation on: 04/01/2021 6:08 PM by: JACK LINDA [[id number]] documented in this encounter [facility] 03-19-2021 History of Present illness Narrative Telephone Visit Via Phone Call [facility] [address] [place] [phone] Telephone Visit [facility] 03/19/2021 Jai Groves MD Provider Location: [facility] Patient Location Building Illuminating Engineer: None Patient Location: Patient's Home Patient: Krista Bell Date of : 1985 (35 y.o. female) PCP: Percy Huang MD I discussed risks, benefits and alternatives of a telephone visit telemedicine consultation with the patient (and any accompanying persons) including the risks that the patient's personal health details and medical records will be discussed over real-time, synchronous, interactive audio technology, the visit will not be recorded without the express consent of both the provider and the patient, and that there are inherent diagnostic limitations compared to [id number] evaluations. We elected to proceed with the telephone visit telemedicine consultation. SURGERY PERFORMED: SLEEVE GASTRECTOMY 2015, [facility] Conversion of sleeve to Heena-en-Y Gastric Bypass- 2019 Current weight: 260 Weight at time of conversion: 300 SUBJECTIVE/HPI: Denies complaints. Taking vitamins. Upper endoscopy last month without marginal ulcer. Drinks a protein shake in the morning. Has several small meals a day with protein first. Water intake: about 40oz/day. Had last iron infusion on Tuesday. Had a partial knee replacement about 2 weeks ago. The following portions of the patient's history were reviewed and updated as appropriate: allergies, past family history, past medical history, past social history, past surgical history and problem list. Review of Systems: Gen: negative Abd: see HPI Patient's Medications New Prescriptions No medications on file Previous Medications ACETAMINOPHEN (TYLENOL) 325 MG TABLET Take 2 (two) tablets (650 mg total) by mouth every 4 (four) hours for 10 days . BIOTIN 1 MG CAP Take 1 mg by mouth every morning . BUSPIRONE (BUSPAR) 5 MG TABLET Take 5 mg by mouth 3 (three) times a day as needed . CALCIUM CARB/MAG CARB/FOLIC AC ([id number] ACID ORAL) Take 1 tablet by mouth daily Magnesium-calcium vitamin D . CHOLECALCIFEROL, VITAMIN D3, 125 MCG (5,000 UNIT) CAPSULE Take 5,000 Units by mouth 2 (two) times a day . CYANOCOBALAMIN (B-12) 1000 MCG TABLET Take 1,000 mcg by mouth every morning . CYCLOBENZAPRINE (FLEXERIL) 10 MG TABLET Take 1 (one) tablet (10 mg total) by mouth 3 (three) times a day as needed for muscle spasms . DROSPIRENONE-ETHINYL ESTRADIOL (ROSIE) 3-0.03 MG PER TABLET Take 1 tablet by mouth daily . ENOXAPARIN (LOVENOX) 40 MG/0.4 ML SYRG Inject 0.4 mL (40 mg total) under the skin 2 (two) times a day for 21 days Start: 03/11/21. ESCITALOPRAM OXALATE (LEXAPRO) 10 MG TABLET Take 20 mg by mouth every morning . MULTIVITAMIN CAPSULE Take 1 capsule by mouth every morning . PANTOPRAZOLE (PROTONIX) 20 MG TABLET Take 1 (one) tablet (20 mg total) by mouth daily Start: 03/11/21. TRAMADOL (ULTRAM) 50 MG TABLET Take 1 (one) tablet (50 mg total) by mouth every 6 (six) hours as needed for pain . VALACYCLOVIR (VALTREX) 1000 MG TABLET Take 1,000 mg by mouth as needed . Modified Medications No medications on file Discontinued Medications No medications on file Assessment/Plan: 1. Iron deficiency anemia, unspecified iron deficiency anemia type 2. S/P gastric bypass - Continue vitamin supplementation. - Has had injectafer x2. - We have reviewed proper food choices, eating habits, and the importance of regular exercise. - We have reviewed the appropriate lifestyle and behavior modifications important for success after bariatric surgery. - Annual postoperative bariatric labs to be checked in 07/2021 Follow up plan: Plan to follow up on routine post op Bariatric schedule. I have spent 5-10 minutes with the patient reviewing the HPI and Plan of Care. documented in this encounter [facility] 03-16-2021 History of Present illness Narrative I spoke josephine Aguilera today and she tells me she is a lot better. She is taking her Oxycodone w Benadryl and the pain has improved and the rash is much better. Her headache is also gone. Her swelling has improved w elevation and ice. She is on the Lovenox every day and 20mg Protonix every day. She denies any constipation/n. documented in this encounter [facility] 03-10-2021 History of Present illness Narrative Orthopedic Total Knee Progress Note Assessment/Plan: Status Post left Total Knee Arthroplasty: Doing well postoperatively. Discharge today, Return to Clinic: 2 weeks LOS: 0 days Subjective: Post-Operative Day: 0 Status Post left Total Knee Arthroplasty Systemic or Specific Complaints:No Complaints Objective: Vital signs in last 24 hours: Temp: [97.5 F (36.4 C)-98.3 F (36.8 C)] 98.3 F (36.8 C) Heart Rate: [56-70] 59 Resp: [12-45] 16 BP: (111-144)/(53-79) 127/79 General: alert, appears stated age and cooperative Wound: Wound clean and dry no evidence of infection. Motion: Extension: Full Extension DVT Exam: No evidence of DVT seen on physical exam. Data Review CBC: Lab Results Component Value Date WBC 6.53 02/19/2021 WBC 6.73 01/20/2021 RBC 4.14 02/19/2021 HGB 9.2 (L) 02/19/2021 HGB 8.9 (L) 01/20/2021 HCT 32.4 (L) 02/19/2021 HCT 30.6 (L) 01/20/2021 PLT 578 (H) 02/19/2021 PLT 555 (H) 01/20/2021 DISCHARGE PLAN PROGRESS NOTE Date: 03/10/2021 Time: 3:49 PM Patient Name: Krista Bell Date of : 1985 Sex: Female This tentering machine feeder faxed patient H&P to [facility]. 1600 faxed day of discharge bundle Abida Hernández [facility] Disposition D/C Disposition: Home Health Care Services Related to Current Admission?: Yes Agency/Destination: ([facility]) Home Care Needs : Home health care HME: Wheeled walker [facility] Options Reviewed: List provided Reason for Choice: Patient/Family preference Anticipated Discharge Plan Anticipated HME: Wheeled walker Anticipated Home Care Needs: Home health care Anticipated Facility Type: Home care DISCHARGE PLAN PROGRESS NOTE Date: 03/10/2021 Time: 11:54 AM Patient Name: Krista Bell Date of : 1985 Sex: Female This tentering machine feeder met with patient to confirm still being okay with [facility], patient is still agreeable to agency. This tentering machine feeder sent referral, agency is able to accept and start of care will be tomorrow. This tentering machine feeder updated social dillan Nicole through secure chat. Abida Hernández [facility] Disposition D/C Disposition: Home Health Care Services Related to Current Admission?: Yes Agency/Destination: ([facility]) Home Care Needs : Home health care HME: Wheeled walker HME Agency: [facility] Options Reviewed: List provided Reason for Choice: Patient/Family preference Anticipated Discharge Plan Anticipated HME: Wheeled walker Anticipated Home Care Needs: Home health care Anticipated Facility Type: Home care This nurse and Tenzin RN performed bedside report. IV site is clean, dry, intact and infusing. Bandage to left knee is clean, dry and intact documented in this encounter [facility] 03-10-2021 Consult note Occupational Therapy OCCUPATIONAL THERAPY EVALUATION Skilled Therapy Needs After Discharge Anticipate Resolution of Current Assessment Limitations Including: Pain, Mechanical Barriers Are Skilled Therapy Services Needed After Discharge: No Outcomes Measures Prior Function Daily Activity Raw Score: 24 Prior Function Daily Activity % Impaired: 0% AM-PAC Daily Activity Raw Score: 21 AM-PAC Daily Activity % Impaired: 32.79% Occupational Therapy Assessment The patient's current functional participation deficits are toileting, bathing, home management. This reduced independence will limit their life roles of premorbid level individual. The patient's co morbidities do affect patient performance in the above activities and roles. The performance deficits are a result of impairment(s) in left, lower extremity including balance, , and . 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 During the assessment, minimal to moderate modification of task was required and limited treatment options were identified in the plan of care. This consultation required brief review of the medical and therapy history. Activity Tolerance Therapy Precautions Orthotic Devices: No Weight Bearing Status: WFL General Rehab Precautions: Fall risk Cognition Overall Cognitive Status: Within Functional Limits ADL Feeding: Independent Grooming: Modified independent UE Bathing: Modified independent LE Dressing: Modified independent Toileting: Supervision IADL Bed Mobility Encephalographer: (up in chair already) Functional Transfers Sit to Stand: Supervision Toilet Transfers: Supervision(with nursing) Encephalographer: wheeled walker Home Living Obtained Home Living and PLOF info from: Patient Lives With: Daughter(2) Type of Home: House Home Layout: Two level, 1/2 bath on main level, Full bath on second level, Bed on second level, Stairs between floors(no rail , may sleep on couch) Rails on inside stairs: None Number of stairs inside home: (full flight) Steps to enter home: Yes Rails to enter home: 1 rail Number of stairs to enter home: 3 Bathroom Shower/Tub: Tub/shower unit, Second level Bathroom Toilet: Standard Bathroom Accessibility: Accessible via walker Mobility Equipment: Crutches Additional Objective Details - Home Living: STB will be sent home with her. 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 History: Diagnosis Date Anemia Arthritis Depression GERD (gastroesophageal reflux disease) Internal derangement of knee 05/13/2015 Obesity, Class III, BMI 40-49.9 (morbid obesity) (HCC) 05/13/2015 Peptic ulcer disease JUJU (stress urinary incontinence, female) 05/13/2015 Past Surgical History: Procedure Laterality Date ARTHROSCOPY KNEE Left 10/2014 CHOLECYSTECTOMY 2010 EGD N/A 03/03/2021 Procedure: ESOPHAGOGASTRODUODENOSCOPY WITH BIOPSY; Surgeon: Jai Groves MD; Location: [facility]; Service: General Surgery ESOPHAGOGASTRODUODENOSCOPY WITH BIOPSY N/A 12/08/2020 Procedure: ESOPHAGOGASTRODUODENOSCOPY WITH BIOPSY; Surgeon: Jai Groves MD; Location: [facility] OR; Service: General Surgery GASTRIC BYPASS OPEN 2019 GASTRIC SLEEVE BYPASS LAPAROSCOPIC WITH EGD N/A 03/30/2016 Procedure: LAPAROSCOPIC SLEEVE GASTRECTOMY, HIATAL HERNIA REPAIR, LIVER BIOPSY, ESOPHAGOGASTRODUODENOSCOPY; Surgeon: Jai Esquivel MD; Location: [facility] Main OR; Service: For complete objective data, detailed plan of care and patient education refer to: OT Evaluation flowsheet, OT Evaluation and Treatment flowsheet, OT Treatment flowsheet, patient Plan of Care, Plan of Care progress note, and Patient Education. This note stands as the current Discharge Summary upon patient discharge from the hospital or completion of Occupational Therapy Plan of Care. Physical Therapy PHYSICAL THERAPY EVALUATION and TREATMENT NOTE Sx: Left knee medial unicompartmental knee replacement 03/10/21 PHYSICAL THERAPY EVALUATION Skilled Therapy Needs After Discharge Are Skilled Therapy Services Needed After Discharge: Yes Intensity of Skilled Therapy: 2-3 days per week Anticipated Duration of Skilled Therapy: Duration 7 - 10 days DME Recommendation: Wheeled Walker DME Rationale: Patient's condition prevents him/her from accomplishing ADL without recommended equipment, Patient's condition creates an increased risk of safety hazard without recommended equipment Rehab Potential: Good Outcomes Measures Prior Function - Basic Mobility Raw Score: 24 Points Prior Function - Basic Mobility % Impaired: 0% AM-PAC Basic Mobility Raw Score: 19 Points AM-PAC Basic Mobility % Impaired: 36.99% Physical Therapy Assessment History: Sx: Left knee medial unicompartmental knee replacement 03/10/21 The following factors influence the patient's participation in the PT plan of care: Personal Factors: Body Habitus Environmental Factors: Multi-level home, Steps to enter home, Bedroom/bathroom on 2nd floor The following co-morbidities (from this admission or prior) influence the patient's participation in this plan of care: See H & P Number of History elements affecting this patient's PT plan of care: 1 to 2 Examination of Body Systems: The patient presents with: Musculoskeletal impairments: Strength, ROM, Pain, Functional Endurance Neurologic Impairments: Balance, Pain Cardiopulmonary Impairments: Activity Tolerance Integumentary Impairments: (incision s/p left partial knee replacment). These impairments result in limitations of Gait, Functional Transfers, Stair-Climbing, Activity Tolerance, Safety. These impairments result in restrictions of Household mobility, Community mobility, Work-related activities, Leisure activities. Number of Body Systems elements affecting this patient's PT plan of care: 3 or more. Clinical Presentation: The patient's clinical presentation for this PT evaluation is evolving with changing characteristics as evidenced by current PT documentation. Activity Tolerance Activity Tolerance: Tolerates 20 - 30 min activity with multiple rests Therapy Precautions Orthotic Devices: No Weight Bearing Status: X LLE: Wt bearing as tolerated General Rehab Precautions: Fall risk(up with x1 assist with 2ww) Balance Assessment Sitting Balance - Static: Modified independent, with bilateral UE support, with back unsupported Sitting Balance - Dynamic: Modified independent, with unilateral LUE support, with back unsupported Standing Balance - Static: Contact guard assist, Stand by assist, with bilateral UE support, with device Encephalographer - Standing Static: wheeled walker Standing Balance - Dynamic: Contact guard assist, with bilateral UE support, with device Encephalographer - Standing Dynamic: wheeled walker Bed Mobility Rolling: Modified independent, Head of bed elevated Supine to Sit: Stand by assist, Head of bed elevated Sit to Supine: (up in chair following PT eval) Encephalographer: bedrails(x1) Transfers Sit to Stand: Contact guard assist Bed to Chair: Contact guard assist Encephalographer: wheeled walker Car Transfers: Contact guard assist, Stand by assist Encephalographer: wheeled walker Gait/Locomotion Gait Assistance: Contact guard assist Assistive Device: wheeled walker Distance: 100 Feet Pattern: step to, R impaired heel strike, L impaired heel strike, R decreased step length, L decreased step length, wide base of support, over reliance on upper extremities, antalgic, decreased claudine (steps per minute) Stair Management Technique: one rail R, step-to pattern, forwards Stair Management Assistance: Contact guard assist Number of Stairs: 4 Home Living Obtained Home Living and PLOF info from: Patient Lives With: Daughter(2) Type of Home: House Home Layout: Two level, 1/2 bath on main level, Full bath on second level, Bed on second level, Stairs between floors(no rail , may sleep on couch) Rails on inside stairs: None Number of stairs inside home: (full flight) Steps to enter home: Yes Rails to enter home: 1 rail Number of stairs to enter home: 3 Bathroom Shower/Tub: Tub/shower unit, Second level Bathroom Toilet: Standard Bathroom Accessibility: Accessible via walker Mobility Equipment: Crutches Additional Objective Details - Home Living: STB will be sent home with her. 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 History: Diagnosis Date Anemia Arthritis Depression GERD (gastroesophageal reflux disease) Internal derangement of knee 05/13/2015 Obesity, Class III, BMI 40-49.9 (morbid obesity) ([facility]) 05/13/2015 Peptic ulcer disease JUJU (stress urinary incontinence, female) 05/13/2015 Past Surgical History: Procedure Laterality Date ARTHROSCOPY KNEE Left 10/2014 CHOLECYSTECTOMY 2010 EGD N/A 03/03/2021 Procedure: ESOPHAGOGASTRODUODENOSCOPY WITH BIOPSY; Surgeon: Jai Groves MD; Location: [facility] Endo; Service: General Surgery ESOPHAGOGASTRODUODENOSCOPY WITH BIOPSY N/A 12/08/2020 Procedure: ESOPHAGOGASTRODUODENOSCOPY WITH BIOPSY; Surgeon: Jai Groves MD; Location: [facility] Main OR; Service: General Surgery GASTRIC BYPASS OPEN 2019 GASTRIC SLEEVE BYPASS LAPAROSCOPIC WITH EGD N/A 03/30/2016 Procedure: LAPAROSCOPIC SLEEVE GASTRECTOMY, HIATAL HERNIA REPAIR, LIVER BIOPSY, ESOPHAGOGASTRODUODENOSCOPY; Surgeon: Jai Esquivel MD; Location: [facility] Main OR; Service: PHYSICAL THERAPY TREATMENT NOTE Total Treatment Time (Total Session Time): 65 Minutes Timed Code Treatment Minutes: 25 Minutes Neuromuscular Reeducation Balance Treatment Sitting Balance - Static: Modified independent, with bilateral UE support, with back unsupported Sitting Balance - Dynamic: Modified independent, with unilateral LUE support, with back unsupported Standing Balance - Static: Contact guard assist, Stand by assist, with bilateral UE support, with device Encephalographer - Standing Static: wheeled walker Standing Balance - Dynamic: Contact guard assist, with bilateral UE support, with device Encephalographer - Standing Dynamic: wheeled walker Gait Training Skilled Intervention Provided: verbal cues, monitoring patient response with activity, neuromuscular re-education, provided step by step instructions, patient education For: compensatory strategies, device adjustment fit to patient, device management and safe use of device, efficient movement, energy conservation techniques, fall prevention, gait sequence, improved posture, LE management, self-monitoring during activity, stairs sequence/technique Resulting in: improved activity tolerance, improved efficiency, improved functional independence, improved performance, improved safety Therapeutic Activities Bed Mobility Skilled Intervention Provided: verbal cues, monitoring patient response with activity, monitoring patient response with positional changes, patient education For: energy conservation, efficient movement, fall prevention, safe use of bedrails and/or equipment, safety during functional tasks, weight shifting Resulting in: improved functional independence, improved safety Transfers Skilled Intervention Provided: verbal cues, monitoring patient response with activity, monitoring patient response with positional changes, neuromuscular re-education, provided step by step instructions, patient education For: LE positioning, UE positioning, controlled descent, energy conservation, efficient movement, fall prevention, safety during functional tasks, safe use of AD and/or equipment, self-monitoring during activity, sequencing of movement, weight shifting Resulting in: improved safety, improved functional independence, improved performance Functional Transfers (Car and/or Toilet Transfers) Skilled Intervention Provided: verbal cues, monitoring patient response with activity, monitoring patient response with positional changes, neuromuscular re-education, provided step by step instructions, patient education For: LE positioning, UE positioning, controlled descent, energy conservation, efficient movement, fall prevention, safety during functional tasks, safe use of AD and/or equipment, sequencing of movement Resulting in: improved performance, improved safety, improved functional independence Therapeutic Exercises Patiented educated on ,reviewed and completed the following left LE exercises: Heel Prop, SAQ, quad sets ( 5 sec isometric hold), glut sets ( 5 sec isometric hold), heel slides and AP to patient tolerance this date. Patient denies any increase in pain with exercises and is able to return demonstration of exercises utilizing proper technique. Education: Patient educated on need for use of gait belt for therapy sessions, fall prevention, energy conservation, safe use of assistive device, proper hand placement for transfer safety, safe mobility through verbal instruction and demonstration, and need for patient to use call light to notify staff to assist with all functional transfers/mobility to maximize safety and decrease risk for falls. Patient educated on purpose, plan and goals for skilled PT services and initiation of discharge planning. Call light within patients reach. Nursing notified that patient is up in chair/ released to nursing with x1 assist with use of 2ww. Pt verbalized and demonstrated understanding of education. Additional Treatment Details Left Knee ROM 16-65 degs. For complete objective data, detailed plan of care and patient education refer to: PT Evaluation flowsheet, PT Evaluation and Treatment flowsheet, PT Treatment flowsheet, patient Plan of Care, Plan of Care progress note, and Patient Education. This note stands as the current Discharge Summary upon patient discharge from the hospital or completion of Physical Therapy Plan. Associated Order(s): IP CONSULT TO CARE MANAGEMENT SIMPLE DISCHARGE Date: 03/10/2021 Time: 10:31 AM Patient Name: Krista Bell Date of : 1985 Sex: Female Discharge Planning Living Arrangements: Children Support Systems: Family members Assistance Needed: none Type of Residence: Private residence Prior to Admission Home Care Services: No Patient expects to be discharged to:: home Current Home Equipment: None Anticipated HME: Wheeled walker Anticipated Home Care Needs: Home health care Anticipated Facility Type: Home care Underwriting Analyst confirmed the discharge plan. The patient will return home with home care from [facility]. Referral was faxed by tentering machine feeder. Case closed at discharge. SIMIN Pal SIMPLE DISCHARGE Date: 02/19/2021 Time: 10:47 AM Patient Name: Krista Bell Date of : 1985 Sex: Female Discharge Planning Living Arrangements: Children Support Systems: Family members Type of Residence: Private residence Prior to Admission Home Care Services: No Patient expects to be discharged to:: home Current Home Equipment: None Anticipated HME: Wheeled walker Anticipated Home Care Needs: Home health care Anticipated Facility Type: Home care Met with the patient during [place] on 02/19/2021. The patient is scheduled to have left partial knee replacement surgery with Dr. Linda on 03/10/2021. She lives with her two daughters in a 2 story home with 3 steps to enter. Her oldest daughter, Jennifer, will assist the patient after surgery. Her bedroom and bathroom are on the second floor. The laundry is in the basement. One bathroom has a walk-in shower, the other has a tub-shower, but neither has grab bars or a seat. The commodes are standard heights. The patient wants to have [facility] Care at discharge, a referral will be made. Notify order placed today. The patient will need a wheeled walker after surgery and is aware that one can be provided from [facility] ([facility] Verified patient s address and phone number. Addendum: Received a secure chat from ANGELA Stlil at [facility]. She indicated that they are not able to provide services to this patient due to her home location being out of their service area. Will plan to follow up with the patient and set her up with another home care company. Followed up with the patient and she just wants a good home care company who can provide services after surgery. She did not have a preference. Referral was made to Claritza griffin [facility], but they are not able to provide the services for the patient. Addendum: Called [facility] and she was directed to the [place] office, . Called and left a message for a Marie Kenyon, requesting a call back to see if they can accept the referral. Addendum: Called [facility] and spoke with Mahamed. She said to fax the referral and their intake nurse, Radha, will review the referral. Will fax the referral. P: [phone] F: [phone] Addendum: Called [facility] and spoke with Radha, reconciliation coordinator, who said they would not be able to take this referral. Called Reanna at [facility] and she said they should be able to take the referral. Will fax her the face sheet. P: [phone] F: [phone] SIMIN Pal documented in this encounter [facility] 03-10-2021 Hospital Discharge instructions Eda Madison OTR/L - 03/10/2021 2:47 PM EDT Patient needs this item from supply closet at discharge: 1. 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 The doctor replaced the worn ends of the bones that connect to your knee (thighbone and lower leg bone) with plastic and metal parts. When you leave the hospital, you should be able to move around with a walker or crutches. But you will need someone to help you at home for the next few weeks or until you have more energy and can move around better. You will go home with a bandage and stitches, deandra, skin glue, or tape strips. Change the bandage as your doctor tells you to. If you have stitches or deandra, your doctor will remove them 10 to 21 days after your surgery. Glue or tape strips will fall off on their own over time. You may still have some mild pain, and the area may be swollen for 3 to 6 months after surgery. Your knee will continue to improve for 6 to 12 months. You will probably use a walker for 1 to 3 weeks and then use crutches. When you are ready, you can use a cane. You will probably be able to walk on your own in 4 to 8 weeks. You will need to do months of physical rehabilitation (rehab) after a knee replacement. Rehab will help you strengthen the muscles of the knee and help you regain movement. After you recover, your artificial knee will allow you to do normal daily activities with less pain or no pain at all. You may be able to hike, dance, ride a bike, and play golf. Talk to your doctor about whether you can do more strenuous activities. Always tell your caregivers that you have an artificial knee. How long it will take to walk on your own, return to normal activities, and go back to work depends on your health and how well your rehabilitation (rehab) program goes. The better you do with your rehab exercises, the quicker you will get your strength and movement back. This care sheet gives you a general idea about how long it will take for you to recover. But each person recovers at a different pace. Follow the steps below to get better as quickly as possible. How can you care for yourself at home? Activity Rest when you feel tired. You may take a nap, but don't stay in bed all day. When you sit, use a chair with arms. You can use the arms to help you stand up. Work with your physical therapist to find the best way to exercise. What you can do as your knee heals will depend on whether your new knee is cemented or uncemented. You may not be able to do certain things for a while if your new knee is uncemented. After your knee has healed enough, you can do more strenuous activities with caution. ? You can golf, but use a golf cart. And don't wear shoes with spikes. ? You can bike on a flat road or on a stationary bike. Avoid biking up hills. ? Your doctor may suggest that you stay away from activities that put stress on your knee. These include tennis, badminton, contact sports like football, jumping (such as in basketball), jogging, and running. ? Avoid activities where you might fall. Do not sit for more than 1 hour at a time. Get up and walk around for a while before you sit again. If you must sit for a long time, prop up your leg with a chair or footstool. This will help you avoid swelling. Ask your doctor when you can drive again. It may take up to 8 weeks after knee replacement surgery before it's safe for you to drive. When you get into a car, sit on the edge of the seat. Then pull in your legs, and turn to face the front. You should be able to do many everyday activities 3 to 6 weeks after your surgery. You will probably need to take 4 to 16 weeks off from work. When you can go back to work depends on the type of work you do and how you feel. Ask your doctor when it is okay for you to have sex. For 12 weeks, do not lift anything heavier than 10 pounds and do not lift weights. Diet By the time you leave the hospital, you should be eating your normal diet. If your stomach is upset, try bland, low-fat foods like plain rice, broiled chicken, toast, and yogurt. Your doctor may suggest that you take iron and vitamin supplements. Drink plenty of fluids (unless your doctor tells you not to). Eat healthy foods, and watch your portion sizes. Try to stay at your ideal weight. Too much weight puts more stress on your new knee. You may notice that your bowel movements are not regular right after your surgery. This is common. Try to avoid constipation and straining with bowel movements. You may want to take a fiber supplement every day. If you have not had a bowel movement after a couple of days, ask your doctor about taking a mild laxative. Medicines Your doctor will tell you if and when you can restart your medicines. You will also get instructions about taking any new medicines. If you take aspirin or some other blood thinner, ask your doctor if and when to start taking it again. Make sure that you understand exactly what your doctor wants you to do. Your doctor may give you a blood-thinning medicine to prevent blood clots. If you take a blood thinner, be sure you get instructions about how to take your medicine safely. Blood thinners can cause serious bleeding problems. This medicine could be in pill form or as a shot (injection). If a shot is needed, your doctor will tell you how to do this. Be safe with medicines. Take pain medicines exactly as directed. ? If the doctor gave you a prescription medicine for pain, take it as prescribed. ? If you are not taking a prescription pain medicine, ask your doctor if you can take an ciib-hfp-gejinrq medicine. ? Plan to take your pain medicine 30 minutes before exercises. It is easier to prevent pain before it starts than to stop it after it has started. If you think your pain medicine is making you sick to your stomach: ? Take your medicine after meals (unless your doctor has told you not to). ? Ask your doctor for a different pain medicine. If your doctor prescribed antibiotics, take them as directed. Do not stop taking them just because you feel better. You need to take the full course of antibiotics. Incision care If your doctor told you how to care for your cut (incision), follow your doctor's instructions. You will have a dressing over the cut. A dressing helps the incision heal and protects it. Your doctor will tell you how to take care of this. If you did not get instructions, follow this general advice: ? If you have strips of tape on the cut the doctor made, leave the tape on for a week or until it falls off. ? If you have stitches or deandra, your doctor will tell you when to come back to have them removed. ? If you have skin glue on the cut, leave it on until it falls off. Skin glue is also called skin adhesive or liquid stitches. ? Change the bandage every day. ? Wash the area daily with warm water, and pat it dry. Don't use hydrogen peroxide or alcohol. They can slow healing. ? You may cover the area with a gauze bandage if it oozes fluid or rubs against clothing. ? You may shower 24 to 48 hours after surgery. Pat the incision dry. Don't swim or take a bath for the first 2 weeks, or until your doctor tells you it is okay. Exercise Your rehab program will give you a number of exercises to do to help you get back your knee's range of motion and strength. Always do them as your therapist tells you. Ice For pain and swelling, put ice or a cold pack on the area for 10 to 20 minutes at a time. Put a thin cloth between the ice and your skin. Other instructions Keep wearing your compression stockings as your doctor says. These help to prevent blood clots. How long you'll have to wear them depends on your activity level and the amount of swelling. Carry a medical alert card that says you have an artificial joint. You have metal pieces in your knee. These may set off some airport metal detectors. Follow-up care is a bautista part of your treatment and safety. Be sure to make and go to all appointments, and call your doctor if you are having problems. It's also a good idea to know your test results and keep a list of the medicines you take. When should you call for help? Call 911 anytime you think you may need emergency care. For example, call if: You passed out (lost consciousness). You have severe trouble breathing. You have sudden chest pain and shortness of breath, or you cough up blood. Call your doctor now or seek immediate medical care if: You have signs of infection, such as: ? Increased pain, swelling, warmth, or redness. ? Red streaks leading from the incision. ? Pus draining from the incision. ? A fever. You have signs of a blood clot, such as: ? Pain in your calf, back of the knee, thigh, or groin. ? Redness and swelling in your leg or groin. Your incision comes open and begins to bleed, or the bleeding increases. You have pain that does not get better after you take pain medicine. Watch closely for changes in your health, and be sure to contact your doctor if: You do not have a bowel movement after taking a laxative. Where can you learn more? Log into your personal health record on https://Typesafe.Roombeats and enter T054 in the Education box to learn more about Total Knee Replacement: What to Expect at Home. Current as of: September 29, 2020 Content Version: 12.8 [employer]. Care instructions adapted under license by your healthcare professional. If you have questions about a medical condition or this instruction, always ask your healthcare professional. [employer] disclaims any warranty or liability for your use of this information. 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 The doctor replaced the worn ends of the bones that connect to your knee (thighbone and lower leg bone) with plastic and metal parts. When you leave the hospital, you should be able to move around with a walker or crutches. But you will need someone to help you at home for the next few weeks or until you have more energy and can move around better. You will go home with a bandage and stitches, deandra, skin glue, or tape strips. Change the bandage as your doctor tells you to. If you have stitches or deandra, your doctor will remove them 10 to 21 days after your surgery. Glue or tape strips will fall off on their own over time. You may still have some mild pain, and the area may be swollen for 3 to 6 months after surgery. Your knee will continue to improve for 6 to 12 months. You will probably use a walker for 1 to 3 weeks and then use crutches. When you are ready, you can use a cane. You will probably be able to walk on your own in 4 to 8 weeks. You will need to do months of physical rehabilitation (rehab) after a knee replacement. Rehab will help you strengthen the muscles of the knee and help you regain movement. After you recover, your artificial knee will allow you to do normal daily activities with less pain or no pain at all. You may be able to hike, dance, ride a bike, and play golf. Talk to your doctor about whether you can do more strenuous activities. Always tell your caregivers that you have an artificial knee. How long it will take to walk on your own, return to normal activities, and go back to work depends on your health and how well your rehabilitation (rehab) program goes. The better you do with your rehab exercises, the quicker you will get your strength and movement back. This care sheet gives you a general idea about how long it will take for you to recover. But each person recovers at a different pace. Follow the steps below to get better as quickly as possible. How can you care for yourself at home? Activity Rest when you feel tired. You may take a nap, but don't stay in bed all day. When you sit, use a chair with arms. You can use the arms to help you stand up. Work with your physical therapist to find the best way to exercise. What you can do as your knee heals will depend on whether your new knee is cemented or uncemented. You may not be able to do certain things for a while if your new knee is uncemented. After your knee has healed enough, you can do more strenuous activities with caution. ? You can golf, but use a golf cart. And don't wear shoes with spikes. ? You can bike on a flat road or on a stationary bike. Avoid biking up hills. ? Your doctor may suggest that you stay away from activities that put stress on your knee. These include tennis, badminton, contact sports like football, jumping (such as in basketball), jogging, and running. ? Avoid activities where you might fall. Do not sit for more than 1 hour at a time. Get up and walk around for a while before you sit again. If you must sit for a long time, prop up your leg with a chair or footstool. This will help you avoid swelling. Ask your doctor when you can drive again. It may take up to 8 weeks after knee replacement surgery before it's safe for you to drive. When you get into a car, sit on the edge of the seat. Then pull in your legs, and turn to face the front. You should be able to do many everyday activities 3 to 6 weeks after your surgery. You will probably need to take 4 to 16 weeks off from work. When you can go back to work depends on the type of work you do and how you feel. Ask your doctor when it is okay for you to have sex. For 12 weeks, do not lift anything heavier than 10 pounds and do not lift weights. Diet By the time you leave the hospital, you should be eating your normal diet. If your stomach is upset, try bland, low-fat foods like plain rice, broiled chicken, toast, and yogurt. Your doctor may suggest that you take iron and vitamin supplements. Drink plenty of fluids (unless your doctor tells you not to). Eat healthy foods, and watch your portion sizes. Try to stay at your ideal weight. Too much weight puts more stress on your new knee. You may notice that your bowel movements are not regular right after your surgery. This is common. Try to avoid constipation and straining with bowel movements. You may want to take a fiber supplement every day. If you have not had a bowel movement after a couple of days, ask your doctor about taking a mild laxative. Medicines Your doctor will tell you if and when you can restart your medicines. You will also get instructions about taking any new medicines. If you take aspirin or some other blood thinner, ask your doctor if and when to start taking it again. Make sure that you understand exactly what your doctor wants you to do. Your doctor may give you a blood-thinning medicine to prevent blood clots. If you take a blood thinner, be sure you get instructions about how to take your medicine safely. Blood thinners can cause serious bleeding problems. This medicine could be in pill form or as a shot (injection). If a shot is needed, your doctor will tell you how to do this. Be safe with medicines. Take pain medicines exactly as directed. ? If the doctor gave you a prescription medicine for pain, take it as prescribed. ? If you are not taking a prescription pain medicine, ask your doctor if you can take an zvtz-zpk-rrcfmxf medicine. ? Plan to take your pain medicine 30 minutes before exercises. It is easier to prevent pain before it starts than to stop it after it has started. If you think your pain medicine is making you sick to your stomach: ? Take your medicine after meals (unless your doctor has told you not to). ? Ask your doctor for a different pain medicine. If your doctor prescribed antibiotics, take them as directed. Do not stop taking them just because you feel better. You need to take the full course of antibiotics. Incision care If your doctor told you how to care for your cut (incision), follow your doctor's instructions. You will have a dressing over the cut. A dressing helps the incision heal and protects it. Your doctor will tell you how to take care of this. If you did not get instructions, follow this general advice: ? If you have strips of tape on the cut the doctor made, leave the tape on for a week or until it falls off. ? If you have stitches or deandra, your doctor will tell you when to come back to have them removed. ? If you have skin glue on the cut, leave it on until it falls off. Skin glue is also called skin adhesive or liquid stitches. ? Change the bandage every day. ? Wash the area daily with warm water, and pat it dry. Don't use hydrogen peroxide or alcohol. They can slow healing. ? You may cover the area with a gauze bandage if it oozes fluid or rubs against clothing. ? You may shower 24 to 48 hours after surgery. Pat the incision dry. Don't swim or take a bath for the first 2 weeks, or until your doctor tells you it is okay. Exercise Your rehab program will give you a number of exercises to do to help you get back your knee's range of motion and strength. Always do them as your therapist tells you. Ice For pain and swelling, put ice or a cold pack on the area for 10 to 20 minutes at a time. Put a thin cloth between the ice and your skin. Other instructions Keep wearing your compression stockings as your doctor says. These help to prevent blood clots. How long you'll have to wear them depends on your activity level and the amount of swelling. Carry a medical alert card that says you have an artificial joint. You have metal pieces in your knee. These may set off some airport metal detectors. Follow-up care is a bautista part of your treatment and safety. Be sure to make and go to all appointments, and call your doctor if you are having problems. It's also a good idea to know your test results and keep a list of the medicines you take. When should you call for help? Call 911 anytime you think you may need emergency care. For example, call if: You passed out (lost consciousness). You have severe trouble breathing. You have sudden chest pain and shortness of breath, or you cough up blood. Call your doctor now or seek immediate medical care if: You have signs of infection, such as: ? Increased pain, swelling, warmth, or redness. ? Red streaks leading from the incision. ? Pus draining from the incision. ? A fever. You have signs of a blood clot, such as: ? Pain in your calf, back of the knee, thigh, or groin. ? Redness and swelling in your leg or groin. Your incision comes open and begins to bleed, or the bleeding increases. You have pain that does not get better after you take pain medicine. Watch closely for changes in your health, and be sure to contact your doctor if: You do not have a bowel movement after taking a laxative. Where can you learn more? Log into your personal health record on https://Voolgot.Roombeats and enter T054 in the Education box to learn more about Total Knee Replacement: What to Expect at Home. Current as of: September 29, 2020 Content Version: 12.8 [employer]. Care instructions adapted under license by your healthcare professional. If you have questions about a medical condition or this instruction, always ask your healthcare professional. [employer] disclaims any warranty or liability for your use of this information. 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 The doctor replaced the worn ends of the bones that connect to your knee (thighbone and lower leg bone) with plastic and metal parts. When you leave the hospital, you should be able to move around with a walker or crutches. But you will need someone to help you at home for the next few weeks or until you have more energy and can move around better. You will go home with a bandage and stitches, deandra, skin glue, or tape strips. Change the bandage as your doctor tells you to. If you have stitches or deandra, your doctor will remove them 10 to 21 days after your surgery. Glue or tape strips will fall off on their own over time. You may still have some mild pain, and the area may be swollen for 3 to 6 months after surgery. Your knee will continue to improve for 6 to 12 months. You will probably use a walker for 1 to 3 weeks and then use crutches. When you are ready, you can use a cane. You will probably be able to walk on your own in 4 to 8 weeks. You will need to do months of physical rehabilitation (rehab) after a knee replacement. Rehab will help you strengthen the muscles of the knee and help you regain movement. After you recover, your artificial knee will allow you to do normal daily activities with less pain or no pain at all. You may be able to hike, dance, ride a bike, and play golf. Talk to your doctor about whether you can do more strenuous activities. Always tell your caregivers that you have an artificial knee. How long it will take to walk on your own, return to normal activities, and go back to work depends on your health and how well your rehabilitation (rehab) program goes. The better you do with your rehab exercises, the quicker you will get your strength and movement back. This care sheet gives you a general idea about how long it will take for you to recover. But each person recovers at a different pace. Follow the steps below to get better as quickly as possible. How can you care for yourself at home? Activity Rest when you feel tired. You may take a nap, but don't stay in bed all day. When you sit, use a chair with arms. You can use the arms to help you stand up. Work with your physical therapist to find the best way to exercise. What you can do as your knee heals will depend on whether your new knee is cemented or uncemented. You may not be able to do certain things for a while if your new knee is uncemented. After your knee has healed enough, you can do more strenuous activities with caution. ? You can golf, but use a golf cart. And don't wear shoes with spikes. ? You can bike on a flat road or on a stationary bike. Avoid biking up hills. ? Your doctor may suggest that you stay away from activities that put stress on your knee. These include tennis, badminton, contact sports like football, jumping (such as in basketball), jogging, and running. ? Avoid activities where you might fall. Do not sit for more than 1 hour at a time. Get up and walk around for a while before you sit again. If you must sit for a long time, prop up your leg with a chair or footstool. This will help you avoid swelling. Ask your doctor when you can drive again. It may take up to 8 weeks after knee replacement surgery before it's safe for you to drive. When you get into a car, sit on the edge of the seat. Then pull in your legs, and turn to face the front. You should be able to do many everyday activities 3 to 6 weeks after your surgery. You will probably need to take 4 to 16 weeks off from work. When you can go back to work depends on the type of work you do and how you feel. Ask your doctor when it is okay for you to have sex. For 12 weeks, do not lift anything heavier than 10 pounds and do not lift weights. Diet By the time you leave the hospital, you should be eating your normal diet. If your stomach is upset, try bland, low-fat foods like plain rice, broiled chicken, toast, and yogurt. Your doctor may suggest that you take iron and vitamin supplements. Drink plenty of fluids (unless your doctor tells you not to). Eat healthy foods, and watch your portion sizes. Try to stay at your ideal weight. Too much weight puts more stress on your new knee. You may notice that your bowel movements are not regular right after your surgery. This is common. Try to avoid constipation and straining with bowel movements. You may want to take a fiber supplement every day. If you have not had a bowel movement after a couple of days, ask your doctor about taking a mild laxative. Medicines Your doctor will tell you if and when you can restart your medicines. You will also get instructions about taking any new medicines. If you take aspirin or some other blood thinner, ask your doctor if and when to start taking it again. Make sure that you understand exactly what your doctor wants you to do. Your doctor may give you a blood-thinning medicine to prevent blood clots. If you take a blood thinner, be sure you get instructions about how to take your medicine safely. Blood thinners can cause serious bleeding problems. This medicine could be in pill form or as a shot (injection). If a shot is needed, your doctor will tell you how to do this. Be safe with medicines. Take pain medicines exactly as directed. ? If the doctor gave you a prescription medicine for pain, take it as prescribed. ? If you are not taking a prescription pain medicine, ask your doctor if you can take an cjgh-qvg-gpopkbo medicine. ? Plan to take your pain medicine 30 minutes before exercises. It is easier to prevent pain before it starts than to stop it after it has started. If you think your pain medicine is making you sick to your stomach: ? Take your medicine after meals (unless your doctor has told you not to). ? Ask your doctor for a different pain medicine. If your doctor prescribed antibiotics, take them as directed. Do not stop taking them just because you feel better. You need to take the full course of antibiotics. Incision care If your doctor told you how to care for your cut (incision), follow your doctor's instructions. You will have a dressing over the cut. A dressing helps the incision heal and protects it. Your doctor will tell you how to take care of this. If you did not get instructions, follow this general advice: ? If you have strips of tape on the cut the doctor made, leave the tape on for a week or until it falls off. ? If you have stitches or deandra, your doctor will tell you when to come back to have them removed. ? If you have skin glue on the cut, leave it on until it falls off. Skin glue is also called skin adhesive or liquid stitches. ? Change the bandage every day. ? Wash the area daily with warm water, and pat it dry. Don't use hydrogen peroxide or alcohol. They can slow healing. ? You may cover the area with a gauze bandage if it oozes fluid or rubs against clothing. ? You may shower 24 to 48 hours after surgery. Pat the incision dry. Don't swim or take a bath for the first 2 weeks, or until your doctor tells you it is okay. Exercise Your rehab program will give you a number of exercises to do to help you get back your knee's range of motion and strength. Always do them as your therapist tells you. Ice For pain and swelling, put ice or a cold pack on the area for 10 to 20 minutes at a time. Put a thin cloth between the ice and your skin. Other instructions Keep wearing your compression stockings as your doctor says. These help to prevent blood clots. How long you'll have to wear them depends on your activity level and the amount of swelling. Carry a medical alert card that says you have an artificial joint. You have metal pieces in your knee. These may set off some airport metal detectors. Follow-up care is a bautista part of your treatment and safety. Be sure to make and go to all appointments, and call your doctor if you are having problems. It's also a good idea to know your test results and keep a list of the medicines you take. When should you call for help? Call 911 anytime you think you may need emergency care. For example, call if: You passed out (lost consciousness). You have severe trouble breathing. You have sudden chest pain and shortness of breath, or you cough up blood. Call your doctor now or seek immediate medical care if: You have signs of infection, such as: ? Increased pain, swelling, warmth, or redness. ? Red streaks leading from the incision. ? Pus draining from the incision. ? A fever. You have signs of a blood clot, such as: ? Pain in your calf, back of the knee, thigh, or groin. ? Redness and swelling in your leg or groin. Your incision comes open and begins to bleed, or the bleeding increases. You have pain that does not get better after you take pain medicine. Watch closely for changes in your health, and be sure to contact your doctor if: You do not have a bowel movement after taking a laxative. Where can you learn more? Log into your personal health record on https://[email or web address].Roombeats and enter T054 in the Education box to learn more about Total Knee Replacement: What to Expect at Home. Current as of: September 29, 2020 Content Version: 12.8 [employer]. Care instructions adapted under license by your healthcare professional. If you have questions about a medical condition or this instruction, always ask your healthcare professional. [employer] disclaims any warranty or liability for your use of this information. documented in this encounter [facility] 03-10-2021 Miscellaneous Notes Physical Therapy Plan of Care Certification Note Coded Admission Diagnosis Primary osteoarthritis of left knee [M17.12] PT Functional Diagnosis: R26.89 Other abnormalities of gait and mobility PT Goals Multidisciplinary Problems (Active) Problem: Impaired Strength Dates: Start: 03/10/21 Disciplines: PT Goal: PT- strengthening Dates: Start: 03/10/21 Expected End: 03/17/21 Description: PT - Patient will complete appropriate HEP to Jerad Le's with mod indep to continue strengthening upon discharge to home to improve safety and efficiency of daily functional mobility. Disciplines: PT Problem: Mobility - Impaired Dates: Start: 03/10/21 Disciplines: PT Goal: PT- bed mobility Dates: Start: 03/10/21 Expected End: 03/17/21 Description: PT - Patient will perform bed mobility with independence to improve functional mobility and safety. Disciplines: PT Goal: PT- sit to stand transfer Dates: Start: 03/10/21 Expected End: 03/17/21 Description: PT - Patient will perform sit to/from stand transfer with modified independence to improve functional mobility and safety. Disciplines: PT Goal: PT- car transfer Dates: Start: 03/10/21 Expected End: 03/17/21 Description: PT - Patient will perform car transfer with modified independence to improve functional mobility and safety. Disciplines: PT Goal: PT- ambulation Dates: Start: 03/10/21 Expected End: 03/17/21 Description: PT - Patient will ambulate >150 feet with device with modified independence to improve functional mobility and safety. Disciplines: PT Goal: PT- stair climbing Dates: Start: 03/10/21 Expected End: 03/17/21 Description: PT - Patient will ascend and descend full flight of stairs with non-reciprocal technique with 1 rail with stand by assist to improve functional mobility and safety. Disciplines: PT Intervention: EDUCATION, ASSISTIVE DEVICE TRAINING Frequency: PRN Dates: Start: 03/10/21 Intervention: EDUCATION, BED MOBILITY TRAINING Frequency: PRN Dates: Start: 03/10/21 Intervention: EDUCATION, BALANCE TRAINING Frequency: PRN Dates: Start: 03/10/21 Description: REMINDER(s): Reinforce education provided by Physical Therapy related to balance training. Intervention: EDUCATION, GAIT TRAINING Frequency: PRN Dates: Start: 03/10/21 Intervention: EDUCATION, MANUAL THERAPY Frequency: PRN Dates: Start: 03/10/21 Intervention: EDUCATION, STAIR TRAINING Frequency: PRN Dates: Start: 03/10/21 Intervention: EDUCATION, THERAPEUTIC EXERCISE Frequency: PRN Dates: Start: 03/10/21 Intervention: EDUCATION, TRANSFER TRAINING Frequency: PRN Dates: Start: 03/10/21 Intervention: EDUCATION, PRECAUTIONS Frequency: PRN Dates: Start: 03/10/21 Frequency of Treatment (times per week): up to 5 times per week This physical Therapy Plan of Care will be carried out until: 1.) The PT plan has been resolved or 2.) The patient is discharged from the acute care hospital Initiate POC Brief Post Operative Note Patient Name: Krista Bell : 1985 (35 y.o.) Date of Service: 03/10/2021 CSN: [id number] Procedure(s): Left knee partial knee replacement Pre-Operative Diagnoses: * Primary osteoarthritis of left knee [M17.12] Post-Operative Diagnoses: * Same as Pre-Op Diagnosis * Primary osteoarthritis of left knee [M17.12] Surgeon(s) and Role: * Jack Linda MD - Primary Anesthesiologist: Rosales Hannah MD Anesthesiologist Insole And Heel Stiffener: ÁNGEL Zepeda Scrub Person: Ana Bell RN Manager Property Orientee: Gini Hung RN Manager Property Preceptor: Chloe Chavez RN Scrub Person Assist: Minoo Parr RN Operative findings: djd Intra and immediate post-operative complications: none Type of anesthesia used: Spinal Estimated blood loss: 1 mL Estimated urine output: 0 mL Specimen(s): ID Type Source Tests Collected by Time Destination A : Left knee bone and soft tissue Bone Joint, Knee, Left TISSUE EXAM Jack Linda MD 03/10/2021 0749 Implant(s): Implant Name Type Inv. Item Serial No. Conflict Resolution Professional Lot No. [id number] No. Used Action Simplex P Bone Cement 1/2 Dose [employer] [id number] Left 1 Implanted COMPONENT 4 FEM LM/RL TRIATHLON PKR - [id number] COMPONENT 4 FEM LM/RL TRIATHLON PKR [employer] OR [id number] Left 1 Implanted BASEPLATE SZ4 LM/RL TRIATHLON PKR - [id number] BASEPLATE SZ4 LM/RL TRIATHLON PKR [employer] OR [id number] Left 1 Implanted INSERT SZ3 8MM LM/RL TRIATHLON PKR [id number] - [id number] INSERT SZ3 8MM LM/RL TRIATHLON PKR [id number] [employer] OR [id number] Left 1 Implanted Drain(s): * No LDAs found * Wound(s): Wound 03/10/21 Surgical Wound Knee Left (Active) [REMOVED] Wound 03/10/21 Surgical Wound Leg Left (Removed) Jack Linda MD 03/10/2021 8:40 AM PREOPERATIVE DIAGNOSIS Left knee medial compartment degenerative arthrosis. POSTOPERATIVE DIAGNOSIS Left knee medial compartment degenerative arthrosis. PROCEDURE PERFORMED Left knee medial unicompartmental knee replacement. ANESTHESIA Spinal. COMPLICATIONS No intraoperative complications. SPECIMENS Bone. ESTIMATED BLOOD LOSS 1 cc. TOURNIQUET TIME 37 minutes. HISTORY Krista is an unfortunate 35-year-old patient with significant degenerative arthrosis in the medial compartment and genu varum, unresponsive to conservative measures. For further details, see admission history and physical examination. I explained all the risks and complications of surgery including, but not limited to the risk of infection, bleeding, neurologic or vascular injury, possibility of deep venous thrombosis, pulmonary embolism, myocardial infarction, stroke, or even with surgery. Explained the possibilities of continued pain, stiffness, loss of range of motion, as well as the need for future surgery. Explained to her at an extremely young age, the possibility of need for future surgery, conversion to a total knee replacement. The patient understood this and at this time consented for surgical intervention. DESCRIPTION OF PROCEDURE The patient was met in the preoperative holding area where the left knee was confirmed to be the appropriate site and marked by myself. The patient was taken to the operative suite, given preoperative Kefzol per protocol, as well as a spinal anesthetic. Left leg was placed in a proximal thigh tourniquet. Left leg was then sterilely prepped and draped using ChloraPrep solution as well as InteguSeal. After sterilization of the left leg, we did our final time-out to confirm that the left knee was in fact the appropriate site that had been marked by myself. We then went ahead and proceeded forward with elevation of the left leg tourniquet. A 10 cm incision was made along the medial border of the patella. Medial arthrotomy was performed. Suprapatellar synovectomy was performed. Patella fat pad was debulked, and patella was cut. We placed our distal femoral checkpoint, proximal tibial checkpoint, placed our distal femoral array and our proximal tibial array. After the medial arthrotomy, I did a small amount of debulking of the patella fat pad. However, we did not cut the patella. I examined the patella and the patellofemoral articulation and they were intact without any significant chondromalacia. Lateral compartment showed no significant abnormalities. After I was comfortable that we were dealing with isolated medial compartment disease, we went to the task of doing the unicompartmental replacement of the medial compartment. I placed my extramedullary tibial alignment guide, and at this point in time, I proceeded forward with doing an alignment. After the alignment was appropriate in the coronal and sagittal plane, I made my proximal tibial cut. I then went ahead and did flexion-extension balancing and used a -1 cutting block on the distal femur. After the distal femoral cut was completed, I did my posterior and chamfer cut. I then went ahead and proceeded forward with removing posterior osteophytes. Right after the tibial and femoral cuts were completed, I removed all of bone. I then removed the osteophytes. I then also removed the medial meniscus, sized the tibia and femur to be a size 4. I did sequential reductions, set on 8 mm polyethylene. After this, my it administrative assistant mixed cement, I injected local anesthetic around the distal femur and proximal tibia. I then went ahead and when the cement was the appropriate consistency, placed my size 4 medial tibial component with my 8 mm x 4 polyethylene and then our 4 left medial femoral component. All redundant cement was removed. The knee was placed in full extension. After the cement cured, the knee was ranged throughout a range of motion. There was full extension, full flexion, excellent rollback. We then went ahead and were very happy with our alignment. We then went ahead and proceeded forward with doing final irrigation. I sprinkled 1 g of vancomycin powder throughout the contact surface areas of the left knee. Medial arthrotomy was closed using #2 Vicryl. #2 Vicryl was used to reapproximate deep subcutaneous tissue, 2-0 Vicryl skin deandra used on skin. Exofin was placed on the wound as well as a sterile Mepilex dressing. Patient was taken to PACU without intraoperative complication. D 03/10/2021 08:46 [id number] 03/10/2021 09:13 MCB/MODL documented in this encounter [facility] 03-10-2021 Nurse Note Sensation is at L5 bilaterally, able to move legs broadly, able to wiggle toes slightly to left foot Sensation is at L4 bilateral, patient able to move legs broadly. Unable to wiggle toes. documented in this encounter [facility] 03-10-2021 History and physical note INTERVAL HISTORY AND PHYSICAL Patient Name: Krista Bell Admit Date: [id number] MR #: [id number] : 1985 The H&P has been reviewed and the patient has been examined. I concur with the findings of the H&P. There are no significant changes. It is appropriate to proceed with the planned procedure. Jack Linda MD 03/10/2021 6:36 AM Krista comes in today for preoperative consultation regarding her left knee medial partial knee replacement. Unfortunately, this patient has at a very young age varus deformity with end-stage iqah-ds-noih deformity of her medial compartment. She has tried pills, shots, physical therapy with no relief whatsoever and she is tired of the pain, tired of the discomfort. She unfortunately cannot do anti-inflammatories religiously due to a gastric sleeve surgery and worry of stomach ulcers. The patient at this time says she is just tired of the pain. X-ray examination of the left knee, 4 views, reveals end-stage medial compartment degenerative arthrosis with uusi-nb-ogge deformity with no changes in the lateral patellofemoral compartment. ALLERGIES None. MEDICINES Biotin, vitamin D, vitamin B12, Lexapro, magnesium, Cytotec, multivitamins, Valtrex, Protonix. ILLNESSES Depression, stress urinary incontinence. SURGERIES Had left knee arthroscopy, cholecystectomy, EGD, gastric sleeve bypass March of 2016. SOCIAL HISTORY She does not smoke. Drinks on a rare basis. FAMILY HISTORY Negative. REVIEW OF SYSTEMS Left knee pain, joint pain, arthralgias. PHYSICAL EXAM General: She is awake, alert x3. Ambulates without assistive device. She is accompanied with a male friend. Chest: Clear. Heart: Regular rate and rhythm. Abdomen: Obese, soft, nontender. Extremities: Left lower extremity neurologically intact 2+ pulses. Full range of motion left ankle and hip. Left knee, varus knee stance, full extension, 135 degrees of flexion. Negative anterior-posterior drawer. Negative Patrice. No varus or valgus instability. Tenderness over the medial joint line. IMPRESSION Left knee medial compartment degenerative arthrosis. PLAN We will proceed with left knee medial compartment partial knee replacement. I have discussed all the treatment options with the patient, patient was part of the entire decision-making process. I discussed with the patient that we would be using a [place] partial knee replacement system and she understood this. I discussed all the risks and complications of COVID-19 with the patient. Mental status was assessed. Narcotic review was performed. Patient has no listed medications. documented in this encounter [facility] 03-04-2021 History of Present illness Narrative Dictation on: 03/04/2021 6:51 PM by: JACK LINDA [[id number]] documented in this encounter [facility] 03-03-2021 Nurse Note Discharge alert,ambulatory escorted out of the unit by RN , wheelchair offered Decline with Eris route salesman and driver/escort home. Verbal and written discharge instruction given to escort boyfriend Eris and patient , both verbalized understanding. Boyfrienlance Schulte here with patient [phone] documented in this encounter [facility] 03-03-2021 History and physical note [facility] PATIENT NAME: Krista Bell DATE OF : 1985 DATE OF VISIT: 03/03/21 CC: Marginal ulcer BMI: Body mass index is 41.97 kg/m . Resp 16 Ht 5' 6 Wt 117.9 kg (260 lb) LMP 02/25/2021 No Comment: negative test BMI 41.97 kg/m HPI: 35 year old female with history of sleeve gastrectomy in 2015 s/p laparoscopic conversion to Heena-en-Y gastric bypass in mid 2019. EGD in 12/04 for epigastric pain found to have marginal ulcer. Has been on anti-ulcer medications. Denies pain, dysphagia. Review of Systems Consitutional: negative HEENT: negative EYES: negative Chest: no dyspnea Cardiac: no chest pain, palpitations Abdomen: see HPI : negative Extremity: no numbness or weakness Neurologic: motor/sensory normal Skin: negative Hematologic:negative Past Medical History: Diagnosis Date Anemia Arthritis Depression GERD (gastroesophageal reflux disease) Internal derangement of knee 05/13/2015 Obesity, Class III, BMI 40-49.9 (morbid obesity) ([facility]) 05/13/2015 Peptic ulcer disease JUJU (stress urinary incontinence, female) 05/13/2015 Past Surgical History: Procedure Laterality Date ARTHROSCOPY KNEE Left 10/2014 CHOLECYSTECTOMY 2010 ESOPHAGOGASTRODUODENOSCOPY WITH BIOPSY N/A 12/08/2020 Procedure: ESOPHAGOGASTRODUODENOSCOPY WITH BIOPSY; Surgeon: Jai Groves MD; Location: [facility] Main OR; Service: General Surgery GASTRIC BYPASS OPEN 2019 GASTRIC SLEEVE BYPASS LAPAROSCOPIC WITH EGD N/A 03/30/2016 Procedure: LAPAROSCOPIC SLEEVE GASTRECTOMY, HIATAL HERNIA REPAIR, LIVER BIOPSY, ESOPHAGOGASTRODUODENOSCOPY; Surgeon: Jai Esquivel MD; Location: [facility] Main OR; Service: Social History Socioeconomic History Marital status: Single Spouse name: Not on file Number of children: Not on file Years of education: Not on file Highest education level: Not on file Occupational History Not on file Social Needs Financial resource strain: Not on file Food insecurity Worry: Not on file Inability: Not on file Transportation needs Medical: Not on file Non-medical: Not on file Tobacco Use Smoking status: Former Smoker Years: 3.00 Quit date: 05/06/2010 Years since quittin.8 Smokeless tobacco: Never Used Substance and Sexual Activity Alcohol use: Yes Comment: 2 per month Drug use: No Sexual activity: Not Currently Lifestyle Physical activity Days per week: Not on file Minutes per session: Not on file Stress: Not on file Relationships Social connections Talks on phone: Not on file Gets together: Not on file Attends latter day service: Not on file Active member of club or organization: Not on file Attends meetings of clubs or organizations: Not on file Relationship status: Not on file Other Topics Concern Not on file Social History Narrative Not on file No Known Allergies No current facility-administered medications on file prior to encounter. Current Outpatient Medications on File Prior to Encounter Medication Sig biotin 1 mg cap Take 1 mg by mouth every morning . cholecalciferol, vitamin D3, 125 mcg (5,000 unit) capsule Take 5,000 Units by mouth 2 (two) times a day . escitalopram oxalate (LEXAPRO) 10 MG tablet Take 20 mg by mouth every morning . miSOPROStoL (CYTOTEC) 200 MCG tablet Take 1 (one) tablet (200 mcg total) by mouth 4 (four) times a day . pantoprazole (PROTONIX) 40 MG tablet Take 1 (one) tablet (40 mg total) by mouth 2 (two) times a day . cyanocobalamin (B-12) 1000 MCG tablet Take 1,000 mcg by mouth every morning . multivitamin capsule Take 1 capsule by mouth every morning . valACYclovir (VALTREX) 1000 MG tablet Take 1,000 mg by mouth as needed . Physical Exam Resp 16 Ht 5' 6 Wt 117.9 kg (260 lb) LMP 02/25/2021 No Comment: negative test BMI 41.97 kg/m Constitutional: Obese and in no distress HENT: Negative, sclera anicteric Head: Normocephalic and atraumatic. Eyes: EOM are normal. No scleral icterus. Neck: Neck supple. No tracheal deviation present. Cardiovascular: Normal rate and regular rhythm. Pulmonary/Chest: No audible wheeze, normal respiratory effort Abdominal: Soft, obese, non-tender, non-distended. There is no rebound and no guarding. Musculoskeletal: No gross deformities Neurological: alert and oriented to person, place, and time. Psychiatric: Normal mood and affect. Behavior is normal. Krista Bell is a 35 y.o. female with a lifelong history of Heena-en-Y Gastric Bypass and marginal ulcer. Last EGD in 12/04 - Plan for upper endoscopy today - Risks, benefits, alternatives of procedure discussed with patient and all questions answered Jai Groves MD 03/03/21 documented in this encounter [facility] 02-27-2021 Miscellaneous Notes Patient Instructions for [facility]: MAIN OR Prior to surgery: ? Please contact your Surgeon's office for the scheduled time of your surgery. ? Report to the Surgery Family Waiting Area in the [facility] 2 hours prior to your surgery. ? You may use the [employer] parking available at the [facility] /or park in the [facility] - a voucher for parking will be provided to you. ? One family member may accompany you back into the Pre-Op Area. ? If your surgeon has given you special guidelines for eating and drinking prior to surgery, follow their instructions. o If not, the evening before surgery you may eat a low-fat meal up until midnight. Do not eat anything, including gum, cough drops, hard candy or mints after midnight. Clear liquids, including water, Gatorade and black coffee (no dairy or creamer products), up to two hours prior to surgery are permitted. ? Do not smoke, chew tobacco or drink alcohol for 24 hours before surgery. ? Please take any medications you have been instructed to take the morning of your surgery with small sips of water. ? Please be sure to wear comfortable, appropriate clothing. ? Please remove all jewelry and piercings, including wedding rings. RINGS WILL BE CUT OFF IF UNABLE TO REMOVE. ? Leave all valuable items at home. ? Shower using Dial soap or as advised by your Surgeon's office. ? Do not apply any makeup or lotions. ? Gel or acrylic nails must be removed from both ring fingers. ? Remove all nail divehi/product for surgeries involving extremities. ? Please remember to bring both your insurance card and a photo ID with you on the day of surgery. After your surgery: ? If you are having outpatient surgery you must have a licensed route salesman and driver to take you home. The expectation is that this route salesman and driver will remain at the hospital for the duration of your procedure. ? You are advised to have a family member with you for at least 24 hours after being under Anesthesia. documented in this encounter [facility] 11-24-2020 History of Present illness Narrative Radiology Service Progress Note PATIENT NAME: Krista Bell DATE OF SERVICE: November 24, 2020 TIME: 1:50 PM PATIENT IDENTITY VERIFICATION COMPLETED USING TWO (2) IDENTIFIERS: Name and Date of confirmed by patient verbally. FALL SCREENING: Has the patient had 2 falls in the last year or 1 fall with injury or currently using an Ambulatory Assistive Device (Walker, Cane, Wheelchair, Crutches, etc.)? No PATIENT GENDER DATA: Female. status: : No status: NO. PATIENT RELEVANT IMPLANT DATA REVIEWED: Yes RADIOLOGY DEPARTMENT: General X-ray: Exam(s) Completed: Lower Extremity X-Ray(s): Knee, AP / LAT Left and Wt. Bearing and Foot, Right and Wt. Bearing: PERIPHERAL IV DATA: Not applicable SIGNED BY: RT Timothy November 24, 2020 1:50 PM documented in this encounter [facility] 03-04-2011 History of Past i llness Narrative Problem Noted Date Resolved Date Routine general medical exam ination at a health care facility 03/04/2011 10/09/2014 Overview: 03/04/2011, establish care Routine gynecological examination 03/04/2011 10/09/2014 Overview: Dez documented as of this encounter (statuses as of 03/17/2022) [facility]21-2011 History of Past illness Narrative* Problem Noted Date Resolved Date Routine general medical exam ination at a health care facility 03/04/2011 10/09/2014 Overview: 03/04/2011, establish care Routine gynecological examination 03/04/2011 10/09/2014 Overview: Dez documented as of this encounter (statuses as of 03/19/2022) [facility] History of Past illness Narrative* Problem Noted Date Resolved Date Routine general medical exam ination at a health care facility 03/04/2011 10/09/2014 Overview: 03/04/2011, establish care Routine gynecological examination 03/04/2011 10/09/2014 Overview: Dez documented as of this encounter (statuses as of 04/01/2022) [facility] History of Past illness Narrative* Problem Noted Date Resolved Date Routine general medical exam ination at a health care facility 03/04/2011 10/09/2014 Overview: 03/04/2011, establish care Routine gynecological examination 03/04/2011 10/09/2014 Overview: Dez documented as of this encounter (statuses as of 07/29/2022) [facility] History of Past illness Narrative* Problem Noted Date Resolved Date Routine general medical exam ination at a health care facility 03/04/2011 10/09/2014 Overview: 03/04/2011, establish care Routine gynecological examination 03/04/2011 10/09/2014 Overview: Dez documented as of this encounter (statuses as of 07/29/2022) [facility] History of Past illness Narrative* Problem Noted Date Resolved Date Routine general medical exam ination at a health care facility 03/04/2011 10/09/2014 Overview: 03/04/2011, establish care Routine gynecological examination 03/04/2011 10/09/2014 Overview: Dez documented as of this encounter (statuses as of 07/29/2022) [facility] History of Past illness Narrative* Problem Noted Date Resolved Date Routine general medical exam ination at a health care facility 03/04/2011 10/09/2014 Overview: 03/04/2011, establish care Routine gynecological examination 03/04/2011 10/09/2014 Overview: Dez documented as of this encounter (statuses as of 10/04/2022) [facility] History of Past illness Narrative* Problem Noted Date Resolved Date Routine general medical exam ination at a health care facility 03/04/2011 10/09/2014 Overview: 03/04/2011, establish care Routine gynecological examination 03/04/2011 10/09/2014 Overview: Dez documented as of this encounter (statuses as of 10/08/2022) [facility] History of Past illness Narrative* Problem Noted Date Resolved Date Routine general medical exam ination at a health care facility 03/04/2011 10/09/2014 Overview: 03/04/2011, establish care Routine gynecological examination 03/04/2011 10/09/2014 Overview: Dez Fatigue 03/04/2011 10/18/2022 documented as of this encounter (statuses as of 10/18/2022) [facility] History of Past illness Narrative* Problem Noted Date Resolved Date Routine general medical exam ination at a health care facility 03/04/2011 10/09/2014 Overview: 03/04/2011, establish care Routine gynecological examination 03/04/2011 10/09/2014 Overview: Dez Fatigue 03/04/2011 10/18/2022 documented as of this encounter (statuses as of 11/01/2022) [facility] History of Past illness Narrative* Problem Noted Date Resolved Date Routine general medical exam ination at a health care facility 03/04/2011 10/09/2014 Overview: 03/04/2011, establish care Routine gynecological examination 03/04/2011 10/09/2014 Overview: Dez Fatigue 03/04/2011 10/18/2022 documented as of this encounter (statuses as of 12/15/2022) [address]21-2011 History of Past illness Narrative* Problem Noted Date Resolved Date Routine general medical exam ination at a health care facility 03/04/2011 10/09/2014 Overview: 03/04/2011, establish care Routine gynecological examination 03/04/2011 10/09/2014 Overview: Cristianos Fatigue 03/04/2011 10/18/2022 documented as of this encounter (statuses as of 12/30/2022) [address]21-2011 History of Past illness Narrative* Problem Noted Date Diagnosed Date Resolved Date Routine general medical exam ination at a health care facility 03/04/2011 10/09/2014 Overview: 03/04/2011, establish care Routine gynecological examination 03/04/2011 10/09/2014 Overview: Froilanmarlons Fatigue 03/04/2011 10/18/2022 documented as of this encounter (statuses as of 06/06/2023) [address]21-2011 History of Past illness Narrative* Problem Noted Date Diagnosed Date Resolved Date Routine general medical exam ination at a health care facility 03/04/2011 10/09/2014 Overview: 03/04/2011, establish care Routine gynecological examination 03/04/2011 10/09/2014 Overview: Froilanmarlons Fatigue 03/04/2011 10/18/2022 documented as of this encounter (statuses as of 06/14/2023) [address]21-2011 History of Past illness Narrative* Problem Noted Date Diagnosed Date Resolved Date Routine general medical exam ination at a health care facility 03/04/2011 10/09/2014 Overview: 03/04/2011, establish care Routine gynecological examination 03/04/2011 10/09/2014 Overview: Cristianos Fatigue 03/04/2011 10/18/2022 documented as of this encounter (statuses as of 06/28/2023) [address]21-2011 History of Past illness Narrative* Problem Noted Date Diagnosed Date Resolved Date Routine general medical exam ination at a health care facility 03/04/2011 10/09/2014 Overview: 03/04/2011, establish care Routine gynecological examination 03/04/2011 10/09/2014 Overview: Cristianos Fatigue 03/04/2011 10/18/2022 documented as of this encounter (statuses as of 07/12/2023) [address]21-2011 History of Past illness Narrative* Problem Noted Date Diagnosed Date Resolved Date Routine general medical exam ination at a health care facility 03/04/2011 10/09/2014 Overview: 03/04/2011, establish care Routine gynecological examination 03/04/2011 10/09/2014 Overview: Dez Fatigue 03/04/2011 10/18/2022 documented as of this encounter (statuses as of 07/14/2023) [address]21-2011 History of Past illness Narrative* Problem Noted Date Diagnosed Date Resolved Date Routine general medical exam ination at a health care facility 03/04/2011 10/09/2014 Overview: 03/04/2011, establish care Routine gynecological examination 03/04/2011 10/09/2014 Overview: Dez Fatigue 03/04/2011 10/18/2022 documented as of this encounter (statuses as of 07/23/2023) [address]21-2011 History of Past illness Narrative* Problem Noted Date Diagnosed Date Resolved Date Routine general medical exam ination at a health care facility 03/04/2011 10/09/2014 Overview: 03/04/2011, establish care Routine gynecological examination 03/04/2011 10/09/2014 Overview: Froilanmonika Fatigue 03/04/2011 10/18/2022 documented as of this encounter (statuses as of 08/26/2023) [address]21-2011 History of Past illness Narrative* Problem Noted Date Diagnosed Date Resolved Date Routine general medical exam ination at a health care facility 03/04/2011 10/09/2014 Overview: 03/04/2011, establish care Routine gynecological examination 03/04/2011 10/09/2014 Overview: Dez Fatigue 03/04/2011 10/18/2022 documented as of this encounter (statuses as of 10/14/2023) [facility] History of Past illness Narrative* Problem Noted Date Diagnosed Date Resolved Date Routine general medical exam ination at a health care facility 03/04/2011 10/09/2014 Overview: 03/04/2011, establish care Routine gynecological examination 03/04/2011 10/09/2014 Overview: Dez Fatigue 03/04/2011 10/18/2022 documented as of this encounter (statuses as of 10/28/2023) [facility] History of Past illness Narrative* Problem Noted Date Diagnosed Date Resolved Date Routine general medical exam ination at a health care facility 03/04/2011 10/09/2014 Overview: 03/04/2011, establish care Routine gynecological examination 03/04/2011 10/09/2014 Overview: Dez Fatigue 03/04/2011 10/18/2022 documented as of this encounter (statuses as of 10/29/2023) [facility] History of Past illness Narrative* Problem Noted Date Diagnosed Date Resolved Date Routine general medical exam ination at a health care facility 03/04/2011 10/09/2014 Overview: 03/04/2011, establish care Routine gynecological examination 03/04/2011 10/09/2014 Overview: Dez Fatigue 03/04/2011 10/18/2022 documented as of this encounter (statuses as of 02/07/2024) [facility] Obesity, Class III, BMI 40-49.9 (morbid obesity) ([facility])- Primary Primary osteoarthritis of left knee- Primary Primary osteoarthritis of left knee [facility] Diagnosis Primary osteoarthritis of left knee- Primary Primary osteoarthritis of left knee- Primary Primary osteoarthritis of left knee [facility] Diagnosis Primary osteoarthritis of left knee- Primary Hypertension, unspecified type Exposure to SARS-associated coronavirus Primary osteoarthritis of left knee- Primary Primary osteoarthritis of left knee [facility] Diagnosis Primary osteoarthritis of left knee- Primary Iron deficiency anemia, unspecified iron deficiency anemia type- Primary Other specified intestinal malabsorption Primary osteoarthritis of left knee [facility] Diagnosis Iron deficiency anemia, unspecified iron deficiency anemia type- Primary Other specified intestinal malabsorption [facility] Diagnosis Primary osteoarthritis of left knee- Primary S/P left unicompartmental knee replacement [facility] Diagnosis Status post left partial knee replacement- Primary [facility] Status post left partial knee replacement- Primary [facility] Diagnosis Iron deficiency anemia, unspecified iron deficiency anemia type- Primary Other specified intestinal malabsorption [facility] Diagnosis Iron deficiency anemia, unspecified iron deficiency anemia type- Primary S/P gastric bypass Bariatric surgery status [facility] Diagnosis Status post left partial knee replacement- Primary [facility] Diagnosis Status post left partial knee replacement- Primary [facility] Diagnosis Status post left partial knee replacement- Primary [facility] Diagnosis Status post left partial knee replacement- Primary [facility] Diagnosis Depression, unspecified depression type [facility] Diagnosis Depression, unspecified depression type- Primary History of gastric bypass Bariatric surgery status Screening for diabetes mellitus Screening for lipid disorders documented in this encounter [facility] note* Diagnosis Thrombocytosis- Primary Essential thrombocythemia [facility]* Diagnosis Status post left partial knee replacement- Primary [facility] noteNo assessment information [facility] Phone: [facility]* Diagnosis Herpes simplex virus (HSV) infection documented in this encounter [facility] note* Diagnosis Thrombocytosis- Primary Essential thrombocythemia documented in this encounter [facility] note* Diagnosis Herpes simplex virus (HSV) infection documented in this encounter [facility] note* Diagnosis Depression, unspecified depression type- Primary Hx of bariatric surgery Bariatric surgery status Thrombocytosis Essential thrombocythemia Herpes simplex virus (HSV) infection Screening for HIV (human immunodeficiency virus) Special screening examination for other specified viral diseases Need for hepatitis C screening test Special screening examination for other specified viral diseases documented in this encounter [facility] note* Diagnosis Thrombocytopenia (HCC)- Primary Thrombocytopenia, unspecified Hx of bariatric surgery Bariatric surgery status documented in this encounter [facility] note* Diagnosis Sore throat- Primary Acute pharyngitis documented in this encounter [facility] note* Diagnosis Polycythemia- Primary Polycythemia, secondary documented in this encounter [facility] note* Diagnosis Encounter for screening mammogram for breast cancer documented in this encounter [facility] note* Diagnosis Encounter for screening mammogram for breast cancer documented in this encounter [facility] note* Diagnosis Hx of bariatric surgery- Primary Bariatric surgery status Thrombocytosis Essential thrombocythemia Postsurgical malabsorption Other and unspecified postsurgical nonabsorption Screening for viral disease Special screening examination for unspecified viral disease documented in this encounter [facility] note* Diagnosis Depression, unspecified depression type documented in this encounter [facility] note* Diagnosis Encounter for gynecological examination (general) (routine) without abnormal findings- Primary Encounter for surveillance of contraceptive pills Surveillance of previously prescribed contraceptive pill Screening for cervical cancer Screening for malignant neoplasm of the cervix Encounter for screening for human papillomavirus (HPV) Special screening examination for human papillomavirus (HPV) documented in this encounter [facility] note* Diagnosis Treatment not available- Primary Procedure not carried out for other reasons documented in this encounter [facility] note* Diagnosis Depression, unspecified depression type- Primary Hx of bariatric surgery Bariatric surgery status Thrombocytosis Essential thrombocythemia Gastroesophageal reflux disease without esophagitis Esophageal reflux Screening breast examination Breast screening, unspecified Abnormal menses Unspecified disorder of menstruation and other abnormal bleeding from female genital tract Intestinal malabsorption, unspecified type Screening for lipid disorders documented in this encounter [facility] note* Diagnosis Encounter for surveillance of contraceptive pills Surveillance of previously prescribed contraceptive pill [facility]* Diagnosis LGSIL on Pap smear of cervix- Primary Cervical cancer screening Screening for malignant neoplasm of the cervix Special screening examination for human papillomavirus (HPV) documented in this encounter [facility] note* Diagnosis LGSIL on Pap smear of cervix- Primary High risk HPV infection Human papillomavirus in conditions classified elsewhere and of unspecified site documented in this encounter [facility] note* Diagnosis Screening breast examination Breast screening, unspecified documented in this encounter [facility] note* Diagnosis Gastroesophageal reflux disease without esophagitis Esophageal reflux [facility]* Diagnosis Cough [facility]* Diagnosis Intestinal malabsorption, unspecified type- Primary documented in this encounter [facility] note* Diagnosis Encounter for surveillance of contraceptive pills Surveillance of previously prescribed contraceptive pill documented in this encounter [facility] note* Diagnosis Depression, unspecified depression type documented in this encounter [facility] note* Diagnosis Gastroesophageal reflux disease without esophagitis Esophageal reflux documented in this encounter [facility] note* Diagnosis Well adult exam- Primary Routine general medical examination at a health care facility Encounter for screening examination for other mental health and behavioral disorders Encounter for screening mammogram for breast cancer Depression, unspecified depression type Gastroesophageal reflux disease without esophagitis Esophageal reflux Thrombocytosis Essential thrombocythemia Class 2 obesity with body mass index (BMI) of 35.0 to 35.9 in adult, unspecified obesity type, unspecified whether serious comorbidity present Screening for lipid disorders Intestinal malabsorption, unspecified type ([facility]) Anxiety Anxiety state, unspecified Hx of bariatric surgery Bariatric surgery status Low grade squamous intraepithelial lesion on cytologic smear of cervix (LGSIL) Papanicolaou smear of cervix with low grade squamous intraepithelial lesion (LGSIL) Screening for diabetes mellitus [facility]* Diagnosis Thrombocytosis- Primary Essential thrombocythemia documented in this encounter [facility] note* Diagnosis Anemia, unspecified type- Primary documented in this encounter [facility] note* Diagnosis Preoperative clearance- Primary Unspecified pre-operative examination Primary osteoarthritis of left knee- Primary documented in this encounter [facility] note* Diagnosis Encounter for gynecological examination (general) (routine) without abnormal findings- Primary Encounter for surveillance of contraceptive pills Surveillance of previously prescribed contraceptive pill Screening for cervical cancer Screening for malignant neoplasm of the cervix Encounter for screening for human papillomavirus (HPV) Special screening examination for human papillomavirus (HPV) Encounter for screening mammogram for [facility] cancer [facility] Encounter for screening mammogram for breast cancer [facility] Attachments The following attachments cannot be sent through Care Everywhere. * EGD (Upper Endoscopy): Pre-op (German) * Monitored Anesthesia Care: MAC: General Info (German) [facility] Additional Instructions Follow-up with your primary care physician. Return back to ED if symptoms change or [facility]senW[facility] Work Phone: Reason for referral (narrative)* Diagnostic Procedure Only (Routine) - Authorized Specialty Diagnoses / Procedures Referred By Willa roa Referred To Contact [facility] Diagnoses Encounter for screening mammogram for breast cancer Procedures MYRIAM SCREENING SCREENING MAMMOGRAPHY BI 2-VIEW BREAST INC Percy Moscoso MD [address] [place] [address] [facility] [address] [place] [address] Referral ID Status Reason Start Date Expiration Date Visits Requested Visits Authorized [id number] Authorized Auto-Generat ed Referral 06/01/2023 06/30/2024 1 1 T [facility] for referral (narrative)* Diagnostic Procedure Only (Routine) - Authorized Specialty Diagnoses / Procedures Referred By Contac t Referred To Contact [facility] Diagnoses Screening breast examination Procedures MYRIAM SCREENING SCREENING MAMMOGRAPHY BI 2-VIEW BREAST INC Percy Moscoso MD [address] [place] [address] [facility] [address] [place] [address] Referral ID Status Reason Start Date Expiration Date Visits Requested Visits Authorized [id number] Authorized Auto-Generat ed Referral 03/24/2024 04/23/2025 1 1 T [facility] for referral (narrative)* Diagnostic Procedure Only (Routine) - Closed Specialty Diagnoses / Procedures Referred By Contac t Referred To Contact [facility] Diagnoses Screening breast examination Procedures MYRIAM SCREENING SCREENING MAMMOGRAPHY BI 2-VIEW BREAST INC Percy Moscoso MD [address] [place] [address] [facility] [address] [place] [address] Referral ID Status Reason Start Date Expiration Date V isits Requested Visits Authorized [id number] Closed Auto-Generate d Referral 03/24/2024 04/23/2025 1 1 [facility] for referral (narrative)No reason for referral information availableWBl[facility] Work Phone: Reason for visit Narrative* Diagnostic Procedure Only (Routine) - Closed Specialty Diagnoses / Procedures Referred By Contac t Referred To Contact [facility] Diagnoses Encounter for screening mammogram for breast cancer Procedures MYRIAM SCREENING SCREENING MAMMOGRAPHY BI 2-VIEW BREAST INC Percy Moscoso MD [address] [place] [address] [facility] [address] [place] [address] Referral ID Status Reason Start Date Expiration Date V isits Requested Visits Authorized [id number] Closed Auto-Generate d Referral 06/01/2023 06/30/2024 1 1 [facility] for visit Narrative* Diagnostic Procedure Only (Routine) - Closed Specialty Diagnoses / Procedures Referred By Contac t Referred To Contact [facility] Diagnoses Screening breast examination Procedures MYRIAM SCREENING SCREENING MAMMOGRAPHY BI 2-VIEW BREAST INC Percy Moscoso MD [address] [place] [address] [facility] [address] [place] [address] Referral ID Status Reason Start Date Expiration Date V isits Requested Visits Authorized [id number] Closed Auto-Generate d Referral 03/24/2024 04/23/2025 1 1 [facility] for visit Narrative* Diagnostic Procedure Only (Routine) - Closed Specialty Diagnoses / Procedures Referred By Contac t Referred To Contact [facility] Diagnoses Encounter for screening mammogram for breast cancer Procedures MYRIAM SCREENING W EVELIN SCREENING DIGITAL BREAST TOMOSYNTHESIS BI SCREENING MAMMOGRAPHY BI 2-VIEW BREAST INC CAD Percy Huang MD [address] [place] [address] Phone: tel: fax: [facility] [address] [place] [address] Referral ID Status Reason Start Date Expiration Date V isits Requested Visits Authorized [id number] Closed Auto-Generate d Referral 06/28/2025 11/13/2025 1 1 [facility] Assessments Diagnosis Primary osteoarthritis of le ft knee - Primary Diagnosis Internal derangement of righ t knee - Primary Degeneration disease of medi al meniscus of left knee Diagnosis Primary osteoarthritis of left knee- Primary Diagnosis Degeneration disease of medial meniscus of left knee- Primary Diagnosis Primary osteoarthritis of left knee Diagnosis Internal derangement of right knee Primary osteoarthritis of knee, unspecified laterality Diagnosis Internal derangement of right knee- Primary Primary osteoarthritis of left knee Diagnosis Primary osteoarthritis of knee, unspecified laterality- Primary Primary osteoarthritis of left knee Diagnosis Preop testing- Primary Unspecified pre-operative examination Obesity, Class III, BMI 40-49.9 (morbid obesity) ([facility])- Primary Obesity, Class III, BMI 40-49.9 (morbid obesity) ([facility]) Diagnosis Obesity, Class III, BMI 40-49.9 (morbid obesity) ([facility])- Primary Diagnosis Anastomotic ulcer S/P gastric bypass Diagnosis Preop testing- Primary Unspecified pre-operative examination Diagnosis Obesity, Class III, BMI 40-49.9 (morbid obesity) ([facility])- Primary Diagnosis Obesity, Class III, BMI 40-49.9 (morbid obesity) ([facility])- Primary Primary osteoarthritis of left knee- Primary Obesity, Class III, BMI 40-49.9 (morbid obesity) ([facility]) Diagnosis Obesity, Class III, BMI 40-49.9 (morbid obesity) ([facility])- Primary Primary osteoarthritis of left knee- Primary Hypertension, unspecified type Exposure to SARS-associated coronavirus Obesity, Class III, BMI 40-49.9 (morbid obesity) ([facility]) Diagnosis Obesity, Class III, BMI 40-49.9 (morbid obesity) ([facility])- Primary Primary osteoarthritis of left knee- Primary Pre-operative cardiovascular examination- Primary Primary osteoarthritis of left knee Obesity, Class III, BMI 40-49.9 (morbid obesity) (H[facility]) Advance Directives No Advanced Directives Records FoundDocuments on File Type Date Recorded 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 Advance Directives and Living Will Latest Code Status on File Code Status Date Activated Date Inactivated Comments Full Code 03/30/2016 3:37 PM 04/01/2016 8:45 PM Documents on File Type Date Recorded 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 anation Advance Directives and Livin g Will 12/08/2020 10:01 AM Latest Code Status on File Code Status Date Activated Date Inactivated Comments Full Code 03/30/2016 3:37 PM 04/01/2016 8:45 PM Documents on File Type Date Recorded 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 Advance Directives and Livin g Will 12/08/2020 10:01 AM Documents on File Type Date Recorded 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 anation Advance Directives and Livin g Will 02/19/2021 10:01 AM Documents on File Type Date Recorded 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 anation Advance Directives and Livin g Will 03/03/2021 10:01 AM Documents on File Type Date Recorded 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 anation Advance Directives and Livin g Will 03/03/2021 10:01 AM Documents on File Type Date Recorded 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 anation Advance Directives and Livin g Will 03/10/2021 10:01 AM Latest Code Status on File Code Status Date Activated Date Inactivated Comments Full Code 03/10/2021 8:45 AM Full Code 03/30/2016 3:37 PM 04/01/2016 8:45 PM Latest Code Status on File Code Status Date Activated Date Inactivated Comments Full Code 03/10/2021 8:45 AM 03/10/2021 8:17 PM Documents on File Type Date Recorded 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 anation Advance Directives and Livin g Will 03/10/2021 10:01 AM Latest Code Status on File Code Status Date Activated Date Inactivated Comments Full Code 03/10/2021 8:45 AM 03/10/2021 8:17 PM Full Code 03/30/2016 3:37 PM 04/01/2016 8:45 PM Advance Directive Response Recorded Date/ Time Living Will No December 03 8:28pm Power of Cleaning And Washing Equipment Operator No December 03, 2020 8:28pm Latest Code Status on File Code Status Date Activated Date Inactivated Comments Full Code 03/10/2021 8:45 AM 03/10/2021 8:17 PM Code Status History Code Status Date Activated Date Inactivated Comments Full Code 03/30/2016 3:37 PM 04/01/2016 8:45 PM Date Activated Date Inactivated Comments 03/10/2021 8:45 AM 03/10/2021 8:17 PM Date Activated Date Inactivated Comments 03/30/2016 3:37 PM 04/01/2016 8:45 PM Advance Directive Response Recorded Date/ Time Living Will Yes February 05, 2025 5:19pm Do you have a Healthcare Power of Cleaning And Washing Equipment Operator? No February 05, 2025 5:19pm Summary Purpose Family History No Family History Records FoundNo Family History Records FoundNo Family History Records FoundNo Family History Records FoundNo Family History Records FoundNo Family History Records FoundNo Family History Records FoundNo Family History Records FoundNo Family History Records FoundNo Family History Records Found History of Present Illness * Rohini Chaudhari CNP - 2019 10:45 AM EDT Associated Order(s): LG Jt Injection/Arthrocentesis: L knee Post-Procedure Diagnose(s): Primary osteoarthritis of left knee LG Jt Injection/Arthrocentesis: L knee Performed by: Rohini Chaudhari CNP Authorized by: Rohini Chaudhari CNP CPT 89028 - Large Joint Arthrocentesis: Consent given by: Patient Time out: Immediately prior to the procedure a time out was called Physician or proceduralist has discussed critical or nonroutine steps, procedure duration and anticipated blood loss: Yes Supporting Documentation: Indications: Pain Procedure Details: Location: Knee Site: L knee Prep: patient was prepped and draped in usual sterile fashion Needle size: 22 G Approach: Anterolateral Medications: 1 mL dexamethasone 4 mg/mL, 1 mL triamcinolone acetonide 40 mg/mL Anesthetic used: Bupivacaine 0.5% and Lidocaine 1% Anesthetic amount (mL): 4 Patient tolerance: Patient tolerated the procedure well with no immediate complications * Rohini Chaudhari CNP - 2019 10:45 AM EDT 04/26/19 Krista Bell 1985 Chief Complaint Patient presents with Left Knee - Pain, Follow-up Injections left knee HISTORY of Present Illness: Krista Bell is a 34 y.o. year old female that presents today with Pain and Follow-up of the LeftKnee and Injections (left knee) . Krista Bell has had injections in the past. Last injection to left knee was May and they tolerated well. They have been treated w/ oral medications & injections. Patient denies new injury to the knees. The following portions of the patient's history were reviewed and updated as appropriate: allergies, current medications, past surgical history and problem list Assessment No documentation. Referred By: No ref. provider found PAST MEDICAL HISTORY The patient's Medications, Allergies, Past Surgical History, Medical History, Family History and Social History were reviewed and can be found in their online medical record, and I have reviewed thisinformation with Krista Bell at the time of their visit. They are significant for Past Medical History: Diagnosis Date Depression Internal derangement of knee 05/13/2015 Obesity, Class III, BMI 40-49.9 (morbid obesity) ([facility]) 05/13/2015 JUJU (stress urinary incontinence, female) 05/13/2015 PHYSICAL EXAM Ortho Exam Full range of motion left ankle and hip. Left knee full extension, 130 degrees of flexion. Negativeanterior-posterior drawer. Negative Patrice. Moderate patellofemoral crepitus. Tenderness medial joint line. Positive Conor. Mild knee effusion. IMAGING Notes: none new today. Reviewed from last visit. IMPRESSION And PLAN: Cortisone injection today. Will follow up in 3 months if effective. Call if no improvement in [address](R) 1. 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 LG Jt Injection/Arthrocentesis: L knee Performed by: Rohini Chaudhari CNP Authorized by: Rohini Chaudhari CNP CPT 31036 - Large Joint Arthrocentesis: Consent given by: Patient Time out: Immediately prior to the procedure a time out was called Physician or proceduralist has discussed critical or nonroutine steps, procedure duration and anticipated blood loss: Yes Supporting Documentation: Indications: Pain Procedure Details: Location: Knee Site: L knee Prep: patient was prepped and draped in usual sterile fashion Needle size: 22 G Approach: Anterolateral Medications: 1 mL dexamethasone 4 mg/mL, 1 mL triamcinolone acetonide 40 mg/mL Anesthetic used: Bupivacaine 0.5% and Lidocaine 1% Anesthetic amount (mL): 4 Patient tolerance: Patient tolerated the procedure well with no immediate complications * Rohini Chaudhari CNP - 08/07/2019 10:15 AM EDT 08/06/19 Krista Bell 1985 No chief complaint on file. HISTORY of Present Illness: Krista Bell is a 34 y.o. year old female that presents today with No chief complaint on file. . Krista Bell has had injections in the past. Last injection to left knee was April and they tolerated well. They have been treated w/ oral medications & injections. Patient denies new injury to the knees. The following portions of the patient's history were reviewed and updated as appropriate: allergies, current medications, past surgical history and problem list Assessment No documentation. Referred By: No ref. provider found PAST MEDICAL HISTORY The patient's Medications, Allergies, Past Surgical History, Medical History, Family History and Social History were reviewed and can be found in their online medical record, and I have reviewed thisinformation with Krista Bell at the time of their visit. They are significant for Past Medical History: Diagnosis Date Depression Internal derangement of knee 05/13/2015 Obesity, Class III, BMI 40-49.9 (morbid obesity) ([facility]) 05/13/2015 JUJU (stress urinary incontinence, female) 05/13/2015 PHYSICAL EXAM Ortho Exam Extremities: Full range of motion of the left ankle and hip. Left knee has full extension, 130 degrees of flexion with severe patellofemoral crepitus, mild knee effusion tenderness over the medial joint line, no ligamentous instability IMAGING Notes: none new today. Reviewed from last visit. IMPRESSION And PLAN: Cortisone injection today. Will follow up in 3 months if effective. Call if no improvement in 10 days. No diagnosis found. Rohini Chaudhari CNP documented in this encounter* Selina Mejia CNP - 12/04/2019 3:08 PM EST Associated Order(s): LG Jt Injection/Arthrocentesis: L knee Post-Procedure Diagnose(s): Primary osteoarthritis of left knee LG Jt Injection/Arthrocentesis: L knee Performed by: Selina Mejia CNP Authorized by: Selina Mejia CNP CPT 62830 - Large Joint Arthrocentesis: Consent given by: Patient Time out: Immediately prior to the procedure a time out was called Supporting Documentation: Indications: Pain and diagnostic evaluation Procedure Details: Location: Knee Site: L knee Prep: patient was prepped and draped in usual sterile fashion Needle size: 22 G Approach: Anterolateral Medications: 40 mg triamcinolone acetonide 40 mg/mL Anesthetic used: Lidocaine 1% Anesthetic amount (mL): 2 Patient tolerance: Patient tolerated the procedure well with no immediate complications * Selina Mejia CNP - 12/04/2019 2:54 PM EST [facility] [address] [facility] [address] [facility] [address] Chief Complaint Patient presents with Injections Krista Bell returns to the office today for an injection to the left knee. She states that todayshe just wants an injection. She states that she knows her knee is really bad and she will need a knee replacement eventually but for right now, all she wants is the injection. The patient's past medical history, surgical history, social history, family history, medications and allergies were reviewed with the patient today and are available in the chart for further review. ROS: Review of Systems Constitutional: Negative for activity change and fatigue. HENT: Negative for congestion, hearing loss and trouble swallowing. Eyes: Negative for visual disturbance. Respiratory: Negative for chest tightness and shortness of breath. Cardiovascular: Negative for chest pain and palpitations. Gastrointestinal: Negative for abdominal pain, diarrhea, nausea and vomiting. Endocrine: Negative for polydipsia, polyphagia and polyuria. Genitourinary: Negative for decreased urine volume, difficulty urinating and hematuria. Musculoskeletal: Positive for arthralgias. Negative for joint swelling and myalgias. Skin: Negative for color change, rash and wound. Allergic/Immunologic: Negative for immunocompromised state. Neurological: Negative for dizziness, weakness, light-headedness and numbness. Hematological: Does not bruise/bleed easily. Psychiatric/Behavioral: Negative for confusion and sleep disturbance. The patient is not nervous/anxious. PE: Physical Exam Constitutional: She is oriented to person, place, and time. She appears well- developed and well-nourished. HENT: Head: Normocephalic. Eyes: Pupils are equal, round, and reactive to light. Neck: Normal range of motion. Neck supple. Cardiovascular: Normal rate and regular rhythm. Pulmonary/Chest: Effort normal and breath sounds normal. Abdominal: Soft. Bowel sounds are normal. Musculoskeletal: Normal range of motion. General: Tenderness present. Left knee: Tenderness found. Medial joint line and lateral joint line tenderness noted. Neurological: She is alert and oriented to person, place, and time. Skin: Skin is warm and dry. Imaging: No new imaging today. Assessment/Plan: After examination and discussion with the patient, I injected the patient left knee per request. I will see her back in 3 months as needed for another injection. At the next office visit, I will order new x-rays of the left knee. The patient verbalizes understanding and is in agreement with the treatment plan. documented in this encounter* Rohini Chaudhari CNP - 04/21/2020 3:15 PM EDT Associated Order(s): LG Jt Injection/Arthrocentesis: L knee Post-Procedure Diagnose(s): Primary osteoarthritis of knee, unspecified laterality LG Jt Injection/Arthrocentesis: L knee Performed by: Rohini Chaudhari CNP Authorized by: Rohini Chaudhari CNP CPT 24966 - Large Joint Arthrocentesis: Consent given by: Patient Time out: Immediately prior to the procedure a time out was called Physician or proceduralist has discussed critical or nonroutine steps, procedure duration and anticipated blood loss: Yes Supporting Documentation: Indications: Pain Procedure Details: Location: Knee Site: L knee Prep: patient was prepped and draped in usual sterile fashion Needle size: 22 G Approach: Anterolateral Medications: 1 mL dexamethasone 4 mg/mL, 1 mL triamcinolone acetonide 40 mg/mL Anesthetic used: Bupivacaine 0.5% and Lidocaine 1% Anesthetic amount (mL): 4 Patient tolerance: Patient tolerated the procedure well with no immediate complications * Rohini Chaudhari CNP - 04/21/2020 3:15 PM EDT [facility] [address] [facility] [address] [facility] [address] No chief complaint on file. Krista Bell returns to the office today for an injection to the left knee. She states that todayshe just wants an injection. She states that she knows her knee is really bad and she will need a knee replacement eventually but for right now, all she wants is the injection. The patient's past medical history, surgical history, social history, family history, medications and allergies were reviewed with the patient today and are available in the chart for further review. ROS: Review of Systems Constitutional: Negative for activity change and fatigue. HENT: Negative for congestion, hearing loss and trouble swallowing. Eyes: Negative for visual disturbance. Respiratory: Negative for chest tightness and shortness of breath. Cardiovascular: Negative for chest pain and palpitations. Gastrointestinal: Negative for abdominal pain, diarrhea, nausea and vomiting. Endocrine: Negative for polydipsia, polyphagia and polyuria. Genitourinary: Negative for decreased urine volume, difficulty urinating and hematuria. Musculoskeletal: Positive for arthralgias. Negative for joint swelling and myalgias. Skin: Negative for color change, rash and wound. Allergic/Immunologic: Negative for immunocompromised state. Neurological: Negative for dizziness, weakness, light-headedness and numbness. Hematological: Does not bruise/bleed easily. Psychiatric/Behavioral: Negative for confusion and sleep disturbance. The patient is not nervous/anxious. PE: Physical Exam Constitutional: She is oriented to person, place, and time. She appears well- developed and well-nourished. HENT: Head: Normocephalic. Eyes: Pupils are equal, round, and reactive to light. Neck: Normal range of motion. Neck supple. Cardiovascular: Normal rate and regular rhythm. Pulmonary/Chest: Effort normal and breath sounds normal. Abdominal: Soft. Bowel sounds are normal. Musculoskeletal: Normal range of motion. General: Tenderness present. Left knee: Tenderness found. Medial joint line and lateral joint line tenderness noted. Neurological: She is alert and oriented to person, place, and time. Skin: Skin is warm and dry. Imaging: No new imaging today. Assessment/Plan: After examination and discussion with the patient, I injected the patient left knee per request. I will see her back in 3 months as needed for another injection. At the next office visit, I will order new x-rays of the left knee. The patient verbalizes understanding and is in agreement with the treatment plan. documented in this encounter* Rohini Chaudhari CNP - 07/30/2020 3:15 PM EDT Associated Order(s): LG Jt Injection/Arthrocentesis: L knee Post-Procedure Diagnose(s): Primary osteoarthritis of left knee LG Jt Injection/Arthrocentesis: L knee Performed by: Rohini Chaudhari CNP Authorized by: Rohini Chaudhari CNP CPT 54034 - Large Joint Arthrocentesis: Consent given by: Patient Time out: Immediately prior to the procedure a time out was called Physician or proceduralist has discussed critical or nonroutine steps, procedure duration and anticipated blood loss: Yes Supporting Documentation: Indications: Pain Procedure Details: Location: Knee Site: L knee Prep: patient was prepped and draped in usual sterile fashion Needle size: 22 G Approach: Anterolateral Medications: 1 mL dexamethasone 4 mg/mL, 1 mL triamcinolone acetonide 40 mg/mL Anesthetic used: Bupivacaine 0.5% and Lidocaine 1% Anesthetic amount (mL): 4 Patient tolerance: Patient tolerated the procedure well with no immediate complications * Rohini Chaudhari CNP - 07/30/2020 3:15 PM EDT [facility] [address] [facility] [address] [facility] [address] No chief complaint on file. Krista Bell returns to the office today for an injection to the left knee. She states that todayshe just wants an injection. She states that she knows her knee is really bad and she will need a knee replacement eventually but for right now, all she wants is the injection. The patient's past medical history, surgical history, social history, family history, medications and allergies were reviewed with the patient today and are available in the chart for further review. ROS: Review of Systems Constitutional: Negative for activity change and fatigue. HENT: Negative for congestion, hearing loss and trouble swallowing. Eyes: Negative for visual disturbance. Respiratory: Negative for chest tightness and shortness of breath. Cardiovascular: Negative for chest pain and palpitations. Gastrointestinal: Negative for abdominal pain, diarrhea, nausea and vomiting. Endocrine: Negative for polydipsia, polyphagia and polyuria. Genitourinary: Negative for decreased urine volume, difficulty urinating and hematuria. Musculoskeletal: Positive for arthralgias. Negative for joint swelling and myalgias. Skin: Negative for color change, rash and wound. Allergic/Immunologic: Negative for immunocompromised state. Neurological: Negative for dizziness, weakness, light-headedness and numbness. Hematological: Does not bruise/bleed easily. Psychiatric/Behavioral: Negative for confusion and sleep disturbance. The patient is not nervous/anxious. PE: Physical Exam Constitutional: She is oriented to person, place, and time. She appears well- developed and well-nourished. HENT: Head: Normocephalic. Eyes: Pupils are equal, round, and reactive to light. Neck: Normal range of motion. Neck supple. Cardiovascular: Normal rate and regular rhythm. Pulmonary/Chest: Effort normal and breath sounds normal. Abdominal: Soft. Bowel sounds are normal. Musculoskeletal: Normal range of motion. General: Tenderness present. Left knee: Tenderness found. Medial joint line and lateral joint line tenderness noted. Neurological: She is alert and oriented to person, place, and time. Skin: Skin is warm and dry. Assessment/Plan: After examination and discussion with the patient, I injected the patient left knee per request. I will see her back in 3 months as needed for another injection We will give her a hinged knee brace today for ambulation stability documented in this encounter* Selina Mejia CNP - 10/30/2020 12:32 PM EST Associated Order(s): LG Jt Injection/Arthrocentesis: L knee Post-Procedure Diagnose(s): Primary osteoarthritis of left knee LG Jt Injection/Arthrocentesis: L knee Performed by: Selina Mejia CNP Authorized by: Selina Mejia CNP CPT 73584 - Large Joint Arthrocentesis: Consent given by: Patient Time out: Immediately prior to the procedure a time out was called Physician or proceduralist has discussed critical or nonroutine steps, procedure duration and anticipated blood loss: Yes Supporting Documentation: Indications: Pain and diagnostic evaluation Procedure Details: Location: Knee Site: L knee Prep: patient was prepped and draped in usual sterile fashion Needle size: 22 G Approach: Anterolateral Medications: 40 mg triamcinolone acetonide 40 mg/mL Anesthetic used: Lidocaine 1% Anesthetic amount (mL): 2 Patient tolerance: Patient tolerated the procedure well with no immediate complications * Selina Mejia CNP - 10/30/2020 12:14 PM EST [facility] [address] [facility] [address] [address] No chief complaint on file. Krista Bell returns to the office today for an injection to her left knee. The knee is doing about the same, maybe even a little worse. She is having more difficulty with putting weight on the left knee. 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 She is very frustrated because any type of exercise she attempts ends up withsevere pain in the left knee and she isn't able to finish the exercises. She is thinking that she wants to have surgery in the spring. The need for a possible partial knee replacement has been discussed in the past and she is thinking that she wants to move forward with that. The patient's past medical history, surgical history, social history, family history, medications and allergies were reviewed with the patient today and are available in the chart for further review. No Known Allergies Current Outpatient Medications: biotin 1 mg cap, Take by mouth., Disp: , Rfl: cholecalciferol, vitamin D3, 2,000 unit cap, Take by mouth., Disp: , Rfl: cyanocobalamin (B-12) 1000 MCG tablet, Take 1,000 mcg by mouth every night at bedtime ., Disp: , Rfl: escitalopram oxalate (LEXAPRO) 10 MG tablet, Take 10 mg by mouth daily., Disp: , Rfl: methylPREDNISolone (MEDROL DOSEPACK) 4 mg tablet, Take 4 mg by mouth See Admin Instructions ., Disp: , Rfl: 0 multivitamin capsule, Take 1 capsule by mouth daily., Disp: , Rfl: OCELLA 3-0.03 mg per tablet, Take 1 tablet by mouth daily., Disp: , Rfl: 12 valACYclovir (VALTREX) 1000 MG tablet, Take 2 tablets by mouth every 12 hours., Disp: , Rfl: 2 ferrous sulfate 325 (65 FE) MG tablet, Take 325 mg by mouth ., Disp: , Rfl: Past Medical History: Diagnosis Date Depression Internal derangement of knee 05/13/2015 Obesity, Class III, BMI 40-49.9 (morbid obesity) ([facility]) 05/13/2015 JUJU (stress urinary incontinence, female) 05/13/2015 Past Surgical History: Procedure Laterality Date ARTHROSCOPY KNEE Left 10/2014 CHOLECYSTECTOMY 2010 GASTRIC SLEEVE BYPASS LAPAROSCOPIC WITH EGD N/A 03/30/2016 Procedure: LAPAROSCOPIC SLEEVE GASTRECTOMY, HIATAL HERNIA REPAIR, LIVER BIOPSY, ESOPHAGOGASTRODUODENOSCOPY; Surgeon: Jai Esquivel MD; Location: [facility] Main OR; Service: Social History Socioeconomic History Marital status: Single Spouse name: Not on file Number of children: Not on file Years of education: Not on file Highest education level: Not on file Occupational History Not on file Social Needs Financial resource strain: Not on file Food insecurity Worry: Not on file Inability: Not on file Transportation needs Medical: Not on file Non-medical: Not on file Tobacco Use Smoking status: Former Smoker Years: 3.00 Quit date: 05/06/2010 Years since quittin.4 Smokeless tobacco: Never Used Substance and Sexual Activity Alcohol use: No Alcohol/week: 0.0 standard drinks Drug use: No Sexual activity: Not Currently Lifestyle Physical activity Days per week: Not on file Minutes per session: Not on file Stress: Not on file Relationships Social connections Talks on phone: Not on file Gets together: Not on file Attends latter day service: Not on file Active member of club or organization: Not on file Attends meetings of clubs or organizations: Not on file Relationship status: Not on file Other Topics Concern Not on file Social History Narrative Not on file ROS: Review of Systems Constitutional: Negative for activity change and fatigue. HENT: Negative for congestion, hearing loss and trouble swallowing. Eyes: Negative for visual disturbance. Respiratory: Negative for chest tightness and shortness of breath. Cardiovascular: Negative for chest pain and palpitations. Gastrointestinal: Negative for abdominal pain, diarrhea, nausea and vomiting. Endocrine: Negative for polydipsia, polyphagia and polyuria. Genitourinary: Negative for decreased urine volume, difficulty urinating and hematuria. Musculoskeletal: Positive for arthralgias and joint swelling. Negative for myalgias. Skin: Negative for color change, rash and wound. Allergic/Immunologic: Negative for immunocompromised state. Neurological: Negative for dizziness, weakness, light-headedness and numbness. Hematological: Does not bruise/bleed easily. Psychiatric/Behavioral: Negative for confusion and sleep disturbance. The patient is not nervous/anxious. PE: Physical Exam Constitutional: She is oriented to person, place, and time. She appears well- developed and well-nourished. HENT: Head: Normocephalic. Eyes: Pupils are equal, round, and reactive to light. Neck: Normal range of motion. Neck supple. Cardiovascular: Normal rate and regular rhythm. Pulmonary/Chest: Effort normal and breath sounds normal. Abdominal: Soft. Bowel sounds are normal. Musculoskeletal: Normal range of motion. General: Tenderness present. Left knee: She exhibits swelling. Tenderness found. Medial joint line tenderness noted. Neurological: She is alert and oriented to person, place, and time. Skin: Skin is warm and dry. Imaging: No new imaging, reviewed from prior visit Assessment/Plan: Injection to left knee per patient request. I did this without complications and she tolerated this well. I will see her back in 3 months and at that time, I will get new x-rays on the left knee and we will discuss a partial knee replacement with Dr. Linda. The patient verbalizes understanding and is in agreement with the treatment plan. I am happy to see her sooner if needed. documented in this encounter* Danni Rendon RN - 12/04/2020 10:57 AM EST Lab orders scanned from [facility] for EGD procedure 12/08/20 documented in this encounter* Jai Groves MD - 12/25/2020 10:42 AM EST Telephone Visit Via Phone Call [facility] [address] [place] [phone] Telephone Visit [facility] 12/25/2020 Jai Groves MD Provider Location: [facility] Patient Location Building Illuminating Engineer: None Patient Location: Patient's Home Patient: Krista Bell Date of : 1985 (35 y.o. female) PCP: Percy Huang MD I discussed risks, benefits and alternatives of a telephone visit telemedicine consultation with the patient (and any accompanying persons) including the risks that the patient's personal health details and medical records will be discussed over real-time, synchronous, interactive audio technology,the visit will not be recorded without the express consent of both the provider and the patient, and that there are inherent diagnostic limitations compared to [id number] evaluations. We elected toproceed with the telephone visit telemedicine consultation. SURG[facility] to Heena-en-Y Gastric Bypass- 2019 SUBJECTIVE/HPI: Denies abd pain, reflux, nausea. On cytotec QID and PPI BID. Only gets cytotec in 3 times on some days. Repeat EGD in late February 2021. The following portions of the patient's history were reviewed and updated as appropriate: allergies, past family history, past medical history, past social history, past surgical history and problem list. Review of Systems: Gen: negative Abd: see HPI Patient's Medications New Prescriptions No medications on file Previous Medications BIOTIN 1 MG CAP Take 1 mg by mouth every morning . CHOLECALCIFEROL, VITAMIN D3, 2,000 UNIT CAP Take 2,000 Units by mouth every morning . CYANOCOBALAMIN (B-12) 1000 MCG TABLET Take 1,000 mcg by mouth every morning . ESCITALOPRAM OXALATE (LEXAPRO) 10 MG TABLET Take 10 mg by mouth every morning . QUHAJNNFE-FTKMTMB-IAEPY ACID 400-200-1 MG TAB Take 1 tablet by mouth every morning . MISOPROSTOL (CYTOTEC) 200 MCG TABLET Take 1 (one) tablet (200 mcg total) by mouth 4 (four) times a day . MULTIVITAMIN CAPSULE Take 1 capsule by mouth every morning . VALACYCLOVIR (VALTREX) 1000 MG TABLET Take 1,000 mg by mouth as needed (elliott sores) . Modified Medications Modified Medication Previous Medication PANTOPRAZOLE (PROTONIX) 40 MG TABLET pantoprazole (PROTONIX) 40 MG tablet Take 1 (one) tablet (40 mg total) by mouth 2 (two) times a day . Take 1 (one) tablet (40 mg total) by mouth 2 (two) times a day . Discontinued Medications No medications on file Assessment/Plan: 1. Anastomotic ulcer S/P gastric bypass - Continue Protonix 40mg BID and Cytotec 200mcg QID - Plan for repeat EGD in 02/2021. WIll schedule - Annual postoperative bariatric labs to be checked now. Follow up plan: Plan to follow up on routine post op Bariatric schedule. I have spent 5-10 minutes with the patient reviewing the HPI and Plan of Care. documented in this encounter* Tessy Nelson LPN - 02/20/2021 11:32 AM EDT Krista had a low H&H w her pre-op labs of 9.2 and 32.4. I did speak w Krista and she had an EGD at [facility] about [address] Groves which did show a small ulcer, she has never had a colonoscopy. At that time her H&H was 8.9 and 30.6. She is to start iron infusions but hasnot heard when that will start- she will let us know as soon as she is scheduled. She did have a gastric sleeve done in 2016. documented in this encounter* Mary Srivastava MD - 02/24/2021 8:21 AM EDT Cardiology Clinic Visit Heart & Vascular [facility] 02/24/2021 Mary Srivastava MD [address] [facility] [phone] Patient: Krista Bell Date of : 1985 (35 y.o.) Referring Provider: Jack Linda,* PCP: Percy Huang MD Assessment & Plan Krista Bell is a 35 y.o. woman woman with history of arthritis, depression, and GERD who presents for right stratification for left partial knee replacement. 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 Preoperative risk stratification for knee replacement According to the Clements risk calculator the patient is at low risk of major perioperative cardiovascular events, less than 1%. Additionally she isable to achieve greater than 4 metabolic equivalents without issue. -At the current time no further cardiac testing is warranted prior to surgery. We did discuss risk factor modification and primary prevention of coronary artery disease. We discussed diet and exercise. She has good blood pressure and lipid control already. She has already stop smoking. Return if symptoms worsen or fail to improve. Mary Srivastava MD [facility] Non-Invasive Cardiology [facility] Chief Complaint: Pre-op Exam (left partial knee replacement. 03/10- Andrea ) Subjective Krista Bell is a 35 y.o. woman woman with history of arthritis, depression, and GERD who presents for right stratification for left partial knee replacement. 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 She reports that she was more active until recent injury of her knee however she still tries to remain as active as possible. She is able to walk up 2 flights of stairs without chest pain or shortness of breath. She does have lower extremity swelling which seems to worsen as the day goes on and seems improved with putting her feet up. She also wears compression stockings. She denies PND and orthopnea. She denies palpitations. She denies lightheadedness or dizziness. She denies any episodes syncope. She denies prior cardiac history including KS, PCI, heart failure and valve issues. Review of Systems: Constitution: Negative. HENT: Negative. Cardiovascular: As above. Respiratory: As above. Endocrine: Negative. Skin: Negative. Musculoskeletal: Negative. Gastrointestinal: Negative. Genitourinary: Negative. Neurological: Negative. Psychiatric/Behavioral: Negative. Past Medical History: Diagnosis Date Arthritis Depression GERD (gastroesophageal reflux disease) Internal derangement of knee 05/13/2015 Obesity, Class III, BMI 40-49.9 (morbid obesity) ([facility]) 05/13/2015 JUJU (stress urinary incontinence, female) 05/13/2015 Past Surgical History: Procedure Laterality Date ARTHROSCOPY KNEE Left 10/2014 CHOLECYSTECTOMY 2010 ESOPHAGOGASTRODUODENOSCOPY WITH BIOPSY N/A 12/08/2020 Procedure: ESOPHAGOGASTRODUODENOSCOPY WITH BIOPSY; Surgeon: Jai Groves MD; Location: [facility] Main OR; Service: General Surgery GASTRIC BYPASS OPEN 2019 GASTRIC SLEEVE BYPASS LAPAROSCOPIC WITH EGD N/A 03/30/2016 Procedure: LAPAROSCOPIC SLEEVE GASTRECTOMY, HIATAL HERNIA REPAIR, LIVER BIOPSY, ESOPHAGOGASTRODUODENOSCOPY; Surgeon: Jai Esquivel MD; Location: [facility] Main OR; Service: Family History Problem Relation Age of Onset Hypertension Mother Hypertension Father Stroke Father Clotting disorder Father Obesity Father LUISA disease Father Deep vein thrombosis Father Hypertension Other Diabetes Other defects Brother Social History Tobacco Use Smoking Status Former Smoker Years: 3.00 Quit date: 05/06/2010 Years since quittin.8 Smokeless Tobacco Never Used Allergies: Patient has no known allergies. HOME Medications: Current Outpatient Medications on File Prior to Visit Medication Sig biotin 1 mg cap Take 1 mg by mouth every morning . calcium carb/mag carb/folic ac (CUXLWVGPT-JBLCNHC-BQHAD ACID ORAL) Take 1 tablet by mouth daily Magnesium-calcium vitamin D . cholecalciferol, vitamin D3, 125 mcg (5,000 unit) capsule Take 5,000 Units by mouth 2 (two) times aday . cyanocobalamin (B-12) 1000 MCG tablet Take 1,000 mcg by mouth every morning . escitalopram oxalate (LEXAPRO) 10 MG tablet Take 20 mg by mouth every morning . miSOPROStoL (CYTOTEC) 200 MCG tablet Take 1 (one) tablet (200 mcg total) by mouth 4 (four) times a day . multivitamin capsule Take 1 capsule by mouth every morning . pantoprazole (PROTONIX) 40 MG tablet Take 1 (one) tablet (40 mg total) by mouth 2 (two) times a day. valACYclovir (VALTREX) 1000 MG tablet Take 1,000 mg by mouth as needed . No current facility-administered medications on file prior to visit. Physical Examination: BP 112/64 (BP Location: Left arm, Patient Position: Sitting) Pulse (!) 54 Ht 5' 6 Wt 121.4 kg (267 lb 11.2 oz) SpO2 98% BMI 43.21 kg/m Constitutional: Appears well-developed and well-nourished. No distress. HENT: Head: Normocephalic and atraumatic. Eyes: Conjunctivae and EOM are normal. No scleral icterus. Neck: Normal range of motion. Cardiovascular: Normal rate and regular rhythm. Exam reveals no gallop and no friction rub. No murmur heard. No JVP elevation. No LE edema. Pulmonary/Chest: Effort normal and breath sounds normal. No respiratory distress. No wheezes. No rales. Abdominal: Soft. Bowel sounds are normal. There is no abdominal tenderness. Musculoskeletal: Normal range of motion. Neurological: AOx3, moving all ext. Skin: Skin is warm and dry. No rash noted. Psychiatric: Normal mood and affect. Cardiovascular Studies: ECG from 02/19/2021 normal sinus rhythm, RSR prime, otherwise normal ECG Labs: Lab Results Component Value Date GLUCOSE 77 02/19/2021 CALCIUM 8.6 02/19/2021 NA 140 02/19/2021 K 3.6 02/19/2021 CL 106 02/19/2021 BUN 11 02/19/2021 CREATININE 0.70 02/19/2021 Lab Results Component Value Date WBC 6.53 02/19/2021 HGB 9.2 (L) 02/19/2021 HCT 32.4 (L) 02/19/2021 MCV 78.3 (L) 02/19/2021 EXTMCV 78.3 (L) 01/20/2021 PLT 578 (H) 02/19/2021 RBC 4.14 02/19/2021 Lab Results Component Value Date CHOL 166 10/14/2016 LDLCALC 67 10/14/2016 TRIG 154 (H) 10/14/2016 HDL 68 (H) 10/14/2016 documented in this encounter* Mee Dorantes LPN - 02/25/2021 2:50 PM EDT Patient returned phone call her first iron infusion is on 03/09 and second is 03/16. documented in this encounter Discharge Instructions * Discharge Instr - Other Orders* Mackenzie Gonzalez RN - 12/08/2020 12:40 PM EST After Surgery and Anesthesia You must have an adult drive you home from the hospital and stay with you for [address], operate machinery, cook or return to work for 24 hours or a as directed by your surgeon Do not make important personal or legal decisions or sign legal forms for 24 hours General anesthesia you may have a dry, raspy or scratchy throat. Throat lozenges or gargles may give relief Resume home medications Diet & Bowel Activity Begin with clear liquids and light foods, such as jello, lemon gambell soda, norma hiren. Progress to your normal diet if you are not nauseated No alcoholic beverages for 24 hours after surgery or while you are taking prescription pain medicine. If you have diabetes, check with your family doctor about your diet and medicine To help avoid constipation, eat a high fiber diet and drink 6-8 glasses of water each day. Stool softeners or a mild laxative may be needed if you do not have a bowel movement within 3 days of your surgery. Call your doctor for more instructions or pharmacist Activity Limit your activity for the first 24 hours. You may feel dizzy and tired from anesthesia. Be careful as you walk or climb stairs. If you have an incision, avoid activities that stress your incision Do not drive, return to work, play sports or do heavy activities until permitted by your doctor Incision care If you have a bandage on your incision, it may be removed 24 hours after surgery unless instructed otherwise by your doctor. You may shower after 24 hours. You may let water run over your incision but don t let it flow directly on the incision after your shower, pat your incision dry. If small paper-like strips are on your incision, do not remove them. You can shower with them on; pat them dry. They will either fall off or will be removed by your surgeon at your follow-up visit. If stitches/deandra are present, they will be removed in the office And ice bag may be used on the incisional site, or the point of pain unless your surgeons has said not to. Alternate use of ice (20 minutes of every hour) DO NOT place ice directly on the skin. Wrap in a thin towel. Call your surgeon right away if you have: Heavy or persistent bleeding Persistent nausea or vomiting lasting more than 6 hours Edges of incision Signs of infections: a fever over 101 degrees, increased swelling, redness, odor or drainage at theincision site Numbness, tingling, or color change of a leg or arm Trouble urinating within 8 hours or a feeling of fullness and unable to urinate Sudden, severe pain or pain not relieved by medication Questions or Concerns If you have chest pain, shortness of breath, difficulty breathing or swallowing call 911 documented in this encounter Reason for Referral Status Reason Specialty Diagnoses / Procedures Referred By Contact Referred To Contact Authorized Specialty Services Required/Patie nt[facility] Cardiology Diagnoses Primary osteoarthritis of left knee Jack Linda MD [address] [place], [place] [id number] [address] [place] [address] Status Reason Specialty Diagnoses / Procedures Referred By Contact Referred To Contact Authorized Specialty Services Required/Aminata ent's [facility] Home [facility] Services Diagnoses S/P left unicompartmental knee replacement Jack Linda MD [address] [place] [id number] Status Reason Specialty Diagnoses / Procedures Referred By Contact Referred To Contact Authorized Patient Preference Physical Therapy Diagnoses Status post left partial knee replacement Jack Linda MD [address] [place] [address] OF SERVICE NOT IN SYSTEM Specialty Diagnoses / Procedures Referred By Willa roa Referred To Contact Gastroenterology Diagnoses Intestinal malabsorption, unspecified type Procedures CONSULT TO GASTROENTEROLOGY OFFICE/OUTPATIENT [facility] 60 MINUTES Ada Mercado PA-C [address] [place] [address] Referral ID Status Reason Start Date Expiration Date Visits Requested Visits Authorized [id number] Authorized PCP Requested Referral 09/20/2024 09/20/2025 1 1 Instructions * Patient Instructions* Britt Snider RN - 02/24/2021 7:59 AM EDT ..How to contact your Care Team: Provider: Mary Srivastava MD Nurse: Britt Snider RN In case of an emergency please call 911. REFILLS: When in need for refills please call your care team or the office at [phone]. Please include medication name, pharmacy name, and specify 30-day or 90-day supply. Please check with your pharmacy within 24 hours of request for your refill. You must follow up as directed to continue current refills. Thank you documented in this encounter Health Concerns Infection Onset Date Last Indicated Resolved Time COVID-19 Confirmed 12/15/2022 12/15/2022 Chief Complaint and Reason for Visit Chief Complaint Admit Date DOG BITE February 05, 2025 5:0 9pm Additional Source Comments INFORMATION SOURCE (unrecogn ized section and content) DATE CREATED AUTHOR 12/19/2018 [facility] DATE CREATED AUTHOR AUTHOR'S ORGANIZ ATION 08/19/2020 [facility] DATE CREATED AUTHOR AUTHOR'S ORGANIZ ATION 08/19/2020 [facility] DATE CREATED AUTHOR AUTHOR[facility]S ORGANIZ ATION [facility] DATE CREATED AUTHOR AUTHOR'S ORGANIZ ATION 06/28/2024 [facility] DATE CREATED AUTHOR AUTHOR'S ORGANIZ ATION 09/28/2024 [facility] DATE CREATED AUTHOR AUTHOR'S ORGANIZ ATION 06/07/2025 [facility] DATE CREATED AUTHOR AUTHOR'S ORGANIZ ATION 06/23/2025 [facility] DATE CREATED AUTHOR AUTHOR'S ORGANIZ ATION 07/02/2025 [facility] DATE CREATED AUTHOR AUTHOR'S ORGANIZ ATION 07/23/2025 [facility] Reason for Visit (unrecogniz ed section and content) Reason Comments Yearly Exam Specialty Diagnoses / Procedures Referred By Willa roa Referred To Contact Gynecology / PHYSIOTHERAPY PRACTICE MANAGER Diagnoses Annual physical exam Annual and BC refill Procedures OFFICE/OUTPATIENT ESTABLISHED HIGH MDM 40 MIN OFFICE/OUTPATIENT ESTABLISHED MOD MDM 30 MIN OFFICE/OUTPATIENT ESTABLISHED LOW MDM 20 MIN OFFICE/OUTPATIENT ESTABLISHED SF MDM 10 MIN ANNUAL EXAM Shakira Mathews, FOREX TRADER.GRID TRIMMER [address] [place] [address] Phone: tel: fax: Shakira Mathews, FOREX TRADER.GRID TRIMMER [address] [place] [address] Phone: tel: fax: Referral ID Status Reason Start Date Expiration Date Visits Re quested Visits Authorized [id number] Closed 11/14/2024 11/13/2025 1 1 Reason Comments Injections left knee Pain Follow-up Reason Comments Injections Status Reason Specialty Diagnoses / Procedures Referre d By Contact Referred To Contact Diagnoses Obesity, Class III, BMI 40-49.9 (morbid obesity) (HCC) Obesity, Class III, BMI 40-49.9 (morbid obesity) (HCC) [E66.01] Procedures ESOPHAGOGASTRODUODENOS COPY WITH BIOPSY Reason Comments Pre-op Exam left partial knee re placement. 03/10- Andrea Status Reason Specialty Diagnoses / Procedures Referred By Contact Referred To Contact Closed Specialty Services Required/Patien t's Best Interest Cardiology Diagnoses Primary osteoarthritis of left knee [place] [address] [place] [address] Status Reason Specialty Diagnoses / Procedures Referre d By Contact Referred To Contact Diagnoses Obesity, Class III, BMI 40-49.9 (morbid obesity) (HCC) Obesity, Class III, BMI 40-49.9 (morbid obesity) (HCC) [E66.01] Procedures [place] EGD TRANSORAL BIOPSY SINGLE/MULTIPLE Jai Groves MD [address] [place] [address] Reason Comments Pre-op Exam left knee Status Reason Specialty Diagnoses / Procedures Re ferred By Contact Referred To Contact Authorized Diagnoses Iron deficiency anemia, unspecified iron deficiency anemia type Other specified intestinal malabsorption Procedures [place] INJ FERRIC CARBOXYMALTOS [address] Celine Frank, ROC [address] [place] [address] Infusion [address] [place] [address] Status Reason Specialty Diagnoses / Procedures Re ferred By Contact Referred To Contact Diagnoses Primary osteoarthritis of left knee Primary osteoarthritis of left knee [M17.12] Procedures NJ TOTAL KNEE ARTHROPLASTY [place] CPTR-ASST SURGICAL NAVIGATION IMAGE-LESS Left partial knee replacement [[id number]] Jack Linda MD [address] [place] [address] Reason Onset Date Comments Medication Refill 03/12/2021 Reason Comments iron infusion Status Reason Specialty Diagnoses / Procedures Referre d By Contact Referred To Contact Closed Diagnoses Iron deficiency anemia, unspecified iron deficiency anemia type Other specified intestinal malabsorption Procedures [place] [facility] CARBOXYMALT[facility] 1MG Celien Frank, GRID TRIMMER [address] [facility] [place] [address] Infusion [address] [place] [address] Reason Comments Follow-up Suture / Staple Removal Wound Check Reason Onset Date Comments Medication Refill 04/03/2021 Reason Comments Follow-up Reason Onset Date Comments Refill Request 03/07/2022 Reason Comments Follow Up Reason Comments Results Reason Onset Date Comments Refill Request 07/29/2022 Reason Onset Date Comments Refill Request 10/01/2022 Reason Onset Date Comments Refill Request 10/08/2022 Reason Comments 6 Month Exam Reason Comments Sore Throat Bodyaches x this AM Reason Onset Date Comments Refill Request 07/21/2023 Reason Onset Date Comments Refill Request 08/26/2023 Reason Onset Date Comments Refill Request 10/13/2023 Reason Comments Yearly Exam Reason Comments Appointment Cancelled Reason Comments Follow Up repap Reason Comments Procedure Specialty Diagnoses / Procedures Referred By Willa t Referred To Contact Principal Systems Engineer / PHYSIOTHERAPY PRACTICE MANAGER Diagnoses colpo Procedures COLPOSCOPY CERVIX BX CERVIX & ENDOCRV CURRETAGE COLPOSCOPY CERVIX ENDOCERVICAL CURETTAGE PROCEDURE Fred Gonzales, DO [address] [address] Fred Gonzales DO [address] [facility] [address] [place] [address] Referral ID Status Reason Start Date Expiration Date Visits Re quested Visits Authorized [id number] Closed 11/14/2023 11/13/2024 1 1 Reason Onset Date Comments Refill Request 07/31/2024 Reason Onset Date Comments Refill Request 11/05/2024 Reason Comments Dog Bite Reason Onset Date Comments Refill Request 02/18/2025 Reason Comments Insurance Authorization Reason Comments Physical Specialty Diagnoses / Procedures Referred By Willa roa Referred To Contact Family Medicine / FAMILY MEDICINE Diagnoses Follow-up exam Annual Procedures OFFICE/OUTPATIENT ESTABLISHED MOD MDM 30 MIN MYC PHYSICAL Self Percy Huang MD [address] [place] [address] Phone: tel: fax: Referral ID Status Reason Start Date Expiration Date Visits Re quested Visits Authorized [id number] Closed 04/27/2025 11/13/2025 1 1 Reason Comments Pain Addendum Note - Selina Mejia CNP - 12/04/2019 3:09 PM ESTOp Note - Jai Groves MD - 12/08/2020 12:28 PM EST Miscellaneous Notes (unrecog nized section and content) Addended by: SELINA MEJIA on: 12/04/2019 03:09 PM Modules accepted: Level of Service documented in this encounter OPERATIVE REPORT SURGEON: Jai Groves MD PREOPERATIVE DIAGNOSES Past Medical History: Diagnosis Date Depression Internal derangement of knee 05/13/2015 Obesity, Class III, BMI 40-49.9 (morbid obesity) ([facility]) 05/13/2015 JUJU (stress urinary incontinence, female) 05/13/2015 POSTOPERATIVE DIAGNOSES Same PROCEDURE: 1. Upper endoscopy 2. Endoscopic gastric pouch mucosal biopsy COMPLICATIONS: none SPECIMEN: Mucosal biopsy for H. Pylori FINDINGS: Marginal ulcer on jejunal side of gastrojejunostomy ANESTHESIA: MAC INDICATIONS: This is a 35 y.o.-year-old female with a history of a laparoscopic conversion of a sleeve gastrectomy to a Heena-en-Y gastric bypass in [place] approximately 6 months ago. She recently presented to an [facility] ED with abdominal pain and CT scan with concern for inflammation at the gastrojejunostomy. For this reason, the risks, benefits, and alternatives of upper endoscopy with biopsy were discussed with the patient, and Informed consent was obtained. DESCRIPTION OF PROCEDURE: On the day of the procedure, the patient was brought to the operating suite. MAC anesthesia was delivered by anesthesia without difficulty. An oral bite block was placed. The endoscope was carefully placed through the oral bite block into the oropharynx. It safely traversed down the esophagus. The esophagus was unremarkable. There was no hiatal hernia. The pouch was large in size. The distance from the GE junction to the gastrojejunostomy was 9-10cm in length. The pouch did not have inflammatory changes, ulceration, or bile staining. The gastojejunal anastomosis was visualized and easily traversed, approximately 15mm in diameter. There was a small marginal ulcer on the jejunal side at the 12 o'clock position. No stigmata of recent bleeding. Satisfied with this, the scope was withdrawn back into the pouch and the gastric pouch mucosal biopsy was obtained with cold forceps and was submitted for final pathological evaluation. There was no hemorrhage from the biopsy site. The endoscope was then carefully withdrawn, desufflating along the way. Patient was taken to the PACU for recovery. documented in this encounter Norman Kitchen MD - 12/08/2020 10:06 AM EST H&P Notes (unrecognized sect ion and content) Bariatric Surgery History and Physical Patient Name: Krista Bell Admit Date: [id number] MR #: [id number] Assessment: 35 y.o. female with PMH of Obesity (class III), depression, CCY (2010), gastric sleeve (2015), conversion of sleeve to RNY bypass in [facility] in 2019 who presented to [facility] on 12/08 for an EGD. Obesity class III Hx of gastric sleeve operation Abdominal pain - Patient presents for EGD to evaluate epigastric pain worse with eating - Plan for EGD today - D/w Dr. Yaneli Kitchen MD Contact [employer] pager after 5pm weekdays and after 10am on weekends, use intern architect contractor general engineering pager History of Present Illness: 35 y.o. female with PMH of Obesity (class III), depression, CCY (2010), gastric sleeve (2015), conversion of sleeve to RNY bypass in [facility] in 2019 who presented to [facility] on 12/08 for an EGD. Patient presented to ED 12/03/20 with abdominal pain worse with eating that has been going on for about 1 week. Endorses NSAID use about 1x per week. Denies taking any blood thinners. Denies nausea/vomiting. History: Past Medical History: Diagnosis Date Depression Internal derangement of knee 05/13/2015 Obesity, Class III, BMI 40-49.9 (morbid obesity) ([facility]) 05/13/2015 JUJU (stress urinary incontinence, female) 05/13/2015 Past Surgical History: Procedure Laterality Date ARTHROSCOPY KNEE Left 10/2014 CHOLECYSTECTOMY 2010 GASTRIC SLEEVE BYPASS LAPAROSCOPIC WITH EGD N/A 03/30/2016 Procedure: LAPAROSCOPIC SLEEVE GASTRECTOMY, HIATAL HERNIA REPAIR, LIVER BIOPSY, ESOPHAGOGASTRODUODENOSCOPY; Surgeon: Jai Esquivel MD; Location: [facility] Main OR; Service: Family History Problem Relation Age of Onset Hypertension Mother Hypertension Father Stroke Father Clotting disorder Father Obesity Father LUISA disease Father Deep vein thrombosis Father Hypertension Other Diabetes Other defects Brother Social History Socioeconomic History Marital status: Single Spouse name: Not on file Number of children: Not on file Years of education: Not on file Highest education level: Not on file Occupational History Not on file Social Needs Financial resource strain: Not on file Food insecurity Worry: Not on file Inability: Not on file Transportation needs Medical: Not on file Non-medical: Not on file Tobacco Use Smoking status: Former Smoker Years: 3.00 Quit date: 05/06/2010 Years since quittin.6 Smokeless tobacco: Never Used Substance and Sexual Activity Alcohol use: No Alcohol/week: 0.0 standard drinks Drug use: No Sexual activity: Not Currently Lifestyle Physical activity Days per week: Not on file Minutes per session: Not on file Stress: Not on file Relationships Social connections Talks on phone: Not on file Gets together: Not on file Attends latter day service: Not on file Active member of club or organization: Not on file Attends meetings of clubs or organizations: Not on file Relationship status: Not on file Other Topics Concern Not on file Social History Narrative Not on file Allergy Information: I have reviewed the patient's allergies. Patient has no known allergies. Home Medications: Outpatient Medications as of 12/08/2020 Medication Sig biotin 1 mg cap Take by mouth. cholecalciferol, vitamin D3, 2,000 unit cap Take by mouth. cyanocobalamin (B-12) 1000 MCG tablet Take 1,000 mcg by mouth every night at bedtime . escitalopram oxalate (LEXAPRO) 10 MG tablet Take 10 mg by mouth daily. methylPREDNISolone (MEDROL DOSEPACK) 4 mg tablet Take 4 mg by mouth See Admin Instructions . multivitamin capsule Take 1 capsule by mouth daily. OCELLA 3-0.03 mg per tablet Take 1 tablet by mouth daily. valACYclovir (VALTREX) 1000 MG tablet Take 2 tablets by mouth every 12 hours. Review of Systems: ROS: Constitutional: No fever Eyes: No diplopia ENT: No sinus drainage CV: No chest pain Resp: No dyspnea. No wheezing GI: Abdominal pain worse with eating : No dysuria Neuro: No headache. No dizziness Integumentary: No skin rash MSK: No arthralgias Endo: No polyuria Physical Examination: Vital Signs: There were no vitals taken for this visit. General: awake and alert, no acute distress Head: normocephalic, atraumatic Eyes: no scleral icterus, pupils equal and round Neck: trachea midline Cardiovascular: hemodynamically stable, distal pulses intact Pulmonary: nonlabored breathing, equal chest rise, on RA Abdomen: soft, non distended, no peritoneal signs Extremities: HUDSON, no obvious deformities, WWP Skin: warm, dry and intact Neurological: CN 2-12 grossly intact, gross motor and sensation intact Wound: N/A Laboratory and Additional Data Reviewed: Lab Results Component Value Date WBC 9.40 12/04/2020 HGB 11.2 (L) 12/08/2018 HCT 33.9 (L) 12/08/2018 MCV 90.6 10/14/2016 PLT 457 (H) 12/08/2018 Lab Results Component Value Date GLUCOSE 79 10/14/2016 CALCIUM 9.2 10/14/2016 CALCIUM 9.2 10/14/2016 NA 140 10/14/2016 K 4.4 10/14/2016 CL 101 10/14/2016 BUN 10 12/04/2020 CREATININE 0.70 12/04/2020 Lab Results Component Value Date ALT 29 10/14/2016 AST 25 10/14/2016 ALKPHOS 84 10/14/2016 BILITOT 0.3 10/14/2016 Lab Results Component Value Date INR 1.0 03/25/2016 PROTIME 12.9 03/25/2016 Imaging: No results found. 12/08/2020 10:06 AM Associated attestation - Jai Groves MD - 12/08/2020 12:11 PM EST Patient seen and examined. Agree with Resident's History and physical exam. A review of systems was conducted and all was negative except for the pertinent positives in the HPI. All labs, radiology results, transcriptions, and home medications were reviewed. History of sleeve gastrectomy in 2016 s/p laparoscopic conversion to Heena-en-Y gastric bypass approximately 6 months ago in [place]. Has epigastric abdominal pain, worse with eating. +NSAID use. Denies tobacco. Plan for upper endoscopy with biopsy to assess for marginal ulcer. All aspects of patient care, diagnoses, and treatment plan were discussed with the patient and all questions answered. Patient acknowledged comprehension of all topics discussed. Risks, benefits, alternatives discussed with the patient and all questions answered. Eyal Groves MD documented in this encounter Source Comments (unrecognize d section and content) In the event this informatio n is protected by the Federal Confidentiality of Alcohol and Drug Abuse Patient Records regulations: The Federal rules restrict any use of the information to criminally investigate or prosecute any alcohol or drug abuse patient.[facility] HospitalIn the event this information is protected by the Federal Confidentiality of Alcohol and Drug Abuse Patient Records regulations: The Federal rules restrict any use of the information to criminally investigate or prosecute any alcohol or drug abuse patient.[facility] HospitalIn the event this information is protected by the Federal Confidentiality of Alcohol and Drug Abuse Patient Records regulations: The Federal rules restrict any use of the information to criminally investigate or prosecute any alcohol or drug abuse patient.[facility] HospitalIn the event this information is protected by the Federal Confidentiality of Alcohol and Drug Abuse Patient Records regulations: The Federal rules restrict any use of the information to criminally investigate or prosecute any alcohol or drug abuse patient.[facility] HospitalIn the event this information is protected by the Federal Confidentiality of Alcohol and Drug Abuse Patient Records regulations: The Federal rules restrict any use of the information to criminally investigate or prosecute any alcohol or drug abuse patient.[facility] HospitalIn the event this information is protected by the Federal Confidentiality of Alcohol and Drug Abuse Patient Records regulations: The Federal rules restrict any use of the information to criminally investigate or prosecute any alcohol or drug abuse patient.[facility] HospitalIn the event this information is protected by the Federal Confidentiality of Alcohol and Drug Abuse Patient Records regulations: The Federal rules restrict any use of the information to criminally investigate or prosecute any alcohol or drug abuse patient.[facility] HospitalIn the event this information is protected by the Federal Confidentiality of Alcohol and Drug Abuse Patient Records regulations: The Federal rules restrict any use of the information to criminally investigate or prosecute any alcohol or drug abuse patient.[facility] HospitalIn the event this information is protected by the Federal Confidentiality of Alcohol and Drug Abuse Patient Records regulations: The Federal rules restrict any use of the information to criminally investigate or prosecute any alcohol or drug abuse patient.[facility] HospitalIn the event this information is protected by the Federal Confidentiality of Alcohol and Drug Abuse Patient Records regulations: The Federal rules restrict any use of the information to criminally investigate or prosecute any alcohol or drug abuse patient.[facility] HospitalIn the event this information is protected by the Federal Confidentiality of Alcohol and Drug Abuse Patient Records regulations: The Federal rules restrict any use of the information to criminally investigate or prosecute any alcohol or drug abuse patient.[facility] HospitalIn the event this information is protected by the Federal Confidentiality of Alcohol and Drug Abuse Patient Records regulations: The Federal rules restrict any use of the information to criminally investigate or prosecute any alcohol or drug abuse patient.[facility] HospitalIn the event this information is protected by the Federal Confidentiality of Alcohol and Drug Abuse Patient Records regulations: The Federal rules restrict any use of the information to criminally investigate or prosecute any alcohol or drug abuse patient.[facility] HospitalIn the event this information is protected by the Federal Confidentiality of Alcohol and Drug Abuse Patient Records regulations: The Federal rules restrict any use of the information to criminally investigate or prosecute any alcohol or drug abuse patient.[facility] HospitalIn the event this information is protected by the Federal Confidentiality of Alcohol and Drug Abuse Patient Records regulations: The Federal rules restrict any use of the information to criminally investigate or prosecute any alcohol or drug abuse patient.[facility] HospitalIn the event this information is protected by the Federal Confidentiality of Alcohol and Drug Abuse Patient Records regulations: The Federal rules restrict any use of the information to criminally investigate or prosecute any alcohol or drug abuse patient.[facility] HospitalIn the event this information is protected by the Federal Confidentiality of Alcohol and Drug Abuse Patient Records regulations: The Federal rules restrict any use of the information to criminally investigate or prosecute any alcohol or drug abuse patient.[facility] HospitalIn the event this information is protected by the Federal Confidentiality of Alcohol and Drug Abuse Patient Records regulations: The Federal rules restrict any use of the information to criminally investigate or prosecute any alcohol or drug abuse patient.[facility] HospitalIn the event this information is protected by the Federal Confidentiality of Alcohol and Drug Abuse Patient Records regulations: The Federal rules restrict any use of the information to criminally investigate or prosecute any alcohol or drug abuse patient.[facility] HospitalIn the event this information is protected by the Federal Confidentiality of Alcohol and Drug Abuse Patient Records regulations: The Federal rules restrict any use of the information to criminally investigate or prosecute any alcohol or drug abuse patient.[facility] HospitalIn the event this information is protected by the Federal Confidentiality of Alcohol and Drug Abuse Patient Records regulations: The Federal rules restrict any use of the information to criminally investigate or prosecute any alcohol or drug abuse patient.[facility] HospitalIn the event this information is protected by the Federal Confidentiality of Alcohol and Drug Abuse Patient Records regulations: The Federal rules restrict any use of the information to criminally investigate or prosecute any alcohol or drug abuse patient.[facility] HospitalIn the event this information is protected by the Federal Confidentiality of Alcohol and Drug Abuse Patient Records regulations: The Federal rules restrict any use of the information to criminally investigate or prosecute any alcohol or drug abuse patient.[facility] HospitalIn the event this information is protected by the Federal Confidentiality of Alcohol and Drug Abuse Patient Records regulations: The Federal rules restrict any use of the information to criminally investigate or prosecute any alcohol or drug abuse patient.[facility] HospitalIn the event this information is protected by the Federal Confidentiality of Alcohol and Drug Abuse Patient Records regulations: The Federal rules restrict any use of the information to criminally investigate or prosecute any alcohol or drug abuse patient.[facility] HospitalIn the event this information is protected by the Federal Confidentiality of Alcohol and Drug Abuse Patient Records regulations: The Federal rules restrict any use of the information to criminally investigate or prosecute any alcohol or drug abuse patient.[facility] HospitalIn the event this information is protected by the Federal Confidentiality of Alcohol and Drug Abuse Patient Records regulations: The Federal rules restrict any use of the information to criminally investigate or prosecute any alcohol or drug abuse patient.[facility] HospitalIn the event this information is protected by the Federal Confidentiality of Alcohol and Drug Abuse Patient Records regulations: The Federal rules restrict any use of the information to criminally investigate or prosecute any alcohol or drug abuse patient.[facility] HospitalIn the event this information is protected by the Federal Confidentiality of Alcohol and Drug Abuse Patient Records regulations: The Federal rules restrict any use of the information to criminally investigate or prosecute any alcohol or drug abuse patient.[facility] HospitalIn the event this information is protected by the Federal Confidentiality of Alcohol and Drug Abuse Patient Records regulations: The Federal rules restrict any use of the information to criminally investigate or prosecute any alcohol or drug abuse patient.[facility] HospitalIn the event this information is protected by the Federal Confidentiality of Alcohol and Drug Abuse Patient Records regulations: The Federal rules restrict any use of the information to criminally investigate or prosecute any alcohol or drug abuse patient.[facility] HospitalIn the event this information is protected by the Federal Confidentiality of Alcohol and Drug Abuse Patient Records regulations: The Federal rules restrict any use of the information to criminally investigate or prosecute any alcohol or drug abuse patient.[facility] HospitalIn the event this information is protected by the Federal Confidentiality of Alcohol and Drug Abuse Patient Records regulations: The Federal rules restrict any use of the information to criminally investigate or prosecute any alcohol or drug abuse patient.[facility] HospitalIn the event this information is protected by the Federal Confidentiality of Alcohol and Drug Abuse Patient Records regulations: The Federal rules restrict any use of the information to criminally investigate or prosecute any alcohol or drug abuse patient.[facility] HospitalIn the event this information is protected by the Federal Confidentiality of Alcohol and Drug Abuse Patient Records regulations: The Federal rules restrict any use of the information to criminally investigate or prosecute any alcohol or drug abuse patient.[facility] HospitalIn the event this information is protected by the Federal Confidentiality of Alcohol and Drug Abuse Patient Records regulations: The Federal rules restrict any use of the information to criminally investigate or prosecute any alcohol or drug abuse patient.[facility] HospitalIn the event this information is protected by the Federal Confidentiality of Alcohol and Drug Abuse Patient Records regulations: The Federal rules restrict any use of the information to criminally investigate or prosecute any alcohol or drug abuse patient.[facility] HospitalIn the event this information is protected by the Federal Confidentiality of Alcohol and Drug Abuse Patient Records regulations: The Federal rules restrict any use of the information to criminally investigate or prosecute any alcohol or drug abuse patient.[facility] HospitalIn the event this information is protected by the Federal Confidentiality of Alcohol and Drug Abuse Patient Records regulations: The Federal rules restrict any use of the information to criminally investigate or prosecute any alcohol or drug abuse patient.[facility] HospitalIn the event this information is protected by the Federal Confidentiality of Alcohol and Drug Abuse Patient Records regulations: The Federal rules restrict any use of the information to criminally investigate or prosecute any alcohol or drug abuse patient.[facility] HospitalIn the event this information is protected by the Federal Confidentiality of Alcohol and Drug Abuse Patient Records regulations: The Federal rules restrict any use of the information to criminally investigate or prosecute any alcohol or drug abuse patient.[facility] HospitalIn the event this information is protected by the Federal Confidentiality of Alcohol and Drug Abuse Patient Records regulations: The Federal rules restrict any use of the information to criminally investigate or prosecute any alcohol or drug abuse patient.[facility] HospitalIn the event this information is protected by the Federal Confidentiality of Alcohol and Drug Abuse Patient Records regulations: The Federal rules restrict any use of the information to criminally investigate or prosecute any alcohol or drug abuse patient.[facility] HospitalIn the event this information is protected by the Federal Confidentiality of Alcohol and Drug Abuse Patient Records regulations: The Federal rules restrict any use of the information to criminally investigate or prosecute any alcohol or drug abuse patient.[facility] HospitalIn the event this information is protected by the Federal Confidentiality of Alcohol and Drug Abuse Patient Records regulations: The Federal rules restrict any use of the information to criminally investigate or prosecute any alcohol or drug abuse patient.[facility] HospitalIn the event this information is protected by the Federal Confidentiality of Alcohol and Drug Abuse Patient Records regulations: The Federal rules restrict any use of the information to criminally investigate or prosecute any alcohol or drug abuse patient.[facility] HospitalIn the event this information is protected by the Federal Confidentiality of Alcohol and Drug Abuse Patient Records regulations: The Federal rules restrict any use of the information to criminally investigate or prosecute any alcohol or drug abuse patient.[facility] HospitalIn the event this information is protected by the Federal Confidentiality of Alcohol and Drug Abuse Patient Records regulations: The Federal rules restrict any use of the information to criminally investigate or prosecute any alcohol or drug abuse patient.[facility] Care Teams (unrecognized sec tion and content) Box Press Operator Relationship Specialty Start Date End Date Percy Huang MD [address] [facility] [place] [address] PCP - General Family Practice 10/09/12 Box Press Operator Relationship Specialty Start Date End Date Percy Huang MD [address] [facility] [place] [address] PCP - General Family Practice 10/09/12 Box Press Operator Relationship Specialty Start Date End Date Percy Huang MD [address] [facility] [address] PCP - General Family Practice 10/09/12 Box Press Operator Relationship Specialty Start Date End Date Percy Huang MD [address] [facility] [place] [address] PCP - General Family Medicine 05/13/15 Box Press Operator Relationship Specialty Start Date End Date Percy Huang MD [address] [facility] [place] [address] PCP - General Family Practice 10/09/12 Box Press Operator Relationship Specialty Start Date End Date Percy Huang MD [address] [facility] [address] PCP - General Family Practice 10/09/12 Box Press Operator Relationship Specialty Start Date End Date Percy Huang MD [address] [facility] [address] PCP - General Family Practice 10/09/12 Box Press Operator Relationship Specialty Start Date End Date Percy Huang MD [address] [facility] [address] PCP - General Family Medicine 10/09/12 Box Press Operator Relationship Specialty Start Date End Date Percy Huang MD [address] [facility] [address] PCP - General Family Medicine 10/09/12 Box Press Operator Relationship Specialty Start Date End Date Percy Huang MD [address] [place] [address] PCP - General Family Medicine 10/09/12 Box Press Operator Relationship Specialty Start Date End Date Percy Huang MD [address] [place], [place] [address] PCP - General Family Medicine 10/09/12 Box Press Operator Relationship Specialty Start Date End Date Percy Huang MD [address] [place] [address] PCP - General Family Medicine 10/09/12 Box Press Operator Relationship Specialty Start Date End Date Percy Huang MD [address] [place] [address] PCP - General Family Medicine 05/13/15 Box Press Operator Relationship Specialty Start Date End Date Percy Huang MD [address] [place] [address] PCP - General Family Medicine 10/09/12 Box Press Operator Relationship Specialty Start Date End Date Percy Huang MD [address] [place], [place] [address]291 PCP - General Family Medicine 10/09/12 Box Press Operator Relationship Specialty Start Date End Date Percy Huang MD [address] [place], [place] [address] PCP - General Family Medicine 10/09/12 Box Press Operator Relationship Specialty Start Date End Date Percy Huang MD [address] [place] [address] PCP - General Family Medicine 10/09/12 Box Press Operator Relationship Specialty Start Date End Date Percy Huang MD [address] [place], [place] [address] PCP - General Family Medicine 10/09/12 Box Press Operator Relationship Specialty Start Date End Date Percy Huang MD [address] [place], [place] [address] PCP - General Family Medicine 10/09/12 Box Press Operator Relationship Specialty Start Date End Date Percy Huang MD [address] [place], [place] [address]61 PCP - General Family Medicine 10/09/12 Box Press Operator Relationship Specialty Start Date End Date Percy Huang MD [address] [place] [address] PCP - General Family Medicine 10/09/12 Box Press Operator Relationship Specialty Start Date End Date Percy Huang MD [address] [place] [address] PCP - General Family Medicine 10/09/12 Box Press Operator Relationship Specialty Start Date End Date Percy Huang MD [address] [place] [address] PCP - General Family Medicine 10/09/12 Box Press Operator Relationship Specialty Start Date End Date Percy Huang MD [address] [place], [place] [address]1931 PCP - General Family Medicine 10/09/12 Box Press Operator Relationship Specialty Start Date End Date Percy Huang MD [address] [place], [place] [address] PCP - General Family Medicine 10/09/12 Box Press Operator Relationship Specialty Start Date End Date Percy Huang MD [address] [place], [place] [address]25[address] PCP - General Family Medicine 10/09/12 Box Press Operator Relationship Specialty Start Date End Date Percy Huang MD [address] [place], [place] 359247 [phone] PCP - General Family Medicine 05/13/15 Box Press Operator Relationship Specialty Start Date End Date Percy Huang MD [address] [place], [place] [address]181 PCP - General Family Medicine 10/09/12 Montserrat Weldon APRN.GRID TRIMMER [address] [place] [address] [employer] [facility] 10/22/24 Riddhi Ahmadi FOREX TRADER.GRID TRIMMER [address] [place] [address] [employer] [facility] 10/22/24 Box Press Operator Relationship Specialty Start Date End Date Percy Huang MD [address] [place], [place] [address]201 PCP - General Family Medicine 10/09/12 Montserrat Weldon FOREX TRADER.GRID TRIMMER [address] [place] [address] [employer] Family [facility] 10/22/24 Riddhi Ahmadi FOREX TRADER.GRID TRIMMER [address] [place], [place] 866326 [phone] Sheet [employer] Family [facility] 10/22/24 Box Press Operator Relationship Specialty Start Date End Date Percy Huang MD [address] [place] [address] PCP - General Family Medicine 10/09/12 Montserrat Weldon FOREX TRADER.GRID TRIMMER [address] [facility] [place], [place] [address] [facility] Riddhi Ahmadi FOREX TRADER.GRID TRIMMER [address] [facility] [place] [id number] [facility] 10/22/24 Team Status: Active Member Role Status Dates Dr. Percy Huang MD Primary Care Provider Active Team Status: Inactive Member Role Status Dates Dr. Percy Huang MD Primary Care Provider Active Start: February 05, 2025 End: February 05, 2025 Dr. Harrison Moses DO Emergency Provider Activ e Start: February 05, 2025 End: February 05, 2025 Box Press Operator Relationship Specialty Start Date End Date Percy Huang MD [address] [place] [address] PCP - General Family Medicine 10/09/12 Montserrat Weldon FOREX TRADER.GRID TRIMMER [address] [facility] [place] [address] [facility] 10/22/24 Riddhi Ahmadi FOREX TRADER.GRID TRIMMER [address] [place], [place] [phone] [facility] 10/22/24 Box Press Operator Relationship Specialty Start Date End Date Percy Huang MD [address] [facility] [place] [id number] PCP - General Family Medicine 10/09/12 Montserrat Weldon APRN.GRID TRIMMER [address] [place] [address] Sheet [employer] [facility] 10/22/24 Riddhi Ahmadi FOREX TRADER.GRID TRIMMER [address] [place] [address] [facility] 10/22/24 Box Press Operator Relationship Specialty Start Date End Date Percy Huang MD [address] [place] [address] PCP - General Family Medicine 10/09/12 Montserrat Weldon APRN.GRID TRIMMER [address] [place] [address] [facility] 10/22/24 Riddhi Ahmadi FOREX TRADER.GRID TRIMMER [address] [facility] [place] [address] [facility] 10/22/24 Box Press Operator Relationship Specialty Start Date End Date Percy Huang MD [address] [facility] [place] [address] PCP - General Family Medicine 10/09/12 Montserrat Weldon FOREX TRADER.GRID TRIMMER [address] [place] [address] [facility] 10/22/24 Riddhi Ahmadi FOREX TRADER.GRID TRIMMER [address] [facility] [place] [address] [facility] 10/22/24 Box Press Operator Relationship Specialty Start Date End Date Percy Huang MD [address] [facility] [address] PCP - General Family Medicine 10/09/12 Montserrat Weldon APRN.GRID TRIMMER [address] [facility] [place] [address] [employer] [facility] 10/22/24 Riddhi Ahmadi APRN.GRID TRIMMER [address] [facility] [address] [employer] [facility] 10/22/24 Box Press Operator Relationship Specialty Start Date End Date Percy Huang MD [address] [facility] [place] [address] PCP - General Family Medicine 05/13/15 Box Press Operator Relationship Specialty Start Date End Date Percy Huang MD [address] [facility] [address] PCP - General Family Medicine 10/09/12 Montserrat Weldon APRN.GRID TRIMMER [address] [facility] [place] [address] [employer] [facility] 10/22/24 Riddhi Ahmadi APRN.GRID TRIMMER [address] [facility] [address] [employer] [facility] 10/22/24 Box Press Operator Relationship Specialty Start Date End Date Percy Huang MD [address] [facility] [address] PCP - General Family Medicine 10/09/12 Montserrat Weldon APRN.GRID TRIMMER [address] [place], [place] [address] [facility] 10/22/24 Riddhi Ahmadi APRN.GRID TRIMMER [address] [place], [place] [address] [facility] 10/22/24 Box Press Operator Relationship Specialty Start Date End Date Percy Huang MD [address] [place], [place] [address] PCP - General Family Medicine 10/09/12 Montserrat Weldon APRN.GRID TRIMMER [address] [place], [place] [address] [facility] 10/22/24 Riddhi Ahmadi APRN.GRID TRIMMER [address] [place], [place] [address] [facility] 10/22/24 Goals (unrecognized section and content) Goals may be documented in a n alternate sectionGoals may be documented in an alternate section FOR RECORDS PERTAINING TO PATIENTS WHO ARE OR HAVE BEEN ENROLLED IN A CHEMICAL DEPENDENCY/SUBSTANCEABUSE PROGRAM, SOME INFORMATION MAY BE OMITTED. This clinical summary was aggregated from multiple sources. Caution should be exercised in using it in the provision of clinical care. This summary normalizes information from multiple sources, and as a consequence, information in this document may materially change the coding, format and clinical context of patient data. In addition, data may be omitted in some cases. CLINICAL DECISIONS SHOULD BE BASED ON THE PRIMARY CLINICAL RECORDS. [employer] provides no warranty or guarantee of the accuracy or completeness of information in this document.
[2025-07-24] MEDS: Lactated Ringers 1,000 ML 15 ML IV (06:06)
[2025-07-24 06:08] LABS: Internal QC Validated? YES +Cl - CLEAR BKGD; Pregnancy, Urine Negative Negative; Record Kit Lot#,Urine Preg 0000964736
--- NOTE | 2025-07-24 06:30 | EGD_PTH ---
PATIENT: KRISTA SPARKS LOC: EN U#:[id number] AGE/SX: 40/F ROOM: RE07/24/[address]: Dr. Prabhu Cleary DO : 1985 BED: DIS: 07/24/2025 SPEC #: [id number] RECD: 07/24/25 09:35 STATUS: RADHA HOANG #: [id number] JESSI: 07/24/25 06:[address]: Prabhu Cleary DEPT: SURGICAL PATHOLOGY RECD BY: Breezy Simpson ENTERED: 07/24/25 13:31 SP TYPE: EGD BIOPSY NAGI DR: Dr. Percy Mcgowan MD Tissues: A - COLON BIOPSY Procedures: Surgery Specimen Level IV HEADER OPERATION: EGD with biopsy and suture removal PRE-OP DIAGNOSIS: Abdominal pain, GERD TISSUE SUBMITTED: A- Anastomosis biopsy MICROSCOPIC DIAGNOSIS A. Anastomosis, site not specified, biopsy: - Junction of oxyntic gastric mucosa with small intestinal mucosa with no specific pathologic change. - Negative for Helicobacter-like organisms (H&E). MICROSCOPIC DESCRIPTION Slides are reviewed. GROSS DESCRIPTION A. Received in fixative is one container labeled with the patient's name and designated Anastomosis biopsy. The specimen consists of two irregular fragments of light meyer soft tissue that measure 0.4 and 0.8 cm. The specimen is totally submitted in one cassette. [place] 07/24/2025 CPT:79386
--- NOTE | 2025-07-24 06:35 | PCM.PRE.AN2 ---
ASA Classification* ASA Classification ASA Classification: 2 Assessment & Plan Anesthesia* Anesthesia Assessment Anesthesia Assessment: Discussed sedation and/or anesthesia options, risks, benefits, and alternatives with patient/parents/legal guardian/POA. Questions invited. The patient/parents/legal guardian/POA seems to understand and agrees to proceed with anesthesia plan. Reviewed the physical assessment, medical history, allergy history and patient home medications list prior to surgery/procedure/anesthetic and documented any changes. Performed airway and anesthesia risk assessments. Anesthesia Type Anesthesia Type: MAC History Source History Obtained from:: Patient and Chart Anesthesia Focused Assessment* Temperature: 97.6 F Pulse Rate: 62 Blood Pressure: 107/49 Respiratory Rate: 14 Pulse Ox: 100 Oxygen Delivery Method: Room Air Airway Assessment Mouth opens: >3 cm Mallampati Score: II Teeth Condition: Intact Neck Range of motion (ROM): Full ROM Labs Anesthesia Preop lab: CBC WBC 7.5 K/mm3 (4.4-11.0) 10/03/24 11:51 10/03/24 RBC 4.01 M/mm3 (4.2-5.4) L 10/03/24 11:51 10/03/24 Hgb 11.4 g/dL (12.0-15.0) L 10/03/24 11:51 10/03/24 Hct 36.9 % (37-47) L 10/03/24 11:51 10/03/24 Plt Count 452 K/mm3 (150-450) H 10/03/24 11:51 10/03/24 CHEMISTRY Potassium 3.6 mmol/L (3.5-5.1) 10/03/24 11:51 10/03/24 Sodium 138 mmol/L (136-145) 10/03/24 11:51 10/03/24 BUN 12 mg/dL (7-18) 10/03/24 11:51 10/03/24 Creatinine 0.46 mg/dL (0.55-1.02) L 10/03/24 11:51 10/03/24 Glucose 89 mg/dL (74-106) 10/03/24 11:51 10/03/24 TSH 0.671 uIU/mL (0.358-3.740) 10/03/24 11:51 10/03/24 COAG Urine Test Negative Negative 07/24/25 05:50 07/24/25 Pre-Assessment Diagnosis/Proposed Procedure Planned Operative Procedure(s): EGD Anesthesia History Anesthesia History - equipment operation instructor: Anesthesia History - equipment operation instructor Hx Hospitalization No 07/22/25 10:41 Any Problems With Anesthesia No 07/22/25 10:41 Cholinesterase deficiency No 07/22/25 10:41 You/Your Family Experience No 07/22/25 10:41 fever (hyperthermia) with Relationship Recent Exposure to Contagious No 07/24/25 06:00 Disease Does patient have nerve No 07/22/25 10:41 stimulator Patient instructed to have device shut off --Does patient have Pacemaker No 07/24/25 06:00 or ICD? When Was Last Pacemaker Check QUESTION #4 FULL TEXT: You/Your Family Experience fever (hyperthermia) with Anesthesia Last Oral Intake Last Oral intake: Last Oral Intake NPO since 22:00 07/24/25 06:00 Meds taken in AM with sips of No 07/24/25 06:00 water? 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 - equipment operation instructor: PONV - equipment operation instructor Female Yes 07/22/25 10:41 HX of Motion Sickness No 07/22/25 10:41 HX of N/V After Surgery No 07/22/25 10:41 Non-Smoker Yes 07/22/25 10:41 Duration of Surgery greater No 07/22/25 10:41 than 60 minutes Number of Risk Factors 2 07/22/25 10:41 PONV Score Moderate Risk 07/22/25 10:41 Height & Weight Height & Weight: Anesthesia: Height & Weight Height 5 ft 6 in 07/24/25 06:00 Weight: 97 kg 07/24/25 06:00 Body Mass Index (BMI) 34.4 07/24/25 06:00 Respiratory Assessment Respiratory Assessment - equipment operation instructor: Respiratory Tract Infection Hx - equipment operation instructor Hx Respiratory Tract Infection No 07/22/25 10:41 STOP Sleep Apnea STOP Sleep Apnea - equipment operation instructor: STOP Sleep Apnea - equipment operation instructor Hx Hypertension No 07/22/25 10:41 Hx Sleep Apnea No 07/22/25 10:41 CPAP BIPAP Do you snore loudly (louder No 07/22/25 10:41 than talking or can be heard Do you often feel tired/ No 07/22/25 10:41 fatigued/ sleepy during daytime? Has anyone observed you stop No 07/22/25 10:41 breathing during sleep? STOP Results Negative 07/22/25 10:41 QUESTION #5 FULL TEXT : Do you snore loudly (louder than talking or can be heard through closed doors)? Tobacco Use History Tobacco Use History - equipment operation instructor: Tobacco Use History - equipment operation instructor Tobacco Use Smoking Status Former smoker 07/22/25 10:41 Hx Tobacco Use No 07/22/25 10:41 Years Smoking Packs Smoked per Day Smoking Cessation Date was No - quit smoking greater 07/22/25 10:41 within the last 15 years than 15 years ago Hx Smoking Cessation Date 11/14/04 07/22/25 10:41 Hx Smoking Cessation Counseling Hematologic Medial History Hematologic Hx - equipment operation instructor: Hematologic Medical Hx - emergency room doctor Hx of Blood Transfusion No 07/22/25 10:41 Hx of Transfusion in last 3 No 07/22/25 10:41 Months Date of Last Transfusion (if within last 3 months) Ever experience any problems No 07/22/25 10:41 with transfusion(s)? Specify any problems Hx of Preganancy in last 3 No 07/22/25 10:41 Months Nurse Filling Out Transfusion VCHRISTIN 07/22/25 10:41 & Questions: Date: 07/22/25 07/22/25 10:41 Time: 10:42 07/22/25 10:41 Patient unable to answer at this time (ie. confused, unrespo /Reproduction History /Reproductive History - equipment operation instructor: /Reproductive Hx- equipment operation instructor Hx Now No 07/22/25 10:41 Gestational Age (in weeks): EDC: Hx Hx Para Hx Section SAB No 07/22/25 10:41 Active Medications Active Medications: Current Medications Generic Name Dose Route Start Last Admin Trade Name Freq PRN Reason Stop Dose Admin Lactated Ringer's 1,000 mls @ 15 mls/hr 07/24/25 06:00 07/24/25 06:06 IV 15 mls/hr .Q48H KOBI Administration PFSH Medical History Wears contact lenses Wears glasses History of ulceration History of IBS Former smoker Bloating Abdominal distention Depression Anemia Abdominal pain Stomach ulcer Home Medications ?Medication ?Instructions ?Recorded ?Last Taken ?Type escitalopram oxalate 10 mg tablet 10 mg PO DAILY 12/03/20 07/23/25 History drospirenone 3 mg-ethinyl 1 tab PO QDAY 10/03/24 07/23/25 History estradiol 0.03 mg tablet (Ocella) pantoprazole 40 mg tablet,delayed 40 mg PO DAILY 07/22/25 07/23/25 History release Allergy/AdvReac Type Severity Reaction Status Date / Time oxycodone (From OxyContin) Allergy Rash Verified 07/24/25 05:59 Surgical History Hx of colonoscopy History of esophagogastroduodenoscopy (EGD) History of tonsillectomy History of partial knee replacement History of abdominoplasty History of cholecystectomy H/O gastric bypass Social History Smoking Status: Former smoker Review of Systems (Anesthesia) ROS Narrative System reviewed and no additional complaints, except as documented.
--- NOTE | 2025-07-24 06:38 | HP.PCM_ITS ---
HPI - General General Date of Admission: 07/24/25 Date of Service: 07/24/25 Chief Complaint: abdominal pain HPI Narrative KRISTA SPARKS, is a 39 F who presents with abd discomfort and bloating 39y/o female presents for consultation of abdominal pain. CBC, CMP and Fe panel were unremarkable March 2024. CBC: 03/25/2024 unremarkable - she reports symptoms date back to high school - was on Imodium often for diarrhea - CCX - diarrhea after dining out - reports she had H. Pylori prior to gastric sleeve - Gastric Sleeve - alternating constipation and diarrhea ----- later had conversion to bypass 2019 - then a gastric ulcer 2020 - total weight loss 100lbs - she reports she does not take her vitamins as recommended - she is still having alternating constipation and diarrhea - episodes of fecal incontinence - c/o bloating - c/o flatulence - constipation - can be a few days w/o a BM then will have hard balls of stool - having episodes diarrhea - urgency, incontinence - sx's worse in the past couple years - denies any bleeding - denies any new medications - gas and flatulence - foul odor - 2 episodes in the past week of vomiting secondary to dysphagia - reports experiencing dysphagia more with pasta - has trouble swallowing capsules - does not feel good after eating ground beef B: protein shake L: salad or left overs D: protein (mainly chicken) st procedure [facility] Medical History Wears contact lenses Wears glasses History of ulceration History of IBS Former smoker Bloating Abdominal distention Depression Anemia Abdominal pain Stomach ulcer Home Medications ?Medication ?Instructions ?Recorded ?Last Taken ?Type escitalopram oxalate 10 mg tablet 10 mg PO DAILY 12/0307/23/25 History drospirenone 3 mg-ethinyl 1 tab PO QDAY 10/03/2407/23 History estradiol 0.03 mg tablet (Ocella) pantoprazole 40 mg tablet,delayed 40 mg PO DAILY 07/2207/23/25 History release Allergy/AdvReac Type Severity Reaction Status Date / Time oxycodone (From OxyContin) Allergy Rash Verified 07/24/25 05:59 Surgical History Hx of colonoscopy History of esophagogastroduodenoscopy (EGD) History of tonsillectomy History of partial knee replacement History of abdominoplasty History of cholecystectomy H/O gastric bypass Social History Smoking Status: Former smoker ROS Constitutional Constitutional: Denies fatigue, fever(s), poor appetite, weight gain or weight loss Gastrointestinal Gastrointestinal: Denies belching, bloating, change in bowel habits, change in stool character, chewing difficulty, coffee ground emesis, constipation, cramping, diarrhea, dyspepsia, dysphagia, early satiety, excessive flatus, fecal incontinence, heartburn, hematemesis, hematochezia, hemorrhoids, loose stools, melena, nausea, odynophagia, rectal bleeding, tenesmus, vomiting or weight changes Vital Signs Vital Signs Vital Signs: 07/24/25 06:00 07/24/25 06:00 07/24/25 06:36 Temperature 97.6 F L 97.6 F L Temperature Source Temporal Pulse Rate 62 62 Respiratory Rate 14 14 Respiratory Pattern Normal Blood Pressure 107/49 L 107/49 L Blood Pressure Mean 68 Blood Pressure Source Monitor Blood Pressure Position Semi-Fowlers Blood Pressure Location Left Arm Pulse Ox 100 100 Oxygen Delivery Method Room Air Room Air Weight Weight: 213 lb 13.574 oz Body Mass Index (BMI) 34.4 Physical Exam Const alert, oriented x3, no apparent distress and healthy appearing General Appearance: cooperative GI normal to inspection, nondistended, normoactive bowel sounds, soft to palpation, non-tender and non-distended Percussion: normal to percussion Rectal Exam: deferred Results Lab / Micro Data Labs: Laboratory Results - last 24 hr 07/24/25 05:50: Urine Test Negative Assessment & Plan Assessment/Plan (1) GERD (gastroesophageal reflux disease): QUALIFIERS: Esophagitis presence: esophagitis presence not specified Qualified Code(s): K21.9 - Gastro-esophageal reflux disease without esophagitis (2) Bloating: (3) H/O gastric bypass: PLAN: Assessment & Plan Assessment/Plan (1) Dysphagia: QUALIFIERS: Dysphagia type: esophageal phase Qualified Code(s): R13.19 - Other dysphagia (2) Mixed irritable bowel syndrome: (3) GERD (gastroesophageal reflux disease): QUALIFIERS: Esophagitis presence: esophagitis presence not specified Qualified Code(s): K21.9 - Gastro-esophageal reflux disease without esophagitis (4) Bloating: (5) Flatulence: PLAN: Assessment and Plan Assessment and Plan (1) Abdominal symptoms: (2) Bloating: Status: Acute (3) Abdominal pain: Status: Acute Qualifiers: Abdominal location: epigastric Qualified Code(s): R10.13 - Epigastric pain Comment: Epigastric and RLQ (4) H/O gastric bypass: Status: Acute (5) Flatulence: Status: Acute (6) Bloating: Status: Acute (7) GERD (gastroesophageal reflux disease): Status: Acute Qualifiers: Esophagitis presence: esophagitis presence not specified Qualified Code(s): K21.9 - Gastro-esophageal reflux disease without esophagitis (8) Mixed irritable bowel syndrome: Status: Acute (9) Dysphagia: Status: Acute Qualifiers: Dysphagia type: esophageal phase Qualified Code(s): R13.19 - Other dysphagia Orders: Orders CBC W/Diff, Automated Today K21.9 - Gastro-esophageal reflux disease without esophagitis, K58.2 - Mixed irritable bowel syndrome, R10.9 - Unspecified ab dominal pain, R13.10 - Dysphagia, unspecified, R14.0 - Abdominal distension (gaseous), R14.3 - Flatulence, Z98.84 - Bariatric surgery status Iron Binding Capacity,Total Today K21.9 - Gastro-esophageal reflux disease without esophagitis, K58.2 - Mixed irritable bowel syndrome, R10.9 - Unspecified abdominal pain, R13.10 - Dysphagia, unspecified, R14.0 - Abdominal distension (gaseous), R14.3 - Flatulence, Z98.84 - Bariatric surgery status Iron Today K21.9 - Gastro-esophageal reflux disease without esophagitis, K58.2 - Mixed irritable bowel syndrome, R10.9 - Unspecified abdominal pain, R13.10 - Dysphagia, unspecified, R14.0 - Abdominal distension (gaseous), R14.3 - Flatulence, Z98.84 - Bariatric surgery status Ferritin Today K21.9 - Gastro-esophageal reflux disease without esophagitis, K58.2 - Mixed irritable bowel syndrome, R10.9 - Unspecified abdominal pain, R13.10 - Dysphagia, unspecified, R14.0 - Abdominal distension (gaseous), R14.3 - Flatulence, Z98.84 - Bariatric surgery status Comprehensive Metabolic Profil Today K21.9 - Gastro-esophageal reflux disease without esophagitis, K58.2 - Mixed irritable bowel syndrome, R10.9 - Unspecified abdominal pain, R13.10 - Dysphagia, unspecified, R14.0 - Abdominal distension (gaseous), R14.3 - Flatulence, Z98.84 - Bariatric surgery status Vitamin D,25 Hydroxy Today K21.9 - Gastro-esophageal reflux disease without esophagitis, K58.2 - Mixed irritable bowel syndrome, R10.9 - Unspecified abdominal pain, R13.10 - Dysphagia, unspecified, R14.0 - Abdominal distension (gaseous), R14.3 - Flatulence, Z98.84 - Bariatric surgery status Vitamin A, Retinol Today K21.9 - Gastro-esophageal reflux disease without esophagitis, K58.2 - Mixed irritable bowel syndrome, R10.9 - Unspecified abdominal pain, R13.10 - Dysphagia, unspecified, R14.0 - Abdominal distension (gaseous), R14.3 - Flatulence, Z98.84 - Bariatric surgery status Pancreatic Elastase, Fecal Today K21.9 - Gastro-esophageal reflux disease without esophagitis, K58.2 - Mixed irritable bowel syndrome, R10.9 - Unspecified abdominal pain, R13.10 - Dysphagia, unspecified, R14.0 - Abdominal distension (gaseous), R14.3 - Flatulence, Z98.84 - Bariatric surgery status Calprotectin, Stool Today K21.9 - Gastro-esophageal reflux disease without esophagitis, K58.2 - Mixed irritable bowel syndrome, R10.9 - Unspecified abdominal pain, R13.10 - Dysphagia, unspecified, R14.0 - Abdominal distension (gaseous), R14.3 - Flatulence, Z98.84 - Bariatric surgery status Esophagus Dual Contrast Today K21.9 - Gastro-esophageal reflux disease without esophagitis, K58.2 - Mixed irritable bowel syndrome, R10.9 - Unspecified abdominal pain, R13.10 - Dysphagia, unspecified, R14.0 - Abdominal distension (gaseous), R14.3 - Flatulence, Z98.84 - Bariatric surgery status Miscellaneous Lab Procedure Today K21.9 - Gastro-esophageal reflux disease without esophagitis, K58.2 - Mixed irritable bowel syndrome, R10.9 - Unspecified abdominal pain, R13.10 - Dysphagia, unspecified, R14.0 - Abdominal distension (gaseous), R14.3 - Flatulence, Z98.84 - Bariatric surgery status Celiac Disease Profile Today K21.9 - Gastro-esophageal reflux disease without esophagitis, K58.2 - Mixed irritable bowel syndrome, R10.9 - Unspecified abdominal pain, R13.10 - Dysphagia, unspecified, R14.0 - Abdominal distension (gaseous), R14.3 - Flatulence, Z98.84 - Bariatric surgery status CDIFF (PCR) Today K21.9 - Gastro-esophageal reflux disease without esophagitis, K58.2 - Mixed irritable bowel syndrome, R10.9 - Unspecified abdominal pain, R13.10 - Dysphagia, unspecified, R14.0 - Abdominal distension (gaseous), R14.3 - Flatulence, Z98.84 - Bariatric surgery status Allergen, Food Profile 14 Today K21.9 - Gastro-esophageal reflux disease without esophagitis, K58.2 - Mixed irritable bowel syndrome, R10.9 - Unspecified abdominal pain, R13.10 - Dysphagia, unspecified, R14.0 - Abdominal distension (gaseous), R14.3 - Flatulence, Z98.84 - Bariatric surgery status Thyroid Stim Hormone (TSH) Today K21.9 - Gastro-esophageal reflux disease without esophagitis, K58.2 - Mixed irritable bowel syndrome, R10.9 - Unspecified abdominal pain, R13.10 - Dysphagia, unspecified, R14.0 - Abdominal distension (gaseous), R14.3 - Flatulence, Z98.84 - Bariatric surgery status Vitamin B12 Today K21.9 - Gastro-esophageal reflux disease without esophagitis, K58.2 - Mixed irritable bowel syndrome, R10.9 - Unspecified abdominal pain, R13.10 - Dysphagia, unspecified, R14.0 - Abdominal distension (gaseous), R14.3 - Flatulence, Z98.84 - Bariatric surgery status Plan 39y/o female presents for consultation of abdominal pain. CBC, CMP and Fe panel were unremarkable March 2024. PMH is significant for IBS-D, CCX, Gastric Sleeve with conversion to bypass in 2020, Gastric ulcer, H. pylori positive. She reports a long history of IBS-D dating back to high school. Over the past few years she has experienced alternating constipation and diarrhea with episodes of fecal urgency and incontinence. She c/o excessive bloating and flatulence. She also reports a long history of GERD manage with pantoprazole 40mg daily. More recently she has experienced upper esophageal dysphagia with vomiting to dislodge. I have ordered labs and stool testing, Esophagram and scheduled her for bidirectional scopes. She will trial a lactose free diet in the interim and keep us apprised of any changes in her symptoms. Patient Instructions: 1. Esophagram 2. EGD 3. Complete labs and stool testing 4. Continue pantoprazole 5. Trial 2 week lactose free diet 6. Add Benefiber 2tsp once a day in 8 ounces of fluid - may take up to 3 weeks before you notice any benefit 7. Follow-up in office 2 weeks po
--- NOTE | 2025-07-24 07:05 | OP.EGD_ITS ---
Patient Name: Ale Bell Procedure Date: 07/24/2025 6:19 AM Date of : 1985 Age: 40 Procedure: Upper GI endoscopy Indications: Epigastric abdominal pain Providers: Prabhu Cleary DO Referring MD: Percy Mcgowan Medicines: Monitored Anesthesia Care Patient Profile: This is a 40 year old female. Refer to note in patient chart for documentation of history and physical. Patient has symptoms of chronic abdominal distention and chronic epigastric abdominal pain. Complications: No immediate complications. Procedure: Pre-Anesthesia Assessment: - Prior to the procedure, a History and Physical was performed, and patient medications and allergies were reviewed. The patient is competent. The risks and benefits of the procedure and the sedation options and risks were discussed with the patient. All questions were answered and informed consent was obtained. Patient identification and proposed procedure were verified by the physician in the pre-procedure area. Mental Status Examination: alert and oriented. Airway Examination: normal oropharyngeal airway and neck mobility. Respiratory Examination: clear to auscultation. CV Examination: normal. Prophylactic Antibiotics: The patient does not require prophylactic antibiotics. Prior Anticoagulants: The patient has taken no anticoagulant or antiplatelet agents. ASA Grade Assessment: II - A patient with mild systemic disease. After reviewing the risks and benefits, the patient was deemed in satisfactory condition to undergo the procedure. The anesthesia plan was to use monitored anesthesia care (MAC). Immediately prior to administration of medications, the patient was re-assessed for adequacy to receive sedatives. The heart rate, respiratory rate, oxygen saturations, blood pressure, adequacy of pulmonary ventilation, and response to care were monitored throughout the procedure. The physical status of the patient was re-assessed after the procedure. After obtaining informed consent, the endoscope was passed under direct vision. Throughout the procedure, the patient's blood pressure, pulse, and oxygen saturations were monitored continuously. The gastroscope was introduced through the mouth, and advanced to the anastomosis site of gastric bypass. The upper GI endoscopy was accomplished without difficulty. The patient tolerated the procedure well. Scope In: 6:50:03 AM Scope Out: 6:56:39 AM Total Procedure Duration Time 0 hours 6 minutes 36 seconds Findings: The examined esophagus was normal. Evidence of a gastric bypass was found. A gastric pouch with a normal size was found. The staple line appeared disrupted. The gastrojejunal anastomosis was characterized by healthy appearing mucosa. This was traversed. The [id number]-[id number] limb was characterized by healthy appearing mucosa. The jejunojejunal anastomosis was characterized by healthy appearing mucosa. The iaxxrfdj-ey-ojbtcld limb was not examined as it could not be found. The excluded stomach was not examined as it could not be found. Biopsies were taken with a cold forceps for histology. Verification of patient identification for the specimen was done. Removal of a suture was accomplished with a scissors. Verification of patient identification for the specimen was done. Impression: - Normal esophagus. - Gastric bypass with a normal-sized pouch and disrupted staple line. Gastrojejunal anastomosis characterized by healthy appearing mucosa. Biopsied. Recommendation: - Await pathology results. - Continue present medications. Procedure Code(s): --- Professional --- 10102, Esophagogastroduodenoscopy, flexible, transoral; with removal of foreign body(s) 66783, Esophagogastroduodenoscopy, flexible, transoral; with biopsy, single or multiple CPT copyright 2021 [employer]. All rights reserved. The codes documented in this report are preliminary and upon cso review may be revised to meet current compliance requirements. Prabhu Cleary DO 07/24/2025 7:03:38 AM This report has been signed electronically. Number of Addenda: 0 Note Initiated On: 07/24/2025 6:19 AM
--- NOTE | 2025-07-24 07:05 | OP.PROVAT_ITS ---
07/24/2025 Percy Mcgowan Re : Upper GI endoscopy procedure for Ale Salasr Roslyn This procedure was performed on Thursday, July 24, 2025. My impressions and recommendations are as follows: Impressions : - Normal esophagus. - Gastric bypass with a normal-sized pouch and disrupted staple line. Gastrojejunal anastomosis characterized by healthy appearing mucosa. Biopsied. Recommendations : - Await pathology results. - Continue present medications. My findings are described in the full procedure note, which is enclosed. If I can be of further assistance, please feel free to contact me at . Sincerely, Prabhu Cleary, 07/24/2025 7:03:38 AM This report has been signed electronically.
--- NOTE | 2025-07-24 07:05 | PCM.POST.ANE ---
Anesthesia: Postop Eval I Current Vital Signs Temperature: 98.6 F Pulse Rate: 62 Blood Pressure: 114/79 Respiratory Rate: 16 Pulse Ox: 100 Oxygen Delivery Method: Room Air Assessment Airway patent: Yes Spontaneous unlabored respirations: Yes Mental status: Asleep nausea: No Vomiting: No Anesthesia Complication: No Fluid Hydration Crystalloid volume administer (ml): 400 Total IV fluid infused: 400 Progress Note Anesthesia document: Postop Eval 1 completed: Yes
--- NOTE | 2025-07-24 09:38 | PCM.POSTANE2 ---
Anesthesia Postop Eval I Sum Postop Eval Completion status Anesthesia document: Postop Eval 1 completed: Yes Anesthesia Postop Eval I Summary Anesthesia Postop Eval I Summary: Anesthesia Postop Eval I: Assessment Summary Airway patent Yes 07/24/25 07:05 [email or web address] Spontaneous unlabored Yes 07/24/25 07:05 [email or web address] respirations Mental status Asleep 07/24/25 07:05 [email or web address] nausea No 07/24/25 07:05 [email or web address] Vomiting No 07/24/25 07:05 [email or web address] Anesthesia Postop Eval I: Fluid Summary Crystalloid volume administer 400 07/24/25 07:05 [email or web address] (ml) Colloids volume administered ( ml) Blood Product volume administered (ml) Total IV fluid infused 400 07/24/25 07:05 [email or web address] Anesthesia Postop Eval I: Summary Notes Anesthesia Complication No 07/24/25 07:05 [email or web address] Anesthesia Complication Comment: Post-operative progress note Anesthesia: Postop Eval II Evaluation Mental status: Awake and Calm Pain Level: 1 nausea: No Vomiting: No Complications Anesthesia Complication: No
== END 2025-07-24 07:43 | disposition home or self-care (01) ==
LOC: EN 05:44 → AC 05:45
PROVIDERS: Anesthesiology; PCP Family Medicine; Referring Provider Family Medicine; Visit Provider Internal Medicine Gastroenterology
PROC: 0DJ08ZZ Inspection of Upper Intestinal Tract, Via Natural or Artificial Opening Endoscopic (ICD-10-PCS; CPT 43235; principal; 2025-07-24 06:25)
DX: K21.9 Gastro-esophageal reflux disease without esophagitis (principal); K58.2 Mixed irritable bowel syndrome; Z87.891 Personal history of nicotine dependence; R13.19 Other dysphagia; R15.9 Full incontinence of feces; Z79.899 Other long term (current) drug therapy; Z98.84 Bariatric surgery status; Z98.0 Intestinal bypass and anastomosis status
CPT/HCPCS: 43239; 43247; 81025; 88305; J2405